=== PATIENT | female | born 1990 | race Caucasian/White ===

== ENCOUNTER 2018-01-26 15:52 | Emergency (ER) | payer SELFPAY ==
--- NOTE | 2018-01-26 16:54 | ER ---
Nurse's Notes [facility] Name: Kia Garibay Age: 28 yrs Sex: Female : 1990 Arrival Date: 01/26/2018 Time: 15:54 Bed 14 Private MD: Allison Gage Diagnosis: Cellulitis of left external ear Presentation: 01/26 16:18 Presenting complaint: Patient states: Worsening left outer ear pain and swelling x 5 hb days. Transition of care: patient was not received from another setting of care. Onset of symptoms is unknown. Initial Sepsis Screen: Does the patient meet any 2 criteria? No. Patient's initial sepsis screen is negative. Does the patient have a suspected source of infection? No. Patient's initial sepsis screen is negative. Care prior to arrival: None. 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 - Social history:: Smoking status: Patient/guardian denies using tobacco. Screenin:29 Abuse screen: Denies threats or abuse. Nutritional screening: No deficits noted. ae1 Tuberculosis screening: No symptoms or risk factors identified. Fall Risk None identified. Assessment: 17:26 General: Appears in no apparent distress. comfortable, Behavior is calm, cooperative. ae1 Pain: Complains of pain in left ear lobe and left mastoid area. Neuro: Level of Consciousness is awake, alert, obeys commands, Oriented to person, place, time, situation. Cardiovascular: Patient's skin is warm and dry. Respiratory: Airway is patent Respiratory effort is even, unlabored, relaxed, Respiratory pattern is regular, symmetrical. GI: No signs and/or symptoms were reported involving the gastrointestinal system. : No signs and/or symptoms were reported regarding the genitourinary system. EENT: Significant swelling and redness to left ear lobe, . Derm: Redness to left ear lobe. Musculoskeletal: Swelling present in left ear. Vital Signs: 16:19 BP 122 / 76; Pulse 75; Resp 16; Temp 98.9; Pulse Ox 100% on R/A; Weight 58.97 kg; hb Height 5 ft. (152.40 cm); Pain 4/10; 16:19 Body Mass Index 25.39 (58.97 kg, 152.40 cm) hb ED Course: 15:54 Patient arrived in ED. mr 15:55 Andrey Gageie is Private Physician. mr 16:07 Wend[facility] Lancaster [facility]C [facility] snw 16:07 Chago Carvalho MD is Attending Physician. snw 16:19 Triage completed. hb 16:20 Arm band placed on left wrist. hb 16:40 Isaiah Patel, JENIFER is Primary Nurse. ae1 16:53 Allison Gage is Referral Physician. snw 17:29 Bed in low position. Call light in reach. Side rails up X 1. Adult w/ patient. Pulse ox ae1 on. NIBP on. 17:29 No provider procedures requiring assistance completed. Patient did not have IV access ae1 during this emergency room visit. Administered Medications: 16:54 CANCELLED (other intervention): Clindamycin 300 mg PO once snw 17:10 Drug: Motrin 600 mg Route: PO; ae1 17:30 Follow up: Response: Medication administered at discharge. ae1 17:10 Drug: Doxycycline 100 mg Route: PO; ae1 17:30 Follow up: Response: Medication administered at discharge. ae1 Outcome: 16:54 Discharge ordered by . snw 17:29 Discharged to home ambulatory, with significant other. ae1 17:29 Condition: stable 17:29 Discharge instructions given to patient, Instructed on discharge instructions, follow up and referral plans. medication usage, Demonstrated understanding of instructions, Prescriptions given X 2. 17:30 Patient left the ED. ae1 Signatures: Wendi Lancaster FNP-C FNP-Shi Marshall CamachoJayna, RN RN hb Isaiah Patel, JENIFER RN ae1 Corrections: (The following items were deleted from the chart) 16:22 16:18 Acuity: OMID 3 hb hb
--- NOTE | 2018-01-26 16:54 | EDPHYS ---
Physician Documentation [facility] Name: Kia Garibay Age: 28 yrs Sex: Female : 1990 Arrival Date: 01/26/2018 Time: 15:54 Bed 14 Private MD: Allison Gage ED Physician Chago Carvalho HPI: 01/26 17:01 This 28 yrs old Female presents to ER via Ambulatory with complaints of Ear snw Pain, Ear swelling. 17:01 The patient presents with swelling, erythema to left earlobe. The complaints affect the snw left ear lobe. Onset: The symptoms/episode began/occurred gradually, 5 day(s) ago, and became persistent. Associated signs and symptoms: The patient has no apparent associated signs or symptoms. Severity of symptoms: At their worst the symptoms were moderate severe. The patient has not experienced similar symptoms in the past. The patient has not recently seen a physician. Hx of acne vulgaris. 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 - Social history:: Smoking status: Patient/guardian denies using tobacco. ROS: 17:00 Constitutional: Negative for fever, chills, and weight loss, Eyes: Negative for injury, snw pain, redness, and discharge, Neck: Negative for injury, pain, and swelling, Cardiovascular: Negative for chest pain, palpitations, and edema, Respiratory: Negative for shortness of breath, cough, wheezing, and pleuritic chest pain, Abdomen/GI: Negative for abdominal pain, nausea, vomiting, diarrhea, and constipation, Back: Negative for injury and pain, : Negative for injury, bleeding, discharge, and swelling, MS/Extremity: Negative for injury and deformity, Skin: Negative for injury, rash, and discoloration, Neuro: Negative for headache, weakness, numbness, tingling, and seizure. 17:00 ENT: Positive for ear pain. Exam: 16:59 Constitutional: This is a well developed, well nourished patient who is awake, alert, snw and in no acute distress. Head/Face: Normocephalic, atraumatic. Eyes: Pupils equal round and reactive to light, extra-ocular motions intact. Lids and lashes normal. Conjunctiva and sclera are non-icteric and not injected. Cornea within normal limits. Periorbital areas with no swelling, redness, or edema. Neck: Trachea midline, no thyromegaly or masses palpated, and no cervical lymphadenopathy. Supple, full range of motion without nuchal rigidity, or vertebral point tenderness. No Meningismus. Chest/axilla: Normal chest wall appearance and motion. Nontender with no deformity. No lesions are appreciated. Cardiovascular: Regular rate and rhythm with a normal S1 and S2. No gallops, murmurs, or rubs. Normal PMI, no JVD. No pulse deficits. Respiratory: Lungs have equal breath sounds bilaterally, clear to auscultation and percussion. No rales, rhonchi or wheezes noted. No increased work of breathing, no retractions or nasal flaring. Abdomen/GI: Soft, non-tender, with normal bowel sounds. No distension or tympany. No guarding or rebound. No evidence of tenderness throughout. Back: No spinal tenderness. No costovertebral tenderness. Full range of motion. Skin: Warm, dry with normal turgor. Normal color with no rashes, no lesions, and no evidence of cellulitis. MS/ Extremity: Pulses equal, no cyanosis. Neurovascular intact. Full, normal range of motion. Neuro: Awake and alert, GCS 15, oriented to person, place, time, and situation. Cranial nerves II-XII grossly intact. Motor strength 5/5 in all extremities. Sensory grossly intact. Cerebellar exam normal. Normal gait. 16:59 ENT: External ear(s): cellulitis, that is moderate, swelling, on the left ear lobe, Ear canal(s): are normal, TM's: are normal, Nose: is normal, Mouth: is normal, Posterior pharynx: is normal, Dental exam: normal. Vital Signs: 16:19 BP 122 / 76; Pulse 75; Resp 16; Temp 98.9; Pulse Ox 100% on R/A; Weight 58.97 kg; hb Height 5 ft. (152.40 cm); Pain 4/10; 16:19 Body Mass Index 25.39 (58.97 kg, 152.40 cm) [facility]: 16:30 Patient medically screened. snw 17:01 Data reviewed: vital signs, nurses notes. Data interpreted: Pulse oximetry: on room air snw is 100 %. Interpretation: normal. Counseling: I had a detailed discussion with the patient and/or guardian regarding: the historical points, exam findings, and any diagnostic results supporting the discharge/admit diagnosis, the need for outpatient follow up, to return to the emergency department if symptoms worsen or persist or if there are any questions or concerns that arise at home. Special discussion: Based on the history and exam findings, there is no indication for further emergent testing or inpatient evaluation. I discussed with the patient/guardian the need to see the primary care provider for further evaluation of the symptoms. Administered Medications: 16:54 CANCELLED (other intervention): Clindamycin 300 mg PO once snw 17:10 Drug: Motrin 600 mg Route: PO; ae1 17:30 Follow up: Response: Medication administered at discharge. ae1 17:10 Drug: Doxycycline 100 mg Route: PO; ae1 17:30 Follow up: Response: Medication administered at discharge. ae1 Disposition: 01/27 12:36 Co-signature as Attending Physician, Chago Carvalho MD. Disposition: 18 16:54 Discharged to Home. Impression: Cellulitis of left external ear. - Condition is Stable. - Discharge Instructions: Cellulitis, Heat Therapy. - Prescriptions for Doxycycline Hyclate 100 mg Oral Tablet - take 1 tablet by ORAL route every 12 hours; 20 tablet. Diclofenac Sodium 75 mg Oral Tablet Sustained Release - take 1 tablet by ORAL route 2 times per day; 30 tablet. - Medication Reconciliation Form, Thank You Letter, Antibiotic Education, Prescription Opioid Use form. - Follow up: Allison Gage; When: 2 - 3 days; Reason: Recheck today's complaints, Continuance of care, Re-evaluation by your physician. Follow up: Emergency Department; When: As needed; Reason: Worsening of condition. Signatures: Wendi Lancaster, SYSTEMS ANALYSIS MANAGER-C SYSTEMS ANALYSIS MANAGER-Csnw Jayna Camacho RN RN Isaiah Patel RN RN ae1 Chago Carvalho MD MD Corrections: (The following items were deleted from the chart) 01/26 16:54 16:53 Clindamycin 300 mg PO once ordered. snw snw
[2018-01-26] MEDS ORDERED: NA CHLORIDE 0.9% 250 ML ONE (17:02)
[2018-01-26] MEDS ORDERED: IBUPROFEN 200 MG TAB PO ONE (17:05)
[2018-01-26] MEDS ORDERED: DOXYCYCLINE 100 MG CAP PO ONE (17:06)
[2018-01-26 17:43] VITALS: BP 122/76; TEMP 98.9; O2SAT 100
== END 2018-01-26 17:30 | disposition home or self-care (01) ==
LOC: ER 15:52
DX: H60.12 Cellulitis of left external ear (principal)
CPT/HCPCS: 99283

== ENCOUNTER 2018-07-19 16:12 | Emergency (ER) | payer SELFPAY ==
--- NOTE | 2018-07-19 17:01 | ER ---
Nurse's Notes [facility] Name: Kia Garibay Age: 28 yrs Sex: Female : 1990 Arrival Date: 07/19/2018 Time: 16:15 Bed 30 Private MD: Diagnosis: Hordeolum (externum) (internum) of eyelid-Right Presentation: 07/19 16:30 Presenting complaint: Patient states: "About a week ago, I got what I believe was a sty aj1 on my bottom eye, and it popped, then 3 days ago the top part started swelling up. When I pull down my inner lid there's a spot that is oozing pus and when I wake up my eyes are stuck shut" Denies fever. Transition of care: patient was not received from another setting of care. Onset of symptoms was June 2018. Risk Assessment: Do you want to hurt yourself or someone else? Patient reports no desire to harm self or others. Initial Sepsis Screen: Does the patient meet any 2 criteria? No. Patient's initial sepsis screen is negative. Does the patient have a suspected source of infection? No. Patient's initial sepsis screen is negative. Care prior to arrival: None. 16:30 Method Of Arrival: Ambulatory aj1 16:30 Acuity: OMID 4 aj1 Triage Assessment: 16:32 General: Appears in no apparent distress. comfortable, Behavior is calm, cooperative, aj1 appropriate for age. Pain: Complains of pain in right eye Pain currently is 7 out of 10 on a pain scale. Neuro: Level of Consciousness is awake, alert, obeys commands. Cardiovascular: Patient's skin is warm and dry. Respiratory: Airway is patent Respiratory effort is even, unlabored, Respiratory pattern is regular, symmetrical. 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 - Social history:: Smoking status: Patient/guardian denies using tobacco. - Ebola Screening: : Patient denies travel to an Ebola-affected area in the 21 days before illness onset. Screenin:43 Abuse screen: Denies threats or abuse. Denies injuries from another. Nutritional rv screening: No deficits noted. Tuberculosis screening: No symptoms or risk factors identified. Fall Risk None identified. Assessment: 16:42 General: Appears in no apparent distress. comfortable, Behavior is calm, cooperative. rv Pain: Complains of pain in right eye. Neuro: Level of Consciousness is awake, alert, obeys commands, Oriented to person, place, time, situation. Cardiovascular: Capillary refill < 3 seconds. Respiratory: Airway is patent. GI: No signs and/or symptoms were reported involving the gastrointestinal system. : No signs and/or symptoms were reported regarding the genitourinary system. EENT: Lid(s) w/ stye noted right eye. Derm: Skin. Vital Signs: 16:32 BP 104 / 76; Pulse 89; Resp 18; Temp 97.2(TE); Pulse Ox 99% on R/A; Weight 58.97 kg aj1 (R); Height 4 ft. 11 in. (149.86 cm) (R); Pain 7/10; 16:32 Body Mass Index 26.26 (58.97 kg, 149.86 cm) aj1 ED Course: 16:15 Patient arrived in ED. tw3 16:32 Triage completed. aj1 16:32 Arm band placed on Patient placed in an exam room. aj1 16:40 Jeremiah Oakley PA is PHCP. cp 16:40 Demetrio Salas MD is Attending Physician. cp 16:44 Patient has correct armband on for positive identification. Bed in low position. Call rv light in reach. Side rails up X 1. Adult w/ patient. Pulse ox on. NIBP on. 16:59 Marimar Aguayo MD is Referral Physician. cp 17:14 No provider procedures requiring assistance completed. Patient did not have IV access rv during this emergency room visit. Administered Medications: No medications were administered Outcome: 17:00 Discharge ordered by . cp 17:14 Discharged to home ambulatory. rv 17:14 Condition: good 17:14 Discharge instructions given to patient, Instructed on discharge instructions, follow up and referral plans. medication usage, Demonstrated understanding of instructions, follow-up care, medications, Prescriptions given X 2. 17:15 Patient left the ED. rv Signatures: Margarita Galloway, RN RN aj1 Jeremiah Oakley PA PA cp Wade, Tia tw3 Sergio Traylor RN RN rv
--- NOTE | 2018-07-19 17:02 | EDPHYS ---
Physician Documentation [facility] Name: Kia Garibay Age: 28 yrs Sex: Female : 1990 Arrival Date: 07/19/2018 Time: 16:15 Bed 30 Private MD: ED Physician Demetrio Salas HPI: 07/19 17:00 This 28 yrs old Female presents to ER via Ambulatory with complaints of Eye cp Swelling. 17:00 The patient is experiencing pain, swelling of lower lid, to the right eye. cp 17:00 Onset: The symptoms/episode began/occurred 1 week(s) ago, and became worse 3 day(s) ago.cp 17:00 Associated signs and symptoms: Pertinent negatives: ear ache, fever, headache, drainage cp from eye, change in vision. 17:00 Patient does not utilize any form of vision correction. 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 - Social history:: Smoking status: Patient/guardian denies using tobacco. - Ebola Screening: : Patient denies travel to an Ebola-affected area in the 21 days before illness onset. ROS: 17:05 Constitutional: Negative for body aches, chills, fever, poor PO intake. cp 17:05 ENT: Negative for injury, pain, and discharge. cp 17:05 Eyes: Positive for swelling, of the right upper eyelid and right lower eyelid, Negative for discharge, redness, visual disturbance. 17:05 Respiratory: Negative for cough, shortness of breath, wheezing. 17:05 Abdomen/GI: Negative for abdominal pain, nausea, vomiting, and diarrhea. 17:05 Skin: Negative for rash. 17:05 Neuro: Negative for altered mental status, headache, weakness. 17:05 All other systems are negative. Exam: 17:08 Constitutional: This is a well developed, well nourished patient who is awake, alert, cp and in no acute distress. Head/Face: Normocephalic, atraumatic. 17:08 Eyes: Pupils: equal, round, and reactive to light and accomodation, Extraocular cp movements: intact throughout, Conjunctiva: normal, no exudate, no injection, Corneas: are normal, Sclera: no appreciated abnormality, Anterior chamber: normal, Lids and lashes: drainage, is not appreciated, erythema, is not appreciated, stye, seen on the right lid. 17:08 ENT: External ear(s): are unremarkable, Ear canal(s): are normal, clear, TM's: dullness, bilaterally, Nose: is normal, Mouth: is normal, Posterior pharynx: is normal, airway is patent, no erythema, no exudate. 17:08 Neck: Lymph nodes: no appreciated lymphadenopathy. 17:08 Chest/axilla: Inspection: normal. 17:08 Cardiovascular: Rate: normal, Rhythm: regular. 17:08 Respiratory: the patient does not display signs of respiratory distress, Respirations: normal. 17:08 Skin: no rash present. Vital Signs: 16:32 BP 104 / 76; Pulse 89; Resp 18; Temp 97.2(TE); Pulse Ox 99% on R/A; Weight 58.97 kg aj1 (R); Height 4 ft. 11 in. (149.86 cm) (R); Pain 7/10; 16:32 Body Mass Index 26.26 (58.97 kg, 149.86 cm) aj1 MDM: 16:40 Patient medically screened. cp 17:00 Differential diagnosis: Foreign body in right eye. Infectious conjunctivitis in right cp eye. 17:00 Data reviewed: vital signs, nurses notes, and as a result, I will discharge patient. cp Counseling: I had a detailed discussion with the patient and/or guardian regarding: the historical points, exam findings, and any diagnostic results supporting the discharge/admit diagnosis, the need for outpatient follow up, an opthalmologist. Administered Medications: No medications were administered Disposition: 07/20 07:15 Co-signature as Attending Physician, Demetrio Salas MD I agree with the assessment and kdr plan of care. Disposition: 07/19/18 17:00 Discharged to Home. Impression: Hordeolum (externum) (internum) of eyelid - Right. - Condition is Stable. - Discharge Instructions: Stye. - Prescriptions for Keflex 500 mg Oral Capsule - take 1 capsule by ORAL route every 8 hours for 10 days; 30 capsule. Bacitracin 500 unit/gram Ophthalmic Ointment - instill 0.5 inch by OPHTHALMIC route every 6 hours; 3.5 tube. - Medication Reconciliation Form, Thank You Letter, Antibiotic Education, Prescription Opioid Use form. - Follow up: Marimar Aguayo MD; When: 1 week; Reason: symptoms continue. - Problem is new. - Symptoms are unchanged. - Notes: apply warm compresses to area throughout day Signatures: Margarita Galloway RN RN aj1 Demetrio Salas MD MD kdr Jeremiah Oakley PA PA cp Sergio Traylor RN RN rv Corrections: (The following items were deleted from the chart) 07/19 17:15 17:00 07/19/2018 17:00 Discharged to Home. Impression: Hordeolum (externum) (internum) rv of eyelid - Right. Condition is Stable. Forms are Medication Reconciliation Form, Thank You Letter, Antibiotic Education, Prescription Opioid Use. Follow up: Marimar Aguayo; When: 1 week; Reason: symptoms continue. Problem is new. Symptoms are unchanged. cp
[2018-07-19 17:32] VITALS: BP 104/76; TEMP 97.2; O2SAT 99
== END 2018-07-19 17:15 | disposition home or self-care (01) ==
LOC: ER 16:12
DX: H00.012 Hordeolum externum right lower eyelid (principal)
CPT/HCPCS: 99283

== ENCOUNTER 2019-06-05 15:48 | Emergency (ER) | payer SELFPAY ==
[2019-06-05 19:41] LABS: Urine Blood TRACE (NEG); Urine Glucose NEGATIVE (NEG); Urine Protein NEGATIVE (NEG); Urine Specific Gravity 1.025 (1.005-1.030)
[2019-06-05] MEDS ORDERED: AZITHROMYCIN 250 MG TAB ONE (20:23)
[2019-06-05] MEDS ORDERED: CEFTRIAXONE 1000 MG/VIAL ONE (20:23)
[2019-06-05] MEDS ORDERED: metroNIDAZOLE 500 MG TABLET ONE (20:23)
[2019-06-05] MEDS ORDERED: WATER FOR INJ,STERILE 10 ML ONE (20:24)
--- NOTE | 2019-06-05 20:52 | EDPHYS ---
Physician Documentation [facility] Name: Kia Garibay Age: 29 yrs Sex: Female : 1990 Arrival Date: 06/05/2019 Time: 15:50 Bed Treatment Private MD: ED Physician Jeremiah Gabriel HPI: 06/05 18:14 This 29 yrs old Female presents to ER via Ambulatory with complaints of jmm Abdominal Pain, Back Pain. 18:14 The patient presents with vaginal discharge, that is green discharge. jmm 18:14 Modifying factors: The symptoms are alleviated by nothing, the symptoms are aggravated jmm by nothing. Associated signs and symptoms: Pertinent positives: Pertinent negatives: fever. This is a 29 year old female with no chronic medical conditions that presents to the ED with complaints of vaginal discharge. Patient states she has concerns she may have contracted an std. Patient has pelvic cramping. Denies fever, denies vomiting. . 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 - Social history:: Smoking status: Patient/guardian denies using tobacco. - Ebola Screening: : Patient denies travel to an Ebola-affected area in the 21 days before illness onset. ROS: 18:14 Constitutional: Negative for fever, chills, and weight loss, Cardiovascular: Negative jmm for chest pain, palpitations, and edema, Respiratory: Negative for shortness of breath, cough, wheezing, and pleuritic chest pain, Abdomen/GI: Negative for abdominal pain, nausea, vomiting, diarrhea, and constipation. 18:14 : Positive for vaginal discharge. 18:14 All other systems are negative. Exam: 18:14 Head/Face: atraumatic. Eyes: EOMI, no conjunctival erythema appreciated ENT: Moist jmm Mucus Membranes Neck: Trachea midline, Supple Chest/axilla: Normal chest wall appearance and motion. Cardiovascular: Regular rate and rhythm. No edema appreciated Respiratory: Normal respirations, no respiratory distress appreciated Abdomen/GI: Non distended, soft 18:14 Skin: General appearance color normal MS/ Extremity: Moves all extremities, no obvious deformities appreciated, no edema noted to the lower extremities Neuro: Awake and alert, normal gait Psych: Behavior is normal, Mood is normal, Patient is cooperative and pleasant 18:14 Constitutional: The patient appears in no acute distress, alert, awake. 18:14 : Pelvic Exam: External exam: is normal, Speculum exam: no bleeding is noted, os that is closed, discharge, green. 18:14 : Pelvic Exam: bimanual exam reveals normal findings. Vital Signs: 16:03 BP 131 / 83; Pulse 64; Resp 16; Temp 98.2; Pulse Ox 99% on R/A; Weight 65.77 kg (R); aj1 Height 4 ft. 11 in. (149.86 cm) (R); Pain 0/10; 20:00 BP 115 / 80; Pulse 84; Resp 18; Pulse Ox 100% on R/A; wh 16:03 Body Mass Index 29.29 (65.77 kg, 149.86 cm) aj1 MDM: 18:14 Patient medically screened. dejah 20:51 Data reviewed: vital signs, nurses notes. Counseling: I had a detailed discussion with [facility] the patient and/or guardian regarding: the historical points, exam findings, and any diagnostic results supporting the discharge/admit diagnosis, lab results, the need for outpatient follow up, to return to the emergency department if symptoms worsen or persist or if there are any questions or concerns that arise at home. 21:24 ED course: No adnexal tenderness. I do not suspect TOA. Patient is alert and non toxic [facility] in appearance in the ED. Patient given results and advised the patient the need for possible further testing. Patient was otherwise given strict return precautions. Patient understood and agrees with the plan of care. . 06/05 18:45 Order name: GC (GONORR/CHLAMYDIA) Probe [facility] 06/05 18:45 Order name: Wet Prep; Complete Time: 20:46 [facility] 06/05 19:14 Order name: Urine Dipstick--Ancillary (enter results); Complete Time: 19:55 [facility] 06/05 19:14 Order name: Urine --Ancillary (enter results); Complete Time: 19:55 [facility] 06/05 16:40 Order name: Urine Test (obtain specimen); Complete Time: 19:13 [facility] 06/05 16:40 Order name: Urine Dipstick-Ancillary (obtain specimen); Complete Time: 19:13 [facility] 06/05 18:45 Order name: Pelvic Exam Setup; Complete Time: 19:43 [facility] Administered Medications: 20:38 Drug: Rocephin (cefTRIAXone) 250 mg Route: IM; Site: right gluteus; 21:11 Follow up: Response: No adverse reaction 20:38 Drug: AZITHromycin 1 grams Route: PO; 21:10 Follow up: Response: No adverse reaction 20:38 Drug: Flagyl 2 grams Route: PO; 21:11 Follow up: Response: No adverse reaction Disposition: 06/05/19 20:52 Discharged to Home. Impression: Trichomoniasis, unspecified. - Condition is Stable. - Discharge Instructions: Sexually Transmitted Disease, Trichomoniasis. - Medication Reconciliation Form, Thank You Letter, Antibiotic Education, Prescription Opioid Use form. - Follow up: Private Physician; When: 2 - 3 days; Reason: Recheck today's complaints, Continuance of care, Re-evaluation by your physician. Addendum: 06/07/2019 08:14 Co-signature as Attending Physician, Jeremiah Gabriel MD I agree with the assessment and c cruz plan of care. Signatures: Dispatcher [employer] Margarita Goode, RN RN aj1 Jeremiah Gabriel MD MD cha Therrien, Shelly, SORTING MACHINE ATTENDANT-C SORTING MACHINE ATTENDANT-Csnw Elvin Herrera PA PA jm Shane Caceres Corrections: (The following items were deleted from the chart) 06/05 21:12 20:52 06/05/2019 20:52 Discharged to Home. Impression: Trichomoniasis, unspecified. Condition is Stable. Forms are Medication Reconciliation Form, Thank You Letter, Antibiotic Education, Prescription Opioid Use. Follow up: Private Physician; When: 2 - 3 days; Reason: Recheck today's complaints, Continuance of care, Re-evaluation by your physician. paulo
--- NOTE | 2019-06-05 20:52 | ER ---
Nurse's Notes [facility] Name: Kia Garibay Age: 29 yrs Sex: Female : 1990 Arrival Date: 06/05/2019 Time: 15:50 Bed Treatment Private MD: Diagnosis: Trichomoniasis, unspecified Presentation: 06/05 16:01 Presenting complaint: Patient states: "I think i have a yeast infection but I also aj1 found out that my has been unfaithful" Reports vaginal itching and greenish white discharge. Denies fever. Transition of care: patient was not received from another setting of care. Onset of symptoms was June 05, 2019. Risk Assessment: Do you want to hurt yourself or someone else? Patient reports no desire to harm self or others. Initial Sepsis Screen: Does the patient meet any 2 criteria? No. Patient's initial sepsis screen is negative. Does the patient have a suspected source of infection? No. Patient's initial sepsis screen is negative. Care prior to arrival: None. 16:01 Method Of Arrival: Ambulatory aj 16:01 Acuity: OMID 4 aj1 Triage Assessment: 16:03 General: Appears in no apparent distress. comfortable, Behavior is calm, cooperative, aj1 appropriate for age. Pain: Denies pain. Neuro: Level of Consciousness is awake, alert, obeys commands. Cardiovascular: Patient's skin is warm and dry. Respiratory: Airway is patent Respiratory effort is even, unlabored, Respiratory pattern is regular, symmetrical. GI: Patient currently denies abdominal pain. : Reports discharge, from vagina that is green, white, vaginal itching. 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 - Social history:: Smoking status: Patient/guardian denies using tobacco. - Ebola Screening: : Patient denies travel to an Ebola-affected area in the 21 days before illness onset. Screenin:00 Abuse screen: Denies threats or abuse. Denies injuries from another. Nutritional wh screening: No deficits noted. Tuberculosis screening: No symptoms or risk factors identified. Fall Risk None identified. Assessment: 19:30 General: Appears in no apparent distress. comfortable, Behavior is calm, cooperative, wh appropriate for age. Pain: Denies pain. Neuro: Level of Consciousness is awake, alert, obeys commands. Cardiovascular: Capillary refill < 3 seconds. Respiratory: Airway is patent Respiratory effort is even, unlabored, Respiratory pattern is regular, symmetrical. GI: Abdomen is flat, non-distended, Bowel sounds present X 4 quads. Abd is soft and non tender X 4 quads. : Reports discharge, from vagina that is. EENT: No signs and/or symptoms were reported regarding the EENT system. Derm: Skin is intact, is healthy with good turgor, Skin is pink, warm \\T\\ dry. normal. Musculoskeletal: Range of motion: intact in all extremities. 20:15 Reassessment: Pelvic Exam done by Elvin LEAL and Yolande OTERO as practical nursing faculty. 21:05 Reassessment: Patient appears in no apparent distress at this time. No changes from previously documented assessment. Patient and/or family updated on plan of care and expected duration. Pain level reassessed. Patient is alert, oriented x 3, equal unlabored respirations, skin warm/dry/pink. Vital Signs: 16:03 BP 131 / 83; Pulse 64; Resp 16; Temp 98.2; Pulse Ox 99% on R/A; Weight 65.77 kg (R); aj1 Height 4 ft. 11 in. (149.86 cm) (R); Pain 0/10; 20:00 BP 115 / 80; Pulse 84; Resp 18; Pulse Ox 100% on R/A; wh 16:03 Body Mass Index 29.29 (65.77 kg, 149.86 cm) aj1 ED Course: 15:50 Patient arrived in ED. as 16:02 Triage completed. aj1 16:03 Arm band placed on Patient placed in waiting room, Patient notified of wait time. [facility] 18:10 Elvin Herrera PA is PHCP. [facility] 18:10 Jeremiah Gabriel MD is Attending Physician. [facility] 18:12 Amita Chong, JENIFER is Primary Nurse. iw 20:00 Patient has correct armband on for positive identification. Placed in gown. Bed in low wh position. Call light in reach. Side rails up X 1. Pulse ox on. NIBP on. 20:15 Assist provider with pelvic exam: Set up pelvic tray. Performed by Elvin LEAL Specimens sent to lab. Patient tolerated well. Yolande EDT as Prekindergarten Teacher. Patient did not have IV access during this emergency room visit. 20:41 Primary Nurse role handed off by Amita Chong RN 20:41 Shane Caceres is Primary Nurse. Administered Medications: 20:38 Drug: Rocephin (cefTRIAXone) 250 mg Route: IM; Site: right gluteus; 21:11 Follow up: Response: No adverse reaction 20:38 Drug: AZITHromycin 1 grams Route: PO; 21:10 Follow up: Response: No adverse reaction 20:38 Drug: Flagyl 2 grams Route: PO; 21:11 Follow up: Response: No adverse reaction Outcome: 20:52 Discharge ordered by MD. bates 21:09 Eloped from patient exam room, Time discovered patient gone: June 05, 2019 at 21:10 21:12 Patient left the ED. Signatures: Margarita Galloway, RN RN aj1 Elvin Herrera PA PA jmm Martinez, Amelia as Amita Chong, JENIFER BURGESS Shane Caceres
[2019-06-05 23:09] VITALS: TEMP 98.2
[2019-06-05 23:13] VITALS: BP 115/80; O2SAT 100
== END 2019-06-05 21:12 | disposition home or self-care (01) ==
LOC: ER 15:48
DX: A59.9 Trichomoniasis, unspecified (principal)
CPT/HCPCS: 81003; 81025; 87210; 87490; 87590; 96372; 99284

== ENCOUNTER 2021-04-14 18:09 | Emergency (ER) | payer SELFPAY ==
[2021-04-14 18:40] LABS: Absolute Lymphocytes (CBC) 3.2 K/uL (0.7-4.9); Basophils % 0.6 % (0-1.3); Hematocrit 37.9 % (36.0-45.0); Lymphocytes % 43.6 % (15.3-44.8); MPV 8.4 fL (7.6-11.3); RBC Red Blood Cell Count 4.27 M/uL (3.86-4.86)
[2021-04-14] MEDS ORDERED: METOCLOPRAMIDE 10 MG/2mL INJ ONE (18:48)
[2021-04-14] MEDS ORDERED: DIPHENHYDRAMINE 50 MG/ML VIAL ONE (18:49)
[2021-04-14] MEDS ORDERED: KETOROLAC 30 MG/ML INJ ONE (18:49)
[2021-04-14] MEDS ORDERED: NA CHLORIDE 0.9% 100 ML ONE (18:50)
[2021-04-14 18:53] LABS: Potassium 3.1 mmol/L (3.5-5.1)
--- NOTE | 2021-04-14 19:09 | RAD REPORT ---
EXAM DESCRIPTION: CT - Head Brain Wo Cont - 04/14/2021 6:54 pm CLINICAL HISTORY: HEADACHE Fall, trauma, head injury COMPARISON: <Comparisons> TECHNIQUE: All CT scans are performed using dose optimization technique as appropriate and may inclu de automated exposure control or mA/KV adjustment according to patient size. FINDINGS: No intracranial hemorrhage, hydrocephalus or extra-axial fluid collection.No areas of brai n edema or evidence of midline shift. The paranasal sinuses and mastoids are clear. The calvarium is intact. IMPRESSION: No acute intracranial abnormality.
[2021-04-14] MEDS ORDERED: NA CHLORIDE 0.9% 1,000 ML ONE (19:18)
--- NOTE | 2021-04-14 19:56 | EDPHYS ---
Physician Documentation [facility] Name: Kia Garibay Age: 31 yrs Sex: Female : 1990 Arrival Date: 04/14/2021 Time: 18:13 Bed 25 Private MD: ED Physician Demetrio Salas HPI: 04/14 18:59 This 31 yrs old Female presents to ER via EMS with complaints of Headache. kb 18:59 The patient complains of pain to the entire head. The patient describes the headache as kb intermittent. Onset: The symptoms/episode began/occurred 2 day(s) ago. Associated signs and symptoms: Pertinent positives: nausea, vomiting, Pertinent negatives: altered mental status, dizziness, fever, malaise, neck stiffness, paresthesias, Photophobia rash, sinus congestion, sinus tenderness, vision changes, vision loss, weakness, vertigo. Severity of symptoms: At its worst the pain was moderate, in the emergency department the pain is unchanged. Headache History: The patient has had previous headaches. The symptoms are alleviated by nothing. the symptoms are aggravated by nothing. The patient has not experienced similar symptoms in the past. The patient has not recently seen a physician. Pt reports intermittent headache for 2 days. States it lasts 1-2 hours each time. Reports pain moves around head depending on her position.. 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 - Social history:: Smoking status: Patient reports the use of cigarette tobacco products, smokes one-half pack cigarettes per day. ROS: 18:52 Constitutional: Negative for fever, chills, and weight loss. kb 18:52 Abdomen/GI: Positive for nausea and vomiting, Negative for abdominal pain. 18:52 Neuro: Positive for headache, Negative for altered mental status, dizziness, gait disturbance, hearing loss, loss of consciousness, numbness, seizure activity, speech changes, syncope, near syncope, tingling, tinnitus, tremor, visual changes, weakness. 18:52 All other systems are negative. Exam: 18:53 Constitutional: This is a well developed, well nourished patient who is awake, alert, kb and in no acute distress. Head/Face: Normocephalic, atraumatic. Eyes: Pupils equal round and reactive to light, extra-ocular motions intact. Lids and lashes normal. Conjunctiva and sclera are non-icteric and not injected. Cornea within normal limits. Periorbital areas with no swelling, redness, or edema. ENT: Moist Mucous membranes Neck: Trachea midline, no thyromegaly or masses palpated, and no cervical lymphadenopathy. Supple, full range of motion without nuchal rigidity, or vertebral point tenderness. No Meningismus. Respiratory: Respirations even and unlabored. No increased work of breathing, no retractions or nasal flaring. Abdomen/GI: Soft, non-tender. No distention Skin: Warm, dry with normal turgor. Normal color. MS/ Extremity: Pulses equal, no cyanosis. Neurovascular intact. Full, normal range of motion. Neuro: Awake and alert, GCS 15, oriented to person, place, time, and situation. Moves all extremities. Normal gait. Psych: Awake, alert, with orientation to person, place and time. Behavior, mood, and affect are within normal limits. Vital Signs: 18:14 BP 151 / 96; Pulse 74; Resp 20; Temp 97.8; Pulse Ox 100% on R/A; dh4 Florence Coma Score: 18:53 Eye Response: spontaneous(4). Verbal Response: oriented(5). Motor Response: obeys kb commands(6). Total: 15. MDM: 18:18 Patient medically screened. kb 18:53 Data reviewed: vital signs, nurses notes. Data interpreted: Pulse oximetry: on room air kb is 100 %. Interpretation: normal. 19:54 Counseling: I had a detailed discussion with the patient and/or guardian regarding: the kb historical points, exam findings, and any diagnostic results supporting the discharge/admit diagnosis, lab results, radiology results, the need for outpatient follow up, a neurologist, to return to the emergency department if symptoms worsen or persist or if there are any questions or concerns that arise at home. Response to treatment: the patient's symptoms have resolved after treatment. ED course: Pt reports each time the headache returned was right before engaging in intercourse. . 04/14 18:18 Order name: CBC with Diff; Complete Time: 18:48 kb 04/14 18:18 Order name: Basic Metabolic Panel; Complete Time: 18:53 kb 04/14 18:18 Order name: CT Head Brain wo Cont; Complete Time: 19:10 kb 04/14 18:18 Order name: IV Start; Complete Time: 18:29 kb Administered Medications: 18:30 Drug: Ketorolac 30 mg Route: IVP; Site: left antecubital; ca1 19:00 Follow up: Response: No adverse reaction jb4 18:32 Drug: Benadryl (diphenhydrAMINE) 12.5 mg Route: IVP; Site: left antecubital; ca1 19:00 Follow up: Response: No adverse reaction jb4 18:34 Drug: Reglan (metoCLOPramide) 10 mg Route: IVP; Site: left antecubital; ca1 20:26 Follow up: Response: No adverse reaction jb4 18:59 Drug: NS 0.9% 1000 ml Route: IV; Rate: 1000 ml; Site: left antecubital; ca1 20:00 Follow up: Response: No adverse reaction; IV Status: Completed infusion; IV Intake: jb4 1000ml 20:03 Drug: Potassium Chloride 40 mEq Route: PO; jb4 20:23 Follow up: Response: Medication administered at discharge. jb4 20:03 Drug: [place] (HYDROcodone-acetaminophen) (7.5 mg-325 mg) 1 tabs Route: PO; jb4 20:20 Follow up: Response: Medication administered at discharge. jb4 Disposition Summary: 04/14/21 19:55 Discharge Ordered Location: Home kb Condition: Stable kb Diagnosis - Headache kb Followup: kb - With: Emergency Department - When: As needed - Reason: Worsening of condition Followup: kb - With: Private Physician - When: 2 - 3 days - Reason: Recheck today's complaints, Continuance of care, Re-evaluation by your physician Discharge Instructions: - Discharge Summary Sheet kb - General Headache Without Cause, [id number] kb Forms: - Medication Reconciliation Form kb - Thank You Letter kb - Antibiotic Education kb - Prescription Opioid Use kb Addendum: 04/16/2021 07:24 Co-signature as Attending Physician, Demetrio Salas MD I agree with the assessment and k dr plan of care. Signatures: Dispatcher [employer] EDMS Maegan Sevilla, SHOP FITTER-C SHOP FITTER-Ckb Rittger, DemetrioMD MD rick Irene, RN RN iw Marvin Carreon, RN RN jb4 Matilde Black, RN RN ca1
--- NOTE | 2021-04-14 19:56 | ER ---
Nurse's Notes [facility] Name: Kia Garibay Age: 31 yrs Sex: Female : 1990 Arrival Date: 04/14/2021 Time: 18:13 Bed 25 Private MD: Diagnosis: Headache Presentation: 04/14 18:15 Chief complaint: EMS states: fell a week ago, has had headache since then, worse now. iw Coronavirus screen: headache. Ebola Screen: Patient negative for fever greater than or equal to 101.5 degrees Fahrenheit, and additional compatible Ebola Virus Disease symptoms Patient denies exposure to infectious person. Patient denies travel to an Ebola-affected area in the 21 days before illness onset. No symptoms or risks identified at this time. Initial Sepsis Screen: Does the patient meet any 2 criteria? No. Patient's initial sepsis screen is negative. Does the patient have a suspected source of infection? No. Patient's initial sepsis screen is negative. Risk Assessment: Do you want to hurt yourself or someone else? Patient reports no desire to harm self or others. Onset of symptoms was April 07, 2021. 18:15 Method Of Arrival: EMS: [facility] iw 18:15 Acuity: OMID 3 iw Triage Assessment: 18:24 Headache History: The patient has had previous headaches and this one is more severe ca1 than previous episodes. General: Appears in no apparent distress. uncomfortable, Behavior is restless. Pain: Also complains of nausea. Pain: Complains of pain in face and scalp Pain currently is 10 out of 10 on a pain scale. Quality of pain is described as throbbing, Pain began 1 day ago. 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 - Social history:: Smoking status: Patient reports the use of cigarette tobacco products, smokes one-half pack cigarettes per day. Screenin:22 Abuse screen: Denies threats or abuse. Denies injuries from another. Nutritional ca1 screening: No deficits noted. Tuberculosis screening: No symptoms or risk factors identified. Fall Risk IV access (20 points). Assessment: 18:22 General: Appears in no apparent distress. uncomfortable, Behavior is restless. Pain: ca1 Complains of pain in head Pain currently is 10 out of 10 on a pain scale. Quality of pain is described as throbbing, Pain began 1 day ago. Neuro: Level of Consciousness is awake, alert, obeys commands, Oriented to person, place, time, situation. Derm: Skin is intact, is healthy with good turgor, Skin is pink, warm \T\ dry. Musculoskeletal: Circulation, motion, and sensation intact. Capillary refill < 3 seconds. 19:00 Reassessment: Patient appears in no apparent distress at this time. Patient and/or jb4 family updated on plan of care and expected duration. Pain level reassessed. Patient is alert, oriented x 3, equal unlabored respirations, skin warm/dry/pink. 20:19 Reassessment: Patient appears in no apparent distress at this time. Patient and/or jb4 family updated on plan of care and expected duration. Pain level reassessed. Patient is alert, oriented x 3, equal unlabored respirations, skin warm/dry/pink. Vital Signs: 18:14 BP 151 / 96; Pulse 74; Resp 20; Temp 97.8; Pulse Ox 100% on R/A; dh4 Rommel Coma Score: 18:53 Eye Response: spontaneous(4). Verbal Response: oriented(5). Motor Response: obeys kb commands(6). Total: 15. ED Course: 18:13 Patient arrived in ED. iw 18:16 Triage completed. iw 18:17 Maegan Sevilla FNP-C is [facility]. kb 18:17 Demetrio Salas MD is Attending Physician. kb 18:22 Matilde Black, JENIFER is Primary Nurse. ca1 18:22 Arm band placed on right wrist. ca1 18:22 Patient has correct armband on for positive identification. Bed in low position. Call ca1 light in reach. Side rails up X2. Pulse ox on. NIBP on. Door closed. Noise minimized. Lights dimmed. 18:28 Inserted saline lock: 20 gauge in left antecubital area, using aseptic technique. Blood dh4 collected. 18:53 CT Head Brain wo Cont In Process Unspecified. EDMS 20:19 No provider procedures requiring assistance completed. IV discontinued, intact, jb4 bleeding controlled, No redness/swelling at site. Administered Medications: 18:30 Drug: Ketorolac 30 mg Route: IVP; Site: left antecubital; ca1 19:00 Follow up: Response: No adverse reaction jb4 18:32 Drug: Benadryl (diphenhydrAMINE) 12.5 mg Route: IVP; Site: left antecubital; ca1 19:00 Follow up: Response: No adverse reaction jb4 18:34 Drug: Reglan (metoCLOPramide) 10 mg Route: IVP; Site: left antecubital; ca1 20:26 Follow up: Response: No adverse reaction jb4 18:59 Drug: NS 0.9% 1000 ml Route: IV; Rate: 1000 ml; Site: left antecubital; ca1 20:00 Follow up: Response: No adverse reaction; IV Status: Completed infusion; IV Intake: jb4 1000ml 20:03 Drug: Potassium Chloride 40 mEq Route: PO; jb4 20:23 Follow up: Response: Medication administered at discharge. jb4 20:03 Drug: [place] (HYDROcodone-acetaminophen) (7.5 mg-325 mg) 1 tabs Route: PO; jb4 20:20 Follow up: Response: Medication administered at discharge. jb4 Intake: 20:00 IV: 1000ml; Total: 1000ml. jb4 Outcome: 19:55 Discharge ordered by . kb 20:19 Discharged to home ambulatory. jb4 20:19 Condition: stable 20:19 Discharge instructions given to patient, Instructed on discharge instructions, follow up and referral plans. Demonstrated understanding of instructions, follow-up care. 20:26 Patient left the ED. jb4 Signatures: Dispatcher [employer] EDMaegan Vitale, MUD JACK OPERATOR-C MUD JACK OPERATOR-CkAmita Levin, Marvin Vanessa RN, RN RN jb4 Matilde Black RN RN ca1 Huhn, Donald [facility]
[2021-04-14] MEDS ORDERED: HYDROCODONE/APAP 7.5/325 MG TAB ONE (20:22)
[2021-04-14] MEDS ORDERED: POTASSIUM CL SA 10 MEQ TAB PO ONE (20:22)
[2021-04-14 20:37] VITALS: BP 151/96; TEMP 97.8; O2SAT 100
== END 2021-04-14 20:26 | disposition home or self-care (01) ==
LOC: ER 18:09
DX: R51.9 Headache, unspecified (principal); F17.210 Nicotine dependence, cigarettes, uncomplicated
CPT/HCPCS: 36415; 70450; 80048; 85025; 96361; 96374; 96375; 99284; J1200; J2765; J7030

== ENCOUNTER 2021-04-18 06:38 | Emergency (ER) | payer SELFPAY ==
[2021-04-18] MEDS ORDERED: ONDANSETRON 4 MG/2 ML VIAL ONE ×2 (07:32→10:27)
[2021-04-18] MEDS ORDERED: MORPHINE 4 MG/ML SYR ONE (07:32)
[2021-04-18] MEDS ORDERED: NA CHLORIDE 0.9% 1,000 ML ONE (07:32)
[2021-04-18] MEDS ORDERED: DIPHENHYDRAMINE 50 MG/ML VIAL ONE (07:35)
[2021-04-18] MEDS ORDERED: METOCLOPRAMIDE 10 MG/2mL INJ ONE (07:35)
[2021-04-18] MEDS ORDERED: KETOROLAC 30 MG/ML INJ ONE (07:35)
[2021-04-18] MEDS ORDERED: dexAMETHasone 10 MG/ML VIAL ONE (08:30)
--- NOTE | 2021-04-18 08:35 | RAD REPORT ---
EXAM DESCRIPTION: CT - Head Brain Wo Cont - 04/18/2021 8:11 am CLINICAL HISTORY: HEADACHE Headache, drowsiness COMPARISON: Head Brain Wo Cont dated 04/14/2021; HEAD BRAIN W O CONTRAST dated 06/24/2014 TECHNIQUE: All CT scans are performed using dose optimization technique as appropriate and may inclu de automated exposure control or mA/KV adjustment according to patient size. FINDINGS: No intracranial hemorrhage, hydrocephalus or extra-axial fluid collection.No areas of brai n edema or evidence of midline shift. The paranasal sinuses and mastoids are clear. The calvarium is intact. IMPRESSION: No acute intracranial abnormality.
[2021-04-18 08:37] LABS: Urine Blood Trace-intact (Negative); Urine Glucose Negative (Negative); Urine Protein Negative (Negative)
[2021-04-18] MEDS ORDERED: ACETAMINOPHEN 500 MG TAB ONE (08:51)
[2021-04-18] MEDS ORDERED: CEFTRIAXONE/SWI 1gm 1 GM/10 ML SYR ONE (09:36)
[2021-04-18 09:55] LABS: Barbiturates NEGATIVE (NEGATIVE); Benzodiazepines NEGATIVE (NEGATIVE); Cocaine NEGATIVE (NEGATIVE); METHAMPHETAM NEGATIVE (NEGATIVE); Methadone NEGATIVE (NEGATIVE); Opiates NEGATIVE (NEGATIVE); Phencyclidine NEGATIVE (NEGATIVE); THC Cannibis POSITIVE (NEGATIVE)
[2021-04-18] MEDS ORDERED: DIAZEPAM 10 MG/2 ML INJ SYRINGE ONE (10:27)
--- NOTE | 2021-04-18 11:46 | EDPHYS ---
Physician Documentation [facility] Name: Kia Garibay Age: 31 yrs Sex: Female : 1990 Arrival Date: 04/18/2021 Time: 06:40 Bed 14 Private MD: ED Physician Jeremiah Gabriel HPI: 04/18 07:10 This 31 yrs old Female presents to ER via Ambulatory with complaints of pm1 Headache. 07:10 The patient complains of pain to the top of head, forehead, left side of the back of pm1 head, left occipital area, right side of the back of head and right occipital area. The patient describes the headache as aching, constant, throbbing. Onset: The symptoms/episode began/occurred 6 day(s) ago. Associated signs and symptoms: Pertinent positives: nausea, Pertinent negatives: fever. 07:10 Associated signs and symptoms: Pertinent negatives: neck stiffness, vision changes, pm1 vertigo vomiting, diarrhea. Severity of symptoms: in the emergency department the pain is unchanged. Headache History: Other longer in duration. The symptoms are alleviated by Darkened room. The patient has been recently seen at the [facility] Emergency Department, this week, for similar complaints labs were performed, CT scan was performed, 4 days ago. 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 - Social history:: Smoking status: Patient reports the use of cigarette tobacco products, smokes one-half pack cigarettes per day. ROS: 07:10 Constitutional: Negative for fever, chills, and weight loss, Eyes: Negative for injury, pm1 pain, redness, and discharge, ENT: Negative for injury, pain, and discharge, Neck: Negative for injury, pain, and swelling, Cardiovascular: Negative for chest pain, palpitations, and edema, Respiratory: Negative for shortness of breath, cough, wheezing, and pleuritic chest pain, Abdomen/GI: Negative for abdominal pain, nausea, vomiting, diarrhea, and constipation. 07:10 MS/Extremity: Negative for injury and deformity, Skin: Negative for injury, rash, and discoloration. 07:10 : Positive for burning with urination, Negative for flank pain. 07:10 Neuro: Positive for headache, of the top of head, forehead, left side of the back of head, left occipital area, right side of the back of head and right occipital area, Negative for numbness, tingling, weakness. Exam: 07:10 Constitutional: This is a well developed, well nourished patient who is awake, alert, pm1 and in no acute distress. 07:10 Neck: Trachea midline, no thyromegaly or masses palpated, and no cervical lymphadenopathy. Supple, full range of motion without nuchal rigidity, or vertebral point tenderness. No Meningismus. 07:10 Back: No spinal tenderness. No costovertebral tenderness. Full range of motion. Skin: Warm, dry with normal turgor. Normal color with no rashes, no lesions, and no evidence of cellulitis. MS/ Extremity: Pulses equal, no cyanosis. Neurovascular intact. Full, normal range of motion. 07:10 Head/face: Noted is no obvious of injury or deformity except tenderness, that is moderate, of the forehead, left occipital area and right occipital area. 07:10 Eyes: Exam is negative for acute changes, Extraocular movements: intact throughout, Conjunctiva: no acute changes, no injection, Sclera: no acute changes, icterus, is not appreciated. 07:10 ENT: External ear(s): are unremarkable, Ear canal(s): are normal, TM's: are normal, Mouth: Lips: normal, Oral mucosa: normal, pink and intact, moist. 07:10 Cardiovascular: Rate: normal, Rhythm: regular, Pulses: no pulse deficits are appreciated. 07:10 Respiratory: Exam negative for acute changes, respiratory distress, shortness of breath. 07:10 Abdomen/GI: Inspection: abdomen appears normal, Bowel sounds: normal, Palpation: abdomen is soft and non-tender, in all quadrants. 07:10 Neuro: Orientation: is normal, Mentation: is normal, Motor: is normal, moves all fours. 07:10 Psych: Behavior/mood is anxious, Affect is animated, Oriented to person, place, time. Vital Signs: 06:57 BP 160 / 90; Pulse 71; Resp 20 S; Temp 97.6(A); Pulse Ox 100% on R/A; Weight 63.5 kg bb (R); Pain 10/10; 11:03 BP 122 / 79; Pulse 71; Resp 18; Pulse Ox 99% on R/A; tw2 12:06 BP 133 / 76; Pulse 77; Resp 17; Pulse Ox 99% on R/A; tw2 MDM: 06:54 Patient medically screened. dejah 10:00 Data reviewed: vital signs. Data interpreted: Pulse oximetry: on room air is 100 %. pm1 Interpretation: normal. 11:44 Counseling: I had a detailed discussion with the patient and/or guardian regarding: the pm1 historical points, exam findings, and any diagnostic results supporting the discharge/admit diagnosis, lab results, radiology results, the need for outpatient follow up, to return to the emergency department if symptoms worsen or persist or if there are any questions or concerns that arise at home. 11:44 ED course: Patient reports decreased pain with palpation of scalp after administration pm1 of Valium. Will discharge home with valium. 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 pm1 04/18 07:10 Order name: UDS pm1 04/18 07:10 Order name: Urine Drug Screen; Complete Time: 09:58 EDMS 04/18 06:58 Order name: CT Head Brain wo Cont; Complete Time: 08:36 pm1 04/18 08:36 Order name: Urine Microscopic Only pm1 04/18 08:37 Order name: Urine Dipstick-Ancillary; Complete Time: 08:40 EDMS 04/18 06:58 Order name: IV Saline Lock; Complete Time: 07:26 pm1 04/18 06:58 Order name: Urine Dipstick-Ancillary (obtain specimen); Complete Time: 08:45 pm1 04/18 06:58 Order name: Urine Test (obtain specimen); Complete Time: 08:45 pm1 Administered Medications: 07:20 Drug: Benadryl (diphenhydrAMINE) 25 mg Route: IVP; Site: left antecubital; tw2 08:17 Follow up: Response: No adverse reaction 2 07:22 Drug: Reglan (metoCLOPramide) 10 mg Route: IVP; Site: left antecubital; tw2 08:15 Follow up: Response: No adverse reaction tw2 08:16 Follow up: Response: No adverse reaction tw2 07:24 Drug: Ketorolac 30 mg Route: IVP; Site: left antecubital; tw2 08:16 Follow up: Response: No adverse reaction tw2 07:26 Drug: NS 0.9% 1000 ml Route: IV; Rate: 1000 ml; Site: left antecubital; tw2 10:12 Follow up: Response: No adverse reaction; IV Status: Completed infusion; IV Intake: tw2 1000ml 08:14 Drug: Decadron - Dexamethasone 10 mg Route: IVP; Site: left antecubital; tw2 10:03 Follow up: Response: No adverse reaction tw2 08:40 Drug: Tylenol 1000 mg Route: PO; tw2 10:03 Follow up: Response: No adverse reaction; Pain is unchanged, physician notified tw2 10:05 Drug: Zofran (Ondansetron) 4 mg Route: IVP; Site: left antecubital; tw2 11:52 Follow up: Response: No adverse reaction tw2 10:11 Drug: Rocephin (cefTRIAXone) 1 grams Route: IV; Rate: calculated rate; Site: left tw2 antecubital; 10:14 Follow up: Response: No adverse reaction; IV Status: Completed infusion; IV Intake: [id number] 10:11 Drug: Valium (diazepam) 5 mg Route: IVP; Site: left antecubital; tw2 11:52 Follow up: Response: No adverse reaction; Pain is decreased tw2 Disposition: 04/19 07:10 Co-signature as Attending Physician, Jeremiah Gabriel MD I agree with the assessment and dejah plan of care. Disposition Summary: 04/18/21 11:45 Discharge Ordered Location: Home pm1 Problem: new pm1 Symptoms: have improved pm1 Condition: Stable pm1 Diagnosis - Headache pm1 - UTI/ Urinary tract infection, site not specified pm1 Followup: pm1 - With: Emergency Department - When: As needed - Reason: Worsening of condition Followup: pm1 - With: Private Physician - When: 2 - 3 days - Reason: Recheck today's complaints, Continuance of care, Re-evaluation by your physician Discharge Instructions: - Discharge Summary Sheet pm1 - General Headache Without Cause pm1 - Urinary Tract Infection, Adult pm1 Forms: - Medication Reconciliation Form pm1 - Thank You Letter pm1 - Antibiotic Education pm1 - Prescription Opioid Use pm1 Prescriptions: - Valium 2 mg Oral Tablet - take 1 tablet by ORAL route every 8 hours As needed; 12 tablet; Refills: 0, pm1 Product Selection Permitted - Zofran 4 mg Oral Tablet - take 1 tablet by ORAL route every 8 hours As needed; 20 tablet; Refills: 0, pm1 Product Selection Permitted - Bactrim DS 800-160 mg Oral Tablet - take 1 tablet by ORAL route every 12 hours for 10 days; 20 tablet; Refills: 0, pm1 Product Selection Permitted Signatures: Dispatcher [employer] Jeremiah Babb MD MD cha Ballard, Brenda, RN RN bb Elfego Yeh, KAT WEBBING INSPECTOR pm1 Frieda Vallejo RN RN tw2
--- NOTE | 2021-04-18 11:46 | ER ---
Nurse's Notes [facility] Name: Kia Garibay Age: 31 yrs Sex: Female : 1990 Arrival Date: 04/18/2021 Time: 06:40 Bed 14 Private MD: Diagnosis: Headache;UTI/ Urinary tract infection, site not specified Presentation: 04/18 06:57 Chief complaint: Patient states: she has been seen here in the last few days for bb similar symptoms of headache, "hands locking up", nausea, falling. Coronavirus screen: At this time, the client does not indicate any symptoms associated with coronavirus-19. Ebola Screen: No symptoms or risks identified at this time. Initial Sepsis Screen: Does the patient meet any 2 criteria? No. Patient's initial sepsis screen is negative. Does the patient have a suspected source of infection? No. Patient's initial sepsis screen is negative. Risk Assessment: Do you want to hurt yourself or someone else? Patient reports no desire to harm self or others. Onset of symptoms was March 2021. 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 - Social history:: Smoking status: Patient reports the use of cigarette tobacco products, smokes one-half pack cigarettes per day. Screenin:28 Abuse screen: Denies threats or abuse. Nutritional screening: No deficits noted. tw2 Tuberculosis screening: No symptoms or risk factors identified. Fall Risk None identified. Assessment: 07:30 General: Appears uncomfortable, unkempt, Behavior is anxious, fussy. Pain: Complains of tw2 pain in face and scalp. Neuro: Level of Consciousness is awake, alert, obeys commands, Oriented to person, place, time, situation, Reports headache. Cardiovascular: Patient's skin is warm and dry. Respiratory: Airway is patent Respiratory effort is even, unlabored, Respiratory pattern is regular, symmetrical. GI: No signs and/or symptoms were reported involving the gastrointestinal system. : No signs and/or symptoms were reported regarding the genitourinary system. EENT: No signs and/or symptoms were reported regarding the EENT system. Derm: No signs and/or symptoms reported regarding the dermatologic system. Musculoskeletal: Range of motion: intact in all extremities. 08:11 Reassessment: pt back from CT at this time. medicated as directed. 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 09:30 Reassessment: No changes from previously documented assessment. Patient and/or family tw2 updated on plan of care and expected duration. Pain level reassessed. Patient is alert, oriented x 3, equal unlabored respirations, skin warm/dry/pink. 10:30 Reassessment: No changes from previously documented assessment. Patient and/or family tw2 updated on plan of care and expected duration. Pain level reassessed. Patient is alert, oriented x 3, equal unlabored respirations, skin warm/dry/pink. 12:06 Reassessment: Patient states feeling better. Patient states symptoms have improved. tw2 Vital Signs: 06:57 BP 160 / 90; Pulse 71; Resp 20 S; Temp 97.6(A); Pulse Ox 100% on R/A; Weight 63.5 kg bb (R); Pain 10/10; 11:03 BP 122 / 79; Pulse 71; Resp 18; Pulse Ox 99% on R/A; tw2 12:06 BP 133 / 76; Pulse 77; Resp 17; Pulse Ox 99% on R/A; tw2 ED Course: 06:40 Patient arrived in ED. es 06:50 Elfego Yeh NP is PHCP. pm1 06:50 Jeremiah Gabriel MD is Attending Physician. pm1 06:59 Triage completed. bb 06:59 Arm band placed on. bb 07:00 Bed in low position. Call light in reach. Pulse ox on. NIBP on. tw2 07:05 Frieda Vallejo, JENIFER is Primary Nurse. tw2 07:20 Inserted saline lock: 20 gauge in left antecubital area, using aseptic technique. tw2 08:11 CT Head Brain wo Cont In Process Unspecified. EDMS 11:55 Awaiting: printing of RX from provider at this time PRIOR to discharge. tw2 12:06 No provider procedures requiring assistance completed. IV discontinued, intact, tw2 bleeding controlled, No redness/swelling at site. Pressure dressing applied. Administered Medications: 07:20 Drug: Benadryl (diphenhydrAMINE) 25 mg Route: IVP; Site: left antecubital; tw2 08:17 Follow up: Response: No adverse reaction tw2 07:22 Drug: Reglan (metoCLOPramide) 10 mg Route: IVP; Site: left antecubital; tw2 08:15 Follow up: Response: No adverse reaction tw2 08:16 Follow up: Response: No adverse reaction tw2 07:24 Drug: Ketorolac 30 mg Route: IVP; Site: left antecubital; tw2 08:16 Follow up: Response: No adverse reaction tw2 07:26 Drug: NS 0.9% 1000 ml Route: IV; Rate: 1000 ml; Site: left antecubital; tw2 10:12 Follow up: Response: No adverse reaction; IV Status: Completed infusion; IV Intake: tw2 1000ml 08:14 Drug: Decadron - Dexamethasone 10 mg Route: IVP; Site: left antecubital; tw2 10:03 Follow up: Response: No adverse reaction tw2 08:40 Drug: Tylenol 1000 mg Route: PO; tw2 10:03 Follow up: Response: No adverse reaction; Pain is unchanged, physician notified tw2 10:05 Drug: Zofran (Ondansetron) 4 mg Route: IVP; Site: left antecubital; tw2 11:52 Follow up: Response: No adverse reaction tw2 10:11 Drug: Rocephin (cefTRIAXone) 1 grams Route: IV; Rate: calculated rate; Site: left tw2 antecubital; 10:14 Follow up: Response: No adverse reaction; IV Status: Completed infusion; IV Intake: [id number] 10:11 Drug: Valium (diazepam) 5 mg Route: IVP; Site: left antecubital; tw2 11:52 Follow up: Response: No adverse reaction; Pain is decreased tw2 Intake: 10:12 IV: 1000ml; Total: 1000ml. tw2 10:14 IV: 10ml; Total: 1010ml. tw2 Outcome: 11:45 Discharge ordered by . pm1 12:06 Discharged to home via wheelchair, with friend. tw2 12:06 Condition: stable 12:06 Discharge instructions given to patient, friend, Instructed on discharge instructions, follow up and referral plans. no drinking with medication, no driving heavy equipment, medication usage, Demonstrated understanding of instructions, follow-up care, medications, Prescriptions given X 3. 12:07 Patient left the ED. tw2 Signatures: Dispatcher [employer] Mary Bhatt Brenda, RN RN bb Marinas, Patrick, NP ENVIRONMENTAL GEOLOGIST pm1 Frieda Vallejo RN RN tw2
[2021-04-18 12:18] VITALS: TEMP 97.6
[2021-04-18 12:20] VITALS: O2SAT 99
[2021-04-18 12:21] VITALS: BP 133/76
== END 2021-04-18 12:07 | disposition home or self-care (01) ==
LOC: ER 06:38
DX: N39.0 Urinary tract infection, site not specified (principal); F17.210 Nicotine dependence, cigarettes, uncomplicated
CPT/HCPCS: 70450; 80307; 81003; 96361; 96374; 96375; 99284; J0696; J1100; J1200; J2405; J2765; J3360; J7030

== ENCOUNTER 2021-10-06 14:03 | Emergency (ER) | payer SELFPAY ==
--- OUTSIDE RECORDS SUMMARY | 2021-10-06 14:06 | XMS REPORT | Continuity of Care Document ---
:1990 Author Organization [facility] t Address [address] [place] [address] Care Team Providers Name Role Phone Pcp, Does Not Have A Primary Care Physician Joe PEDROZA Attending Clinician JOE Attending Clinician Unavailable Jess BOTTOM BUFFER, G Attending Clinician Doctor Unassigned, Name Attending Clinician Unavailable Payers Payer Name Policy Type Policy Number Effective Date Expiration Date S [place] [employer] [place] [id number] 2021 00:00:00 WOMEN Problems Condition Condition Condition Status Onset Resolution Last Treating Co mments Source Name Details Category Date Date Treatment Clinician Date No known No known Disease Unive rs active active ity of problems problems [facility] Allergies, Adverse Reactions, Alerts Allergy Allergy Status Severity Reaction(s) Onset Inactive Treating Comm ents Source Name Type Date Date Clinician NO KNOWN Drug Active Univers ALLERGIE Class ity of S [facility] Social History Social Habit Start Date Stop Date Quantity Comments Source Exposure to Not sure [facility] SARS-CoV-2 (event) Medica l Branch Sex Assigned At [birth year] [facility] 00:00:00 00:00:00 [facility] Smoking Status Start Date Stop Date Source Unknown if ever smoked [facility] Medications Ordered Filled Start Stop Current Ordering Indication Dosage Frequency Signature Comments Components Source Medication Medication Date Date Medication? Clinician (SIG) Name Name cephALEXin 2020- No [id number] 250mg Take 1 Univers 250 mg 9-20 - capsule by ity of capsule 00:00: 04:59 mouth [place] 00 :00 every 8 Medical (eight) Branch hours for 10 days. cephALEXin 2020- No [id number] 250mg Take 1 Univers 250 mg 9-20 10- capsule by ity of capsule 00:00: 04:59 mouth [place] 00 :00 every 8 Medical (eight) Branch hours for 10 days. cephALEXin 2020- No [id number] 250mg Take 1 Univers 250 mg 9-20 10- capsule by ity of capsule 00:00: 04:59 mouth [place] 00 :00 every 8 Medical (eight) Branch hours for 10 days. Vital Signs Vital Name Observation Time Observation Value Comments Source Systolic blood 2021-06-26 16:20:00 131 mm[Hg] [facility]iver [facility] of [facility] Diastolic blood 2021-06-26 16:20:00 88 mm[Hg] Unive [facility] Heart rate 2021-06-26 16:20:00 72 /min [facility] Respiratory rate 2021-06-26 16:20:00 20 /min [facility] Oxygen saturation in 2021-06-26 16:20:00 98 /min [facility] Arterial blood by [facility] Pulse oximetry Branch Body temperature 2021-06-26 13:57:00 37.11 [facility] Body weight 2021-06-26 13:57:00 70.308 kg [facility] BMI 2021-06-26 13:57:00 32.40 kg/m2 [facility] Heart rate 2021-06-20 04:00:00 93 /min [facility] Oxygen saturation in 2021-06-20 03:30:00 99 /min [facility] Arterial blood by [facility] Pulse oximetry Branch Systolic blood 2021-06-20 03:00:00 106 mm[Hg] Univer [facility] of [facility] Diastolic blood 2021-06-20 03:00:00 72 mm[Hg] Unive [facility] Body temperature 2021-06-20 00:58:00 36.78 Sulma [facility] Respiratory rate 2021-06-20 00:58:00 19 /min [facility] Body height 2021-06-20 00:58:00 147.3 cm [facility] Body weight 2021-06-20 00:58:00 70.308 kg [facility] BMI 2021-06-20 00:58:00 32.40 kg/m2 [facility] Procedures Procedure Date / Time Performing Clinician Source Performed US FIRST 2021-06-26 15:07:05 Ciaran Diaz [facility] TRIMESTER LESS THAN 14 [place] WEEKS WITH TRANSVAGINAL COMP. METABOLIC PANEL 2021-06-26 14:23:00 Ciaran Diaz [facility] ([id number]) [facility] TOTAL BETA HCG ASSAY 2021-06-26 14:23:00 Ciaran Diaz [facility] CBC WITH DIFF 2021-06-26 14:23:00 Joe [facility] URINALYSIS 2021-06-26 14:23:00 [place] [facility] NOTICE OF PRIVACY 2021-06-26 13:57:26 Doctor Unassigned, No [facility] PRACTICES Name [facility] CONSENT/REFUSAL FOR 2021-06-26 13:52:59 Doctor Unassigned, No [facility] DIAGNOSIS AND TREATMENT Name [facility] ABORH CONFIRMATION (LAB 2021-06-20 02:23:00 Kenzie Mercado [facility] ONLY) [facility] US FIRST 2021-06-20 02:16:07 Kenzie Mercado [facility] TRIMESTER LESS THAN 14 [place] WEEKS WITH TRANSVAGINAL COMP. METABOLIC PANEL 2021-06-20 01:53:00 Kenzie Mercado [facility] ([id number]) [facility] TOTAL BETA HCG ASSAY 2021-06-20 01:53:00 Kenzie Mercado [facility] CBC WITH DIFF 2021-06-20 01:53:00 Kenzie Mercado [facility] HB ABO GROUPING 2021-06-20 01:52:00 Kenzie Mercado [facility] POCT TEST 2021-06-20 01:40:00 Kenzie Mercado [facility] 2021-06-20 01:37:00 Kenzie Mercado [facility] NOTICE OF PRIVACY 2021-06-20 00:53:27 Doctor Unassigned, No [facility] PRACTICES Name [facility] CONSENT/REFUSAL FOR 2021-06-20 00:53:06 Doctor Unassigned, No [facility] DIAGNOSIS AND TREATMENT Name [facility] Encounters Start End Encounter Admission Attending Care Care Encounter Source Date/Time Date/Time Type Type Clinicians Facility Department ID 2021-06-26 2021-06-26 [id number] Univers 08:59:00 11:26:00 Ciaran Cruz [id number] i ty [facility] [id number] [facility] [id number] [facility] 084 Branch 2021-06-26 2021-06-26 [facility] [id number] Univers 08:52:00 08:52:00 CIARAN ity [facility] 2021-06-19 2021-06-19 [facility] [id number] Univers 20:07:00 23:32:00 Kenzie Cruz [id number] ity [facility] [id number] [facility] [id number] [facility] 084 Branch 2021-06-19 2021-06-19 Emergency X [facility] ERT [id number] Univers 19:53:00 19:53:00 ity of [facility] 2021-06-19 2021-06-19 Orders Doctor ARCINIEGA [id number] Univers 00:00:00 00:00:00 Only UnassignedBRIGIDO 350.1.13.10 ity of [facility] 4.2.7.2.686 [facility] [id number] [facility] 009 Branch Results Test Description Test Time Test Comments Results Result Comments Source TOTAL [facility] (QUANTITATIVE) 2021-06-26 15:30:34 Test Item Value Reference Range Interpretation Comme nts BETA HCG (test code = See_Comment [Auto mated message] The [id number]) system which ge nerated this result transmit sanjiv reference range : Non- fe male and male patients: <5 mIU/mL. The reference r braxton was not used to interpr et this result as isadora l/abnormal. MIHAELA (test code = MIHAELA) Gestational Age ?Range (mIU/mL) 1-10 ?Weeks ?08-92855136-48 Weeks ?62814-04305760-95 Weeks ?3600-30347339-89 Weeks ?8039-900449 Biotin has been reported to cause a negative bias, interpret results relative to patient's use of biotin. [facility]. METABOLIC PANEL ([id number])2021-06-26 14:58:32 Test Item Value Reference Range Interpretation Comments NA (test code = 139 mmol/L 135-145 0541440723) K (test code = 4.0 mmol/L 3.5-5.0 3232303917) CL (test code = 107 mmol/L 98-108 4943450681) CO2 TOTAL (test code = 26 mmol/L 23-31 1889771527) AGAP (test code = 2-16 8757825420) BUN (test code = 4 mg/dL 7-23 L 4840850693) GLUCOSE (test code = 100 mg/dL 70-110 6451435776) CREATININE (test code = 0.53 mg/dL 0.50-1.04 4655578736) TOTAL BILI (test code = 0.3 mg/dL 0.1-1.7 9546768034) CALCIUM (test code = 9.4 mg/dL 8.6-10.6 9077054115) T PROTEIN (test code = 7.9 g/dL 6.3-8.2 1944825988) ALBUMIN (test code = 4.7 g/dL 3.5-5.0 1345392274) ALK PHOS (test code = 71 U/L 34-122 4937648099) ALTv (test code = 19 U/L 5-35 1742-6) AST(SGOT) (test code = 27 U/L 13-40 6604905083) eGFR (test code = mL/min/1.73m2 0593918711) MIHAELA (test code = MIHAELA) Association of Glomerular Filtration Rate (GFR) and Staging of Kidney Disease* + --+ --+ ------+| GFR (mL/min/1.73 m2) ?| With Kidney Damage ?| ?Without Kidney Damage+ --------+ --------+ +| ?>90 ?| ?Stage one ?| ? Normal ?+ ---+ ---+ -------+| ?60-89 ?| ?Stage two ?| ? Decreased GFR ? + --+ --+ ------+| ?30-59 ?| ?Stage three ?| ? Stage three ? + --+ --+ ------+| ?15-29 ?| ?Stage four ? | ? Stage four ?+ ---+ ---+ -------+| ?<15 (or dialysis) ? ?| ?Stage five ? | ? Stage five ?+ ---+ ---+ -------+ *Each stage assumes the associated GFR level has been in effect for at least three months. ?Stages 1 to 5, with or without kidney disease, indicate chronic kidney disease. Notes: Determination of stages one and two (with eGFR >59mL/min/1.73 m2) requires estimation of kidney damage for at least three months as defined by structural or functional abnormalities of the kidney, manifested by either:Pathological abnormalities or Markers of kidney damage (including abnormalities in the composition of the blood or urine or abnormalities in imaging tests). Lab Interpretation Abnormal (test code = 71909-7) [facility] WITH [id number] 14:45:48 Test Item Value Reference Range Interpretation Comments WBC (test code = See_Comment [Automated 7606-2) message] The sy stem which generated this result transmitted reference range : 4.30 - 11.10 10*3/?L. The reference range was not used to interpret this result as normal/abnormal . RBC (test code = See_Comment [Automated 516-9) message] The sy stem which generated this result transmitted reference range : 3.93 - 5.25 10*6/?L. The reference range was not used to interpret this result as normal/abnormal . HGB (test code = 12.6 g/dL 11.6-15.0 718-7) HCT (test code = 37.8 % 35.7-45.2 4544-3) MCV (test code = 90.4 fL 80.6-95.5 787-2) MCH (test code = 30.1 pg 25.9-32.8 785-6) MCHC (test code = 33.3 g/dL 31.6-35.1 786-4) RDW-SD (test code = 39.1 fL 39.0-49.9 31320-2) RDW-CV (test code = 11.8 % 12.0-15.5 L 788-0) PLT (test code = See_Comment [Automated 777-3) message] The sy stem which generated this result transmitted reference range : 166 - 358 10*3/ ?L. The reference r braxton was not used to interpret this result as normal/abnormal . MPV (test code = 10.2 fL 9.5-12.9 85924-4) NRBC/100 WBC (test See_Comment [Automat ed code = 6689053452) message] The system which generated this result transmitted reference range : 0.0 - 10.0 /100 WBCs. The refer ence range was not u sed to interpret th is result as normal/abnormal . NRBC x10^3 (test code <0.01 See_Comment [Auto mated = 0775903128) message] The s ystem which generated this result transmitted reference range : 10*3/?L. The reference range was not used to interpret this result as normal/abnormal . GRAN MAT (NEUT) % 61.6 % (test code = 770-8) IMM GRAN % (test code 0.20 % = 8305879783) LYMPH % (test code = 28.3 % 736-9) MONO % (test code = 7.0 % 5905-5) EOS % (test code = 2.5 % 713-8) BASO % (test code = 0.4 % 706-2) GRAN MAT x10^3(ANC) 3.27 10*3/uL 1.88-7.09 (test code = 6562455238) IMM GRAN x10^3 (test <0.03 0.00-0.06 code = 0694520740) LYMPH x10^3 (test code 1.50 10*3/uL 1.32-3.29 = 731-0) MONO x10^3 (test code 0.37 10*3/uL 0.33-0.92 = 742-7) EOS x10^3 (test code = 0.13 10*3/uL 0.03-0.39 711-2) BASO x10^3 (test code <0.03 0.01-0.07 = 704-7) Lab Interpretation Abnormal (test code = 51341-8) [facility] Confirmation (Lab Only)2021-06-20 02:41:59 Test Item Value Reference Range Interpretation Comments ABO & RH (test code O Positive Performe d at [facility] = 20) Laboratory Serv [facility] [place] [address] Free: [phone] A No. [id number] [facility] Confirmation (Lab Only)2021-06-20 02:41:59 Test Item Value Reference Range Interpretation Comments ABO & RH (test code O Positive Performe d at [facility] = 20) Laboratory [facility] [place], [place] [address]Toll Free: [phone] A No. [id number] [facility] (QUANTITATIVE)2021-06-20 02:40:26 Test Item Value Reference Range Interpretation Comments BETA HCG (test See_Comment [Automated m essage] code = The system [facility] 7541861900) generated this result transmit sanjiv reference range : Non- fe male and male patien ts: <5 mIU/mL. The reference range was not used to interpret this result as normal/abnormal . MIHAELA (test code Gestational Age ? ? = MIHAELA) ?Range (mIU/mL) 1-10 ?Weeks ?37-25557225-55 Weeks ?92645-22964599-12 Weeks ?2923-00047287-12 Weeks ?1741-852356 Biotin has been reported to cause a negative bias, interpret results relative to patient's use of biotin. [facility] (QUANTITATIVE)2021-06-20 02:40:26 Test Item Value Reference Range Interpretation Comments BETA HCG (test See_Comment [Automated m essage] code = The system whic h 1038602006) generated this result transmit sanjiv reference range : Non- fe male and male patien ts: <5 mIU/mL. The reference range was not used to interpret this result as normal/abnormal . MIHAELA (test code Gestational Age ? ? = MIHAELA) ?Range (mIU/mL) 1-10 ?Weeks ?79-66983772-37 Weeks ?84051-88079864-96 Weeks ?3084-53203591-76 Weeks ?1531-731622454 Biotin has been reported to cause a negative bias, interpret results relative to patient's use of biotin. [facility] [id number] 02:33:51 Test Item Value Reference Range Interpretation Comments ABO & RH (test code O Positive Performe d at [facility] = 20) Laboratory [facility] [place] [address] Free: [phone] A No. [id number] IAT (test code = Negative Performed a t [facility] 1185) Laboratory [facility] [place], [place] [address]Toll Free: [phone] A No. [id number] [facility] and Screen - ONCE [id number] 02:33:51 Test Item Value Reference Range Interpretation Comments ABO & RH (test code O Positive Performe d at [facility] = 20) Laboratory [facility] [place], [place] [address]Toll Free: [phone] A No. [id number] IAT (test code = Negative Performed a t [facility] 1185) Laboratory Serv [facility] [place] [address]Bgsc Free: [phone] A No. [id number] [facility]OLIC PAN[facility] ([id number])2021-06-20 02:20:41 Test Item Value Reference Range Interpretation Comments NA (test code = 140 mmol/L 135-145 5515941835) K (test code = 3.4 mmol/L 3.5-5.0 L 9170323796) CL (test code = 106 mmol/L 98-108 1399212014) CO2 TOTAL (test code = 25 mmol/L 23-31 6244010563) AGAP (test code = 2-16 9063384263) BUN (test code = 8 mg/dL 7-23 3222217925) GLUCOSE (test code = 101 mg/dL 70-110 9263173839) CREATININE (test code = 0.59 mg/dL 0.50-1.04 3249026191) TOTAL BILI (test code = 0.5 mg/dL 0.1-1.9 0737501627) CALCIUM (test code = 9.3 mg/dL 8.6-10.6 8643535433) T PROTEIN (test code = 8.1 g/dL 6.3-8.2 2370599424) ALBUMIN (test code = 4.7 g/dL 3.5-5.0 2749986374) ALK PHOS (test code = 85 U/L 34-122 0433494718) ALTv (test code = 27 U/L 5-35 1742-6) AST(SGOT) (test code = 27 U/L 13-40 3066194857) eGFR (test code = mL/min/1.73m2 2872277843) MIHAELA (test code = MIHAELA) Association of Glomerular Filtration Rate (GFR) and Staging of Kidney Disease* + --+ --+ ------+| GFR (mL/min/1.73 m2) ?| With Kidney Damage ?| ?Without Kidney Damage+ --------+ --------+ +| ?>90 ?| ?Stage one ?| ? Normal ?+ ---+ ---+ -------+| ?60-89 ?| ?Stage two ?| ? Decreased GFR ? + --+ --+ ------+| ?30-59 ?| ?Stage three ?| ? Stage three ? + --+ --+ ------+| ?15-29 ?| ?Stage four ? | ? Stage four ?+ ---+ ---+ -------+| ?<15 (or dialysis) ? ?| ?Stage five ? | ? Stage five ?+ ---+ ---+ -------+ *Each stage assumes the associated GFR level has been in effect for at least three months. ?Stages 1 to 5, with or without kidney disease, indicate chronic kidney disease. Notes: Determination of stages one and two (with eGFR >59mL/min/1.73 m2) requires estimation of kidney damage for at least three months as defined by structural or functional abnormalities of the kidney, manifested by either:Pathological abnormalities or Markers of kidney damage (including abnormalities in the composition of the blood or urine or abnormalities in imaging tests). Lab Interpretation Abnormal (test code = 55912-5) [facility]. METABOLIC PANEL ([id number])2021-06-20 02:20:41 Test Item Value Reference Range Interpretation Comments NA (test code = 140 mmol/L 135-145 0676004004) K (test code = 3.4 mmol/L 3.5-5.0 L 6191864626) CL (test code = 106 mmol/L 98-108 5816583011) CO2 TOTAL (test code = 25 mmol/L 23-31 0022573533) AGAP (test code = 2-16 2058153942) BUN (test code = 8 mg/dL 7-23 2823030577) GLUCOSE (test code = 101 mg/dL 70-110 5712989620) CREATININE (test code = 0.59 mg/dL 0.50-1.04 3131632767) TOTAL BILI (test code = 0.5 mg/dL 0.1-1.9 6583082257) CALCIUM (test code = 9.3 mg/dL 8.6-10.6 7717122803) T PROTEIN (test code = 8.1 g/dL 6.3-8.2 9071662146) ALBUMIN (test code = 4.7 g/dL 3.5-5.0 4037777822) ALK PHOS (test code = 85 U/L 34-122 2215541767) ALTv (test code = 27 U/L 5-35 1742-6) AST(SGOT) (test code = 27 U/L 13-40 3376139428) eGFR (test code = mL/min/1.73m2 9164453751) MIHAELA (test code = MIHAELA) Association of Glomerular Filtration Rate (GFR) and Staging of Kidney Disease* + --+ --+ ------+| GFR (mL/min/1.73 m2) ?| With Kidney Damage ?| ?Without Kidney Damage+ --------+ --------+ +| ?>90 ?| ?Stage one ?| ? Normal ?+ ---+ ---+ -------+| ?60-89 ?| ?Stage two ?| ? Decreased GFR ? + --+ --+ ------+| ?30-59 ?| ?Stage three ?| ? Stage three ? + --+ --+ ------+| ?15-29 ?| ?Stage four ? | ? Stage four ?+ ---+ ---+ -------+| ?<15 (or dialysis) ? ?| ?Stage five ? | ? Stage five ?+ ---+ ---+ -------+ *Each stage assumes the associated GFR level has been in effect for at least three months. ?Stages 1 to 5, with or without kidney disease, indicate chronic kidney disease. Notes: Determination of stages one and two (with eGFR >59mL/min/1.73 m2) requires estimation of kidney damage for at least three months as defined by structural or functional abnormalities of the kidney, manifested by either:Pathological abnormalities or Markers of kidney damage (including abnormalities in the composition of the blood or urine or abnormalities in imaging tests). Lab Interpretation Abnormal (test code = 00236-2) [facility] WITH [id number] 02:01:15 Test Item Value Reference Range Interpretation Comments WBC (test code = See_Comment [Automated 7527-2) message] The sy stem which generated this result transmitted reference range : 4.30 - 11.10 10*3/?L. The reference range was not used to interpret this result as normal/abnormal . RBC (test code = See_Comment [Automated 789-8) message] The sy stem which generated this result transmitted reference range : 3.93 - 5.25 10*6/?L. The reference range was not used to interpret this result as normal/abnormal . HGB (test code = 11.9 g/dL 11.6-15.0 718-7) HCT (test code = 35.4 % 35.7-45.2 L 4544-3) MCV (test code = 89.2 fL 80.6-95.5 787-2) MCH (test code = 30.0 pg 25.9-32.8 785-6) MCHC (test code = 33.6 g/dL 31.6-35.1 786-4) RDW-SD (test code = 37.8 fL 39.0-49.9 L 69571-2) RDW-CV (test code = 11.8 % 12.0-15.5 L 788-0) PLT (test code = See_Comment [Automated 777-3) message] The sy stem which generated this result transmitted reference range : 166 - 358 10*3/ ?L. The reference r braxton was not used to interpret this result as normal/abnormal . MPV (test code = 9.9 fL 9.5-12.9 02986-1) NRBC/100 WBC (test See_Comment [Automat ed code = 4350906468) message] The system which generated this result transmitted reference range : 0.0 - 10.0 /100 WBCs. The refer ence range was not u sed to interpret th is result as normal/abnormal . NRBC x10^3 (test code <0.01 See_Comment [Auto mated = 6587572568) message] The s ystem which generated this result transmitted reference range : 10*3/?L. The reference range was not used to interpret this result as normal/abnormal . GRAN MAT (NEUT) % 56.3 % (test code = 770-8) IMM GRAN % (test code 0.30 % = 5289421157) LYMPH % (test code = 32.7 % 736-9) MONO % (test code = 8.3 % 5905-5) EOS % (test code = 1.9 % 713-8) BASO % (test code = 0.5 % 706-2) GRAN MAT x10^3(ANC) 4.15 10*3/uL 1.88-7.09 (test code = 6543317242) IMM GRAN x10^3 (test <0.03 0.00-0.06 code = 3439683392) LYMPH x10^3 (test code 2.41 10*3/uL 1.32-3.29 = 731-0) MONO x10^3 (test code 0.61 10*3/uL 0.33-0.92 = 742-7) EOS x10^3 (test code = 0.14 10*3/uL 0.03-0.39 711-2) BASO x10^3 (test code 0.04 10*3/uL 0.01-0.07 = 704-7) Lab Interpretation Abnormal (test code = 41666-0) [facility] WITH [id number] 02:01:15 Test Item Value Reference Range Interpretation Comments WBC (test code = See_Comment [Automated 4890-2) message] The sy stem which generated this result transmitted reference range : 4.30 - 11.10 10*3/?L. The reference range was not used to interpret this result as normal/abnormal . RBC (test code = See_Comment [Automated 129-8) message] The sy stem which generated this result transmitted reference range : 3.93 - 5.25 10*6/?L. The reference range was not used to interpret this result as normal/abnormal . HGB (test code = 11.9 g/dL 11.6-15.0 718-7) HCT (test code = 35.4 % 35.7-45.2 L 4544-3) MCV (test code = 89.2 fL 80.6-95.5 787-2) MCH (test code = 30.0 pg 25.9-32.8 785-6) MCHC (test code = 33.6 g/dL 31.6-35.1 786-4) RDW-SD (test code = 37.8 fL 39.0-49.9 L 99881-0) RDW-CV (test code = 11.8 % 12.0-15.5 L 788-0) PLT (test code = See_Comment [Automated 777-3) message] The sy stem which generated this result transmitted reference range : 166 - 358 10*3/ ?L. The reference r braxton was not used to interpret this result as normal/abnormal . MPV (test code = 9.9 fL 9.5-12.9 37255-1) NRBC/100 WBC (test See_Comment [Automat ed code = 8925926908) message] The system which generated this result transmitted reference range : 0.0 - 10.0 /100 WBCs. The refer ence range was not u sed to interpret th is result as normal/abnormal . NRBC x10^3 (test code <0.01 See_Comment [Auto mated = 6221261624) message] The s ystem which generated this result transmitted reference range : 10*3/?L. The reference range was not used to interpret this result as normal/abnormal . GRAN MAT (NEUT) % 56.3 % (test code = 770-8) IMM GRAN % (test code 0.30 % = 4624025018) LYMPH % (test code = 32.7 % 736-9) MONO % (test code = 8.3 % 5905-5) EOS % (test code = 1.9 % 713-8) BASO % (test code = 0.5 % 706-2) GRAN MAT x10^3(ANC) 4.15 10*3/uL 1.88-7.09 (test code = 6891417437) IMM GRAN x10^3 (test <0.03 0.00-0.06 code = 7461643054) LYMPH x10^3 (test code 2.41 10*3/uL 1.32-3.29 = 731-0) MONO x10^3 (test code 0.61 10*3/uL 0.33-0.92 = 742-7) EOS x10^3 (test code = 0.14 10*3/uL 0.03-0.39 711-2) BASO x10^3 (test code 0.04 10*3/uL 0.01-0.07 = 704-7) Lab Interpretation Abnormal (test code = 64301-2) [facility] [id number] 01:40:00 Test Item Value Reference Range Interpretation Comments POCT PREG (test code = 1605) positive On board controls acceptable with present C Line (test code = 3574) POCT PREG LOT # (test code = 3575) [id number] POCT PREG TEST DATE (test 09/29/2022 code = 3576) Lab Interpretation (test code = Normal 87114-2) [facility] [id number] 01:40:00 Test Item Value Reference Range Interpretation Comments POCT PREG (test code = 1605) positive On board controls acceptable with present C Line (test code = 3574) POCT PREG LOT # (test code = 3575) [id number] POCT PREG TEST DATE (test 09/29/2022 code = 3576) Lab Interpretation (test code = Normal 57025-7) [facility]"
[2021-10-06 14:39] LABS: Urine Blood 2+ (Negative); Urine Glucose Negative (Negative); Urine Protein 2+ (Negative); Urine Specific Gravity 1.015 (1.005-1.030)
[2021-10-06 14:51] LABS: Urine Bacteria 20-50 /HPF (<20); Urine Trichomonas PRESENT (NONE SEEN)
[2021-10-06 14:55] LABS: Urine Specific Gravity/Preg 1.015 (1.005-1.030)
[2021-10-06 15:36] LABS: Absolute Lymphocytes (CBC) 1.4 K/uL (0.7-4.9); Hematocrit 36.5 % (36.0-45.0); Lymphocytes % 11.1 % (15.3-44.8); MPV 8.7 fL (7.6-11.3); RBC Red Blood Cell Count 4.24 M/uL (3.86-4.86)
[2021-10-06 15:52] LABS: ALT/SGPT 72 U/L (12-78); AST/SGOT 32 U/L (15-37); Albumin 3.5 g/dL (3.4-5.0); Alkaline Phosphatase 129 U/L (45-117); BUN Blood Urea Nitrogen 8 mg/dL (7-18); Bicarbonate 25 mmol/L (21-32); Bilirubin Direct 0.2 mg/dL (0-0.2); Bilirubin Total 0.7 mg/dL (0.2-1.0); Glucose Level 96 mg/dL (74-106); Lipase 43 U/L (73-393); Potassium 3.1 mmol/L (3.5-5.1); Protein, Total 8.8 g/dL (6.4-8.2); Sodium Level 134 mmol/L (136-145)
[2021-10-06] MEDS ORDERED: POTASSIUM CL SA 10 MEQ TAB PO ONE (15:58)
[2021-10-06] MEDS ORDERED: AZITHROMYCIN 250 MG TAB ONE (16:00)
[2021-10-06] MEDS ORDERED: CEFTRIAXONE 1000 MG/VIAL ONE (16:00)
--- NOTE | 2021-10-06 16:19 | RAD REPORT ---
EXAM DESCRIPTION: US - Abdomen Exam Limited - 10/06/2021 4:11 pm CLINICAL HISTORY: R/O GB;Abd pain COMPARISON: Stone Protocol dated 03/28/2016 FINDINGS: The gallbladder demonstrates no gallstones. No pericholecystic fluid or gallbladder wall t hickening. The common bile duct is normal measuring 4 mm. The liver demonstrates no findings of intrahepatic biliary dilatation. IMPRESSION: Unremarkable examination.
--- NOTE | 2021-10-06 16:52 | EDPHYS ---
Physician Documentation [facility] Name: Kia Garibay Age: 31 yrs Sex: Female : 1990 Arrival Date: 10/06/2021 Time: 14:06 Bed 10 Private MD: ED Physician Jonathan Chaparro HPI: 10/06 17:18 This 31 yrs old Female presents to ER via Ambulatory with complaints of Abdominal Pain, jr8 Vomiting, Decreased Appetite. 17:18 Onset: The symptoms/episode began/occurred gradually. The patient has not experienced jr8 similar symptoms in the past. The patient has not recently seen a physician. Patient stated that she has had fever along with flank pain and abdominal pain. 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 Flu vaccine is up to date. - Social history:: Smoking status: Patient denies any tobacco usage or history of. ROS: 17:18 Eyes: Negative for injury, pain, redness, and discharge, ENT: Negative for injury, jr8 pain, and discharge, Neck: Negative for injury, pain, and swelling, Cardiovascular: Negative for chest pain, palpitations, and edema, Respiratory: Negative for shortness of breath, cough, wheezing, and pleuritic chest pain, MS/Extremity: Negative for injury and deformity, Skin: Negative for injury, rash, and discoloration, Neuro: Negative for headache, weakness, numbness, tingling, and seizure. 17:18 Constitutional: Positive for fever. 17:18 Abdomen/GI: Positive for abdominal pain, nausea and vomiting. 17:18 Back: Positive for pain at rest, of the right mid back. Exam: 17:18 Constitutional: This is a well developed, well nourished patient who is awake, alert, jr8 and in no acute distress. Cardiovascular: Regular rate and rhythm with a normal S1 and S2. No gallops, murmurs, or rubs. Normal PMI, no JVD. No pulse deficits. Respiratory: Lungs have equal breath sounds bilaterally, clear to auscultation and percussion. No rales, rhonchi or wheezes noted. No increased work of breathing, no retractions or nasal flaring. Skin: Warm, dry with normal turgor. Normal color with no rashes, no lesions, and no evidence of cellulitis. MS/ Extremity: Pulses equal, no cyanosis. Neurovascular intact. Full, normal range of motion. Neuro: Awake and alert, GCS 15, oriented to person, place, time, and situation. Cranial nerves II-XII grossly intact. Motor strength 5/5 in all extremities. Sensory grossly intact. 17:18 Abdomen/GI: Inspection: abdomen appears normal, Bowel sounds: active, all quadrants, Palpation: soft, in all quadrants, mild abdominal tenderness, in the right upper quadrant, mass, is not appreciated, rebound tenderness, is not appreciated, voluntary guarding, is not appreciated, involuntary guarding, is not appreciated, no appreciated organomegaly, Indicators: McBurney's point is not tender, Quinn's sign is negative, Rovsing's sign is negative, Liver: tenderness, is not appreciated. 17:18 Back: CVA tenderness, that is mild, is noted on the right. Vital Signs: 14:12 BP 118 / 84; Pulse 93; Resp 18; Temp 98.5(TE); Pulse Ox 98% on R/A; Weight 63.5 kg (R); tw2 Height 4 ft. 11 in. (149.86 cm); Pain 5/10; 14:12 Body Mass Index 28.28 (63.50 kg, 149.86 cm) tw2 MDM: 14:45 Patient medically screened. [facility] 16:51 Data reviewed: vital signs, nurses notes, lab test result(s), radiologic studies, jr8 ultrasound. Data interpreted: Pulse oximetry: on room air is 98 %. Interpretation: normal. Counseling: I had a detailed discussion with the patient and/or guardian regarding: the historical points, exam findings, and any diagnostic results supporting the discharge/admit diagnosis, lab results, radiology results, the need for outpatient follow up, a family practitioner, to return to the emergency department if symptoms worsen or persist or if there are any questions or concerns that arise at home. Response to treatment: the patient's symptoms have mildly improved after treatment, Tolerates PO fluids. 10/06 14:38 Order name: Urine Microscopic Only; Complete Time: 14:58 eb 10/06 14:38 Order name: Urine Dipstick-Ancillary; Complete Time: 14:58 EDMS 10/06 14:39 Order name: Urine --Ancillary (enter results); Complete Time: 14:58 eb 10/06 14:52 Order name: Urine Culture EDMS 10/06 15:14 Order name: Basic Metabolic Panel; Complete Time: 15:53 jr8 10/06 15:14 Order name: CBC with Diff; Complete Time: 15:43 jr8 10/06 15:14 Order name: Hepatic Function; Complete Time: 15:53 jr8 10/06 15:14 Order name: Lipase; Complete Time: 15:53 jr8 10/06 15:14 Order name: IV Saline Lock; Complete Time: 15:38 jr8 10/06 15:14 Order name: Labs collected and sent; Complete Time: 15:38 jr8 10/06 15:14 Order name: US Abdomen Limited; Complete Time: 16:30 jr Administered Medications: 16:06 Drug: Rocephin (cefTRIAXone) 1 grams Route: IV; Rate: calculated rate; Site: right [facility] antecubital; 16:06 Drug: Zithromax (azithromycin) 1 grams Route: PO; [facility] 16:06 Drug: Potassium Chloride 40 mEq Route: PO; [facility] Disposition Summary: 10/06/21 16:52 Discharge Ordered Location: Home [facility] Problem: new jr8 Symptoms: have improved jr8 Condition: Stable jr8 Diagnosis - Trichomoniasis, unspecified jr8 - Pyelonephritis acute jr8 Followup: jr8 - With: Private Physician - When: 5 - 6 days - Reason: Recheck today's complaints, Continuance of care, Re-evaluation by your physician Discharge Instructions: - Discharge Summary Sheet jr8 - Pyelonephritis, Adult jr8 - Trichomoniasis jr8 Forms: - Medication Reconciliation Form jr8 - Thank You Letter jr8 - Antibiotic Education jr8 - Prescription Opioid Use jr8 Prescriptions: - Cipro 500 mg Oral Tablet - take 1 tablet by ORAL route every 12 hours for 10 days; 20 tablet; Refills: 0, jr8 Product Selection Permitted - Flagyl 500 mg Oral Tablet - take 1 tablet by ORAL route every 12 hours for 7 days; 14 tablet; Refills: 0, jr8 Product Selection Permitted - Zofran 4 mg Oral Tablet - take 1 tablet by ORAL route every 12 hours As needed; 20 tablet; Refills: 0, jr8 Product Selection Permitted Addendum: 10/08/2021 16:22 Co-signature as Attending Physician, Jonathan Chaparro MD I agree with the assessment and s p3 plan of care. Signatures: Dispatcher [employer] EDIldefonso Brand PA PA jr8 Frieda Vallejo, RN RN tw2 Jonathan Chaparro MD MD sp3 Maryjane Ralph RN RN jh5
--- NOTE | 2021-10-06 16:52 | ER ---
Nurse's Notes [facility] Name: Kia Garibay Age: 31 yrs Sex: Female : 1990 Arrival Date: 10/06/2021 Time: 14:06 Bed 10 Private MD: Diagnosis: Trichomoniasis, unspecified;Pyelonephritis acute Presentation: 10/06 14:12 Chief complaint: Patient states: since this Saturday i have been running fever. i havent tw2 been feeling well. i am not congested. i just cannot keep anything down. nothing not water or anything. i have this RIGHT lower flank pain. now i have a dark colored urine with a smell. Coronavirus screen: fever, vomiting. Client presents with at least one sign or symptom that may indicate coronavirus-19. Standard/surgical mask placed on the client. Provider contacted for isolation considerations. Ebola Screen: Patient denies travel to an Ebola-affected area in the 21 days before illness onset. Initial Sepsis Screen: Does the patient meet any 2 criteria? HR > 90 bpm. No. Patient's initial sepsis screen is negative. Does the patient have a suspected source of infection? No. Patient's initial sepsis screen is negative. Risk Assessment: Do you want to hurt yourself or someone else? Patient reports no desire to harm self or others. Onset of symptoms was October 06, 2021. 14:12 Method Of Arrival: Ambulatory tw2 14:12 Acuity: OMID 3 tw2 Triage Assessment: 14:16 General: Appears in no apparent distress. uncomfortable, Behavior is calm, cooperative, tw2 appropriate for age. Pain: Complains of pain in right mid back and right low back. GI: Reports intolerance of fluids, intolerance of food, nausea. : Reports burning with urination. 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 Flu vaccine is up to date. - Social history:: Smoking status: Patient denies any tobacco usage or history of. Screenin:17 Abuse screen: Denies threats or abuse. Nutritional screening: No deficits noted. tw2 Tuberculosis screening: No symptoms or risk factors identified. Fall Risk None identified. Vital Signs: 14:12 BP 118 / 84; Pulse 93; Resp 18; Temp 98.5(TE); Pulse Ox 98% on R/A; Weight 63.5 kg (R); tw2 Height 4 ft. 11 in. (149.86 cm); Pain 5/10; 14:12 Body Mass Index 28.28 (63.50 kg, 149.86 cm) tw2 ED Course: 14:06 Patient arrived in ED. as 14:16 Triage completed. tw2 14:16 Arm band placed on. tw2 14:38 Maryjane Ralph, JENIFER is Primary Nurse. 5 14:42 Urine Microscopic Only Sent. tw2 14:43 Urine --Ancillary (enter results) Sent. [facility] 14:45 Ildefonso Lord PA is PHCP. [facility] 14:45 Jonathan Chaparro MD is Attending Physician. [facility] 15:27 Initial lab(s) drawn, by ks, sent to lab. Inserted saline lock: 22 gauge in right [facility] antecubital area, using aseptic technique. Blood collected. 16:11 US Abdomen Limited In Process Unspecified. EDMS Administered Medications: 16:06 Drug: Rocephin (cefTRIAXone) 1 grams Route: IV; Rate: calculated rate; Site: right [facility] antecubital; 16:06 Drug: Zithromax (azithromycin) 1 grams Route: PO; [facility] 16:06 Drug: Potassium Chloride 40 mEq Route: PO; [facility] Outcome: 16:52 Discharge ordered by . [facility] 17:34 Patient left the ED. [facility] Signatures: Dispatcher [employer] EDMS Yun Caldwell Josh, PA PA 8 Frieda Vallejo RN RN tw2 Elizabeth Camacho [facility] Maryjane Ralph, JENIFER RN 5
[2021-10-06 17:41] VITALS: BP 118/84; TEMP 98.5; O2SAT 98
== END 2021-10-06 17:34 | disposition home or self-care (01) ==
LOC: ER 14:03
DX: N10 Acute pyelonephritis (principal); A59.9 Trichomoniasis, unspecified
CPT/HCPCS: 36415; 76705; 80048; 80076; 81003; 81015; 81025; 83690; 85025; 87077; 87086; 87088; 87186; 96374; 99284

== ENCOUNTER 2022-06-15 10:59 | Emergency (ER) | payer OTHER, SELFPAY ==
--- OUTSIDE RECORDS SUMMARY | 2022-06-15 11:07 | XMS REPORT | Continuity of Care Document ---
:[address] [facility] t Address [address] [place] [address] Care Team Providers Name Role Phone Pcp, Patient Does Not Have A Primary Care Physician [id number] Ciaran Waller MD Attending Clinician CIARAN WALLER Attending Clinician Unavailable Kenzie Mercado NP Attending Clinician Payers Payer Name Policy Type Policy Number Effective Date Expiration Date S ourestefani [employer] [place] [id number] 2021 00:00:00 WOMEN Problems Condition Condition Condition Status Onset Resolution Last Treating Co mments Source Name Details Category Date Date Treatment Clinician Date No known No known Disease Unive rs active active ity of problems problems [facility] Allergies, Adverse Reactions, Alerts Allergy Allergy Status Severity Reaction(s) Onset Inactive Treating Comm ents Source Name Type Date Date Clinician NO KNOWN Drug Active Univers ALLERGIE Class ity of S [facility] Social History Social Habit Start Date Stop Date Quantity Comments Source Exposure to Not sure [facility] SARS-CoV-2 (event) Medica l Branch Sex Assigned At [birth year] [facility] 00:00:00 00:00:00 Medical May Smoking Status Start Date Stop Date Source Unknown if ever smoked [facility] Medications Ordered Filled Start Stop Current Ordering Indication Dosage Frequency Signature Comments Components Source Medication Medication Date Date Medication? Clinician (SIG) Name Name cephALEXin 2020- No [id number] 250mg Take 1 Univers 250 mg 9-20 - capsule by ity of capsule 00:00: 04:59 mouth [place] 00 :00 every 8 Medical (eight) Branch hours for 10 days. cephALEXin 2020- No [id number] 250mg Take 1 Univers 250 mg 9-20 10- capsule by ity of capsule 00:00: 04:59 mouth [place] 00 :00 every 8 Medical (eight) Branch hours for 10 days. cephALEXin 2020- No [id number] 250mg Take 1 Univers 250 mg 9-20 10- capsule by ity of capsule 00:00: 04:59 mouth [place] 00 :00 every 8 Medical (eight) Branch hours for 10 days. Vital Signs Vital Name Observation Time Observation Value Comments Source Systolic blood 2021-06-26 16:20:00 131 mm[Hg] Univer sity [facility] Diastolic blood 2021-06-26 16:20:00 88 mm[Hg] Unive [facility] Heart rate 2021-06-26 16:20:00 72 /min [facility] Respiratory rate 2021-06-26 16:20:00 20 /min [facility] Oxygen saturation in 2021-06-26 16:20:00 98 /min University of Arterial blood by [facility] Pulse oximetry Branch Body temperature 2021-06-26 13:57:00 37.11 Sulma [facility] Body weight 2021-06-26 13:57:00 70.308 kg [facility] BMI 2021-06-26 13:57:00 32.40 kg/m2 [facility] Heart rate 2021-06-20 04:00:00 93 /min [facility] Oxygen saturation in 2021-06-20 03:30:00 99 /min University Arterial blood by [facility] Pulse oximetry Branch Systolic blood 2021-06-20 03:00:00 106 mm[Hg] Univer sity of [facility] Diastolic blood 2021-06-20 03:00:00 72 mm[Hg] Unive rsity [facility] Body temperature 2021-06-20 00:58:00 36.78 Sulma [facility] Respiratory rate 2021-06-20 00:58:00 19 /min [facility] Body height 2021-06-20 00:58:00 147.3 cm [facility] Body weight 2021-06-20 00:58:00 70.308 kg [facility] BMI 2021-06-20 00:58:00 32.40 kg/m2 [facility] Procedures Procedure Date / Time Performing Clinician Source Performed US FIRST 2021-06-26 15:07:05 Ciaran Waller [facility] TRIMESTER LESS THAN 14 [facility] [place] WEEKS WITH TRANSVAGINAL COMP. METABOLIC PANEL 2021-06-26 14:23:00 Ciaran Waller [facility] ([id number]) [facility] TOTAL BETA HCG ASSAY 2021-06-26 14:23:00 Joe Ciaran [facility] CBC WITH DIFF 2021-06-26 14:23:00 Joe [facility] URINALYSIS 2021-06-26 14:23:00 [facility] NOTICE OF PRIVACY 2021-06-26 13:57:26 Doctor Unassigned, No [facility] PRACTICES Name [facility] CONSENT/REFUSAL FOR 2021-06-26 13:52:59 Doctor Unassigned, No [facility] DIAGNOSIS AND TREATMENT Name [facility] ABORH CONFIRMATION (LAB 2021-06-20 02:23:00 Kenzie Mercado [facility] ONLY) [facility] US FIRST 2021-06-20 02:16:[address] [facility] TRIMESTER LESS THAN 14 Medical [place] WEEKS WITH TRANSVAGINAL COMP. METABOLIC PANEL 2021-06-20 01:53:00 Kenzie Mercado [facility] ([id number]) [facility] TOTAL BETA HCG ASSAY 2021-06-20 01:53:00 Kenzie Mercado [facility] CBC WITH DIFF 2021-06-20 01:53:00 Kenzie Mercado [facility] HB ABO GROUPING 2021-06-20 01:52:00 Kenzie Mercado [facility] POCT TEST 2021-06-20 01:40:00 Kenzie Mercado [facility] URINALYSIS 2021-06-20 01:37:00 Kenzie Mercado [facility] NOTICE OF PRIVACY 2021-06-20 00:53:27 Doctor Unassigned, No Univ [facility] PRACTICES Name Medical Branch Encounters Start End Encounter Admission Attending Care Care Encounter Source Date/Time Date/Time Type Type Clinicians Facility Department ID 2021-06-26 2021-06-26 Emergency [facility] [id number] Univers 08:59:00 11:26:00 Ciaran Cruz [id number] i ty [facility] [id number] [facility] [id number] [address] 2021-06-26 2021-06-26 Emergency X [facility] ERT [id number] Univers 08:52:00 08:52:00 [facility] 2021-06-19 2021-06-[address] [facility] [id number] Univers 20:07:00 23:32:00 [id number] [facility] [id number] [address] 2021-06-19 2021-06-19 Emergency X [facility] [id number] Univers 19:53:00 19:53:00 [facility] Results Test Description Test Time Test Comments Results Result Comments Source CULTURE, URINE 2022-06-02 SPECIMEN NUMBER: :: [id number] CULTURE, URINE SPECIMEN NUMBER: [id number] SOURCE: URINE REPORT STATUS: FINAL FINAL REPORT: 06/02/2022 10-50,000 CFU/ML UROGENITAL GLORIA PRESENT NO COMMON PATHOGENS THC METABOLITE, QUANT, URINE 2022-06-01 16:28:28 Test Item Value Reference Range Interpretation Comme nts CARBOXY-THC INTERP (test Positive A code = 02890) CARBOXY-THC QNT (test code >500 ng/mL <15 H Reference range indicates cutoff for = 94449) positive result determination. Specimen Type: Urine Uri ne drug and metabolite concentrations are dependent on manyfactors, in cluding patient compliance, alicia g dosing, dosing interval,indivi dual variation in drug absorption and metabolism, urineconcentrat ion, and limitations of testing. Assay is intended formedical purposes only, not for forensic use. This test was develo ped and its performance characteristics determined by [employer] ([facility]). It has not beencleared or approved by the U.S. Food and Drug Admini stration (FDA).The FDA has determined that such clearance or approval is not necessary. This test is used for clinic al purposes and should not beregarded as i nvestigational or for research. SRL i s qualified toperform high complexity test ing under the Clinical LaboratoryImpro vement Amendments (CLIA). TESTING PERFORM ED AT [facility] [employer] . [address] [place] [address], [facility], [place] [address] CLIA NO: [id number] UNLESS OTHERWISE INDICATED, ALL TESTING PERFORMED ATCLINICAL PATH [employer]. [address] [place] [address] UPSETTING MACHINE OPERATOR: RUSLAN ESTRADA M.D. CLIA NUMBER [id number] [place]. [id number] VARICELLA ZOSTER [id number] 15:58:45 Test Item Value Reference Range Interpretation Comments VARICELLA ZOSTER IgG 296 INDEX SEE BELOW INTERP RETATION VZV IgG (test code = 01587) NEGATIVE . . . . . . . . . . . . INDEX < 135 EQUIVOCAL. . . . . . . . . . . . INDEX 1 35-164 NOTE: CONSIDER RETESTING IN A CLINICALLY SUITABLE PERIOD OF TIME, NO SOONER THAN 1-2 WEEKS. POSITIVE . . . . . . . . . . . . INDEX > =165 UNLESS OTHERWIS E INDICATED, ALL TESTING PERFORMED ATCLI NICAL PATHOLOGY [employer] [address] [place] [address] 7875 4 LABORATORY DIRE CTOR: RUSLAN GALLOWAY M.D. CLIA NUMBER [id number] [place] [id number] VAGINAL PATHOGENS DNA [id number] 15:42:49 Test Item Value Reference Range Interpretation Comments VIJI SPECIES (test code = 15706) NEGATIVE NEGATIVE G. VAGINALIS (test code = 54882) POSITIVE NEGATIVE A T. VAGINALIS (test code = ) POSITIVE NEGATIVE A OBSTETRIC PANEL + [id number] 03:28:47 Test Item Value Reference Range Interpretation Comments WBC (test code = 8.8 K/UL 3.5-11.0 1001) RBC (test code = 4.01 M/UL 3.80-5.40 1002) HEMOGLOBIN (test 12.1 G/DL 11.5-15.5 code = 1003) HEMATOCRIT (test 36.1 % 34.0-45.0 code = 1004) MCV (test code = 90.0 fL 80.0-99.0 1005) MCH (test code = 30.2 PG 25.0-33.0 1006) MCHC (test code = 33.5 G/DL 31.0-36.0 1007) RDW (test code = 11.7 % 11.5-15.0 1038) NEUTROPHILS (test 62.6 % code = 1008) LYMPHOCYTES (test 28.2 % code = 1010) MONOCYTES (test 7.6 % code = 1011) EOSINOPHILS (test 0.8 % code = 1012) BASOPHILS (test 0.5 % code = 1013) IMMATURE 0.3 % GRANULOCYTES (test code = 1036) NUCLEATED RBCS 0.0 /100 WBC'S See_Comment [Automated message] (test code = 1065) The syste m which generated this result transmit sanjiv reference range : 0.0. The refere nce range was not u sed to interpret th is result as normal/abnormal . PLATELET COUNT 291 K/UL 130-400 (test code = 1015) ABSOLUTE 5.52 K/UL 1.50-7.50 NEUTROPHILS (test code = 1066) ABSOLUTE 2.49 K/UL 1.00-4.00 LYMPHOCYTES (test code = 1067) ABSOLUTE MONOCYTES 0.67 K/UL 0.20-1.00 (test code = 1068) ABSOLUTE 0.07 K/UL 0.00-0.50 EOSINOPHILS (test code = 1040) ABSOLUTE BASOPHILS 0.04 K/UL 0.00-0.20 (test code = 1069) ABS IMMATURE 0.03 K/UL 0.00-0.10 GRANULOCYTES (test code = 1020) ABS NUCLEATED RBCS 0.00 K/UL 0.00-0.11 (test code = 21213) BLOOD TYPE AND RH O POSITIVE A HISTORI ELISSA RECORD (test code = 3901) CHECK FOR PREVIOUS RESULTS IS NOT PERFORMED.THESE RESULTS SHOULD BE CORRELATED WITH RESULTS OF PRIO R BLOODTYPING AND ANTIBODY SCREEN STUDIES. ANTIBODY SCREEN NEGATIVE NEGATIVE A HISTORICA L RECORD (test code = 3902) CHECK FOR PREVIOUS RESULTS IS NOT PERFORMED.THESE RESULTS SHOULD BE CORRELATED WITH RESULTS OF PRIO R BLOODTYPING AND ANTIBODY SCREEN STUDIES. RUBELLA ANTIBODY 52 IU/ML SEE BELOW INTERPRET ATION SCREEN (test code = RUBELLA IgG 4600) NON-REACTIVE/NO N-IMM UNE . . . . . . . IU/ML <10 REACTIVE/IMMUNE . . . . . . . . . . . IU/ML >=10 RUBELLA IgG INTERP REACTIVE REACTIVE (test code = 66174) HEPATITIS B SURF AG NON-REACTIVE NON-REACTIVE (test code = 2739) RPR (test code = NON-REACTIVE NON-REACTIVE 19181) RPR TITER (test NOT INDIC. NOT INDIC. code = 3500) TITER HIV 1/2 4TH GEN, NON-REACTIVE NON-REACTIVE RFLX CONF (test code = 3514) HEPATITIS C REFLEX [id number] 03:28:47 Test Item Value Reference Range Interpretation Comments HEPATITIS C ANTIBODY (test code NON-REACTIVE NON-REACTIVE = 4675) CULTURE, [id number] 08:58:44SPECIMEN NUMBER: [id number] CULTURE, URINE SPECIMEN NUMBER: [id number] SPECIMEN COMMENT: URINE SOURCE:URINE REPORT STATUS: FINAL FINAL REPORT: 05/31/2022 10-50,000 CFU/ML UROGENITAL GLORIA PRESENT NO COMM ON PATHOGENSCT/NG, NAAT, [id number] 07:07:14 Test Item Value Reference Range Interpretation Comments GONORRHEA, NAAT NEGATIVE NEGATIVE IMPORTA NT NOTICE: SEE (test code = [place] [address]) [email or web address] Sum[employer]ing Note: Assay methodology is nucleic acid amplification b y [employer] rep m ediated amplification ( TMA) utilizing the A ptima Combo 2 Assay. CHLAMYDIA, NAAT NEGATIVE NEGATIVE IMPORTA NT NOTICE: SEE (test code = [place] [address]) [email or web address] Note: Assay methodology is nucleic acid amplification b y [employer] m ediated amplification ( TMA) utilizing the A ptima Combo 2 Assay. DRUG ABUSE SCREEN 10 REFLEX [id number] 06:49:04 Test Item Value Reference Interpretation Comments Range AMPHETAMINES (test NEGATIVE NEGATIVE code = 3201) BARBITURATES (test NEGATIVE NEGATIVE code = 3202) BENZODIAZEPINES NEGATIVE NEGATIVE (test code = 3203) CANNABINOIDS (test SEE REFLEX NEGATIVE A code = 3204) TESTING COCAINE METABOLITE NEGATIVE NEGATIVE (test code = 3205) OPIATES (test code = NEGATIVE NEGATIVE 3209) OXYCODONE (test code NEGATIVE NEGATIVE = 65239) PHENCYCLIDINE (test NEGATIVE NEGATIVE code = 3210) METHADONE (test code NEGATIVE NEGATIVE = 3207) BUPRENORPHINE (test NEGATIVE NEGATIVE code = 59000) SOURCE (test code = URINE SEE BELOW FOR 365404) THRESHOLDS AND IMPORTANT METHOD NOTES * ANALYTE SCREENING CUTOF F CONFIRMATORY CUTOFF ___AMPHETAMINES 500 NG/ML 100 NG/MLBARBITURAT ES 200 NG/ML 100 NG/MLBENZODIAZE PINES 200 NG/ML 100 NG/MLCANNABINOI DS (THC) 20 NG/ML 15 NG/ MLCOCAINE METABOLITES 150 NG/ML 100 NG/MLOPIATE METABOLITES 300 NG/ML 100 NG/MLOXYCOD ONE 100 NG/ML 100 NG/MLPHENCYCLID INE (PCP) 25 NG/ML 25 NG/MLMETHADONE 300 NG/ML 100 NG/MLBUPREN ORPHINE 5 NG/ML 5 NG/ML N OTE: Screening metho dology is qualitative Enz yme Immunoassay.The screening metho d may be less sensitive for certain medicationsincl uding clonazepam and lorazepam in the benzodia zepine assay andtramad ol or fentanyl in the opiate assay, amongst others. Patientcomplian ce, hydration statu s, timing and dose of med ications, drugabsorption and specimen qualit y may affect screenin g assay.For clini elissa discrepancies, consider directed testin g for specificcompoun ds or contact the lab oratory within specimen stability [facility] for confirmatory te sting. This test is sp ecified for medicalpurp oses only. It is not valid for forensic us e. TOTAL BHCG (QUANTITATIVE)2021-06-26 15:30:34 Test Item Value Reference Range Interpretation Comments BETA HCG (test See_Comment [Automated m essage] code = The system whic h [id number]) generated this result transmit sanjiv reference range : Non- fe male and male patien ts: <5 mIU/mL. The reference range was not used to interpret this result as normal/abnormal . MIHAELA (test code Gestational Age ? ? = MIHAELA) ?Range (mIU/mL) 1-10 ?Weeks ?42-90854213-12 Weeks ?51780-89205470-59 Weeks ?4557-68781393-39 Weeks ?3959-849665 Biotin has been reported to cause a negative bias, interpret results relative to patient's use of biotin. [facility]. METABOLIC PANEL ([id number])2021-06-26 14:58:32 Test Item Value Reference Range Interpretation Comments NA (test code = 139 mmol/L 135-145 6904472778) K (test code = 4.0 mmol/L 3.5-5.0 0247539951) CL (test code = 107 mmol/L 98-108 9396889681) CO2 TOTAL (test code = 26 mmol/L 23-31 4071197583) AGAP (test code = 2-16 6374649729) BUN (test code = 4 mg/dL 7-23 L 3106944454) GLUCOSE (test code = 100 mg/dL 70-110 0682448976) CREATININE (test code = 0.53 mg/dL 0.50-1.04 5331300428) TOTAL BILI (test code = 0.3 mg/dL 0.1-1.1 0914757258) CALCIUM (test code = 9.4 mg/dL 8.6-10.6 3104256431) T PROTEIN (test code = 7.9 g/dL 6.3-8.2 1201363629) ALBUMIN (test code = 4.7 g/dL 3.5-5.0 8565344934) ALK PHOS (test code = 71 U/L 34-122 4989997173) ALTv (test code = 19 U/L 5-35 2-6) AST(SGOT) (test code = 27 U/L 13-40 1434145207) eGFR (test code = mL/min/1.73m2 5875130114) MIHAELA (test code = MIHAELA) Association of [...] tests). Lab Interpretation Abnormal (test code = 46924-2) [facility] WITH [id number] 14:45:48 Test Item Value Reference Range Interpretation Comments WBC (test code = See_Comment [Automated 6690-2) message] The sy stem which generated this [...] RDW-SD (test code = 39.1 fL 39.0-49.9 17489-0) RDW-CV (test code = 11.8 % 12.0-15.5 L 788-0) PLT (test code = See_Comment [Automated 777-3) message] The sy stem which generated this result transmitted reference range : 166 - 358 10*3/ ?L. The reference r braxton was not used to interpret this result as normal/abnormal . MPV (test code = 10.2 fL 9.5-12.9 36384-2) NRBC/100 WBC (test See_Comment [Automat ed code = 0959163907) message] The system which generated this result transmitted reference range : 0.0 - 10.0 /100 WBCs. The refer ence range was not u sed to interpret th is result as normal/abnormal . NRBC x10^3 (test code <0.01 See_Comment [Auto mated = 3974762454) message] The s ystem which generated this result transmitted reference range : 10*3/?L. The reference range was not used to interpret this result as normal/abnormal . GRAN MAT (NEUT) % 61.6 % (test code = 770-8) IMM GRAN % (test code 0.20 % = 6425472699) LYMPH % (test code = 28.3 % 736-9) MONO % (test code = 7.0 % 5905-5) EOS % (test code = 2.5 % 713-8) BASO % (test code = 0.4 % 706-2) GRAN MAT x10^3(ANC) 3.27 10*3/uL 1.88-7.09 (test code = 6879147114) IMM GRAN x10^3 (test <0.03 0.00-0.06 code = 8874067230) LYMPH x10^3 (test code 1.50 10*3/uL 1.32-3.29 = 731-0) MONO x10^3 (test code 0.37 10*3/uL 0.33-0.92 = 742-7) EOS x10^3 (test code = 0.13 10*3/uL 0.03-0.39 711-2) BASO x10^3 (test code <0.03 0.01-0.07 = 704-7) Lab Interpretation Abnormal (test code = 10665-3) [facility] Confirmation (Lab Only)2021-06-20 02:41:59 Test Item Value Reference Range Interpretation Comments ABO & RH (test code O Positive Performe d at [facility] = 20) Laboratory Serv [facility] [place], [place] [address]Toll Free: [phone] A No. [id number] [facility] Confirmation (Lab Only)2021-06-20 02:41:59 Test Item Value Reference Range Interpretation Comments ABO & RH (test code O Positive Performe d at [facility] = 20) Laboratory Serv [facility] [place], [place] [address]Toll Free: [phone] A No. [id number] [facility] (QUANTITATIVE)2021-06-20 02:40:26 Test Item Value Reference Range Interpretation Comments BETA HCG (test See_Comment [Automated m essage] code = The system [employer] 8712678080) generated this result transmit sanjiv reference range : Non- fe male and male patien ts: <5 mIU/mL. The reference range was not used to interpret this result as normal/abnormal . MIHAELA (test code Gestational Age ? ? = MIHAELA) ?Range (mIU/mL) 1-10 ?Weeks ?48-54367710-76 Weeks ?44193-59078314-45 Weeks ?6579-21413330-17 Weeks ?1531-154193 Biotin has been reported to cause a negative bias, interpret results relative to patient's use of biotin. [facility] (QUANTITATIVE)2021-06-20 02:40:26 Test Item Value Reference Range Interpretation Comments BETA HCG (test See_Comment [Automated m essage] code = The system [employer] h 6737330078) generated this result transmit sanjiv reference range : Non- fe male and male patien ts: <5 mIU/mL. The reference range was not used to interpret this result as normal/abnormal . MIHAELA (test code Gestational Age ? ? = MIHAELA) ?Range (mIU/mL) 1-10 ?Weeks ?15-82805903-81 Weeks ?53388-64117675-82 Weeks ?1058-20507039-10 Weeks ?1531-386309 Biotin has been reported to cause a negative bias, interpret results relative to patient's use of biotin. [facility] [id number] 02:33:51 Test Item Value Reference Range Interpretation Comments ABO & RH (test code O Positive [facility] Laboratory Serv [facility] [place] [address] Free: [phone] A No. [id number] IAT (test code = Negative Performed a t [facility] Laboratory [facility] [place], [place] [address]Toll Free: [phone] A No. [id number] [facility] and Screen - ONCE [id number] 02:33:51 Test Item Value Reference Range Interpretation Comments ABO & RH (test code O Positive Performe [facility] Laboratory Serv [facility] [address] [place] [address]Heqy Free: [phone] A No. [id number] IAT (test code = Negative Performed a t [facility] Laboratory Serv [facility] [place] [address]Okql Free: [phone] A No. [id number] [facility] METABOLIC PANEL ([id number])2021-06-20 02:20:41 Test Item Value Reference Range Interpretation Comments NA (test code = 140 mmol/L 135-145 4192405897) K (test code = 3.4 mmol/L 3.5-5.0 L 5840536656) CL (test code = 106 mmol/L 98-108 2690295860) CO2 TOTAL (test code = 25 mmol/L 23-31 1578154646) AGAP (test code = 2-16 6591457968) BUN (test code = 8 mg/dL 7-23 0894670752) GLUCOSE (test code = 101 mg/dL 70-110 4896598458) CREATININE (test code = 0.59 mg/dL 0.50-1.04 6337887804) TOTAL BILI (test code = 0.5 mg/dL 0.1-1.4 4131812114) CALCIUM (test code = 9.3 mg/dL 8.6-10.6 2861214960) T PROTEIN (test code = 8.1 g/dL 6.3-8.2 5276692355) ALBUMIN (test code = 4.7 g/dL 3.5-5.0 6018401716) ALK PHOS (test code = 85 U/L 34-122 2234728813) ALTv (test code = 27 U/L 5-35 1742-6) AST(SGOT) (test code = 27 U/L 13-40 4477254044) eGFR (test code = mL/min/1.73m2 9141892559) MIHAELA (test code = MIHAELA) Association of [...] tests). Lab Interpretation Abnormal (test code = 44999-5) [facility]. METABOLIC PANEL (39362)2021-06-20 02:20:41 Test Item Value Reference Range Interpretation Comments NA (test code = 140 mmol/L 135-145 7587982673) K (test code = 3.4 mmol/L 3.5-5.0 L 6063702474) CL (test code = 106 mmol/L 98-108 5194657388) CO2 TOTAL (test code = 25 mmol/L 23-31 2052295667) AGAP (test code = 2-16 6047259322) BUN (test code = 8 mg/dL 7-23 9131219358) GLUCOSE (test code = 101 mg/dL 70-110 2330952035) CREATININE (test code = 0.59 mg/dL 0.50-1.04 3733066836) TOTAL BILI (test code = 0.5 mg/dL 0.1-1.0 5480577898) CALCIUM (test code = 9.3 mg/dL 8.6-10.6 9575511494) T PROTEIN (test code = 8.1 g/dL 6.3-8.2 4915699281) ALBUMIN (test code = 4.7 g/dL 3.5-5.0 4661859772) ALK PHOS (test code = 85 U/L 34-122 7083237368) ALTv (test code = 27 U/L 5-35 1742-6) AST(SGOT) (test code = 27 U/L 13-40 4325069115) eGFR (test code = mL/min/1.73m2 5176392687) MIHAELA (test code = MIHAELA) Association of [...] tests). Lab Interpretation Abnormal (test code = 64009-9) [facility] WITH [id number] 02:01:15 Test Item Value Reference Range Interpretation Comments WBC (test code = See_Comment [Automated 6690-2) message] The sy stem which generated this [...] (test code = 37.8 fL 39.0-49.9 L 64026-2) RDW-CV (test code = 11.8 % 12.0-15.5 L 788-0) PLT (test code = See_Comment [Automated 777-3) message] The sy stem which generated this result transmitted reference range : 166 - 358 10*3/ ?L. The reference r braxton was not used to interpret this result as normal/abnormal . MPV (test code = 9.9 fL 9.5-12.9 23614-2) NRBC/100 WBC (test See_Comment [Automat ed code = 7895710774) message] The system which generated this result transmitted reference range : 0.0 - 10.0 /100 WBCs. The refer ence range was not u sed to interpret th is result as normal/abnormal . NRBC x10^3 (test code <0.01 See_Comment [Auto mated = 4058779872) message] The s ystem which generated this result transmitted reference range : 10*3/?L. The reference range was not used to interpret this result as normal/abnormal . GRAN MAT (NEUT) % 56.3 % (test code = 770-8) IMM GRAN % (test code 0.30 % = 8584014310) LYMPH % (test code = 32.7 % 736-9) MONO % (test code = 8.3 % 5905-5) EOS % (test code = 1.9 % 713-8) BASO % (test code = 0.5 % 706-2) GRAN MAT x10^3(ANC) 4.15 10*3/uL 1.88-7.09 (test code = 6459567770) IMM GRAN x10^3 (test <0.03 0.00-0.06 code = [id number]) LYMPH x10^3 (test code 2.41 10*3/uL 1.32-3.29 = 731-0) MONO x10^3 (test code 0.61 10*3/uL 0.33-0.92 = 742-7) EOS x10^3 (test code = 0.14 10*3/uL 0.03-0.39 711-2) BASO x10^3 (test code 0.04 10*3/uL 0.01-0.07 = 704-7) Lab Interpretation Abnormal (test code = 48099-5) [facility] WITH [id number] 02:01:15 Test Item Value Reference Range Interpretation Comments WBC (test code = See_Comment [Automated 6690-2) message] The sy stem which generated this [...] (test code = 37.8 fL 39.0-49.9 L 32341-0) RDW-CV (test code = 11.8 % 12.0-15.5 L 788-0) PLT (test code = See_Comment [Automated 777-3) message] The sy stem which generated this result transmitted reference range : 166 - 358 10*3/ ?L. The reference r braxton was not used to interpret this result as normal/abnormal . MPV (test code = 9.9 fL 9.5-12.9 43425-5) NRBC/100 WBC (test See_Comment [Automat ed code = 3689232945) message] The system which generated this result transmitted reference range : 0.0 - 10.0 /100 WBCs. The refer ence range was not u sed to interpret th is result as normal/abnormal . NRBC x10^3 (test code <0.01 See_Comment [Auto mated = [id number]) message] The s ystem which generated this result transmitted reference range : 10*3/?L. The reference range was not used to interpret this result as normal/abnormal . GRAN MAT (NEUT) % 56.3 % (test code = 770-8) IMM GRAN % (test code 0.30 % = 9132158940) LYMPH % (test code = 32.7 % 736-9) MONO % (test code = 8.3 % 5905-5) EOS % (test code = 1.9 % 713-8) BASO % (test code = 0.5 % 706-2) GRAN MAT x10^3(ANC) 4.15 10*3/uL 1.88-7.09 (test code = 1193147838) IMM GRAN x10^3 (test <0.03 0.00-0.06 code = 5724192661) LYMPH x10^3 (test code 2.41 10*3/uL 1.32-3.29 = 731-0) MONO x10^3 (test code 0.61 10*3/uL 0.33-0.92 = 742-7) EOS x10^3 (test code = 0.14 10*3/uL 0.03-0.39 711-2) BASO x10^3 (test code 0.04 10*3/uL 0.01-0.07 = 704-7) Lab Interpretation Abnormal (test code = 75275-7) [id number] Test Item Value Reference Range Interpretation Comments POCT PREG (test code = 1605) positive On board controls acceptable with present C Line (test code = 3574) POCT PREG LOT # (test code = 3575) [id number] POCT PREG TEST DATE (test 09/29/2022 code = 3576) Lab Interpretation (test code = Normal 14110-1) [id number] 01:40:00 Test Item Value Reference Range Interpretation Comments POCT PREG (test code = 1605) positive On board controls acceptable with present C Line (test code = 3574) POCT PREG LOT # (test code = 3575) [id number] POCT PREG TEST DATE (test 09/29/2022 code = 3576) Lab Interpretation (test code = Normal 92935-9) [facility]"
[2022-06-15 11:49] LABS: Absolute Lymphocytes (CBC) 1.7 K/uL (0.7-4.9); Hematocrit 35.7 % (36.0-45.0); Lymphocytes % 20.3 % (15.3-44.8); MCV 88.7 fL (80-100); MPV 7.9 fL (7.6-11.3); RBC Red Blood Cell Count 4.03 M/uL (3.86-4.86)
[2022-06-15] MEDS ORDERED: ONDANSETRON 4 MG/2 ML VIAL ONE (11:52)
[2022-06-15] MEDS ORDERED: FAMOTIDINE 20 MG/2 ML VIAL IV ONE (11:53)
[2022-06-15] MEDS ORDERED: NA CHLORIDE 0.9% 1,000 ML ONE ×2 (11:53→13:02)
[2022-06-15 12:07] LABS: Potassium 3.4 mmol/L (3.5-5.1)
[2022-06-15 13:09] LABS: Urine Blood Negative (Negative); Urine Glucose Negative (Negative); Urine Protein Trace (Negative); Urine Specific Gravity >=1.030 (1.005-1.030); Urine pH 6.5 (5.0-7.0)
[2022-06-15] MEDS ORDERED: ONDANSETRON 4 MG (ODT) TAB ONE (13:42)
[2022-06-15] MEDS ORDERED: NITROFURAN MACRO 100 MG CAP PO ONE (14:00)
[2022-06-15] MEDS ORDERED: PROMETHAZINE 25 MG TABLET ONE (14:00)
[2022-06-15] MEDS ORDERED: PROMETHAZINE INJ 25 MG/ML AMP ONE (14:35)
[2022-06-15] MEDS ORDERED: MAGNES/ALUMIN/SIMET 30ML UCUP ONE (15:38)
--- NOTE | 2022-06-15 17:03 | EDPHYS ---
Physician Documentation [facility] Name: Kia Garibay Age: 32 yrs Sex: Female : 1990 Arrival Date: 06/15/2022 Time: 11:00 Bed 19 Private MD: ED Physician Demetrio Salas HPI: 06/15 17:53 This 32 yrs old Female presents to ER via Ambulatory with complaints of , kdr Vomiting. 17:53 Patient has been vomiting for the last 2 weeks. She consulted with her [employer] this kdr morning and her OB GEN asked that she come to the ED to check for dehydration and get some fluid. Patient believes herself to be approximately 7 weeks 6 days . She is G3, P5.. Onset: The symptoms/episode began/occurred gradually, 2 week(s) ago. Severity of symptoms: At their worst the symptoms were mild in the emergency department the symptoms are unchanged. The patient has not experienced similar symptoms in the past. The patient has been recently seen by a physician: the patient's primary care provider. Historical: - Allergies: 11:19 No Known Allergies; kr3 - PMHx: 11:19 DENTAL CARIES; Kidney stones; Ovarian cyst; UTI; kr3 - PSHx: 11:19 Tonsillectomy; section; kr3 - Immunization history:: Adult Immunizations up to date. - Social history:: Smoking status: Patient/guardian denies using tobacco, the patient reports quitting approximately 15 years ago. ROS: 17:53 Constitutional: Negative for fever, chills, and weight loss, Eyes: Negative for injury, kdr pain, redness, and discharge, ENT: Negative for injury, pain, and discharge, Neck: Negative for injury, pain, and swelling, Cardiovascular: Negative for chest pain, palpitations, and edema, Respiratory: Negative for shortness of breath, cough, wheezing, and pleuritic chest pain, Back: Negative for injury and pain, : Negative for injury, bleeding, discharge, and swelling, MS/Extremity: Negative for injury and deformity, Skin: Negative for injury, rash, and discoloration, Neuro: Negative for headache, weakness, numbness, tingling, and seizure activity. Psych: Negative for depression, anxiety, suicide ideation, homicidal ideation, and hallucinations, Allergy/Immunology: Negative for hives, rash, and allergies, Endocrine: Negative for neck swelling, polydipsia, polyuria, polyphagia, and marked weight changes, Hematologic/Lymphatic: Negative for swollen nodes, abnormal bleeding, and unusual bruising. 17:53 Abdomen/GI: Positive for abdominal pain, nausea and vomiting, Negative for vomiting, diarrhea, constipation, black/tarry stool, rectal pain, rectal bleeding, bowel incontinence. Exam: 17:53 Constitutional: This is a well developed, well nourished patient who is awake, alert, kdr and in no acute distress. Head/Face: Normocephalic, atraumatic. Eyes: Pupils equal round and reactive to light, extra-ocular motions intact. Lids and lashes normal. Conjunctiva and sclera are non-icteric and not injected. Cornea within normal limits. Periorbital areas with no swelling, redness, or edema. Neck: Trachea midline, no thyromegaly or masses palpated, and no cervical lymphadenopathy. Supple, full range of motion without nuchal rigidity, or vertebral point tenderness. No Meningismus. Chest/axilla: Normal chest wall appearance and motion. Nontender with no deformity. No lesions are appreciated. Cardiovascular: Regular rate and rhythm with a normal S1 and S2. No gallops, murmurs, or rubs. Normal PMI, no JVD. No pulse deficits. Respiratory: Lungs have equal breath sounds bilaterally, clear to auscultation and percussion. No rales, rhonchi or wheezes noted. No increased work of breathing, no retractions or nasal flaring. Abdomen/GI: Soft, non-tender, with normal bowel sounds. No distension or tympany. No guarding or rebound. No evidence of tenderness throughout. Back: No spinal tenderness. No costovertebral tenderness. Full range of motion. Skin: Warm, dry with normal turgor. Normal color with no rashes, no lesions, and no evidence of cellulitis. MS/ Extremity: Pulses equal, no cyanosis. Neurovascular intact. Full, normal range of motion. Neuro: Awake and alert, GCS 15, oriented to person, place, time, and situation. Cranial nerves II-XII grossly intact. Motor strength 5/5 in all extremities. Sensory grossly intact. Cerebellar exam normal. Normal gait. Psych: Awake, alert, with orientation to person, place and time. Behavior, mood, and affect are within normal limits. Vital Signs: 11:14 BP 120 / 77; Pulse 81; Resp 18; Temp 98.4(O); Pulse Ox 97% on R/A; Weight 57.61 kg; kr3 Height 4 ft. 11 in. (149.86 cm); Pain 0/10; 13:20 BP 122 / 74; Pulse 82; Resp 16; Pulse Ox 100% on R/A; bm7 15:33 BP 128 / 70; Pulse 80; Resp 16; Pulse Ox 100% on R/A; bm7 16:16 BP 130 / 68; Pulse 91; Resp 16; Pulse Ox 100% on R/A; bm7 17:16 BP 122 / 78; Pulse 89; Resp 16; Pulse Ox 100% on R/A; bm7 11:14 Body Mass Index 25.65 (57.61 kg, 149.86 cm) kr3 MDM: 17:03 Patient medically screened. kdr 17:53 Data reviewed: vital signs, nurses notes, lab test result(s). Counseling: I had a kdr detailed discussion with the patient and/or guardian regarding: the historical points, exam findings, and any diagnostic results supporting the discharge/admit diagnosis, lab results, the need for outpatient follow up. ED course: Patient improved reasonably well with hydration and antiemetics. She successfully was able to drink fluids and keep it down. She did not feel completely back to baseline but felt well enough to want to try to go home. She was otherwise happy with the interventions provided and the plan for discharge and follow-up. 06/15 11:23 Order name: Basic Metabolic Panel; Complete Time: 13:46 kdr 06/15 11:23 Order name: CBC with Diff; Complete Time: 13:46 kdr 06/15 13:09 Order name: Urine Dipstick-Ancillary; Complete Time: 13:46 EDMS 06/15 11:23 Order name: IV Saline Lock; Complete Time: 11:39 kdr 06/15 11:23 Order name: Labs collected and sent; Complete Time: 11:39 kdr 06/15 11:23 Order name: NPO; Complete Time: 11:39 kdr 06/15 11:23 Order name: Urine Dipstick-Ancillary (obtain specimen); Complete Time: 13:04 kdr Administered Medications: 11:48 Drug: Zofran (Ondansetron) 4 mg Route: IVP; Site: left antecubital; bm7 13:34 Follow up: Response: No adverse reaction bm7 11:48 Drug: NS 0.9% 1000 ml Route: IV; Rate: 1 bolus; Site: left antecubital; bm7 12:53 Follow up: IV Status: Completed infusion; IV Intake: 1000ml bm7 11:48 Drug: Pepcid (famotidine) 20 mg Route: IVP; Site: left antecubital; bm7 13:33 Follow up: Response: No adverse reaction bm7 12:53 Drug: NS 0.9% 1000 ml Route: IV; Rate: 1 bolus; Site: left antecubital; bm7 17:17 Follow up: IV Status: Completed infusion; IV Intake: 1000ml bm7 13:34 Drug: Ondansetron 4 mg Route: PO; bm7 14:27 Follow up: Response: Nausea unchanged bm7 13:52 Drug: Nitrofurantoin 100 mg Route: PO; bm7 14:28 Follow up: Response: No adverse reaction bm7 13:52 Drug: Phenergan (promethazine) 25 mg Route: PO; bm7 15:33 Follow up: Response: Nausea unchanged bm7 13:52 CANCELLED (Duplicate Order): Phenergan (promethazine) 25 mg PO once bm7 14:28 CANCELLED (Duplicate Order): Phenergan (promethazine) 25 mg IVP once bm7 14:29 Drug: Phenergan (promethazine) 12.5 mg Route: IVP; Site: left antecubital; bm7 15:32 Follow up: Response: Nausea is decreased bm7 15:32 Drug: Maalox (aluminum hydroxide, magnesium hydroxide, simethicone) Suspension (200 bm7 mg-200 mg-20 mg/5 mL) 30 ml Route: PO; 15:33 Follow up: Response: No adverse reaction bm7 Disposition Summary: 06/15/22 17:03 Discharge Ordered Location: Home kdr Problem: new kdr Symptoms: have improved kdr Condition: Stable kdr Diagnosis - Vomiting kdr Followup: kdr - With: Private Physician - When: 2 - 3 days - Reason: If symptoms return, Further diagnostic work-up, Recheck today's complaints, Continuance of care, Re-evaluation by your physician Discharge Instructions: - Discharge Summary Sheet kdr - Nausea and Vomiting, Adult, [id number] kdr Forms: - Medication Reconciliation Form kdr - Thank You Letter kdr Prescriptions: - Zofran 4 mg Oral Tablet - take 1 tablet by ORAL route every 4-6 hours As needed; 16 tablet; Refills: 0, kdr Product Selection Permitted Signatures: Dispatcher [employer] EDSC Demetrio Salas MD MD kdr Reny Ramsey RN RN bm7 Nicky Grajeda RN RN kr3 Corrections: (The following items were deleted from the chart) 13:52 13:52 Phenergan (promethazine) 25 mg PO once ordered. bm7 bm7 14:28 14:23 Phenergan (promethazine) 25 mg IVP once ordered. bm7 bm7
--- NOTE | 2022-06-15 17:03 | ER ---
Nurse's Notes [facility] Name: Kia Garibay Age: 32 yrs Sex: Female : 1990 Arrival Date: 06/15/2022 Time: 11:00 Bed 19 Private MD: Diagnosis: Vomiting Presentation: 06/15 11:14 Chief complaint: Patient states: virtual appointment with [employer] this AM, doctor wanted kr3 pt to come in and get checked for dehydration, N/V for about 2 weeks, has not been able to keep water or food down in 1 week. currently 7 weeks 6 days . Coronavirus screen: Vaccine status: Patient reports being unvaccinated. Client denies travel out of the [place] in the last 14 days. Ebola Screen: Patient denies travel to an Ebola-affected area in the 21 days before illness onset. Initial Sepsis Screen: Does the patient meet any 2 criteria? No. Patient's initial sepsis screen is negative. Does the patient have a suspected source of infection? No. Patient's initial sepsis screen is negative. Risk Assessment: Do you want to hurt yourself or someone else? Patient reports no desire to harm self or others. Onset of symptoms was June 01, 2022. 11:14 Method Of Arrival: Ambulatory kr3 11:14 Acuity: OMID 4 kr3 Triage Assessment: 11:20 General: Appears in no apparent distress. comfortable, Behavior is calm, cooperative, kr3 appropriate for age. Pain: Denies pain. GI: Reports nausea. Historical: - Allergies: 11:19 No Known Allergies; kr3 - PMHx: 11:19 DENTAL CARIES; Kidney stones; Ovarian cyst; UTI; kr3 - PSHx: 11:19 Tonsillectomy; section; kr3 - Immunization history:: Adult Immunizations up to date. - Social history:: Smoking status: Patient/guardian denies using tobacco, the patient reports quitting approximately 15 years ago. Screenin:53 Abuse screen: Denies threats or abuse. Nutritional screening: No deficits noted. bm7 Tuberculosis screening: No symptoms or risk factors identified. Fall Risk None identified. Assessment: 11:53 General: Appears in no apparent distress. comfortable, Behavior is calm, cooperative, bm7 appropriate for age. Pain: Denies pain. Neuro: No deficits noted. Cardiovascular: No deficits noted. Respiratory: No deficits noted. GI: Abdomen is round non-distended, Bowel sounds present X 4 quads. Abd is soft and non tender X 4 quads. Reports nausea, vomiting. : No deficits noted. No signs and/or symptoms were reported regarding the genitourinary system. EENT: No deficits noted. No signs and/or symptoms were reported regarding the EENT system. Derm: No deficits noted. No signs and/or symptoms reported regarding the dermatologic system. Musculoskeletal: No deficits noted. No signs and/or symptoms reported regarding the musculoskeletal system. 13:21 Reassessment: Patient and/or family updated on plan of care and expected duration. Pain bm7 level reassessed. Patient is alert, oriented x 3, equal unlabored respirations, skin warm/dry/pink. Patient states feeling better. Patient states symptoms have improved. 16:16 Reassessment: Patient and/or family updated on plan of care and expected duration. Pain bm7 level reassessed. Patient is alert, oriented x 3, equal unlabored respirations, skin warm/dry/pink. Patient states symptoms have not improved. Vital Signs: 11:14 BP 120 / 77; Pulse 81; Resp 18; Temp 98.4(O); Pulse Ox 97% on R/A; Weight 57.61 kg; kr3 Height 4 ft. 11 in. (149.86 cm); Pain 0/10; 13:20 BP 122 / 74; Pulse 82; Resp 16; Pulse Ox 100% on R/A; bm7 15:33 BP 128 / 70; Pulse 80; Resp 16; Pulse Ox 100% on R/A; bm7 16:16 BP 130 / 68; Pulse 91; Resp 16; Pulse Ox 100% on R/A; bm7 17:16 BP 122 / 78; Pulse 89; Resp 16; Pulse Ox 100% on R/A; bm7 11:14 Body Mass Index 25.65 (57.61 kg, 149.86 cm) kr3 ED Course: 11:00 Patient arrived in ED. mr 11:09 Demetrio Salas MD is Attending Physician. kdr 11:19 Triage completed. kr3 11:24 Arm band placed on Patient placed in an exam room, on a stretcher. ll1 11:38 Reny Ramsey, RN is Primary Nurse. bm7 11:45 Inserted saline lock: 22 gauge in left antecubital area, using aseptic technique. Blood jw7 collected. Missed attempt(s): 22 gauge in right forearm. Bleeding controlled, band aid applied, catheter tip intact. 11:45 Initial lab(s) drawn, by me, sent to lab. jw7 11:46 Basic Metabolic Panel Sent. jw7 11:46 CBC with Diff Sent. jw7 11:53 No apparent distress. Resting quietly. Awaiting lab results. bm7 11:53 Patient has correct armband on for positive identification. Fall risk band placed. Bed bm7 in low position. Call light in reach. Side rails up X 1. Adult w/ patient. Client placed on continuous cardiac and pulse oximetry monitoring. NIBP monitoring applied. Warm blanket given. 11:53 No provider procedures requiring assistance completed. Patient maintains SpO2 bm7 saturation greater than 95% on room air. 14:23 Inserted saline lock: 22 gauge in left forearm, using aseptic technique. IV bm7 discontinued, intact, bleeding controlled, No redness/swelling at site. Pressure dressing applied. Administered Medications: 11:48 Drug: Zofran (Ondansetron) 4 mg Route: IVP; Site: left antecubital; bm7 13:34 Follow up: Response: No adverse reaction bm7 11:48 Drug: NS 0.9% 1000 ml Route: IV; Rate: 1 bolus; Site: left antecubital; bm7 12:53 Follow up: IV Status: Completed infusion; IV Intake: 1000ml bm7 11:48 Drug: Pepcid (famotidine) 20 mg Route: IVP; Site: left antecubital; bm7 13:33 Follow up: Response: No adverse reaction bm7 12:53 Drug: NS 0.9% 1000 ml Route: IV; Rate: 1 bolus; Site: left antecubital; bm7 17:17 Follow up: IV Status: Completed infusion; IV Intake: 1000ml bm7 13:34 Drug: Ondansetron 4 mg Route: PO; bm7 14:27 Follow up: Response: Nausea unchanged bm7 13:52 Drug: Nitrofurantoin 100 mg Route: PO; bm7 14:28 Follow up: Response: No adverse reaction bm7 13:52 Drug: Phenergan (promethazine) 25 mg Route: PO; bm7 15:33 Follow up: Response: Nausea unchanged bm7 13:52 CANCELLED (Duplicate Order): Phenergan (promethazine) 25 mg PO once bm7 14:28 CANCELLED (Duplicate Order): Phenergan (promethazine) 25 mg IVP once bm7 14:29 Drug: Phenergan (promethazine) 12.5 mg Route: IVP; Site: left antecubital; bm7 15:32 Follow up: Response: Nausea is decreased bm7 15:32 Drug: Maalox (aluminum hydroxide, magnesium hydroxide, simethicone) Suspension (200 bm7 mg-200 mg-20 mg/5 mL) 30 ml Route: PO; 15:33 Follow up: Response: No adverse reaction bm7 Medication: 11:53 VIS not applicable for this client. bm7 Intake: 12:53 IV: 1000ml; Total: 1000ml. bm7 17:17 IV: 1000ml; Total: 2000ml. bm7 Outcome: 17:03 Discharge ordered by . kdr 17:16 Discharged to home ambulatory, with family. bm7 17:16 Condition: improved 17:16 Discharge instructions given to patient, family, Instructed on discharge instructions, follow up and referral plans. medication usage, Demonstrated understanding of instructions, follow-up care, medications, Prescriptions given X 1. 17:17 Patient left the ED. bm7 Signatures: Demetrio Salas MD MD kdr Rivera, Mary mr Lewis, Lynsay, RN RN ll1 Reny Ramsey RN RN bm7 Leena Gutierrez 7 Nicky Grajeda RN RN kr3
[2022-06-17 00:58] VITALS: TEMP 98.4
[2022-06-17 01:11] VITALS: O2SAT 100
[2022-06-17 01:55] VITALS: BP 122/78
== END 2022-06-15 17:17 | disposition home or self-care (01) ==
LOC: ER 10:59
DX: O21.9 Vomiting of pregnancy, unspecified (principal); Z3A.01 Less than 8 weeks gestation of pregnancy
CPT/HCPCS: 96361; 85025; 80048; 36415; 81003; 96375; 96374; 99284; J2550; Q0169; Q0162; J7030 ×2; J2405

== ENCOUNTER 2023-07-10 03:25 | Emergency (ER) | payer SELFPAY ==
--- OUTSIDE RECORDS SUMMARY | 2023-07-10 03:34 | XMS REPORT | Continuity of Care Document ---
:1990 Author Organization [facility] t Address [address] [facility] [address] [place] [address] Care Team Providers Name Role Phone Lexie Ac Primary Care Physician [phone] DELILAH BOLANOS Attending Clinician Unavailable Delilah Bolanos NP Attending Clinician RENEE SHAHID Attending Clinician Unavailable SWAPNIL NUNES Attending Clinician Unavailable Swapnil Nunes MD Attending Clinician Doctor Unassigned, [place] Attending Clinician Unavailable Renee Shahid PA-C Attending Clinician 1, [facility] Room Attending Clinician Unavailable Maya Santo MD Attending Clinician MAYA SANTO Attending Clinician Unavailable MAYA SANTO Attending Clinician Unavailable 2, [facility] Attending Clinician Unavailable RESHMA DURANT Attending Clinician Unavailable Reshma Durant MD Attending Clinician Tuan Rahamn NP Attending Clinician TUAN RAHMAN Attending Clinician Unavailable Fernanda Fairchild Attending Clinician ELIDA MEJÍA Attending Clinician Unavailable Elida Mejía MD Attending Clinician Ciaran Diaz MD Attending Clinician CIARAN DIAZ Attending Clinician Unavailable SWAPNIL NUNES Admitting Clinician Unavailable Swapnil Nunes MD Admitting Clinician ADRESHMA BOOTH Admitting Clinician Unavailable Reshma Durant MD Admitting Clinician ELIDA MEJÍA Admitting Clinician Unavailable Elida Mejía MD Admitting Clinician Payers Payer Name Policy Type Policy Number Effective Date Expiration Date Dominic CRONIN [employer]AR [id number] 2022 00:00:00 [place] [id number] 2021 WOMEN 00:00:00 Problems Condition Condition Condition Status Onset Resolution Last Treating Co mments Source Name Details Category Date Date Treatment Clinician Date 39 weeks 39 weeks Disease Active Unive rs gestation gestation 4-24 ity of of of 00:00: [place] 00 [facility] Previous Previous Disease Active Unive rs 4-24 ity of section section 00:00: [place] 00 [facility] Anemia Anemia Disease Active Univers affecting affecting 4-24 [place] in third in third 00 Medica l trimester trimester Bran ch Liveborn Liveborn Disease Active Unive rs , of infant, of 4-24 it y of [place] , , 00 Me dical born in born in [facility] by by delivery delivery Trichomona Trichomona Disease Active U nivers s s 4-17 ity of vag[place] vaginitis 00:[place] 00 [facility] 35 weeks 35 weeks Disease Active Overview: Un jessica gestation gestation 11-08 Formattin i ty of of of 00:00: g of this [place] 00 note [facility] might be Branch different from the original. Added automatic ally from request for surgery [id number] 38 weeks 38 weeks Disease Active Overview: Un jessica gestation gestation 11-08 Formattin i ty of of of 00:00: g of this [place] 00 note [facility] might be Branch different from the original. Added automatic ally from request for surgery [id number] High-risk High-risk Disease Active 2021-09 Uni vers 1-21 ity of in third in third 00:00: [place] trimester trimester 00 [facility] Acute Acute Disease Active 2021-09 Univers cystitis cystitis 0-16 ity of with with 00:00: [place] hematuria hematuria 00 [facility] Branch 12 weeks 12 weeks Disease Active 2021-09 Unive rs gestation gestation 0-16 ity of of of 00:00: [place] 00 [facility] Branch Nausea and Nausea and Disease Active 2021-09 U nivers vomiting vomiting 0-16 ity of during during 00:00: [place] 00 [facility] prior to prior to Branch 22 weeks 22 weeks gestation gestation Acute Acute Disease Active 2021-09 Univers pyelonephr pyelonephr 0-01 it y of itis itis 00:00: [address] No known No known Disease Unive rs active active ity of problems problems [facility] Allergies, Adverse Reactions, Alerts Allergy Allergy Status Severity Reaction(s) Onset Inactive Treating Comm ents Source Name Type Date Date Clinician NO KNOWN Drug Active Univers ALLERGIE Class ity of S [facility] Social History Social Habit Start Date Stop Date Quantity Comments Source ASSERTION 2022-05-05 [facility] 00:00:00 [facility] History of tobacco Passive smoker Un iversity of use [facility] Alcohol intake 2023-07-07 2023-07-07 Ex-drinker [facility] 00:00:00 00:00:00 (finding) [facility] Exposure to 2023-01-18 2023-01-28 Not sure [facility] SARS-CoV-2 (event) 00:00:00 13:36:00 [facility] Tobacco use and 2022-08-20 2022-08-20 Smokeless Universit y of exposure 00:00:00 00:00:00 tobacco non-user [facility] History of Social 2022-08-20 2022-08-20 Univers ity of function 00:00:00 00:00:00 [facility] Sex Ass[birth year] Universit y of 00:00:00 00:00:00 [facility] Smoking Status Start Date Stop Date Source Tobacco smoking [facility] Medications Ordered Filled Start Stop Current Ordering Indication Dosage Frequency Signature Comments Components Source Medication Medication Date Date Medication? Clinician (SIG) Name Name dicyclomine 2022-09- Yes 20mg 20 mg, Uni vers (BENTYL) 0-08 10-09 Intramuscu ity of injection 23:45: 11:44 lar, ONCE [place] 20 mg 00 :00 NOW, 1 Medical dose, On Branch Germfask 07/07/23 at 1845, Routine NaCl 0.9% 2022-09- Yes 1000mL at 999 Uni vers (NS) bolus 0-09 mL/hr, ity of infusion 23:45: 11:44 1,000 mL, [place] 1,000 mL 00 :00 IV Medical Infusion, Branch ONCE, 1 dose, On Germfask 07/07/23 at 1845, LINDA ibuprofen Yes 600mg 600 mg, Univ ers (IBU) 4-26 Oral, Q6H ity of tablet 600 05:00: ABX, First [place] mg 00 dose on [facility] 01/23/23 at 0000, Until Discontinu ed, Routine ibuprofen Yes 600mg 600 mg, Univ ers (IBU) 4-26 Oral, Q6H ity of tablet 600 05:00: ABX, First [place] mg 00 dose on [facility] Branch 01/23/23 at 0000, Until Discontinu ed, Routine PNV 2022- No Take by Univers no.95/harrison 01-22 04-25 mouth. ity o f us 07:39: 00:00 [place] fum/folic 52 :00 Medical Branch ( ORAL) PNV 0 2022- No Take by Univers no.95/harrison 01-22 04-25 mouth. ity o f us 07:39: 00:00 [place] fum/folic 52 :00 Medical [facility] ( ORAL) ketorolac 2022- No 30mg 30 mg, Unive rs (TORADOL) 01-22- Slow IV ity of injection 05:00: 04:59 Push, Q6H [place] 30 mg 00 :00 ABX, 4 Medical doses, Branch First dose on Sat01/22/23 at 0000, Last dose on Sat01/22/23 at 1800, Routine ketorolac 2022- No 30mg 30 mg, Unive rs (TORADOL) 01-22 04-25 Slow IV ity of injection 05:00: 23:14 Push, Q6H [place] 30 mg 00 :00 ABX, 4 Medical doses, Branch First dose on Sat01/22/23 at 0000, Last dose on Sat01/22/23 at 1800, Routine acetaminoph Yes 650mg 650 mg, Un jessica en 4-25 Oral, Q6H ity of (TYLENOL) 01:00: ABX, First [place] tablet 650 00 dose on Medica l mg [facility] 01/21/23 at 1999, Until Discontinu ed, Routine acetaminoph 0 Yes 650mg 650 mg, Un jessica en 4-25 Oral, Q6H ity of (TYLENOL) 01:00: ABX, First [place] tablet 650 00 dose on Medica l mg [facility] 01/21/23 at 1999, Until Discontinu ed, Routine acetaminoph 0 Yes [id number] 650mg Take 2 Univers en 325 mg 4-25 tablets by ity of tablet 00:00: mouth 00 every 6 Medical (six) Branch hours as needed for Pain (scale 1-3) or Pain (scale 4-6). 2022-0 Yes [id number] 1{tbl} Take 1 U nivers vitamin 4-25 tablet by ity of w/FA tablet 00:00: mouth in [place] 00 the Medical morning. Branch docusate 0 Yes [id number] 200mg Take 2 Un jessica 100 mg 4-25 capsules ity of capsule 00:00: by mouth 00 once daily Medical as needed Branch for Constipati on. ferrous 2022-0 Yes [id number] 325mg Take 1 Uni vers sulfate 325 4-25 tablet by ity of mg (65 mg 00:00: mouth in [facility] iron) 00 the Medical tablet morning Branch and 1 tablet in the evening. ibuprofen 0 Yes [id number] 600mg Take 1 U nivers 600 mg 4-25 tablet by ity of tablet 00:00: mouth [place] 00 every 6 Medical (six) Branch hours as needed (Pain). Take with food or milk. acetaminoph 2022-0 Yes [id number] 650mg Take 2 Univers en 325 mg 4-25 tablets by ity of tablet 00:00: mouth [place] 00 every 6 Medical (six) Branch hours as needed for Pain (scale 1-3) or Pain (scale 4-6). 2022-0 Yes [id number] 1{tbl} Take 1 U nivers vitamin 4-25 tablet by ity of w/FA tablet 00:00: mouth in [place] 00 the Medical morning. Branch docusate 0 Yes [id number] 200mg Take 2 Un jessica 100 mg 4-25 capsules ity of capsule 00:00: by mouth [place] 00 once daily Medical as needed Branch for Constipati on. ferrous 2022-0 Yes [id number] 325mg Take 1 Uni vers sulfate 325 4-25 tablet by ity of mg (65 mg 00:00: [place] iron[place] 00 the Medical tablet morning Branch and 1 tablet in the evening. ibuprofen 2022-0 Yes [id number] 600mg Take 1 U nivers 600 mg 4-25 tablet by ity of tablet 00:00: mouth [place] 00 every 6 Medical (six) Branch hours as needed (Pain). Take with food or milk. acetaminoph 0 Yes [id number] 650mg Take 2 Univers en 325 mg 4-25 tablets by ity of tablet 00:00: mouth [place] 00 every 6 Medical (six) Branch hours as needed for Pain (scale 1-3) or Pain (scale 4-6). 2022-0 Yes [id number] 1{tbl} Take 1 U nivers vitamin 4-25 tablet by ity of w/FA tablet 00:00: mouth in [place] 00 the Medical morning. Branch docusate 2022-0 Yes [id number] 200mg Take 2 Un jessica 100 mg 4-25 capsules ity of capsule 00:00: by mouth [place] 00 once daily Medical as needed Branch for Constipati on. ferrous 2022-0 Yes [id number] 325mg Take 1 Uni vers sulfate 325 4-25 tablet by ity of mg (65 mg 00:00: mouth [place] iron[place] 00 the Medical tablet morning Branch and 1 tablet in the evening. ibuprofen 2022-0 Yes [id number] 600mg Take 1 U nivers 600 mg 4-25 tablet by ity of tablet 00:00: mouth [place] 00 every 6 Medical (six) Branch hours as needed (Pain). Take with food or milk. acetaminoph 0 Yes [id number] 650mg Take 2 Univers en 325 mg 4-25 tablets by ity of tablet 00:00: mouth [place] 00 every 6 Medical (six) Branch hours as needed for Pain (scale 1-3) or Pain (scale 4-6). 2022-0 Yes [id number] 1{tbl} Take 1 U nivers vitamin 4-25 tablet by ity of w/FA tablet 00:00: mouth in [place] 00 the Medical morning. Branch docusate 0 Yes [id number] 200mg Take 2 Un jessica 100 mg 4-25 capsules ity of capsule 00:00: by mouth [place] 00 once daily Medical as needed Branch for Constipati on. ferrous 2022-0 Yes [id number] 325mg Take 1 Uni vers sulfate 325 4-25 tablet by ity of mg (65 mg 00:00: mouth [place] iron[place] 00 the Medical tablet morning Branch and 1 tablet in the evening. ibuprofen 0 Yes [id number] 600mg Take 1 U nivers 600 mg 4-25 tablet by ity of tablet 00:00: mouth [place] 00 every 6 Medical (six) Branch hours as needed (Pain). Take with food or milk. acetaminoph 0 Yes [id number] 650mg Take 2 Univers en 325 mg 4-25 tablets by ity of tablet 00:00: mouth [place] 00 every 6 Medical (six) Branch hours as needed for Pain (scale 1-3) or Pain (scale 4-6). 2022-0 Yes [id number] 1{tbl} Take 1 U nivers vitamin 4-25 tablet by ity of w/FA tablet 00:00: mouth in [place] 00 the Medical morning. Branch docusate 2022-0 Yes [id number] 200mg Take 2 Un jessica 100 mg 4-25 capsules ity of capsule 00:00: by mouth [place] 00 once daily Medical as needed Branch for Constipati on. ferrous 2022-0 Yes [id number] 325mg Take 1 Uni vers sulfate 325 4-25 tablet by ity of mg (65 mg 00:00: mouth [place] iron) 00 the Medical tablet morning Branch and 1 tablet in the evening. ibuprofen 2022-0 Yes [id number] 600mg Take 1 U nivers 600 mg 4-25 tablet by ity of tablet 00:00: mouth [place] 00 every 6 Medical (six) Branch hours as needed (Pain). Take with food or milk. HYDROcodone 2022-2022- No [id number] 1{tbl} Take 1 U nivers -acetaminop 4-25 05-03 tablet by it y of hen 5-325 00:00: 04:59 mouth [place] mg tablet 00 :00 every 6 Medical (six) Branch hours as needed for Pain (scale 7-10) (Alternate with Ibuprofen) for up to 7 days. Indication s: acute pain HYDROcodone 2022-2022- No [id number] 1{tbl} Take 1 U nivers -acetaminop 4-25 05-03 tablet by it y of hen 5-325 00:00: 04:59 mouth [place] mg tablet 00 :00 every 6 Medical (six) Branch hours as needed for Pain (scale 7-10) (Alternate with Ibuprofen) for up to 7 days. Indication s: acute pain HYDROcodone 2022-0 2022- No [id number] 1{tbl} Take 1 U nivers -acetaminop 4-25 05-03 tablet by it y of hen 5-325 00:00: 04:59 mouth [place] mg tablet 00 :00 every 6 Medical (six) Branch hours as needed for Pain (scale 7-10) (Alternate with Ibuprofen) for up to 7 days. Indication s: acute pain HYDROcodone 2022-0 2022- No [id number] 1{tbl} Take 1 U nivers -acetaminop 4-25 05-03 tablet by it y of hen 5-325 00:00: 04:59 mouth [place] mg tablet 00 :00 every 6 Medical (six) Branch hours as needed for Pain (scale 7-10) (Alternate with Ibuprofen) for up to 7 days. Indication s: acute pain gabapentin 2022-2022- No [id number] 300mg Take 1 Univers 300 mg 4-25 05-01 capsule by ity of capsule 00:00: 04:59 mouth in [place] 00 :00 the Medical morning Branch and 1 capsule at noon and 1 capsule in the evening. Do all this for 5 days. gabapentin 2022- No [id number] 300mg Take 1 Univers 300 mg 01-22 capsule by ity of capsule 00:00: 04:59 mouth in [place] 00 :00 the Medical morning Branch and 1 capsule at noon and 1 capsule in the evening. Do all this for 5 days. acetaminoph No 1000mg 1,000 mg, Univers en ADULT 01-2124 IV ity of (OFIRMEV) 20:00: 19:59 Infusion, [place] injection 00 :00 at 400 Medical 1,000 mg mL/hr Branch Administer over 15 Minutes, ONCE, 1 dose, On Sat01/21/23 at 1500, Routine
Indicatio n: Perioperat jn Patient gabapentin Yes 300mg 300 mg, Uni vers (NEURONTIN) 4-24 Oral, TID, it y of capsule 300 19:00: First dose [place] mg 00 on [facility] 01/21/23 at [place] 1400, Until Discontinu ed, Routine gabapentin Yes 300mg 300 mg, Uni vers (NEURONTIN) -24 Oral, TID, it y of capsule 300 19:00: First dose [place] mg 00 on [facility] 01/21/23 at [place] 1400, Until Discontinu ed, Routine lactated 2022- No 1000mL at 125 Univ ers ringers IV 01-21- mL/hr, ity of infusion 14:45: 19:37 1,000 mL, [place] 1,000 mL 00 :21 IV Medical Infusion, Branch ONCE, 1 dose, On Sat01/21/23 at 0945, Routine rho(D) Yes 300ug 300 mcg, Univer s immune -24 Intramuscu ity of globulin 14:41: lar, ONCE, [place] (RHOGAM) 39 For 1 Medical syringe 300 dose, Branch mcg Conditiona l, Routine rho(D) Yes 300ug 300 mcg, Univer s immune 4-24 Intramuscu ity of globulin 14:41: lar, ONCE, [place] (RHOGAM) 39 For 1 Medical syringe 300 dose, Branch mcg Conditiona l, Routine HYDROcodone Yes 1{tbl} 1 tablet, Univers -acetaminop -24 Oral, ity of hen (NORCO 14:41: Q6HPRN, [place] 5) 5-325 mg 30 Starting Medi elissa tablet 1 on Mon Branch tablet 01/21/23 at 0941, Until Discontinu ed, Routine, Pain (scale 7-10), Alternate with Ibuprofen diphenhydrA 2023-0 Yes 25mg 25 mg, Univ ers MINE 4-24 Slow IV ity of (BENADRYL) 14:41: Push, [place] injection 30 Q6HPRN, Medical 25 mg Starting Branch on Sat01/21/23 at 0941, Until Discontinu ed, Routine, Itching diphenhydrA 2023-0 Yes 25mg 25 mg, Univ ers MINE 4-24 Oral, ity of (BENADRYL) 14:41: Q6HPRN, [place] tablet 25 30 Starting Medica l mg on Sat Branch 01/21/23 at 0941, Until Discontinu ed, Routine, Sleep, Itching ondansetron 2023-0 Yes 4mg 4 mg, Slow Univers (ZOFRAN 4-24 IV Push, ity of (PF)) 14:41: Q8HPRN, [place] injection 4 30 Starting Medi elissa mg on Sat Branch 01/21/23 at 0941, Until Discontinu ed, Routine, Nausea and Vomiting (N/V) HYDROcodone 2023-0 Yes 1{tbl} 1 tablet, Univers -acetaminop 4-24 Oral, ity of hen (NORCO 14:41: Q6HPRN, [place] 5) 5-325 mg 30 Starting Medi elissa tablet 1 on Sat Branch tablet 01/21/23 at 0941, Until Discontinu ed, Routine, Pain (scale 7-10), Alternate with Ibuprofen diphenhydrA 2023-0 Yes 25mg 25 mg, Univ ers MINE 4-24 Slow IV ity of (BENADRYL) 14:41: Push, [place] injection 30 Q6HPRN, Medical 25 mg Starting Branch on Sat01/21/23 at 0941, Until Discontinu ed, Routine, Itching diphenhydrA 2023-0 Yes 25mg 25 mg, Univ ers MINE 4-24 Oral, ity of (BENADRYL) 14:41: Q6HPRN, [place] tablet 25 30 Starting Medica l mg on Sat Branch 01/21/23 at 0941, Until Discontinu ed, Routine, Sleep, Itching ondansetron 3-0 Yes 4mg 4 mg, Slow Univers (ZOFRAN 4-24 IV Push, ity of (PF)) 14:41: Q8HPRN, [place] injection 4 30 Starting Medi elissa mg on Sat01/21/23 at 0941, Until Discontinu ed, Routine, Nausea and Vomiting (N/V) bisacodyL 2023-0 Yes 10mg 10 mg, Univer s (DULCOLAX) 4-24 Rectal, ity of suppository 14:41: QDAILYPRN, [place] 10 mg 29 Starting Medical on Sat Branch 01/21/23 at 0941, Until Discontinu ed, Routine, Constipati on simethicone 3-0 Yes 160mg 160 mg, Un jessica (GAS RELIEF 4-24 Oral, ity of (SIMETHICON 14:41: PC+HSPRN, [place] E)) 29 Starting Medical chewable on Sat tablet 160 01/21/23 at mg 0941, Until Discontinu ed, Routine, Gas docusate 3-0 Yes 200mg 200 mg, Unive rs (COLACE) 4-24 Oral, ity of capsule 200 14:41: QDAILYPRN, [place] mg 29 Starting Medical on Sat01/21/23 at 0941, Until Discontinu ed, Routine, Constipati on magnesium 3-0 Yes 30mL 30 mL, Univer s hydroxide 4-24 Oral, ity of (MILK OF 14:41: QDAILYPRN, [place] MAGNESIA) 29 Starting Medica l 400 mg/5 mL on Sat suspension 01/21/23 at 30 mL 0941, Until Discontinu ed, Routine, Constipati on lactated 3-0 Yes 1000mL at 125 Unive rs ringers IV 4-24 mL/hr, ity of infusion 14:41: 1,000 mL, [place] 1,000 mL 29 IV Medical Infusion, Branch PRN, 1 dose, Starting on Sat01/21/23 at 0941, Until Discontinu ed, Routine bisacodyL 2023-0 Yes 10mg 10 mg, Univer s (DULCOLAX) 4-24 Rectal, ity of suppository 14:41: QDAILYPRN, [place] 10 mg 29 Starting Medical on Sat Branch 01/21/23 at 0941, Until Discontinu ed, Routine, Constipati on simethicone 2022-0 Yes 160mg 160 mg, Un jessica (GAS RELIEF 4-24 Oral, ity of (SIMETHICON 14:41: PC+HSPRN, [place] E)) 29 Starting Medical chewable on Sat [place] tablet 160 01/21/23 at mg 0941, Until Discontinu ed, Routine, Gas docusate 2022-0 Yes 200mg 200 mg, Unive rs (COLACE) 4-24 Oral, ity of capsule 200 14:41: QDAILYPRN, [place] mg 29 Starting Medical on Sat Branch 01/21/23 at 0941, Until Discontinu ed, Routine, Constipati on magnesium 2022-0 Yes 30mL 30 mL, Univer s hydroxide 4-24 Oral, ity of (MILK OF 14:41: QDAILYPRN, [place] MAGNESIA) 29 Starting Medica l 400 mg/5 mL on Sat [place] suspension 01/21/23 at 30 mL 0941, Until Discontinu ed, Routine, Constipati on lactated 2022-0 Yes 1000mL at 125 Unive rs ringers IV 4-24 mL/hr, ity of infusion 14:41: 1,000 mL, [place] 1,000 mL 29 IV Medical Infusion, Branch PRN, 1 dose, Starting on Sat01/21/23 at 0941, Until Discontinu ed, Routine sodium 3-0 Yes PRN, Univers chloride 4-24 Starting ity of 0.9 % 14:03: on Sat [place] irrigation 00 01/21/23 at Med ical solution 0903, [place] Until Discontinu ed, Intra-op sodium 3-0 Yes PRN, Univers chloride 4-24 Starting ity of 0.9 % 14:03: on Sat [place] irrigation 00 01/21/23 at Med ical solution 0903, [place] Until Discontinu ed, Intra-op mupirocin 2022-0 Yes Intra-op Univ ers (BACTROBAN 4-24 ity of OINT) 2 % 13:55: [place] skin 00 Medical ointment Branch mupirocin 2022-0 Yes Intra-op Univ ers (BACTROBAN 4-24 ity of OINT) 2 % 13:55: [place] skin 00 Medical ointment Branch lactated No 1000mL at 125 Univ ers ringers IV 01-21-24 mL/hr, ity of infusion 13:15: 14:41 1,000 mL, [place] 1,000 mL 00 :37 IV Medical Infusion, Branch CONTINUOUS , Starting on Sat01/21/23 at 0815, Until Sat01/21/23 at 0941, LINDA oxytocin 2022- No 300mL/h 300 mL/hr, Univers (PITOCIN) 01-21 IV ity of 30 units in 13:02: 14:41 Infusion, [place] NS 500 mL 17 :37 SEE-INSTRU Medi elissa IV infusion CTIONS, Branc h Starting on Sat01/21/[address] art at 300 mL/hr for 1 hr then 150 mL/hr for 1 hr. For post delivery uterotonic .
sodium 2022- No 30mL 30 mL, Univers citrate-cit 01-21 Oral, ity of dori acid 08:38: 12:32 PRE-PROCED [place] (BICITRA) 50 :00 URE ONCE, Medic al 500-334 1 dose, Branch mg/5 mL Starting solution 30 on Sat mL 01/21/23 at 0338, Until Discontinu ed, Routine, Surgery/Pr ocedure [id number] IV 2022- No 1000mL at 1-125 U nivers infusion 01-21- mL/hr, IV ity o f 1,000 mL 08:38: 14:41 Infusion, [place] 50 :37 TITRATE, Medical Starting Branch on Sat01/21/23 at 0338, Until Sat01/21/23 at 0941, Routine metroNIDAZO 2022- No [id number] 2000mg Take 4 Univers LE (FLAGYL) 3-25 12-29 tablets by i ty of 500 mg 00:00: 04:59 mouth once [place] tablet 00 :00 now for 1 Medical dose. Branch cephALEXin 2022- No [id number] 500mg Take 1 Univers 500 mg 12-24-04 capsule by ity of capsule 00:00: 04:59 mouth 4 [place] 00 :00 (four) Medical times Branch daily for 7 days. cephALEXin 3- No [id number] 500mg Take 1 Univers 500 mg 3-27 -04 capsule by ity of capsule 00:00: 04:59 mouth 4 [place] 00 :00 (four) Medical times Branch daily for 7 days. cephALEXin 2023-0 2023- No [id number] 500mg Take 1 Univers 500 mg 3-27 04-04 capsule by ity of capsule 00:00: 04:59 mouth 4 [place] 00 :00 (four) Medical times Branch daily for 7 days. cephALEXin 2023-0 2023- No [id number] 500mg Take 1 Univers 500 mg 3-27 04-04 capsule by ity of capsule 00:00: 04:59 mouth 4 [place] 00 :00 (four) Medical times Branch daily for 7 days. cephALEXin 2023-0 2023- No [id number] 500mg Take 1 Univers 500 mg 3-27 -04 capsule by ity of capsule 00:00: 04:59 mouth 4 [place] 00 :00 (four) Medical times Branch daily for 7 days. PNV 2022-0 Yes Take by Univers no.95/[place] 2-09 mouth. ity of us 21:33: [place] fum/folic 39 Medical ac Branch ( ORAL) PNV 2022-0 Yes Take by Univers no.95/h[place] 2-09 mouth. ity of us 21:33: [place] fum/folic 39 Medical ac Branch ( ORAL) PNV 2022-0 Yes Take by Univers no.95/h[place] 2-09 mouth. ity of us 21:33: [place] fum/folic 39 Medical ac Branch ( ORAL) PNV 2022-0 Yes Take by Univers no.95/harrison 2-09 mouth. ity of us 21:33: [place] fum/folic 39 Medical ac Branch ( ORAL) PNV 3-0 Yes Take by Univers no.95/h[place] 2-09 mouth. ity of us 21:33: [place] fum/folic 39 Medical ac Branch ( ORAL) PNV 2022-0 Yes Take by Univers no.95/h[place] 2-09 mouth. ity of us 21:33: [place] fum/folic 39 Medical ac Branch ( ORAL) PNV 2022-0 Yes Take by Univers no.95/harrison 2-09 mouth. ity of us 21:33: [place] fum/folic 39 Medical ac Branch ( ORAL) PNV 2023-0 Yes Take by Univers no.95/harrison 2-09 mouth. ity of us 21:33: [place] fum/folic 39 Medical ac Branch ( ORAL) PNV 0 Yes Take by Univers no.95/harrison 2-09 mouth. ity of us 21:33: [place] fum/folic 39 Medical ac Branch ( ORAL) ferrous 2021-09 Yes [id number] 325mg Take 1 Un jessica sulfate 2-13 tablet by ity of (IRON, 00:00: mouth in [place] FERROUS 00 the Medical SULFATE,) morning Branch 325 mg (65 and 1 mg iron) tablet in tablet the evening. ferrous 2021-09 Yes [id number] 325mg Take 1 Un jess[place] sulfate 2-13 tablet by ity of (IRON, 00:00: mouth in [place] FERROUS 00 the Medical SULFATE,) morning Branch 325 mg (65 and 1 mg iron) tablet in tablet the evening. ferrous 2021-09 Yes [id number] 325mg Take 1 Un [place]essica sulfate 2-13 tablet by ity of (IRON, 00:00: mouth in [place] FERROUS 00 the Medical SULFATE,) morning Branch 325 mg (65 and 1 mg iron) tablet in tablet the evening. ferrous 2021-09 Yes [id number] 325mg Take 1 Un jessica sulfate 2-13 tablet by ity of (IRON, 00:00: mouth in [place] FERROUS 00 the Medical SULFATE,) morning Branch 325 mg (65 and 1 mg iron) tablet in tablet the evening. ferrous 2021-09 Yes [id number] 325mg Take 1 Un jessica sulfate 2-13 tablet by ity of (IRON, 00:00: mouth in [place] FERROUS 00 the Medical SULFATE,) morning Branch 325 mg (65 and 1 mg iron) tablet in tablet the evening. ferrous 2021-09 Yes [id number] 325mg Take 1 Un jessica sulfate 2-13 tablet by ity of (IRON, 00:00: mouth in [place] FERROUS 00 the Medical SULFATE,) morning Branch 325 mg (65 and 1 mg iron) tablet in tablet the evening. ferrous 2021-09 Yes [id number] 325mg Take 1 Un jessica sulfate 2-13 tablet by ity of (IRON, 00:00: mouth in [place] FERROUS 00 the Medical SULFATE,) morning Branch 325 mg (65 and 1 mg iron) tablet in tablet the evening. ferrous 2021-09 Yes [id number] 325mg Take 1 Un jessica sulfate 2-13 tablet by ity of (IRON, 00:00: mouth in [place] FERROUS 00 the Medical SULFATE,) morning Branch 325 mg (65 and 1 mg iron) tablet in tablet the evening. ferrous 2021-09 Yes [id number] 325mg Take 1 Un jessica sulfate 2-13 tablet by ity of (IRON, 00:00: mouth in [place] FERROUS 00 the Medical SULFATE,) morning Branch 325 mg (65 and 1 mg iron) tablet in tablet the evening. ferrous 2021-09 Yes [id number] 325mg Take 1 Un [place]ess[place] sulfate 2-13 tablet by ity of (IRON, 00:00: mouth in [place] FERROUS 00 the Medical SULFATE,) morning Branch 325 mg (65 and 1 mg iron) tablet in tablet the evening. ferrous 2021-09 Yes [id number] 325mg Take 1 Un [place]ess[place] sulfate 2-13 tablet by ity of (IRON, 00:00: mouth in [place] FERROUS 00 the Medical SULFATE,) morning Branch 325 mg (65 and 1 mg iron) tablet in tablet the evening. ferrous 2021-09 Yes [id number] 325mg Take 1 Un [place]ess[place] sulfate 2-13 tablet by ity of (IRON, 00:00: mouth in [place] FERROUS 00 the Medical SULFATE,) morning Branch 325 mg (65 and 1 mg iron) tablet in tablet the evening. ferrous 2021-09- No [id number] 325mg Take 1 U nivers sulfate 2-13 04-25 tablet by ity of (IRON, 00:00: 00:00 mouth in [place] FERROUS 00 :00 the Medical SULFATE,) morning Branch 325 mg (65 and 1 mg iron) tablet in tablet the evening. ferrous 2021-09- No [id number] 325mg Take 1 U nivers sulfate 2-13 04-25 tablet by ity of (IRON, 00:00: 00:00 mouth in [place] FERROUS 00 :00 the Medical SULFATE,) morning Branch 325 mg (65 and 1 mg iron) tablet in tablet the evening. metroNIDAZO 2021-09- No [id number] 2000mg Take 4 Univers LE (FLAGYL) 10-21-23 tablets by i ty of 500 mg 00:00: 05:59 mouth [place] tablet 00 :00 now for 1 Medical dose. Branch PNV 2021-09 Yes Take by [facility] no.95/harrison 1-21 mouth. ity of us 10:34: [place] fum/folic 56 Medical ac Branch ( ORAL) PNV 2021-09 Yes Take by Univers no.95/harrison 1-21 mouth. ity of us 10:34: [place] fum/folic 56 Medical ac Branch ( ORAL) PNV 2021-09 Yes Take by Univers no.95/h[place] 1-21 mouth. ity of us 10:34: [place] fum/folic 56 Medical ac Branch ( ORAL) PNV 2021-09 Yes Take by [facility] no.95/h[place] 1-21 mouth. ity of us 10:34: [place] fum/folic 56 Medical ac Branch ( ORAL) PNV 2021-09 Yes Take by [facility] no.95/[place] 1-21 mouth. ity of us 10:34: [place] fum/folic 56 Medical ac Branch ( ORAL) PNV 2021-09 Yes Take by Univers no.95/[place] 1-21 mouth. ity of us 10:34: [place] fum/folic 56 Medical ac Branch ( ORAL) PNV 2021-09 Yes Take by [facility] no.95/[place] 1-21 mouth. ity of us 10:34: [place] fum/folic 56 Medical ac Branch ( ORAL) PNV 2021-09 Yes Take by [facility] no.95/[place] 1-21 mouth. ity of us 10:34: [place] fum/folic 56 Medical ac Branch ( ORAL) PNV 2021-09 Yes Take by [facility] no.95/[place] 1-21 mouth. ity of us 10:34: [place] fum/folic 56 Medical ac Branch ( ORAL) PNV 2021-09 Yes Take by Univers no.95/h[place] 1-21 mouth. ity of us 10:34: [place] fum/folic 56 Medical ac Branch ( ORAL) PNV 2021-09 Yes Take by Univers no.95/[place] 1-21 mouth. ity of us 10:34: [place] fum/folic 56 Medical ac Branch ( ORAL) PNV 2021-09 Yes Take by Univers no.95/[place] 1-21 mouth. ity of us 10:34: [place] fum/folic 56 Medical ac Branch ( ORAL) PNV 2021-09 Yes Take by [facility] no.95/h[place] 1-21 mouth. ity of us 10:34: [place] fum/folic 56 Medical ac Branch ( ORAL) cephALEXin 2021- Yes [id number] 500mg Take 1 [facility] 500 mg 1-21 capsule by ity of capsule 00:00: mouth in [place] the Medical morning. Branch cephALEXin 2021- Yes [id number] 500mg Take 1 [facility] 500 mg 1-21 capsule by ity of capsule 00:00: mouth in [place] the Medical morning. Branch cephALEXin 2021- Yes [id number] 500mg Take 1 [facility] 500 mg 1-21 capsule by ity of capsule 00:00: mouth in [place] the Medical morning. Branch cephALEXin 2021- Yes [id number] 500mg Take 1 [facility] 500 mg 1-21 capsule by ity of capsule 00:00: mouth in [place] the Medical morning. Branch cephALEXin 2021- Yes [id number] 500mg Take 1 [facility] 500 mg 1-21 capsule by ity of capsule 00:00: mouth in [place] the Medical morning. Branch cephALEXin 2021- Yes [id number] 500mg Take 1 [facility] 500 mg 1-21 capsule by ity of capsule 00:00: mouth in [place] the Medical morning. Branch cephALEXin 2021- Yes [id number] 500mg Take 1 [facility] 500 mg 1-21 capsule by ity of capsule 00:00: mouth in [place] the Medical morning. Branch cephALEXin 2021- Yes [id number] 500mg Take 1 [facility] 500 mg 1-21 capsule by ity of capsule 00:00: mouth in [place] the Medical morning. Branch cephALEXin 2- Yes [id number] 500mg Take 1 [facility] 500 mg 1-21 capsule by ity of capsule 00:00: mouth in [place] the Medical morning. Branch cephALEXin 2- Yes [id number] 500mg Take 1 [facility] 500 mg 1-21 capsule by ity of capsule 00:00: mouth in [place] the Medical morning. Branch cephALEXin 2022-1 Yes [id number] 500mg Take 1 [facility] 500 mg 1-21 capsule by ity of capsule 00:00: mouth in [place] the Medical morning. Branch cephALEXin 2022-1 Yes [id number] 500mg Take 1 [facility] 500 mg 1-21 capsule by ity of capsule 00:00: mouth in [place] the Medical morning. Branch cephALEXin 2-1 Yes [id number] 500mg Take 1 [facility] 500 mg 1-21 capsule by ity of capsule 00:00: mouth in [place] the morning. Branch cephALEXin 2021-09 Yes [id number] 500mg Take 1 [facility] 500 mg 1-21 capsule by ity of capsule 00:00: mouth in [place] the morning. Branch cephALEXin 2021-09 Yes [id number] 500mg Take 1 [facility] 500 mg 1-21 capsule by ity of capsule 00:00: mouth in [place] the morning. Branch cephALEXin 2021-09 Yes [id number] 500mg Take 1 [facility] 500 mg 1-21 capsule by ity of capsule 00:00: mouth in [place] the morning. Branch cephALEXin 2021-09 Yes [id number] 500mg Take 1 [facility] 500 mg 1-21 capsule by ity of capsule 00:00: mouth in [place] the morning. Branch cephALEXin 2021-09 Yes [id number] 500mg Take 1 [facility] 500 mg 1-21 capsule by ity of capsule 00:00: mouth in [place] the morning. Branch cephALEXin 2021-09 Yes [id number] 500mg Take 1 [facility] 500 mg 1-21 capsule by ity of capsule 00:00: mouth in [place] the morning. Branch cephALEXin 2021-09 Yes [id number] 500mg Take 1 [facility] 500 mg 1-21 capsule by ity of capsule 00:00: mouth in [place] the morning. Branch cephALEXin 2021-09 Yes [id number] 500mg Take 1 [facility] 500 mg 1-21 capsule by ity of capsule 00:00: mouth in [place] the morning. Branch cephALEXin 2021-09- No [id number] 500mg Take 1 [facility] 500 mg 1-21 04-25 capsule by ity of capsule 00:00: 00:00 mouth in [place] 00 :00 the Medical morning. Branch cephALEXin 2021-09- No [id number] 500mg Take 1 [facility] 500 mg 1-21 04-25 capsule by ity of capsule 00:00: 00:00 mouth in [place] 00 :00 the Medical morning. Branch Nitrofurant 2021-09 No 100mg 100 mg, U nivers oin&Nit. 0-17 10-17 Oral, ity of Macrocryst 18:34: 18:58 ONCE, 1 [place] (MACROBID) 00 :00 dose, On Medic al 100 mg [facility] capsule 100 07/16/22 mg at 1345, Routine
Reason for Anti-Infec tive: Documented Infection< br>Documen sanjiv Infection Site: Urine
D uration of Therapy: Other (see Comments) metoclopram 2021-09 Yes 10mg 10 mg, Univ ers chirag HCl 0-17 Slow IV ity of (REGLAN) 13:05: Push, [place] injection 52 Q6HPRN, Medical 10 mg Starting Branch on Sat07/16/22 at 0805, Until Discontinu ed, Routine, Nausea and Vomiting (N/V), if cannot tolerate PO metoclopram 2021-09 Yes 10mg 10 mg, Univ ers chirag HCl 0-17 Oral, ity of (REGLAN) 13:05: Q6HPRN, [place] tablet 10 33 Starting Medica l mg on Sat Branch 07/16/22 at 0805, Until Discontinu ed, Routine, Nausea and Vomiting (N/V) fluconazole 2021-09 No 200mg 200 mg, U nivers (DIFLUCAN) 0-17 10- Oral, ONCE it y of tablet 200 04:00: 03:14 NOW, 1 [place] mg 00 :00 dose, On [facility] 07/15/22 at 2300, LINDA
Re ason for Anti-Infec tive: Documented Infection< br>Documen sanjiv Infection Site: Pelvic
Duration of Therapy: Other (see Comments) metroNIDAZO 2021-09 No 500mg 500 mg, U nivers LE (FLAGYL) 0-17 07-18 Oral, ity of tablet 500 03:15: 00:59 Q12H, 4 [place] mg 00 :00 doses, Medical First dose Branch on Germfask 07/15/22 at 2215, Last dose on Sat07/17/22 at 0800, Routine
Reason for Anti-Infec tive: Documented Infection< br>Documen sanjiv Infection Site: Pelvic
Duration of Therapy: Other (see Comments) acetaminoph 2021-09 Yes 650mg 650 mg, Un jessica en 0-17 Oral, ity of (TYLENOL) 00:28: Q6HPRN, [place] tablet 650 16 Starting Medic al mg on Sun Branch 07/15/22 at 1928, Until Discontinu ed, Routine, Pain (scale 1-3) metoclopram 2021-09 Yes [id number] 10mg Take 1 Univers chirag HCl 10 0-17 tablet by ity of mg tablet 00:00: mouth [place] 00 every 6 Medical (six) Branch hours as needed for Nausea and Vomiting (N/V). metoclopram 2021-09 Yes [id number] 10mg Take 1 [facility] chirag HCl 10 0-17 tablet by ity of mg tablet 00:00: mouth [place] 00 every 6 Medical (six) Branch hours as needed for Nausea and Vomiting (N/V). metoclopram 2021-09 Yes [id number] 10mg Take 1 [facility] chirag HCl 10 0-17 tablet by ity of mg tablet 00:00: mouth [place] 00 every 6 Medical (six) Branch hours as needed for Nausea and Vomiting (N/V). metoclopram 2021-09 Yes [id number] 10mg Take 1 Univers chirag HCl 10 0-17 tablet by ity of mg tablet 00:00: mouth [place] 00 every 6 Medical (six) Branch hours as needed for Nausea and Vomiting (N/V). metoclopram 2021-09 Yes [id number] 10mg Take 1 [facility] chirag HCl 10 0-17 tablet by ity of mg tablet 00:00: mouth [place] 00 every 6 Medical (six) Branch hours as needed for Nausea and Vomiting (N/V). metoclopram 2021-09 Yes [id number] 10mg Take 1 Univers chirag HCl 10 0-17 tablet by ity of mg tablet 00:00: mouth [place] 00 every 6 Medical (six) Branch hours as needed for Nausea and Vomiting (N/V). metoclopram 2021-09 Yes [id number] 10mg Take 1 [facility] chirag HCl 10 0-17 tablet by ity of mg tablet 00:00: mouth [place] 00 every 6 Medical (six) Branch hours as needed for Nausea and Vomiting (N/V). metoclopram 2021-09 Yes [id number] 10mg Take 1 [facility] chirag HCl 10 0-17 tablet by ity of mg tablet 00:00: mouth [place] 00 every 6 Medical (six) Branch hours as needed for Nausea and Vomiting (N/V). metoclopram 2021-09 Yes [id number] 10mg Take 1 Univers chirag HCl 10 0-17 tablet by ity of mg tablet 00:00: mouth [place] 00 every 6 Medical (six) Branch hours as needed for Nausea and Vomiting (N/V). metoclopram 2021-09 Yes [id number] 10mg Take 1 Univers chirag HCl 10 0-17 tablet by ity of mg tablet 00:00: mouth [place] 00 every 6 Medical (six) Branch hours as needed for Nausea and Vomiting (N/V). metoclopram 2021-09 Yes [id number] 10mg Take 1 Univers chirag HCl 10 0-17 tablet by ity of mg tablet 00:00: mouth [place] 00 every 6 Medical (six) Branch hours as needed for Nausea and Vomiting (N/V). metoclopram 2021-09 Yes [id number] 10mg Take 1 Univers chirag HCl 10 0-17 tablet by ity of mg tablet 00:00: mouth [place] 00 every 6 Medical (six) Branch hours as needed for Nausea and Vomiting (N/V). metoclopram 2021-09 Yes [id number] 10mg Take 1 Univers chirag HCl 10 0-17 tablet by ity of mg tablet 00:00: mouth [place] 00 every 6 Medical (six) Branch hours as needed for Nausea and Vomiting (N/V). metoclopram 2021-09 Yes [id number] 10mg Take 1 Univers chirag HCl 10 0-17 tablet by ity of mg tablet 00:00: mouth [place] 00 every 6 Medical (six) Branch hours as needed for Nausea and Vomiting (N/V). metoclopram 2021-09 Yes [id number] 10mg Take 1 Univers chirag HCl 10 0-17 tablet by ity of mg tablet 00:00: mouth [place] 00 every 6 Medical (six) Branch hours as needed for Nausea and Vomiting (N/V). metoclopram 1 Yes [id number] 10mg Take 1 Univers chirag HCl 10 0-17 tablet by ity of mg tablet 00:00: mouth [place] 00 every 6 Medical (six) Branch hours as needed for Nausea and Vomiting (N/V). metoclopram 2021-1 Yes [id number] 10mg Take 1 Univers chirag HCl 10 0-17 tablet by ity of mg tablet 00:00: mouth [place] 00 every 6 Medical (six) Branch hours as needed for Nausea and Vomiting (N/V). metoclopram 2021-09 Yes [id number] 10mg Take 1 Univers chirag HCl 10 0-17 tablet by ity of mg tablet 00:00: mouth [place] 00 every 6 Medical (six) Branch hours as needed for Nausea and Vomiting (N/V). metoclopram 2021-09 Yes [id number] 10mg Take 1 Univers chirag HCl 10 0-17 tablet by ity of mg tablet 00:00: mouth [place] 00 every 6 Medical (six) Branch hours as needed for Nausea and Vomiting (N/V). metoclopram 2021-09 Yes [id number] 10mg Take 1 Univers chirag HCl 10 0-17 tablet by ity of mg tablet 00:00: mouth [place] 00 every 6 Medical (six) Branch hours as needed for Nausea and Vomiting (N/V). metoclopram 2021-09 Yes [id number] 10mg Take 1 Univers chirag HCl 10 0-17 tablet by ity of mg tablet 00:00: mouth [place] 00 every 6 Medical (six) Branch hours as needed for Nausea and Vomiting (N/V). metoclopram 2021-09 Yes [id number] 10mg Take 1 Univers chirag HCl 10 0-17 tablet by ity of mg tablet 00:00: mouth [place] 00 every 6 Medical (six) Branch hours as needed for Nausea and Vomiting (N/V). metoclopram 2021-09 Yes [id number] 10mg Take 1 Univers chirag HCl 10 0-17 tablet by ity of mg tablet 00:00: mouth [place] 00 every 6 Medical (six) Branch hours as needed for Nausea and Vomiting (N/V). metoclopram 2021-09 Yes [id number] 10mg Take 1 [facility] chirag HCl 10 0-17 tablet by ity of mg tablet 00:00: mouth [place] 00 every 6 Medical (six) Branch hours as needed for Nausea and Vomiting (N/V). metoclopram 2021-09 Yes [id number] 10mg Take 1 Univers chirag HCl 10 0-17 tablet by ity of mg tablet 00:00: mouth [place] 00 every 6 Medical (six) Branch hours as needed for Nausea and Vomiting (N/V). metoclopram 2021-093- No [id number] 10mg Take 1 Univers chirag HCl 10 0-17 04-25 tablet by ity of mg tablet 00:00: 00:00 mouth [place] 00 :00 every 6 Medical (six) Branch hours as needed for Nausea and Vomiting (N/V). metoclopram 2021-09 No [id number] 10mg Take 1 Univers chirag HCl 10 0-17 04-25 tablet by ity of mg tablet 00:00: 00:00 mouth [place] 00 :00 every 6 Medical (six) Branch hours as needed for Nausea and Vomiting (N/V). metroNIDAZO 2021-09 No [id number] 500mg Take 1 Univers LE 500 mg 0-17 10-24 tablet by ity of tablet 00:00: 04:59 mouth [place] 00 :00 every 12 Medical (twelve) Branch hours for 6 days. metroNIDAZO 2021-09 No [id number] 500mg Take 1 Univers LE 500 mg 0-17 10-24 tablet by ity of tablet 00:00: 04:59 mouth [place] 00 :00 every 12 Medical (twelve) Branch hours for 6 days. Nitrofurant 2021-09- No [id number] 100mg Take 1 Univers oin&Nit. 0-17 10-18 capsule by ity of Macrocryst 00:00: 04:59 mouth once [place] 100 mg 00 :00 now for 1 Medical capsule dose. Branch D5W-LR IV 2021-09- No 1000mL at 150 Uni vers infusion 0-16 11-09 mL/hr, IV ity o f 1,000 mL 23:00: 23:59 Infusion, [place] 00 :00 CONTINUOUS Medical , Starting Branch on Sat07/15/22 at 1800, Until Sat08/08/22 at 1759, Routine metoclopram 2021-09 No 10mg 10 mg, Uni vers chirag HCl 0-16 10-17 Slow IV ity of (REGLAN) 22:00: 13:06 Push, [place] injection 34 :11 Q6HPRN, Medical 10 mg Starting Branch on Sat07/15/22 at 1700, Until Sat07/16/22 at 0806, Routine, Nausea and Vomiting (N/V) NaCl 0.9% 2021-09- No 30mL/kg at 999 Un jessica (NS) bolus 0-16 10-16 mL/hr, ity of infusion 20:45: 19:59 1,632 mL [place] 1,632 mL 00 :00 (30 mL/kg Medica l ?54.4 kg), [place] IV Infusion, ONCE, 1 dose, On Germfask 07/15/22 at 1545, LINDA cefTRIAXone 2021-09- No 1000mg 1,000 mg, Univers (ROCEPHIN) 0-16 10-16 IV ity of 1,000 mg in 20:15: 21:06 Piggyback, [place] NaCl 0.9% 00 :00 ONCE, 1 Medical (NS) 50 mL dose, On Branc h MINI-BAG [place] 07/15/22 at 1515, Administer over 30 Minutes, 50 mL
Reas on for Anti-Infec tive: Documented Infection< br>Documen sanjiv Infection Site: Urine<br&g t;Duration of Therapy: 7 days ondansetron 2021-09 No 4mg 4 mg, Slow Univers (ZOFRAN 0-16 10-16 IV Push, ity of (PF)) 20:00: 20:02 ONCE, 1 [place] injection 4 00 :00 dose, On Medi elissa mg [facility] 07/15/22 at 1500, LINDA cephALEXin 2021-09- No [id number] 500mg Take 1 Univers 500 mg 0-15 10-17 capsule by ity of capsule 00:00: 00:00 mouth in [place] 00 :00 the Medical morning. [place] thiamine 2021-09 No IV Univers (VITAMIN 0-03 10-04 Infusion, ity o f B1) 100 mg, 21:00: 13:59 at 125 [place] foLIC acid 00 :00 mL/hr, Medical (FOLATE) 1 DAILY, 1 [facility] mg, dose, multivitami First dose n adult (after (INFUVITE last ADULT) reorder) 3,300 unit- on Mon 150 mcg/10 07/02/22 at mL 10 mL in 1600, D5W 0.45% 1,000 mL NaCl (1/2NS) IV Solution NaCl 0.9% 2021-09 No 1000mL at 75 Univ ers (NS) IV 0-03 10-03 mL/hr, IV ity of infusion 05:00: 20:59 Infusion, [place] 1,000 mL 00 :00 CONTINUOUS Medic al , Starting Branch on Sat07/02/22 at 0000, Until 07/02/22 at 1559, Routine
Please hang after banana bag runs out
doxylamine 2021-09 Yes 25mg 25 mg, Unive rs (SLEEP AID) 0-03 Oral, QHS, it y of tablet 25 02:00: First dose [place] mg 00 on [facility] 07/01/22 at Branch 2100, Until Discontinu ed, Routine cefTRIAXone 2021-09- No 1000mg 1,000 mg, Univers (ROCEPHIN) 0-03 10-03 IV ity of 1,000 mg in 02:00: 02:51 Piggyback, [place] NaCl 0.9% 00 :00 ONCE, 1 Medical (NS) 50 mL dose, On Bran h MINI-BAG [place] 07/01/22 at 2100, Administer over 30 Minutes, 50 mL
Reas on for Anti-Infec tive: Documented Infection< br>Documen sanjiv Infection Site: Urine<br&g t;Duration of Therapy: 7 days famotidine 2021-09 Yes 20mg 20 mg, Unive rs (PEPCID 0-03 Slow IV ity of (PF)) 01:00: Push, BID, [place] injection 00 First dose Medi elissa 20 mg (after Branch last reorder) on Germfask 07/01/22 at 2000, Until Discontinu ed, Routine metoclopram 2021-09 Yes [id number] 10mg Take 1 Univers chirag HCl 0-03 9108 tablet by ity of (REGLAN) 10 00:00: mouth [place] mg tablet 00 every 6 Medical (six) Branch hours as needed for Nausea and Vomiting (N/V) or Gastroesop hageal reflux. metoclopram 2021-09- No [id number] 10mg Take 1 Univers chirag HCl 0-03 10-17 9108 tablet by ity of (REGLAN) 10 00:00: 00:00 mouth [place] mg tablet 00 :00 every 6 Medical (six) Branch hours as needed for Nausea and Vomiting (N/V) or Gastroesop hageal reflux. cephALEXin 2021-09- No [id number] 500mg Take 1 Univers 500 mg 0-03 10-16 capsule by ity of capsule 00:00: 04:59 mouth 4 [place] 00 :00 (four) Medical times Branch daily for 12 days. thiamine 2021-09- No IV Univers (VITAMIN 0-02 10-03 Infusion, ity o f B1) 100 mg, 20:00: 05:33 at 125 [place] foLIC acid 00 :00 mL/hr, Medical (FOLATE) 1 DAILY, 1 Branc h mg, dose, multivitami First dose n adult (after (INFUVITE last ADULT) modificati 3,300 unit- on) on Sun 150 mcg/10 07/01/22 at mL 10 mL in 1500, D5W 0.45% 1,000 mL NaCl (1/2NS) IV Solution famotidine 2021-09 No 20mg 20 mg, Univ ers (PEPCID 0-02 10-02 Slow IV ity of (PF)) 19:45: 21:31 Push, [place] injection 00 :00 ONCE, 1 Medical 20 mg dose, On Branch 07/01/22 at 1445, Routine pyridoxine 2021-09 Yes 25mg 25 mg, Unive rs (vitamin 0-02 Oral, TID, ity o f B6) 19:00: First dose [place] (VITAMIN 00 on Sun Medical B6) tablet 07/01/22 at [facility] mg 1400, Until Discontinu ed, Routine metoclopram 2021-09 Yes 10mg 10 mg, Univ ers chirag HCl 0-02 Slow IV ity of (REGLAN) 18:53: Push, [place] injection 54 Q6HPRN, Medical 10 mg Starting Branch on 07/01/22 at 1353, Until Discontinu ed, Routine, Nausea and Vomiting (N/V) NaCl 0.9% 2021-09- No 1000mL at 75 Univ ers (NS) IV 0-02 10-02 mL/hr, IV ity of infusion 05:30: 18:54 Infusion, [place] 1,000 mL 00 :44 CONTINUOUS Medic al , Starting Branch on 07/01/22 at 0030, Until 07/01/22 at 1354, Routine acetaminoph 2021-09 Yes 650mg 650 mg, Un jessica en 0-02 Oral, ity of (TYLENOL) 04:26: Q6HPRN, [place] tablet 650 22 Starting Medic al mg on Sat Branch 06/30/22 at 2326, Until Discontinu ed, Routine, Pain (scale 1-3), or fever ondansetron 2021-09 Yes 4mg 4 mg, Slow Univers (ZOFRAN 0-02 IV Push, ity of (PF)) 04:25: Q6HPRN, [place] injection 4 39 Nausea and Me dical mg Vomiting Branch (N/V), Starting on 06/30/22 at 2325
Do ses of ondansetro n 16 mg and above need to be administer ed via IV piggyback. For Dose >=24mg ECG monitoring is advisable.
metoclopram 2021-09 No 10mg 10 mg, Uni vers chirag HCl 0-07-01 Slow IV ity of (REGLAN) 03:30: 03:35 Push, [place] injection 00 :00 ONCE, 1 Medical 10 mg dose, On Branch 06/30/22 at 2230, LINDA NaCl 0.9% 2021-09 No 1000mL at 999 Uni vers (NS) bolus 002 mL/hr, ity of infusion 03:00: 02:23 1,000 mL, [place] 1,000 mL 00 :00 IV Medical Infusion, Branch ONCE, 1 dose, On 06/30/22 at 2200, LINDA cefTRIAXone 2021-09 No 1000mg 1,000 mg, Univers (ROCEPHIN) 007-01 IV ity of 1,000 mg in 02:15: 02:50 Piggyback, [place] NaCl 0.9% 00 :00 ONCE, 1 Medical (NS) 50 mL dose, On Branc h MINI-BAG 06/30/22 at 2115, Administer over 30 Minutes, 50 mL
Reas on for Anti-Infec tive: Documented Infection< br>Documen sanjiv Infection Site: Urine<br&g t;Duration of Therapy: 7 days ondansetron 2021-09 No 4mg 4 mg, Slow Univers (ZOFRAN 0-02 07-01 IV Push, ity of (PF)) 00:45: 02:20 ONCE, 1 [place] injection 4 00 :00 dose, On Medi elissa mg Sat Branch 06/30/22 at 1945, LINDA TAKE 1 No TABLET 9-12 EVERY 4 TO 00:00: 6 HOURS 00 NEEDED. TAKE 1 2021-0 No TABLET 9-12 EVERY 4 TO 00:00: 6 HOURS 00 NEEDED. TAKE 1 2021-0 No TABLET 9-12 EVERY 4 TO 00:00: 6 HOURS 00 NEEDED. TAKE 1 2021-0 No TABLET 9-12 EVERY 4 TO 00:00: 6 HOURS 00 NEEDED. Dose 2021-0 No Unknown 06-08 00:00: 00 Dose 2021-0 No Unknown 06-08 00:00: 00 Dose 2021-0 No Unknown 06-08 00:00: 00 Dose 2021-0 No Unknown 06-08 00:00: 00 TAKE 1 2021-0 No 500 TABLET 9-01 TWICE DAILY 00:00: UNTIL 00 FINISHED. INSERT 1 0 No 1 APPLICATORF 9-01 UL 00:00: INTRAVAGINA 00 LLY AT BEDTIME NIGHTLY. TAKE 1 0 No TABLET 9-01 TWICE DAILY 00:00: UNTIL 00 FINISHED. INSERT 1 0 No APPLICATORF 9-01 UL 00:00: INTRAVAGINA 00 LLY AT BEDTIME NIGHTLY. TAKE 1 0 No TABLET 9-01 TWICE DAILY 00:00: UNTIL 00 FINISHED. INSERT 1 0 No APPLICATORF 9-01 UL 00:00: INTRAVAGINA 00 LLY AT BEDTIME NIGHTLY. TAKE 1 0 No TABLET 9-01 TWICE DAILY 00:00: UNTIL 00 FINISHED. INSERT 1 0 No APPLICATORF 9-01 UL 00:00: INTRAVAGINA 00 LLY AT BEDTIME NIGHTLY. TAKE 1 0 No TABLET 9-01 TWICE DAILY 00:00: UNTIL 00 FINISHED. INSERT 1 0 No APPLICATORF 9-01 UL 00:00: INTRAVAGINA 00 LLY AT BEDTIME NIGHTLY. Dose 2021-0 No Unknown 3-05 00:00: 00 Dose 2021-0 No Unknown 3-05 00:00: 00 Dose 2-0 No Unknown 3-05 00:00: 00 Dose 2-0 No Unknown 3-05 00:00: 00 Dose 2-0 No Unknown 3-05 00:00: 00 Dose 2-0 No Unknown 3-05 00:00: 00 Dose 2021-0 No Unknown 3-05 00:00: 00 Dose 2021-0 No Unknown 3-05 00:00: 00 Dose 2022-0 No Unknown 3-05 00:00: 00 Dose 2022-0 No Unknown 3-05 00:00: 00 Dose 2022-0 No Unknown 3-05 00:00: 00 Dose 2022-0 No Unknown 3-05 00:00: 00 Dose 2022-0 No Unknown 3-05 00:00: 00 Dose 2022-0 No Unknown 3-05 00:00: 00 Dose 2022-0 No Unknown 3-05 00:00: 00 Dose 2022-0 No Unknown 3-05 00:00: 00 Dose 2022-0 No Unknown 3-05 00:00: 00 Dose 2022-0 No Unknown 3-05 00:00: 00 Dose 2022-0 No Unknown 3-05 00:00: 00 Dose 2022-0 No Unknown 3-05 00:00: 00 Dose 2022-0 No Unknown 3-05 00:00: 00 Dose 2022-0 No Unknown 3-05 00:00: 00 Dose 2022-0 No Unknown 3-05 00:00: 00 Dose 2022-0 No Unknown 3-05 00:00: 00 Dose 2022-0 No Unknown 3-05 00:00: 00 Dose 2022-0 No Unknown 3-05 00:00: 00 Dose 2022-0 No Unknown 3-05 00:00: 00 Dose 2022-0 No Unknown 3-05 00:00: 00 Dose 2022-0 No Unknown 3-05 00:00: 00 Dose 2022-0 No Unknown 3-05 00:00: 00 Dose 2022-0 No Unknown 3-05 00:00: 00 Dose 2022-0 No Unknown 3-05 00:00: 00 Dose 2022-0 No Unknown 3-05 00:00: 00 Dose 2022-0 No Unknown 3-05 00:00: 00 Dose 2022-0 No Unknown 3-05 00:00: 00 Dose 2022-0 No Unknown 3-05 00:00: 00 Dose 2022-0 No Unknown 3-05 00:00: 00 Dose 2022-0 No Unknown 3-05 00:00: 00 Dose 2022-0 No Unknown 3-05 00:00: 00 Dose 2022-0 No Unknown 3-05 00:00: 00 Dose 2022-0 No Unknown 3-05 00:00: 00 Dose 2022-0 No Unknown 3-05 00:00: 00 Dose 2022-0 No Unknown 3-05 00:00: 00 Dose 2022-0 No Unknown 3-05 00:00: 00 Dose 2022-0 No Unknown 3-05 00:00: 00 Dose 2022-0 No Unknown 3-05 00:00: 00 Dose 2022-0 No Unknown 3-05 00:00: 00 Dose 2022-0 No Unknown 3-05 00:00: 00 Dose 2022-0 No Unknown 3-05 00:00: 00 Dose 2022-0 No Unknown 3-05 00:00: 00 Dose 2022-0 No Unknown 3-05 00:00: 00 Dose 2022-0 No Unknown 3-05 00:00: 00 Dose 2022-0 No Unknown 3-05 00:00: 00 Dose 2022-0 No Unknown 3-05 00:00: 00 Dose 2022-0 No Unknown 3-05 00:00: 00 Dose 2022-0 No Unknown 3-05 00:00: 00 Dose 2022-0 No Unknown 3-05 00:00: 00 Dose 2022-0 No Unknown 3-05 00:00: 00 Dose 2022-0 No Unknown 3-05 00:00: 00 Dose 2022-0 No Unknown 3-05 00:00: 00 Dose 2022-0 No Unknown 3-05 00:00: 00 Dose 2022-0 No Unknown 3-05 00:00: 00 Dose 2022-0 No Unknown 3-05 00:00: 00 Dose 2022-0 No Unknown 3-05 00:00: 00 Dose 2022-0 No Unknown 3-05 00:00: 00 Dose 2022-0 No Unknown 3-05 00:00: 00 Dose 2022-0 No Unknown 3-05 00:00: 00 Dose 2022-0 No Unknown 3-05 00:00: 00 Dose 2022-0 No Unknown 3-05 00:00: 00 Dose 2022-0 No Unknown 3-05 00:00: 00 Dose 2022-0 No Unknown 3-05 00:00: 00 Dose 2022-0 No Unknown 3-05 00:00: 00 Dose 2022-0 No Unknown 3-05 00:00: 00 Dose 2022-0 No Unknown 3-05 00:00: 00 Dose 2022-0 No Unknown 3-05 00:00: 00 Dose 2022-0 No Unknown 3-05 00:00: 00 Dose 2022-0 No Unknown 3-05 00:00: 00 Dose 2022-0 No Unknown 3-05 00:00: 00 Dose 2022-0 No Unknown 3-05 00:00: 00 Dose 2022-0 No Unknown 3-05 00:00: 00 Dose 2022-0 No Unknown 3-05 00:00: 00 Dose 2022-0 No Unknown 3-05 00:00: 00 Dose 2022-0 No Unknown 3-05 00:00: 00 Dose 2022-0 No Unknown 3-05 00:00: 00 Dose 2022-0 No Unknown 3-05 00:00: 00 Dose 2022-0 No Unknown 3-05 00:00: 00 Dose 2022-0 No Unknown 3-05 00:00: 00 Dose 2022-0 No Unknown 3-05 00:00: 00 Dose 2022-0 No Unknown 3-05 00:00: 00 Dose 2022-0 No Unknown 3-05 00:00: 00 Dose 2022-0 No Unknown 3-05 00:00: 00 Dose 2022-0 No Unknown 3-05 00:00: 00 Dose 2022-0 No Unknown 3-05 00:00: 00 Dose 2022-0 No Unknown 3-05 00:00: 00 Dose 2022-0 No Unknown 3-05 00:00: 00 Dose 2022-0 No Unknown 3-05 00:00: 00 Dose 2022-0 No Unknown 3-05 00:00: 00 Dose 2022-0 No Unknown 3-05 00:00: 00 Dose 2022-0 No Unknown 3-05 00:00: 00 Dose 2022-0 No Unknown 3-05 00:00: 00 Dose 2022-0 No Unknown 3-05 00:00: 00 Dose 2022-0 No Unknown 3-05 00:00: 00 Dose 2022-0 No Unknown 3-05 00:00: 00 Dose 2022-0 No Unknown 3-05 00:00: 00 Dose 2022-0 No Unknown 3-05 00:00: 00 Dose 2022-0 No Unknown 3-05 00:00: 00 Dose 2022-0 No Unknown 3-05 00:00: 00 Dose 2022-0 No Unknown 3-05 00:00: 00 Dose 2022-0 No Unknown 3-05 00:00: 00 Dose 2022-0 No Unknown 3-05 00:00: 00 Dose 2022-0 No Unknown 3-05 00:00: 00 Dose 2022-0 No Unknown 3-05 00:00: 00 Dose 2022-0 No Unknown 3-05 00:00: 00 Dose 2022-0 No Unknown 3-05 00:00: 00 Dose 2022-0 No Unknown 3-05 00:00: 00 Dose 2022-0 No Unknown 3-05 00:00: 00 Dose 2022-0 No Unknown 3-05 00:00: 00 Dose 2022-0 No Unknown 3-05 00:00: 00 Dose 2022-0 No Unknown 3-05 00:00: 00 Dose 2022-0 No Unknown 3-05 00:00: 00 Dose 2022-0 No Unknown 3-05 00:00: 00 Dose 2022-0 No Unknown 3-05 00:00: 00 Dose 2022-0 No Unknown 3-05 00:00: 00 Dose 2022-0 No Unknown 3-05 00:00: 00 Dose 2022-0 No Unknown 3-05 00:00: 00 Dose 2022-0 No Unknown 3-05 00:00: 00 Dose 2022-0 No Unknown 3-05 00:00: 00 Dose 2022-0 No Unknown 3-05 00:00: 00 Dose 2022-0 No Unknown 3-05 00:00: 00 Dose 2022-0 No Unknown 3-05 00:00: 00 Dose 2022-0 No Unknown 3-05 00:00: 00 Dose 2022-0 No Unknown 3-05 00:00: 00 cephALEXin 2020-0 2020- No [id number] 250mg Take 1 Univers 250 mg 9-20 10- capsule by ity of capsule 00:00: 04:59 mouth [place] 00 :00 every 8 Medical (eight) Branch hours for 10 days. cephALEXin 2020-0 2020- No [id number] 250mg Take 1 Univers 250 mg 9-20 10- capsule by ity of capsule 00:00: 04:59 mouth [place] 00 :00 every 8 Medical (eight) Branch hours for 10 days. cephALEXin 2020-0 2020- No [id number] 250mg Take 1 Univers 250 mg 9-20 10- capsule by ity of capsule 00:00: 04:59 mouth [place] 00 :00 every 8 Medical (eight) Branch hours for 10 days. Dose 2020-0 No Unknown 8- 00:00: 00 Dose 2020-0 No Unknown 8 00:00: 00 Dose 2020-0 No Unknown 8 00:00: 00 Dose 2020-0 No Unknown 8- 00:00: 00 Dose 2020-0 No Unknown 8- 00:00: 00 Dose 2020-0 No Unknown 8- 00:00: 00 TAKE 1 2020-0 No TABLET 8-01 TWICE DAILY 00:00: UNTIL 00 FINISHED. TAKE 1 2020-0 No TABLET 8-01 TWICE DAILY 00:00: UNTIL 00 FINISHED. Dose 2020-0 No Unknown 8- 00:00: 00 TAKE 1 2020-0 No TABLET 8-01 TWICE DAILY 00:00: UNTIL 00 FINISHED. TAKE 1 2020-0 No TABLET 8-01 TWICE DAILY 00:00: UNTIL 00 FINISHED. Dose 2020-0 No Unknown 8- 00:00: 00 Vital Signs Vital Name Observation Time Observation Value Comments Source Systolic blood 2023-07-07 22:51:16 95 mm[Hg[facility]23-07-07 22:51:16 63 mm[facility]Hg[facility] 2023-07-07 22:49:00 20 /min [facility] Body height 2023-07-07 22:49:00 149.9 cm [facility] Body weight 2023-07-07 22:49:00 61.236 kg [facility] BMI 2023-07-07 22:49:00 27.27 kg/m2 [facility] Oxygen saturation in 2023-07-07 22:49:00 100 /min [facility] Arterial blood by [facility] Pulse oximetry Branch Heart rate 2023-07-07 22:49:00 101 /min [facility] Body temperature 2023-07-07 22:49:00 37.28 Sul[facility] Systolic blood 2023-01-28 19:23:00 120 mm[Hg] [facility] 2023-01-28 19:23:00 80 mm[Hg] Unive rsity of [facility] [place] [facility] Heart rate 2023-01-28 19:23:00 88 /min [facility] [place] [facility] Body temperature 2023-01-28 19:23:00 36.61 Sulma [facility] [place] [facility] Respiratory rate 2023-01-28 19:23:00 20 /min [facility] [place] [facility] Body height 2023-01-28 19:23:00 149.9 cm [facility] [place] [facility] Body weight 2023-01-28 19:23:00 70.761 kg [facility] [place] [facility] BMI 2023-01-28 19:23:00 31.51 kg/m2 [facility] [place] [facility] Oxygen saturation in 2023-01-28 19:23:00 98 /min University of Arterial blood by [facility] Pulse oximetry Branch Systolic blood 2023-01-23 12:00:00 129 mm[Hg] Univer sity of pressure [place] [facility] Diastolic blood 2023-01-23 12:00:00 88 mm[Hg] Unive rsity of [facility] [place] [facility] Heart rate 2023-01-23 12:00:00 86 /min [facility] [place] [facility] Body temperature 2023-01-23 12:00:00 36.61 Sul[place] [facility] [place] [facility] Respiratory rate 2023-01-23 12:00:00 20 /min Univ ers[facility] [place] [facility] Oxygen saturation in 2023-01-23 12:00:00 98 /min University of Arterial blood by [facility] Pulse oximetry Branch Body height 2023-01-21 08:55:00 149.9 cm [facility] [place] [facility] Body weight 2023-01-21 08:55:00 78.472 kg [facility] [place] [facility] BMI 2023-01-21 08:55:00 34.94 kg/m2 [facility] [place] [facility] Systolic blood 2023-01-21 14:30:00 109 mm[Hg] Univer sity of pressure [place] [facility] Diastolic blood 2023-01-21 14:30:00 69 mm[Hg] Unive rsity of [facility] [place] [facility] Heart rate 2023-01-21 14:30:00 76 /min [facility] [place] [facility] Body temperature 2023-01-21 14:30:00 36.11 Sul[place] [facility] Respiratory rate 2023-01-21 14:30:00 18 /min Univ ersity of [facility] Oxygen saturation in 2023-01-21 14:30:00 98 /min University of Arterial blood by [facility] Pulse oximetry Branch Body height 2023-01-21 08:55:00 149.9 cm [facility] [place] [facility] Body weight 2023-01-21 08:55:00 78.472 kg [facility] [place] [facility] BMI 2023-01-21 08:55:00 34.94 kg/m2 [facility]i ty of [facility] Systolic blood 2023-01-14 15:41:00 116 mm[Hg] Univer sity of pressure [place] [facility] Diastolic blood 2023-01-14 15:41:00 77 mm[Hg] Unive rsity of [facility] [place] [facility] [place] Heart rate 2023-01-14 15:41:00 84 /min [facility] [place] [facility] Body temperature 2023-01-14 15:41:00 36.61 [place] [facility] [place] [facility] [place] Body height 2023-01-14 15:41:00 149.9 cm [facility] [place] [facility] Body weight 2023-01-14 15:41:00 75.66 kg [facility] [place] [facility] BMI 2023-01-14 15:41:00 33.69 kg/m2 [facility] [place] [facility] Systolic blood 2022-12-24 21:21:00 125 mm[Hg] Univer sity of [facility] [place] [facility] Diastolic blood 2022-12-24 21:21:00 84 mm[Hg] Unive rsity of [facility] [place] [facility] Heart rate 2022-12-24 21:21:00 95 /min [facility] [place] [facility] Body temperature 2022-12-24 21:21:00 36.5 [place] [facility] Respiratory rate 2022-12-24 21:21:00 18 /min Univ ersity [facility] [place] [facility] Body height 2022-12-24 21:21:00 149.9 cm [facility] [place] [facility] Body weight 2022-12-24 21:21:00 73.211 kg [facility] [place] [facility] BMI 2022-12-24 21:21:00 32.60 kg/m2 Universi ty of [facility] Body temperature 2022-11-09 02:18:00 36.56 [place] Univ ersity of [facility] Body height 2022-11-09 02:18:00 149.9 cm Universi ty of [facility] Body weight 2022-11-09 02:18:00 70.308 kg Universi ty of [facility] BMI 2022-11-09 02:18:00 31.31 kg/m2 Universi ty of [facility] Systolic blood 2022-11-09 02:04:00 113 mm[Hg] Univer sity of pressure [facility] Diastolic blood 2022-11-09 02:04:00 66 mm[Hg] Unive rsity of [facility] Heart rate 2022-11-09 02:04:00 91 /min Universi ty of [facility] Respiratory rate 2022-11-09 02:04:00 18 /min Univ ersity of [facility] Oxygen saturation in 2022-11-09 02:04:00 100 /min University of Arterial blood by [facility] Pulse oximetry Branch Systolic blood 2022-08-20 16:33:00 105 mm[Hg] Univer sity of pressure [facility] Diastolic blood 2022-08-20 16:33:00 70 mm[Hg] Unive rsity of pressure [facility] Heart rate 2022-08-20 16:33:00 76 /min Universi ty of [facility] Body temperature 2022-08-20 16:33:00 36.78 [place] Univ ersity of [facility] Body height 2022-08-20 16:33:00 149.9 cm [facility] [place] [facility] Body weight 2022-08-20 16:33:00 62.324 kg [facility] [place] [facility] BMI 2022-08-20 16:33:00 27.75 kg/m2 Universi ty of [facility] Systolic blood 2022-07-16 18:05:00 109 mm[Hg] Univer sity of pressure [facility] Diastolic blood 2022-07-16 18:05:00 62 mm[Hg] Unive rsity of pressure [facility] Heart rate 2022-07-16 18:05:00 82 /min [facility] [place] [facility] Body temperature 2022-07-16 18:05:00 36.56 [place] [facility] [place] [facility] Respiratory rate 2022-07-16 18:05:00 18 /min Univ ersity [facility] [place] [facility] Oxygen saturation in 2022-07-16 12:09:00 100 /min University of Arterial blood by [place] [facility] Pulse oximetry Branch Body weight 2022-07-15 19:10:00 54.432 kg [facility] [place] [facility] BMI 2022-07-15 19:10:00 25.08 kg/m2 [facility] [place] [facility] Systolic blood 2022-07-02 12:20:00 105 mm[Hg] Univer sity of pressure [place] [facility] Diastolic blood 2022-07-02 12:20:00 62 mm[Hg] Unive rsity of pressure [place] [facility] Heart rate 2022-07-02 12:20:00 76 /min [facility] [place] [facility] Body temperature 2022-07-02 12:20:00 36.89 [place] [facility] [place] [facility] Respiratory rate 2022-07-02 12:20:00 18 /min Univ ers[facility] [place] [facility] Oxygen saturation in 2022-07-02 12:20:00 100 /min University of Arterial blood by [facility] elissa Pulse oximetry Branch Body height 2022-07-01 00:10:00 147.3 cm [facility] [place] [facility] Body weight 2022-07-01 00:10:00 54.432 kg [facility] [place] [facility] BMI 2022-07-01 00:10:00 25.08 kg/m2 [facility] [place] [facility] Systolic blood 2021-06-26 16:20:00 131 mm[Hg] Univer sity of [facility] [place] [facility] Diastolic blood 2021-06-26 16:20:00 88 mm[Hg] Unive rsity of pressure [place] [facility] Heart rate 2021-06-26 16:20:00 72 /min [facility] [place] [facility] Respiratory rate 2021-06-26 16:20:00 20 /min [facility] [place] [facility] Oxygen saturation in 2021-06-26 16:20:00 98 /min [facility] of Arterial blood by [place] [facility] Pulse oximetry Branch Body temperature 2021-06-26 13:57:00 37.11 [place] [facility] Body weight 2021-06-26 13:57:00 70.308 kg [facility] BMI 2021-06-26 13:57:00 32.40 kg/m2 [facility] Heart rate 2021-06-20 04:00:00 93 /min [facility] Oxygen saturation in 2021-06-20 03:30:00 99 /min [facility] Arterial blood by [facility] Pulse oximetry Branch Systolic blood 2021-06-20 03:00:00 106 mm[Hg] Univer sity of pressure [facility] Diastolic blood 2021-06-20 03:00:00 72 mm[Hg] Unive rsity of [facility] Body temperature 2021-06-20 00:58:00 36.78 Sul[place] [facility] Respiratory rate 2021-06-20 00:58:00 19 /min [facility] Body height 2021-06-20 00:58:00 147.3 cm [facility] Body weight 2021-06-20 00:58:00 70.308 kg [facility] BMI 2021-06-20 00:58:00 32.40 kg/m2 [facility] BP Systolic 2022-06-13 09:21:00 122 mm[Hg] BP Diastolic 2022-06-13 09:21:00 79 mm[Hg] Weight Measured 2022-06-13 09:21:00 128.00 pounds Height Measured 2022-06-13 09:21:00 59.50 inches Body Temperature 2022-06-13 09:21:00 98.00 degrees Heart Rate 2022-06-13 09:21:00 78.00 /min Respiratory Rate 2022-06-13 09:21:00 BP Systolic 2022-06-08 10:04:00 BP Diastolic 2022-06-08 10:04:00 Weight Measured 2022-06-08 10:04:00 135.00 pounds Height Measured 2022-06-08 10:04:00 59.50 inches Body Temperature 2022-06-08 10:04:00 Heart Rate 2022-06-08 10:04:00 Respiratory Rate 2022-06-08 10:04:00 BP Systolic 2022-05-31 14:10:00 116 mm[Hg] BP Diastolic 2022-05-31 14:10:00 72 mm[Hg] Weight Measured 2022-05-31 14:10:00 131.40 pounds Height Measured 2022-05-31 14:10:00 59.50 inches Body Temperature 2022-05-31 14:10:00 97.90 degrees Heart Rate 2022-05-31 14:10:00 77.00 /min Respiratory Rate 2022-05-31 14:10:00 BP Systolic 2022-05-29 11:04:00 113 mm[Hg] BP Diastolic 2022-05-29 11:04:00 72 mm[Hg] Weight Measured 2022-05-29 11:04:00 131.40 pounds Height Measured 2022-05-29 11:04:00 59.50 inches Body Temperature 2022-05-29 11:04:00 98.00 degrees Heart Rate 2022-05-29 11:04:00 84.00 /min Respiratory Rate 2022-05-29 11:04:00 BP Systolic 2022-05-23 14:06:00 101 mm[Hg] BP Diastolic 2022-05-23 14:06:00 66 mm[Hg] Weight Measured 2022-05-23 14:06:00 129.40 pounds Height Measured 2022-05-23 14:06:00 59.50 inches Body Temperature 2022-05-23 14:06:00 98.30 degrees Heart Rate 2022-05-23 14:06:00 77.00 /min Respiratory Rate 2022-05-23 14:06:00 18.00 /min BP Systolic 2021-12-02 15:04:00 120 mm[Hg] BP Diastolic 2021-12-02 15:04:00 76 mm[Hg] Weight Measured 2021-12-02 15:04:00 149.60 pounds Height Measured 2021-12-02 15:04:00 59.50 inches Body Temperature 2021-12-02 15:04:00 98.40 degrees Heart Rate 2021-12-02 15:04:00 69.00 /min Respiratory Rate 2021-12-02 15:04:00 BP Systolic 2021-06-17 11:40:00 128 mm[Hg] BP Diastolic 2021-06-17 11:40:00 85 mm[Hg] Weight Measured 2021-06-17 11:40:00 155.00 pounds Height Measured 2021-06-17 11:40:00 59.50 inches Body Temperature 2021-06-17 11:40:00 98.10 degrees Heart Rate 2021-06-17 11:40:00 100.00 /min Respiratory Rate 2021-06-17 11:40:00 BP Systolic 2021-04-27 15:49:00 119 mm[Hg] BP Diastolic 2021-04-27 15:49:00 73 mm[Hg] Weight Measured 2021-04-27 15:49:00 146.40 pounds Height Measured 2021-04-27 15:49:00 59.50 inches Body Temperature 2021-04-27 15:49:00 98.40 degrees Heart Rate 2021-04-27 15:49:00 80.00 /min Respiratory Rate 2021-04-27 15:49:00 22.00 /min Procedures Procedure Date / Time Performing Clinician Source Performed CONSENT/REFUSAL FOR 2023-07-07 22:44:15 Doctor Unassigned, No Un [facility] DIAGNOSIS AND TREATMENT Name Medical Branch CBC WITH DIFF 2023-01-22 09:42:00 Nunes [facility] CBC WITH DIFF 2023-01-22 09:42:00 [facility] SECTION 2023-01-21 12:31:00 Manju [facility] SECTION 2023-01-21 12:31:00 [facility] CBC WITH DIFF 2023-01-21 09:13:00 [facility] HEPATITIS B SURFACE 2023-01-21 09:13:00 Swapnil Nunes [facility] ANTIGEN [facility] HB ABO GROUPING 2023-01-21 09:13:00 [facility] RHO (D) IMMUNE GLOBULIN 2023-01-21 09:13:00 Swapnil Nunes [facility] ADC OR ADAN ONLY - 2023-01-21 09:13:00 [facility]/2 [facility]-AB WITH 2023-01-21 09:13:00 Swapnil Nunes [facility] REFLEX Medical Branch CBC WITH DIFF 2023-01-21 09:13:00 Manju [facility] o [facility] HEPATITIS B SURFACE 2023-01-21 09:13:00 Swapnil Nunes [facility] ANTIGEN Medical Branch HB ABO GROUPING 2023-01-21 09:13[facility] RHO (D) IMMUNE GLOBULIN 2023-01-21 09:13:00 Swapnil Nunes [facility] ADC OR ADAN ONLY - 2023-01-21 09:13:00 [facility] 1/2 AG-AB WITH 2023-01-21 09:13:00 Swapnil Nunes [facility] REFLEX Medical Branch CONSENT/REFUSAL FOR 2023-01-18 18:51:32 [facility]igned, No [facility] Name Medical Branch POCT URINALYSIS W/O 2023-01-14 15:47:00 Swapnil Nunes [facility] [place] SPECIFIC GRAVITY [facility] [place] >14 WEEKS US 2022-12-24 22:01:24 Swapnil Nunes [facility] LIMITED [facility] [place] DSU PRE-OP 2022-12-24 05:01:00 Doctor Unassigned, No [facility] [place] [facility] [place] POCT URINALYSIS W/O 2022-12-24 00:00:00 Swapnil Nunes [facility] SPECIFIC GRAVITY Medical Branch NOTICE OF PRIVACY 2022-11-09 01:54:56 Doctor Unassigned, No [facility] PRACTICES [facility] Medical Branch CONSENT/REFUSAL FOR 2022-11-09 01:54:27 [facility] Name Medical Branch ASSIGNMENT OF BENEFITS 2022-11-09 01:54:10 Doctor Unassigned, No [facility] Medical Branch AUTHORIZATION FOR 2022-11-08 06:01:00 Doctor Unassigned, No [facility] RELEASE OF PHI Name Medical Branch L&D VISIT 2022-11-08 06:01:00 Doctor Unassigned, No [facility] (NON-DELIVERED) [facility] Medical Branch AUTHORIZATION FOR 2022-11-08 06:01:00 Doctor Unassigned, No [facility] RELEASE OF [facility] Medical Branch L&D VISIT 2022-11-08 06:01:00 Doctor Unassigned, No [facility] (NON-DELIVERED) Name Medical Branch EXTERNAL PROVIDER 2022-10-02 06:01:00 Doctor Unassigned, No [facility] RECORDS Name Medical Branch ASSIGNMENT OF BENEFITS 2022-08-20 16:12:46 Doctor Unassigned, No [facility] Name [facility] POCT URINALYSIS W/O 2022-08-20 00:00:00 Swapnil Nunes [facility] SPECIFIC GRAVITY [facility] ADC CLC OR LCC ONLY - 2022-07-16 01:17:00 Swapnil Nunes [facility] WET PREP [facility] GC & CHLAMYDIA AMPLIFIED 2022-07-16 01:17:00 Swapnil Nunes [facility] ASSAY [facility] URINE CULTURE 2022-07-15 20:42:00 Fernanda Guerin [facility] LIPASE 2022-07-15 19:19:00 Fernanda Guerin [facility] COMP. METABOLIC PANEL 2022-07-15 19:19:00 Fernanda Guerin [facility] ([id number]) [facility] CBC WITH DIFF 2022-07-15 19:19:00 Fernanda Guerin [facility] URINALYSIS 2022-07-15 19:19:00 Fernanda Guerin [facility] CONSENT/REFUSAL FOR 2022-07-15 18:57:36 [facility]igned, [facility] Name [facility] [place] US FIRST 2022-07-01 16:50:00 Fish[facility]ida [facility] TRIMESTER LESS THAN 14 [facility] [place] WEEKS URINE CULTURE 2022-07-01 02:05:00 Delilah Bolanos [facility] US GALL BLADDER 2022-07-01 01:37:25 Delilah Bolanos [facility] POCT TEST 2022-07-01 01:10:00 Delilah Bolanos [facility] CBC WITH DIFF 2022-07-01 01:07:00 Delilah Bolanos [facility] LIPASE 2022-07-01 00:58:00 Delilah Bolanos [facility] COMP. METABOLIC PANEL 2022-07-01 00:58:00 Delilah Bolanos [facility] ([id number]) [facility] [place] TOTAL BETA HCG ASSAY 2022-07-01 00:58:00 Delilah Bolanos [facility] URINALYSIS 2022-07-01 00:58:00 Delilah Bolanos [facility] NOTICE OF PRIVACY 2022-07-01 00:08:40 Doctor Unassigned, No [facility] CONSENT/REFUSAL FOR 2022-07-01 00:05:52 Doctor Unassigned, No [facility] [place] DIAGNOSIS AND TREATMENT Name [facility] [place] US FIRST 2021-06-26 15:07:05 Ciaran Diaz [facility] TRIMESTER LESS THAN 14 [place] WEEKS WITH TRANSVAGINAL COMP. METABOLIC PANEL 2021-06-26 14:23:00 Ciaran Diaz [facility] ([id number]) [facility] TOTAL BETA HCG ASSAY 2021-06-26 14:23:00 Ciaran Diaz [facility] CBC WITH DIFF 2021-06-26 14:23:00 Joe [facility] URINALYSIS 2021-06-26 14:23:00 Joe [facility] NOTICE OF PRIVACY 2021-06-26 13:57:26 Doctor Unassigned, No [facility] Name [facility] CONSENT/REFUSAL FOR 2021-06-26 13:52:59 Doctor Unassigned, No [facility]REAT[facility] Name [facility] ABORH CONFIRMATION (LAB 2021-06-20 02:23:00 Delilah Bolanos [facility] ONLY) [facility] [place] US FIRST 2021-06-20 02:16:07 Delilah Bolanos [facility] TRIMESTER LESS THAN 14 [facility] [place] WEEKS WITH TRANSVAGINAL COMP. METABOLIC PANEL 2021-06-20 01:53:00 Delilah Bolanos [facility] ([id number]) [facility] TOTAL BETA HCG ASSAY 2021-06-20 01:53:00 Delilah Bolanos [facility] CBC WITH DIFF 2021-06-20 01:53:00 Delilah Bolanos [facility] HB ABO GROUPING 2021-06-20 01:52:00 Delilah Bolanos [facility] POCT TEST 2021-06-20 01:40:00 Delilah Bolanos [facility] URINALYSIS 2021-06-20 01:37:00 Delilah Bolanos [facility] NOTICE OF PRIVACY 2021-06-20 00:53:27 Doctor Unassigned, No [facility] PRACTICES Name [facility] Plan of Care Planned Activity Planned Date Details Comments Source Goal Plan of Care Note [code = 32915-9] Goal Plan of Care Note [code = 98669-7] Goal Plan of Care Note [code = 56345-1] Goal Plan of Care Note [code = 53343-2] Goal Plan of Care Note [code = 17909-3] Goal Plan of Care Note [code = 37924-1] Goal Plan of Care Note [code = 91125-4] Goal Plan of Care Note [code = 97661-2] Goal Plan of Care Note [code = 55824-6] Goal Plan of Care Note [code = 07884-0] Goal Plan of Care Note [code = 19353-7] Goal Plan of Care Note [code = 30868-4] Goal Plan of Care Note [code = 78050-9] Goal Plan of Care Note [code = 99814-3] Goal Plan of Care Note [code = 71093-9] Goal Plan of Care Note [code = 90825-6] Goal Plan of Care Note [code = 04680-4] Goal Plan of Care Note [code = 51950-1] Goal Plan of Care Note [code = 43661-9] Goal Plan of Care Note [code = 73814-5] Goal Plan of Care Note [code = 22803-2] Goal Plan of Care Note [code = 32542-3] Goal Plan of Care Note [code = 18116-9] Goal Plan of Care Note [code = 84522-7] Goal Plan of Care Note [code = 14663-8] Goal Plan of Care Note [code = 07379-1] Goal Plan of Care Note [code = 22808-9] Goal Plan of Care Note [code = 92501-1] Goal Plan of Care Note [code = 22847-5] Goal Plan of Care Note [code = 45925-3] Goal Plan of Care Note [code = 86197-7] Goal Plan of Care Note [code = 07066-1] Goal Plan of Care Note [code = 14933-7] Goal Plan of Care Note [code = 65973-6] Goal Plan of Care Note [code = 27893-1] Goal Plan of Care Note [code = 56450-0] Goal Plan of Care Note [code = 19356-0] Goal Plan of Care Note [code = 58324-6] Goal Plan of Care Note [code = 06100-8] Goal Plan of Care Note [code = 49886-6] Goal Plan of Care Note [code = 14333-4] Goal Plan of Care Note [code = 58788-4] Goal Plan of Care Note [code = 85200-5] Goal Plan of Care Note [code = 34209-2] Goal Plan of Care Note [code = 89420-8] Goal Plan of Care Note [code = 36741-0] Goal Plan of Care Note [code = 79257-3] Goal Plan of Care Note [code = 87240-5] Goal Plan of Care Note [code = 58555-2] Goal Plan of Care Note [code = 98485-8] Goal Plan of Care Note [code = 05875-0] Goal Plan of Care Note [code = 60720-0] Goal Plan of Care Note [code = 90666-8] Goal Plan of Care Note [code = 62329-7] Goal Plan of Care Note [code = 22340-1] Goal Plan of Care Note [code = 66216-0] Goal Plan of Care Note [code = 48561-6] Goal Plan of Care Note [code = 71623-0] Goal Plan of Care Note [code = 72717-2] Goal Plan of Care Note [code = 48270-2] Goal Plan of Care Note [code = 72576-4] Goal Plan of Care Note [code = 12742-9] Goal Plan of Care Note [code = 61087-1] Goal Plan of Care Note [code = 32177-4] Goal Plan of Care Note [code = 82251-4] Goal Plan of Care Note [code = 94126-2] Goal Plan of Care Note [code = 65319-1] Goal Plan of Care Note [code = 32853-3] Goal Plan of Care Note [code = 89753-8] Goal Plan of Care Note [code = 18231-1] Goal Plan of Care Note [code = 69084-3] Goal Plan of Care Note [code = 05339-5] Goal Plan of Care Note [code = 95583-2] Goal Plan of Care Note [code = 65211-1] Goal Plan of Care Note [code = 04621-4] Goal Plan of Care Note [code = 99339-2] Goal Plan of Care Note [code = 03751-8] Goal Plan of Care Note [code = 72438-1] Goal Plan of Care Note [code = 13578-9] Goal Plan of Care Note [code = 46419-9] Goal Plan of Care Note [code = 00376-9] Goal Plan of Care Note [code = 32486-6] Goal Plan of Care Note [code = 40843-5] Goal Plan of Care Note [code = 41783-2] Goal Plan of Care Note [code = 44050-0] Goal Plan of Care Note [code = 01911-3] Goal Plan of Care Note [code = 73660-8] Goal Plan of Care Note [code = 03514-7] Goal Plan of Care Note [code = 28635-6] Goal Plan of Care Note [code = 76615-2] Goal Plan of Care Note [code = 71541-7] Goal Plan of Care Note [code = 39421-0] Goal Plan of Care Note [code = 24394-1] Goal Plan of Care Note [code = 26220-9] Goal Plan of Care Note [code = 44766-0] Goal Plan of Care Note [code = 07026-4] Goal Plan of Care Note [code = 12854-5] Goal Plan of Care Note [code = 62334-5] Goal Plan of Care Note [code = 70627-6] Goal Plan of Care Note [code = 55830-8] Goal Plan of Care Note [code = 67965-6] Goal Plan of Care Note [code = 47813-0] Goal Plan of Care Note [code = 42638-5] Encounters Start End Encounter Admission Attending Care Care Encounter Source Date/Time Date/Time Type Type Clinicians Facility Department ID 2023-07-07 2023-07-07 Emergency X [facility] ERT [id number] Univers 17:51:00 18:41:00 DELILAH ity [facility] 2023-07-07 2023-07-07 Emergency [facility] 1.2.974.790 [id number] Univers 17:51:00 18:41:00 Delilah G [place] 350.1.13.10 [facility] 4.2.7.2.686 [facility] [id number] [address] 2023-02-27 2023-02-27 Outpatient R KLEBER [facility] [id number] Univers 13:00:00 13:00:[facility] 2023-01-28 Outpatient R SWAPNIL NUNES [facility] [id number] Univers 13:45:00 14:31:45 ity [facility] 2023-01-28 2023-01-28 Routine Manju [facility] 1.2.043.075 [id number] Univers 13:45:00 14:31:45 Cam [place] 350.1.13.10 ity of Visit [place] 4.2.7.2.686 [facility] PROFESSIO [id number] Vt dical [facility], [facility] [address] [facility] 2023-01-21 2023-01-23 Inpatient X SWAPNIL NUNES [facility] ITZEL [id number] Univers 03:24:00 12:00:00 ity of [facility] 2023-01-21 2023-01-23 Hospital Swapnil Nunes [facility] 1.2.840.114 [id number] Univers 03:24:00 12:00:00 Encounter Cam [place] 350.1.13.10 ity [facility] 4.2.7.2.686 [facility] [id number] [address] 2023-01-21 2023-01-21 Surgery Swapnil uNnes [facility] 1.2.588.203 [id number] Univers 07:50:00 09:41:00 Cam [place] 350.1.13.10 i ty of [place] [id number] [facility] [address] 2023-01-18 2023-01-18 Orders Doctor DEMIAN 1.2.840.114 [id number] Univers 00:00:00 00:00:00 Only Unassigned, BRIGIDO 350.1.13.10 ity of [place] [facility] 4.2.7.2.686 Josse as [id number] [facility] [address] 2023-01-14 2023-01-14 Outpatient R SWAPNIL NUNES [facility] [id number] Univers 09:45:00 11:07:31 ity of [facility] 2023-01-14 2023-01-14 Routine Renee Shahid [facility] 1.2.840.11 [id number] Univers 09:45:00 11:07:31 Swapnil Nunes 350.1.13.10 ity of [place] [id number] Vt dical NAL [address] [place] [address] 2023-01-14 2023-01-14 Telephone Swapnil Nunes [facility] 1.2.840.114 [id number] Univers 00:00:00 00:00:00 Terell BE 350.1.13.10 i ty of [place] [id number] Vt dical NAL 134 [facility] 2022-12-31 2022-12-31 Steel Sash Erector 1, [facility] Us Room UNIVERSIT 1 .2.840.114 [id number] Univers 13:45:00 15:22:25 Visit Maya Santo 350.1.13.10 it[place] [id number] [facility] [address] 2022-12-31 2022-12-31 Outpatient P MAYA SANTO [facility] [id number] Univers 13:45:00 13:45:00 MAYA SANTO ity of [facility] 2022-12-28 2022-12-28 Steel Sash Erector 2, Adc Lab [facility] 1.2.840.114 [id number] Univers 13:00:00 13:15:00 Visit Swapnil Nunes [place] 350.1.13.10 ity of [place] [id number] Vt dical [facility] [address] [facility] 2022-12-28 2022-12-28 Outpatient R MANJU SWAPNIL [facility] [id number] Univers 13:00:00 13:00:00 ity of [facility] 2022-12-25 2022-12-25 Case Manju [facility] 1.2.361.393 [id number] Univers 00:00:00 00:00:00 Management Terell BE 350.1.13.10 ity of [place] [id number] [facility] 134 [facility] 2022-12-24 2022-12-24 Outpatient R SWAPNIL NUNES [facility] [id number] Univers 16:15:00 16:55:13 ity of [facility] 2022-12-24 2022-12-24 Routine Swapnil Nunes [facility] 1.2.197.785 [id number] Univers 16:15:00 16:55:13 Terell BE 350.1.13.10 ity of [place] [id number] [facility] 134 [facility] 2022-12-24 2022-12-24 Orders Doctor DEMIAN 1.2.840.114 [id number] Univers 00:00:00 00:00:00 Only Unassigned, BRIGIDO 350.1.13.10 ity of [place] [facility] 4.2.7.2.686 Josse as [id number] [address] 2022-12-06 2022-12-06 Outpatient R SWAPNIL NUNES [facility] [id number] Univers 11:00:00 11:00:00 ity of [facility] 2022-11-08 2022-11-08 Outpatient X JAYCEE [facility] ITZEL [id number] Univers 20:05:00 21:14:00 RESHMA ity of [facility] 2022-11-08 2022-11-08 Emergency Adum, [facility] 1.2.811.451 [id number] Univers 20:05:00 21:14:00 Reshma TRENTJACKIE 350.1.13.10 ity of [place] [id number] [facility] [address] 2022-10-02 2022-10-02 Orders Doctor DEMIAN 1.2.840.114 [id number] Univers 00:00:00 00:00:00 Only Unassigned, BRIGIDO 350.1.13.10 ity of [facility] 4.2.7.2.686 [place]se [place] [id number] [facility] [address] 2022-09-17 2022-09-17 Outpatient R KLEBER, [facility] [id number] Univers 11:00:00 11:00:00 RENEE ity [facility] 2022-09-11 2022-09-11 Steel Sash Erector 2, Adc Lab [facility] 1.2.840.114 [id number] Univers 14:15:00 14:30:00 Visit Tuan Rahman 350.1.13.1 0 ity of [place] [id number] Vt dical NAL 353 [facility] 2022-09-11 2022-09-11 Outpatient R TUAN RAHMAN [facility] [id number] Univers 14:15:00 14:15:00 TUAN RAHMAN ity [facility] 2022-09-11 2022-09-11 Case Swapnil Nunes [facility] 1.2.840.114 [id number] Univers 00:00:00 00:00:00 Management Terell BE 350.1.13.10 ity [facility] [place] [id number] Me dical NAL 134 [facility] 2022-09-11 2022-09-11 Case Swapnil Nunes [facility] 1.2.272.443 [id number] Univers 00:00:00 00:00:00 Management Cam [place] 350.1.13.10 ity of [place] [id number] Vt dical NAL 134 [facility] 2022-09-10 2022-09-10 Telephone Annabelle Nunesen [facility] 1.2.840.114 [id number] Univers 00:00:00 00:00:00 Cam [place] 350.1.13.10 i ty of [place] [id number] Vt dical NAL 134 [facility] 2022-09-04 2022-09-04 Telephone Manju Swapnil [facility] 1.2.840.114 [id number] Univers 00:00:00 00:00:00 Cam [place] 350.1.13.10 i ty of [place] [phone] Vt dical NAL [address] [place] [address] 2022-08-29 2022-08-29 Telephone Manju Swapnil [facility] 1.2.840.114 [id number] Univers 00:00:00 00:00:00 Cam [place] 350.1.13.10 i ty of [place] [id number] Vt dical NAL [address] [place] [address] 2022-08-21 2022-08-21 Case Swapnil Nunes [facility] 1.2.537.118 [id number] Univers 00:00:00 00:00:00 Management Cam [place] 350.1.13.10 ity of [place] [id number] Vt dical NAL [address] [place] [address] 2022-08-20 2022-08-20 Outpatient R SWAPNIL NUNES [facility] [id number] Univers 11:45:00 13:28:31 ity of [facility] 2022-08-20 2022-08-20 Steel Sash Erector 2, Adc Lab [facility] 1.2.840.114 [id number] Univers 11:45:00 12:00:00 Visit Swapnil NunesTON 350.1.13.10 ity of [place] [id number] Vt dical NAL 353 [facility] 2022-08-20 2022-08-20 Initial Swapnil Nunes [facility] 1.2.215.390 [id number] Univers 10:30:00 11:31:08 Terell BE 350.1.13.10 ity of Visit [place]2.[place] [id number] Vt dical NAL 134 [facility] 2022-08-20 2022-08-20 Orders Doctor DEMIAN 1.2.840.114 [id number] Univers 00:00:00 00:00:00 Only Unassigned, BRIGIDO 350.1.13.10 ity of [place] [facility] 4.2.7.2.686 Josse as [id number] [facility] [address] 2022-07-31 2022-07-31 Outpatient SFA [facility] [id number] 202 Bab[place] 09:05:28 09:05:28 [address] [place] 2022-07-15 2022-07-16 Outpatient X SWAPNIL NUNES [facility] ITZEL [id number] Univers 14:21:00 14:05:00 ity of [facility] 2022-07-15 2022-07-16 Emergency Guerin, Fernanda [facility] 1.2.840 .114 [id number] Univers 14:21:00 14:05:00 Swapnil Nunes Terell [place] 350.1.13.10 ity of [place] [id number] [facility] [address] 2022-07-16 2022-07-16 Telephone Swapnil Nnues [facility] 1.2.840.114 [id number] Univers 00:00:00 00:00:00 Terell BE 350.1.13.10 i ty of [facility] [place] [id number] Vt dical NAL 134 [facility] 2022-06-30 2022-07-02 Outpatient X BERNABE MEJÍAN [facility] ITZEL [id number] Univers 19:25:00 11:00:00 ity of [facility] 2022-06-30 2022-07-02 Emergency Delilah Bolanos [facility] 1.2.840 .114 [id number] Univers 19:25:00 11:00:00 Elida Mejía 350.1.13.10 [facility] 4.2.7.2.686 [facility] [id number] [facility] [address] 2022-06-15 2022-06-15 Outpatient nl95880g- [id number] ee 16932y-8 00:00:00 00:00:00 Visit 8p54-91e2 g49-33b8-f -q03d-460 65a-376d59 n99c09c0l d85d8e 2022-06-13 2022-06-13 Outpatient 39sg856r- [id number] av383z-6 00:00:00 00:00:00 Visit 1266-9081 715-4321-9 -9976-49c 976-49cd34 m42307c0x 659f2a 2022-06-11 2022-06-11 Outpatient k4imhr40- [id number] d5 hbny59-j 00:00:00 00:00:00 Visit ff77-1y2k x08-9d5o-5 -63z2-m60 0j9-d28z04 i46dp4862 mt3209 2022-06-08 2022-06-08 Outpatient 4mi4h349- [id number] 2d r0w369-5 00:00:00 00:00:00 Visit 22g3-7272 2w6-5212-5 -926b-312 26b-608262 1744322z0 0629d3 2022-05-31 2022-05-31 Outpatient u4068rp6- [id number] a3 774fk1-r 00:00:00 00:00:00 Visit t93e-5479 18c-4913-a -u9pf-838 6ec-525932 39861x866 31v776 2022-05-29 2022-05-29 Outpatient 03gio0ov- [id number] 06 hjb1ug-f 00:00:00 00:00:00 Visit k3t4-682x 0x7-271k-1 -8568-19e 568-88p401 91815k7y3 99d8d7 2021-06-26 2021-06-26 Emergency [facility] 1.2.968.829 [id number] Univers 08:59:00 11:26:00 Ciaran Be 350.1.13.10 i ty of [place] 4.2.7.2.686 [facility] [id number] [address] 2021-06-26 2021-06-26 Emergency X [facility] ERT [id number] Univers 08:52:00 08:52:00 [facility] 2021-06-19 2021-06-19 Emergency [facility] 1.2.078.099 [id number] Univers 20:07:00 23:32:00 Delilah Be 350.1.13.10 ity [facility] 4.2.7.2.686 [facility] [id number] [address] 2021-06-19 2021-06-19 Emergency X [facility] ERT [id number] Univers 19:53:00 19:53:00 [facility] Results Test Description Test Time Test Comments Results Result Comments Source ADC OR ADAN ONLY - RPR 2023-01-22 05:54:32 Test Item Value Reference Range Interpretation Comme nts RPR (Qualitative) (test code = 87026-6) Nonreactive Nonreactive Lab Interpretation (test code = 44980-4) Normal [facility] OR [facility] ONLY - [id number] 05:54:32 Test Item Value Reference Range Interpretation Comments RPR (Qualitative) (test code = Nonreactive Nonreactive 86782-6) Lab Interpretation (test code = Normal 18274-7) [facility] [id number] 22:32:21 Test Item Value Reference Range Interpretation Comments RHIG CANDIDATE? No- see comment Patient i s not a (test code = candidate for R hIg- 5188) Patient is Rh Positive.Perfor med at [facility] Laboratory Services - [facility] Blood [address] [place] [phone] Free: [phone] A No. [id number] [facility] IMMUNE [id number] 22:32:21 Test Item Value Reference Range Interpretation Comments RHIG CANDIDATE? No- see comment Patient i s not a (test code = candidate for R hIg- 5188) Patient is Rh Positive.Perfor med at [facility] Laboratory Services - [facility] Blood [address] [place] [address]Larr Free: [phone] A No. [id number] [facility] B Surface [id number] 15:35:44 Test Item Value Reference Range Interpretation Comments HBsAg Semi-Quantitative (test code = 0.04 Negative 5195-3) [facility] B Surface [id number] 15:35:44 Test Item Value Reference Range Interpretation Comments HBsAg Semi-Quantitative (test code = 0.04 Negative 5195-3) [facility] AG-AB WITH [id number] 12:16:52 Test Item Value Reference Range Interpretation Comments HIV 0.11 Negative Semi-quantitative (test code = 74371-0) MIHAELA (test code = Non-reactive for HIV-1 MIHAELA) antigen and HIV-1/HIV-2 antibodies. ?No laboratory evidence of HIV infection. ?Repeat in 2-4 weeks if acute HIV infection is suspected. [facility] AG-AB WITH [id number] 12:16:52 Test Item Value Reference Range Interpretation Comments HIV 0.11 Negative Semi-quantitative (test code = 13063-5) MIHAELA (test code = Non-reactive for HIV-1 MIHAELA) antigen and HIV-1/HIV-2 antibodies. ?No laboratory evidence of HIV infection. ?Repeat in 2-4 weeks if acute HIV infection is suspected. [facility] with [id number] 09:55:42 Test Item Value Reference Range Interpretation Comments WBC (test code = 7.86 See_Comment [Automated 2490-2) message] The sy stem which generated this result transmitted reference range : 4.30 - 11.10 10*3/?L. The reference range was not used to interpret this result as normal/abnormal . RBC (test code = 3.19 See_Comment L [Automated 789-8) message] The sy stem which generated this result transmitted reference range : 3.93 - 5.25 10*6/?L. The reference range was not used to interpret this result as normal/abnormal . HGB (test code = 9.2 g/dL 11.6-15.0 L 718-7) HCT (test code = 27.5 % 35.7-45.2 L 4544-3) MCV (test code = 86.2 fL 80.6-95.5 787-2) MCH (test code = 28.8 pg 25.9-32.8 785-6) MCHC (test code = 33.5 g/dL 31.6-35.1 786-4) RDW-SD (test code = 40.3 fL 39.0-49.9 12911-5) RDW-CV (test code = 13.1 % 12.0-15.5 788-0) PLT (test code = 292 See_Comment [Automated 777-3) message] The sy stem which generated this result transmitted reference range : 166 - 358 10*3/ ?L. The reference r braxton was not used to interpret this result as normal/abnormal . MPV (test code = 11.2 fL 9.5-12.9 28619-8) NRBC/100 WBC (test 0.3 See_Comment [Automat ed code = 1879676829) message] The system which generated this result transmitted reference range : 0.0 - 10.0 /100 WBCs. The refer ence range was not u sed to interpret th is result as normal/abnormal . NRBC x10^3 (test code 0.02 See_Comment [Auto mated = 4294655526) message] The s ystem which generated this result transmitted reference range : 10*3/?L. The reference range was not used to interpret this result as normal/abnormal . GRAN MAT (NEUT) % 68.8 % (test code = 770-8) IMM GRAN % (test code 1.30 % = 0891590834) LYMPH % (test code = 19.5 % 736-9) MONO % (test code = 9.2 % 5905-5) EOS % (test code = 0.9 % 713-8) BASO % (test code = 0.3 % 706-2) GRAN MAT x10^3(ANC) 5.42 10*3/uL 1.88-7.09 (test code = 8860009654) IMM GRAN x10^3 (test 0.10 10*3/uL 0.00-0.06 H code = 9628039241) LYMPH x10^3 (test code 1.53 10*3/uL 1.32-3.29 = 731-0) MONO x10^3 (test code 0.72 10*3/uL 0.33-0.92 = 742-7) EOS x10^3 (test code = 0.07 10*3/uL 0.03-0.39 711-2) BASO x10^3 (test code 0.01-0.07 = 704-7) Lab Interpretation Abnormal (test code = 79433-9) [facility] with [id number] 09:55:42 Test Item Value Reference Range Interpretation Comments WBC (test code = 7.86 See_Comment [Automated 6590-2) message] The sy stem which generated this result transmitted reference range : 4.30 - 11.10 10*3/?L. The reference range was not used to interpret this result as normal/abnormal . RBC (test code = 3.19 See_Comment L [Automated 649-8) message] The sy stem which generated this result transmitted reference range : 3.93 - 5.25 10*6/?L. The reference range was not used to interpret this result as normal/abnormal . HGB (test code = 9.2 g/dL 11.6-15.0 L 718-7) HCT (test code = 27.5 % 35.7-45.2 L 4544-3) MCV (test code = 86.2 fL 80.6-95.5 787-2) MCH (test code = 28.8 pg 25.9-32.8 785-6) MCHC (test code = 33.5 g/dL 31.6-35.1 786-4) RDW-SD (test code = 40.3 fL 39.0-49.9 46847-8) RDW-CV (test code = 13.1 % 12.0-15.5 788-0) PLT (test code = 292 See_Comment [Automated 777-3) message] The sy stem which generated this result transmitted reference range : 166 - 358 10*3/ ?L. The reference r braxton was not used to interpret this result as normal/abnormal . MPV (test code = 11.2 fL 9.5-12.9 96205-8) NRBC/100 WBC (test 0.3 See_Comment [Automat ed code = 7668916393) message] The system which generated this result transmitted reference range : 0.0 - 10.0 /100 WBCs. The refer ence range was not u sed to interpret th is result as normal/abnormal . NRBC x10^3 (test code 0.02 See_Comment [Auto mated = 0566207673) message] The s ystem which generated this result transmitted reference range : 10*3/?L. The reference range was not used to interpret this result as normal/abnormal . GRAN MAT (NEUT) % 68.8 % (test code = 770-8) IMM GRAN % (test code 1.30 % = 6410908436) LYMPH % (test code = 19.5 % 736-9) MONO % (test code = 9.2 % 5905-5) EOS % (test code = 0.9 % 713-8) BASO % (test code = 0.3 % 706-2) GRAN MAT x10^3(ANC) 5.42 10*3/uL 1.88-7.09 (test code = 2768857158) IMM GRAN x10^3 (test 0.10 10*3/uL 0.00-0.06 H code = 6019257621) LYMPH x10^3 (test code 1.53 10*3/uL 1.32-3.29 = 731-0) MONO x10^3 (test code 0.72 10*3/uL 0.33-0.92 = 742-7) EOS x10^3 (test code = 0.07 10*3/uL 0.03-0.39 711-2) BASO x10^3 (test code 0.01-0.07 = 704-7) Lab Interpretation Abnormal (test code = 50343-4) [facility] [id number] 09:46:00 Test Item Value Reference Range Interpretation Comments ABO & RH (test code = 20) O Positive IAT (test code = 1185) Negative [facility] - [facility]CE [id number] 09:46:00 Test Item Value Reference Range Interpretation Comments ABO & RH (test code = 20) O Positive IAT (test code = 1185) Negative [facility] W/O SPECIFIC [id number] 15:47:00 Test Item Value Reference Range Interpretation Comments POCT PH U (test code = 3254) n/a 5-8 POCT U LEUK EST (test code = n/a Negative - Negative 3) POCT U NIT (test code = 3262) n/a Negative - Negative POCT U PROT (test code = 3259) normal Negative - Negative POCT U GLU (test code = 3256) negative Negative - Negative POCT U KETONE (test code = 3258) n/a Negative - Negative POCT U BLD (test code = 3257) n/a Negative - Negative [facility]/O SPECIFIC [id number] 21:24:00 Test Item Value Reference Range Interpretation Comments POCT PH U (test code = 3254) 7 mg/dl 5-8 POCT U LEUK EST (test code = 1+ Negative - Negative 3263) POCT U NIT (test code = 3262) positive Negative - Negative POCT U PROT (test code = 3259) negaitve Negative - Negative POCT U GLU (test code = 3256) 250 POCT U KETONE (test code = 3258) 2+ Negative - Negative POCT U BLD (test code = 3257) Trace Negative - Negative [facility]/O SPECIFIC [id number] 16:44:00 Test Item Value Reference Range Interpretation Comments POCT PH U (test code = 3254) 6 mg/dl 5-8 POCT U LEUK EST (test code = Negative Negative - Negative 3263) POCT U NIT (test code = 3262) Negative Negative - Negative POCT U PROT (test code = 3259) Negative Negative - Negative POCT U GLU (test code = 3256) Normal Negative - Negative POCT U KETONE (test code = 3258) Negative Negative - Negative POCT U BLD (test code = 3257) Negative Negative - Negative [facility] SPECIFIC [id number] 16:44:00 Test Item Value Reference Range Interpretation Comments POCT PH U (test code = 3254) 6 mg/dl 5-8 POCT U LEUK EST (test code = Negative Negative - Negative 3263) POCT U NIT (test code = 3262) Negative Negative - Negative POCT U PROT (test code = 3259) Negative Negative - Negative POCT U GLU (test code = 3256) Normal Negative - Negative POCT U KETONE (test code = 3258) Negative Negative - Negative POCT U BLD (test code = 3257) Negative Negative - Negative [facility] SPECIFIC [id number] 16:44:00 Test Item Value Reference Range Interpretation Comments POCT PH U (test code = 3254) 6 mg/dl 5-8 POCT U LEUK EST (test code = Negative Negative - Negative 3263) POCT U NIT (test code = 3262) Negative Negative - Negative POCT U PROT (test code = 3259) Negative Negative - Negative POCT U GLU (test code = 3256) Normal Negative - Negative POCT U KETONE (test code = 3258) Negative Negative - Negative POCT U BLD (test code = 3257) Negative Negative - Negative [facility]OLIC PAN[facility] (63463)2022-07-15 19:45:04 Test Item Value Reference Range Interpretation Comments NA (test code = 136 mmol/L 135-145 8755100239) K (test code = 4.3 mmol/L 3.5-5 1229156589) CL (test code = 99 mmol/L 98-108 7333361805) CO2 TOTAL (test code = 23 mmol/L 23-31 5671645810) AGAP (test code = 2-16 5047968617) BUN (test code = 8 mg/dL 7-23 0891095360) GLUCOSE (test code = 87 mg/dL 70-110 1230386595) CREATININE (test code = 0.46 mg/dL 0.5-1.04 L 5424335582) TOTAL BILI (test code = 0.7 mg/dL 0.1-1.9 2565678204) CALCIUM (test code = 9.9 mg/dL 8.6-10.6 1233661240) T PROTEIN (test code = 8.3 g/dL 6.3-8.2 H 5376673141) ALBUMIN (test code = 4.8 g/dL 3.5-5 5123342298) ALK PHOS (test code = 48 U/L 34-122 4777368344) ALTv (test code = 20 U/L 5-35 1742-6) AST(SGOT) (test code = 29 U/L 13-40 1854427687) eGFR (test code = mL/min/1.73m2 4112793590) MIHAELA (test code = MIHAELA) Association of [...] tests). Lab Interpretation Abnormal (test code = 52087-2) [facility] 19:44[facility]44 Test Item Value Reference Range Interpretation Comments LIPASE (test code = 3654369077) 77 U/L 0-220 Lab Interpretation (test code = Normal 09985-9) [facility] WITH [id number] 19:34:45 Test Item Value Reference Range Interpretation Comments [...] as normal/abnormal . HGB (test code = 12.9 g/dL 11.6-15 718-7) HCT (test code = 36.3 % 35.7-45.2 4544-3) MCV (test code = 88.5 fL 80.6-95.5 787-2) MCH (test code = 31.5 pg 25.9-32.8 785-6) MCHC (test code = 35.5 g/dL 31.6-35.1 H 786-4) RDW-SD (test code = 38.1 fL 39-49.9 L 43618-3) RDW-CV (test code = 11.9 % 12-15.5 L 788-0) PLT (test code = See_Comment [Automated 777-3) message] The sy stem which generated this result transmitted reference range : 166 - 358 10*3/ ?L. The reference r braxton was not used to interpret this result as normal/abnormal . MPV (test code = 9.8 fL 9.5-12.9 96432-7) NRBC/100 WBC (test See_Comment [Automat ed code = 5297655200) message] The system which generated this result transmitted reference range : 0.0 - 10.0 /100 WBCs. The refer ence range was not u sed to interpret th is result as normal/abnormal . NRBC x10^3 (test code See_Comment [Auto mated = 2388670310) message] The s ystem which generated this result transmitted reference range : 10*3/?L. The reference range was not used to interpret this result as normal/abnormal . GRAN MAT (NEUT) % 71.8 % (test code = 770-8) IMM GRAN % (test code 0.30 % = 6115592054) LYMPH % (test code = 21.4 % 736-9) MONO % (test code = 5.5 % 5905-5) EOS % (test code = 0.6 % 713-8) BASO % (test code = 0.4 % 706-2) GRAN MAT x10^3(ANC) 7.64 10*3/uL 1.88-7.09 H (test code = 7107801083) IMM GRAN x10^3 (test 0.03 10*3/uL 0-0.06 code = 6413071246) LYMPH x10^3 (test code 2.27 10*3/uL 1.32-3.29 = 731-0) MONO x10^3 (test code 0.58 10*3/uL 0.33-0.92 = 742-7) EOS x10^3 (test code = 0.06 10*3/uL 0.03-0.39 711-2) BASO x10^3 (test code 0.04 10*3/uL 0.01-0.07 = 704-7) Lab Interpretation Abnormal (test code = 06325-6) [facility] (QUANTITATIVE)2022-07-01 03:12:13 Test Item Value Reference Range Interpretation Comments BETA HCG (test See_Comment [Automated m essage] code = The system [facility] [id number]) generated this result transmit sanjiv reference range : Non- fe male and male patien ts: <5 mIU/mL. The reference range was not used to interpret this result as normal/abnormal . MIHAELA (test code Gestational Age ? ? = MIHAELA) ?Range (mIU/mL) 1-10 ?Weeks ?[id number] Weeks ?25547-88383692-84 Weeks ?9147-02386531-53 Weeks ?6699-427916 Biotin has been reported to cause a negative bias, interpret results relative to patient's use of biotin. [facility]. METABOLIC PANEL (65300)2022-07-01 02:20:51 Test Item Value Reference Range Interpretation Comments NA (test code = 135 mmol/L 135-145 9867856605) K (test code = 3.7 mmol/L 3.5-5 6249680261) CL (test code = 98 mmol/L 98-108 0986737405) CO2 TOTAL (test code = 24 mmol/L 23-31 0998334439) AGAP (test code = 2-16 4309930840) BUN (test code = 8 mg/dL 7-23 5363429632) GLUCOSE (test code = 91 mg/dL 70-110 1780909964) CREATININE (test code = 0.48 mg/dL 0.5-1.04 L 2179518959) TOTAL BILI (test code = 0.8 mg/dL 0.1-1.7 5342041692) CALCIUM (test code = 10.1 mg/dL 8.6-10.6 9787309958) T PROTEIN (test code = 7.9 g/dL 6.3-8.2 3035084252) ALBUMIN (test code = 4.8 g/dL 3.5-5 2514645576) ALK PHOS (test code = 61 U/L 34-122 1876690886) ALTv (test code = 20 U/L 5-35 1742-6) AST(SGOT) (test code = 27 U/L 13-40 0850282779) eGFR (test code = mL/min/1.73m2 2153246405) MIHAELA (test code = MIHAELA) Association of [...] tests). Lab Interpretation Abnormal (test code = 57643-6) [facility] 02:20:16 Test Item Value Reference Range Interpretation Comments LIPASE (test code = 7705000838) 75 U/L 0-220 Lab Interpretation (test code = Normal 84021-0) [facility] WITH [id number] 01:45:31 Test Item Value Reference Range Interpretation Comments WBC (test code = See_Comment [Automated 6690-2) message] The sy stem which generated this result transmitted reference range : 4.30 - 11.10 10*3/?L. The reference range was not used to interpret this result as normal/abnormal . RBC (test code = See_Comment L [Automated 649-8) message] The sy stem which generated this result transmitted reference range : 3.93 - 5.25 10*6/?L. The reference range was not used to interpret this result as normal/abnormal . HGB (test code = 11.9 g/dL 11.6-15 718-7) HCT (test code = 32.6 % 35.7-45.2 L 4544-3) MCV (test code = 86.7 fL 80.6-95.5 787-2) MCH (test code = 31.6 pg 25.9-32.8 785-6) MCHC (test code = 36.5 g/dL 31.6-35.1 H 786-4) RDW-SD (test code = 35.8 fL 39-49.9 L 29866-6) RDW-CV (test code = 11.4 % 12-15.5 L 788-0) PLT (test code = See_Comment [Automated 777-3) message] The sy stem which generated this result transmitted reference range : 166 - 358 10*3/ ?L. The reference r braxton was not used to interpret this result as normal/abnormal . MPV (test code = 11.1 fL 9.5-12.9 78844-5) NRBC/100 WBC (test See_Comment [Automat ed code = 4681231550) message] The system which generated this result transmitted reference range : 0.0 - 10.0 /100 WBCs. The refer ence range was not u sed to interpret th is result as normal/abnormal . NRBC x10^3 (test code See_Comment [Auto mated = 7835219018) message] The s ystem which generated this result transmitted reference range : 10*3/?L. The reference range was not used to interpret this result as normal/abnormal . GRAN MAT (NEUT) % 63.7 % (test code = 770-8) IMM GRAN % (test code 0.40 % = 7694464478) LYMPH % (test code = 27.3 % 736-9) MONO % (test code = 7.8 % 5905-5) EOS % (test code = 0.3 % 713-8) BASO % (test code = 0.5 % 706-2) GRAN MAT x10^3(ANC) 6.83 10*3/uL 1.88-7.09 (test code = 3017029537) IMM GRAN x10^3 (test 0.04 10*3/uL 0-0.06 code = 2544347620) LYMPH x10^3 (test code 2.92 10*3/uL 1.32-3.29 = 731-0) MONO x10^3 (test code 0.83 10*3/uL 0.33-0.92 = 742-7) EOS x10^3 (test code = 0.03 10*3/uL 0.03-0.39 711-2) BASO x10^3 (test code 0.05 10*3/uL 0.01-0.07 = 704-7) Lab Interpretation Abnormal (test code = 25692-1) [facility] [id number] 01:10:00 Test Item Value Reference Range Interpretation Comments POCT PREG (test code = 1605) positive On board controls acceptable with present C Line (test code = 3574) POCT PREG LOT # (test code = 3575) [id number] POCT PREG TEST DATE (test 2023-09-29 code = 3576) Lab Interpretation (test code = Normal 99711-6) [facility], [id number] 09:09:13SPECIMEN NUMBER: [id number] CULTURE, URINE SPECIMEN NUMBER: [id number] SOURCE: URINE REPORT STATUS: FINAL FINAL REPORT: 06/02/2022 10-50,000 CFU/ML UROGENITAL GLORIA PRESENT NO COMMON PATHOGENSCULTURE, [id number] 00:00:00 Test Item Value Reference Range Interpretation Comments CULTURE, URINE (test SPECIMEN NUMBER: code = 26626) [id number] CULTURE, [id number] 00:00:00 Test Item Value Reference Range Interpretation Comments CULTURE, URINE (test SPECIMEN NUMBER: code = 44685) [id number] CULTURE, [id number] 00:00:00 Test Item Value Reference Range Interpretation Comments CULTURE, URINE (test SPECIMEN NUMBER: code = 44370) [id number] CULTURE, [id number] 00:00:00 Test Item Value Reference Range Interpretation Comments CULTURE, URINE (test SPECIMEN NUMBER: code = 53476) [id number] CULTURE, [id number] 00:00:00 Test Item Value Reference Range Interpretation Comments CULTURE, URINE (test SPECIMEN NUMBER: code = 42736) [id number] CULTURE, [id number] 00:00:00 Test Item Value Reference Range Interpretation Comments CULTURE, URINE (test SPECIMEN NUMBER: code = 84476) [id number] CULTURE, [id number] 00:00:00 Test Item Value Reference Range Interpretation Comments CULTURE, URINE (test SPECIMEN NUMBER: code = 09429) [id number] CULTURE, [id number] 00:00:00 Test Item Value Reference Range Interpretation Comments CULTURE, URINE (test SPECIMEN NUMBER: code = 48250) [id number] THC METABOLITE, QUANT, [id number] 16:28:28 Test Item Value Reference Range Interpretation Comments CARBOXY-THC Positive A INTERP (test code = 37680) CARBOXY-THC >500 ng/mL <15 H Reference rang e indicates QNT (test cutoff for posi tive result code = 75078) determination. Specimen Type: Urine Urine alicia g and metabolite concentrations are dependent on manyfactors, in cluding patient compliance, alicia g dosing, dosing interval,indivi dual variation in drug absorpt ion and metabolism, uri neconcentration, and limitations of testing. Assay is intend ed formedical purposes only, not for forensic use. This test was developed and its perform ance characteristics determined by [facility] ([facility]). It has n ot beencleared or approved by the U.S. Food and Drug Admini stration (FDA).The FDA h as determined that such clear ance or approval is notnecessary . This test is used for clinic al purposes and should not riaz garded as investigational or for research. [facility] i s qualified toperform high complexity testing under t he Clinical LaboratoryImpro vement Amendments (CLI A). TESTING PERFORMED AT [facility] . [address], [facility] [address], [place] [address] 8 CLIA NO: [id number] UNLE SS OTHERWISE INDICATED, ALL TESTING PERFORMED [facility] PATHOLOGY [facility], [facility]. [address] [place] [address] 4 CARDIOPULMONARY SPECIALIST: RUSLAN ESTRADA M.D. [facility] TOMMY Bautista [id number] CAP ACCREDITATION N O. [id number] VARICELLA ZOSTER [id number] 15:58:45 Test Item Value Reference Range Interpretation Comments VARICELLA ZOSTER IgG 296 INDEX SEE BELOW INTERP RETATION VZV IgG (test code = 99575) NEGATIVE . . . . . . [...] UNLESS OTHERWIS E INDICATED, ALL TESTING PERFORMED [facility] NICAL PATHOLOGY LABOR [employer]. [address] [place] [address] 4 LABORATORY DIRE CTOR: RUSLAN GALLOWAY M.D. CLIA NUMBER [id number] [place] [id number] VAGINAL PATHOGENS DNA [id number] 15:42:49 Test Item Value Reference Range Interpretation Comments VIJI SPECIES (test code = ) NEGATIVE NEGATIVE G. VAGINALIS (test code = ) POSITIVE NEGATIVE A T. VAGINALIS (test code = ) POSITIVE NEGATIVE A HEPATITIS C REFLEX [id number] 03:28:47 Test Item Value Reference Range Interpretation Comments HEPATITIS C ANTIBODY (test code NON-REACTIVE NON-REACTIVE = 4675) OBSTETRIC PANEL + [id number] 03:28:47 Test Item Value Reference Range Interpretation [...] RBCS 0.00 K/UL 0.00-0.11 (test code = 45812) BLOOD TYPE AND RH O POSITIVE A [...] STUDIES. RUBELLA ANTIBODY 52 IU/ML SEE BELOW INTERPRETA TION SCREEN (test code = RUBELLA IgG 4600) NON-REACTIVE/NO N-IMM UNE . . . . . . . IU/ML <10 REACTIVE/IMMUNE . . . . . . . . . . . IU/ML >=10 RUBELLA IgG INTERP REACTIVE REACTIVE (test code = 60074) HEPATITIS B SURF AG NON-REACTIVE NON-REACTIVE (test code = 2739) RPR (test code = NON-REACTIVE NON-REACTIVE 04730) RPR TITER (test NOT INDIC. NOT INDIC. code = 3500) TITER HIV 1/2 4TH GEN, NON-REACTIVE NON-REACTIVE RFLX CONF (test code = 3514) VAGINAL PATHOGENS DNA [id number] 00:00:00 Test Item Value Reference Range Interpretation Comments VIJI SPECIES (test code = ) NEGATIVE G. VAGINALIS (test code = ) POSITIVE T. VAGINALIS (test code = ) POSITIVE VAGINAL PATHOGENS DNA [id number] 00:00:00 Test Item Value Reference Range Interpretation Comments VIJI SPECIES (test code = ) NEGATIVE G. VAGINALIS (test code = ) POSITIVE T. VAGINALIS (test code = ) POSITIVE OBSTETRIC PANEL + [id number] 00:00:00 Test Item Value Reference Range Interpretation Comments WBC (test code = 1001) 8.8 K/UL RBC (test code = 1002) 4.01 M/UL HEMOGLOBIN (test code = 12.1 G/DL 1003) HEMATOCRIT (test code = 36.1 % 1004) MCV (test code = 1005) 90.0 fL MCH (test code = 1006) 30.2 PG MCHC (test code = 1007) 33.5 G/DL RDW (test code = 1038) 11.7 % NEUTROPHILS (test code = 62.6 % 1008) LYMPHOCYTES (test code = 28.2 % 1010) MONOCYTES (test code = 1011) 7.6 % EOSINOPHILS (test code = 0.8 % 1012) BASOPHILS (test code = 1013) 0.5 % IMMATURE GRANULOCYTES (test 0.3 % code = 1036) NUCLEATED RBCS (test code = 0.0 /100WBC'S 1065) PLATELET COUNT (test code = 291 K/UL 1015) ABSOLUTE NEUTROPHILS (test 5.52 K/UL code = 1066) ABSOLUTE LYMPHOCYTES (test 2.49 K/UL code = 1067) ABSOLUTE MONOCYTES (test 0.67 K/UL code = 1068) ABSOLUTE EOSINOPHILS (test 0.07 K/UL code = 1040) ABSOLUTE BASOPHILS (test 0.04 K/UL code = 1069) ABS IMMATURE GRANULOCYTES 0.03 K/UL (test code = 1020) ABS NUCLEATED RBCS (test 0.00 K/UL code = 05303) BLOOD TYPE AND RH (test code O POSITIVE = 3901) ANTIBODY SCREEN (test code = NEGATIVE 3902) RUBELLA ANTIBODY SCREEN 52 IU/ML (test code = 4600) RUBELLA IgG INTERP (test REACTIVE code = 43803) HEPATITIS B SURF AG (test NON-REACTIVE code = 2739) RPR (test code = 18048) NON-REACTIVE RPR TITER (test code = 3500) NOT INDIC. TITER HIV 1/2 4TH GEN, RFLX CONF NON-REACTIVE (test code = 3514) OBSTETRIC PANEL + [id number] 00:00:00 Test Item Value Reference Range Interpretation Comments WBC (test code = 1001) 8.8 K/UL RBC (test code = 1002) 4.01 M/UL HEMOGLOBIN (test code = 12.1 G/DL 1003) HEMATOCRIT (test code = 36.1 % 1004) MCV (test code = 1005) 90.0 fL MCH (test code = 1006) 30.2 PG MCHC (test code = 1007) 33.5 G/DL RDW (test code = 1038) 11.7 % NEUTROPHILS (test code = 62.6 % 1008) LYMPHOCYTES (test code = 28.2 % 1010) MONOCYTES (test code = 1011) 7.6 % EOSINOPHILS (test code = 0.8 % 1012) BASOPHILS (test code = 1013) 0.5 % IMMATURE GRANULOCYTES (test 0.3 % code = 1036) NUCLEATED RBCS (test code = 0.0 /100WBC'S 1065) PLATELET COUNT (test code = 291 K/UL 1015) ABSOLUTE NEUTROPHILS (test 5.52 K/UL code = 1066) ABSOLUTE LYMPHOCYTES (test 2.49 K/UL code = 1067) ABSOLUTE MONOCYTES (test 0.67 K/UL code = 1068) ABSOLUTE EOSINOPHILS (test 0.07 K/UL code = 1040) ABSOLUTE BASOPHILS (test 0.04 K/UL code = 1069) ABS IMMATURE GRANULOCYTES 0.03 K/UL (test code = 1020) ABS NUCLEATED RBCS (test 0.00 K/UL code = 20206) BLOOD TYPE AND RH (test code O POSITIVE = 3901) ANTIBODY SCREEN (test code = NEGATIVE 3902) RUBELLA ANTIBODY SCREEN 52 IU/ML (test code = 4600) RUBELLA IgG INTERP (test REACTIVE code = 89839) HEPATITIS B SURF AG (test NON-REACTIVE code = 2739) RPR (test code = 43003) NON-REACTIVE RPR TITER (test code = 3500) NOT INDIC. TITER HIV 1/2 4TH GEN, RFLX CONF NON-REACTIVE (test code = 3514) OBSTETRIC PANEL + [id number] 00:00:00 Test Item Value Reference Range Interpretation Comments WBC (test code = 1001) 8.8 K/UL RBC (test code = 1002) 4.01 M/UL HEMOGLOBIN (test code = 12.1 G/DL 1003) HEMATOCRIT (test code = 36.1 % 1004) MCV (test code = 1005) 90.0 fL MCH (test code = 1006) 30.2 PG MCHC (test code = 1007) 33.5 G/DL RDW (test code = 1038) 11.7 % NEUTROPHILS (test code = 62.6 % 1008) LYMPHOCYTES (test code = 28.2 % 1010) MONOCYTES (test code = 1011) 7.6 % EOSINOPHILS (test code = 0.8 % 1012) BASOPHILS (test code = 1013) 0.5 % IMMATURE GRANULOCYTES (test 0.3 % code = 1036) NUCLEATED RBCS (test code = 0.0 /100WBC'S 1065) PLATELET COUNT (test code = 291 K/UL 1015) ABSOLUTE NEUTROPHILS (test 5.52 K/UL code = 1066) ABSOLUTE LYMPHOCYTES (test 2.49 K/UL code = 1067) ABSOLUTE MONOCYTES (test 0.67 K/UL code = 1068) ABSOLUTE EOSINOPHILS (test 0.07 K/UL code = 1040) ABSOLUTE BASOPHILS (test 0.04 K/UL code = 1069) ABS IMMATURE GRANULOCYTES 0.03 K/UL (test code = 1020) ABS NUCLEATED RBCS (test 0.00 K/UL code = 57268) BLOOD TYPE AND RH (test code O POSITIVE = 3901) ANTIBODY SCREEN (test code = NEGATIVE 3902) RUBELLA ANTIBODY SCREEN 52 IU/ML (test code = 4600) RUBELLA IgG INTERP (test REACTIVE code = 66486) HEPATITIS B SURF AG (test NON-REACTIVE code = 2739) RPR (test code = 49768) NON-REACTIVE RPR TITER (test code = 3500) NOT INDIC. TITER HIV 1/2 4TH GEN, RFLX CONF NON-REACTIVE (test code = 3514) HEPATITIS C REFLEX [id number] 00:00:00 Test Item Value Reference Range Interpretation Comments HEPATITIS C ANTIBODY (test code NON-REACTIVE = 4675) HEPATITIS C REFLEX [id number] 00:00:00 Test Item Value Reference Range Interpretation Comments HEPATITIS C ANTIBODY (test code NON-REACTIVE = 4675) THC METABOLITE, QUANT, URINE [REFLEX]2022-06-01 00:00:00 Test Item Value Reference Range Interpretation Comments CARBOXY-THC INTERP (test code = Positive 38003) CARBOXY-THC QNT (test code = >500 ng/mL 55487) THC METABOLITE, QUANT, URINE [REFLEX]2022-06-01 00:00:00 Test Item Value Reference Range Interpretation Comments CARBOXY-THC INTERP (test code = Positive 68508) CARBOXY-THC QNT (test code = >500 ng/mL 04001) VARICELLA ZOSTER [id number] 00:00:00 Test Item Value Reference Range Interpretation Comments VARICELLA ZOSTER IgG (test code = 296 INDEX 85433) VARICELLA ZOSTER [id number] 00:00:00 Test Item Value Reference Range Interpretation Comments VARICELLA ZOSTER IgG (test code = 296 INDEX 95558) VAGINAL PATHOGENS DNA [id number] 00:00:00 Test Item Value Reference Range Interpretation Comments VIJI SPECIES (test code = ) NEGATIVE G. VAGINALIS (test code = 94073) POSITIVE T. VAGINALIS (test code = 67108) POSITIVE VAGINAL PATHOGENS DNA [id number] 00:00:00 Test Item Value Reference Range Interpretation Comments VIJI SPECIES (test code = ) NEGATIVE G. VAGINALIS (test code = ) POSITIVE T. VAGINALIS (test code = ) POSITIVE OBSTETRIC PANEL + [id number] 00:00:00 Test Item Value Reference Range Interpretation Comments WBC (test code = 1001) 8.8 K/UL RBC (test code = 1002) 4.01 M/UL HEMOGLOBIN (test code = 12.1 G/DL 1003) HEMATOCRIT (test code = 36.1 % 1004) MCV (test code = 1005) 90.0 fL MCH (test code = 1006) 30.2 PG MCHC (test code = 1007) 33.5 G/DL RDW (test code = 1038) 11.7 % NEUTROPHILS (test code = 62.6 % 1008) LYMPHOCYTES (test code = 28.2 % 1010) MONOCYTES (test code = 1011) 7.6 % EOSINOPHILS (test code = 0.8 % 1012) BASOPHILS (test code = 1013) 0.5 % IMMATURE GRANULOCYTES (test 0.3 % code = 1036) NUCLEATED RBCS (test code = 0.0 /100WBC'S 1065) PLATELET COUNT (test code = 291 K/UL 1015) ABSOLUTE NEUTROPHILS (test 5.52 K/UL code = 1066) ABSOLUTE LYMPHOCYTES (test 2.49 K/UL code = 1067) ABSOLUTE MONOCYTES (test 0.67 K/UL code = 1068) ABSOLUTE EOSINOPHILS (test 0.07 K/UL code = 1040) ABSOLUTE BASOPHILS (test 0.04 K/UL code = 1069) ABS IMMATURE GRANULOCYTES 0.03 K/UL (test code = 1020) ABS NUCLEATED RBCS (test 0.00 K/UL code = 54157) BLOOD TYPE AND RH (test code O POSITIVE = 3901) ANTIBODY SCREEN (test code = NEGATIVE 390) RUBELLA ANTIBODY SCREEN 52 IU/ML (test code = 4600) RUBELLA IgG INTERP (test REACTIVE code = 27415) HEPATITIS B SURF AG (test NON-REACTIVE code = 2739) RPR (test code = 78097) NON-REACTIVE RPR TITER (test code = 3500) NOT INDIC. TITER HIV 1/2 4TH GEN, RFLX CONF NON-REACTIVE (test code = 3514) OBSTETRIC PANEL + [id number] 00:00:00 Test Item Value Reference Range Interpretation Comments WBC (test code = 1001) 8.8 K/UL RBC (test code = 1002) 4.01 M/UL HEMOGLOBIN (test code = 12.1 G/DL 1003) HEMATOCRIT (test code = 36.1 % 1004) MCV (test code = 1005) 90.0 fL MCH (test code = 1006) 30.2 PG MCHC (test code = 1007) 33.5 G/DL RDW (test code = 1038) 11.7 % NEUTROPHILS (test code = 62.6 % 1008) LYMPHOCYTES (test code = 28.2 % 1010) MONOCYTES (test code = 1011) 7.6 % EOSINOPHILS (test code = 0.8 % 1012) BASOPHILS (test code = 1013) 0.5 % IMMATURE GRANULOCYTES (test 0.3 % code = 1036) NUCLEATED RBCS (test code = 0.0 /100WBC'S 1065) PLATELET COUNT (test code = 291 K/UL 1015) ABSOLUTE NEUTROPHILS (test 5.52 K/UL code = 1066) ABSOLUTE LYMPHOCYTES (test 2.49 K/UL code = 1067) ABSOLUTE MONOCYTES (test 0.67 K/UL code = 1068) ABSOLUTE EOSINOPHILS (test 0.07 K/UL code = 1040) ABSOLUTE BASOPHILS (test 0.04 K/UL code = 1069) ABS IMMATURE GRANULOCYTES 0.03 K/UL (test code = 1020) ABS NUCLEATED RBCS (test 0.00 K/UL code = 34029) BLOOD TYPE AND RH (test code O POSITIVE = 3901) ANTIBODY SCREEN (test code = NEGATIVE 390) RUBELLA ANTIBODY SCREEN 52 IU/ML (test code = 4600) RUBELLA IgG INTERP (test REACTIVE code = 24114) HEPATITIS B SURF AG (test NON-REACTIVE code = 2739) RPR (test code = 75714) NON-REACTIVE RPR TITER (test code = 3500) NOT INDIC. TITER HIV 1/2 4TH GEN, RFLX CONF NON-REACTIVE (test code = 3514) OBSTETRIC PANEL + [id number] 00:00:00 Test Item Value Reference Range Interpretation Comments WBC (test code = 1001) 8.8 K/UL RBC (test code = 1002) 4.01 M/UL HEMOGLOBIN (test code = 12.1 G/DL 1003) HEMATOCRIT (test code = 36.1 % 1004) MCV (test code = 1005) 90.0 fL MCH (test code = 1006) 30.2 PG MCHC (test code = 1007) 33.5 G/DL RDW (test code = 1038) 11.7 % NEUTROPHILS (test code = 62.6 % 1008) LYMPHOCYTES (test code = 28.2 % 1010) MONOCYTES (test code = 1011) 7.6 % EOSINOPHILS (test code = 0.8 % 1012) BASOPHILS (test code = 1013) 0.5 % IMMATURE GRANULOCYTES (test 0.3 % code = 1036) NUCLEATED RBCS (test code = 0.0 /100WBC'S 1065) PLATELET COUNT (test code = 291 K/UL 1015) ABSOLUTE NEUTROPHILS (test 5.52 K/UL code = 1066) ABSOLUTE LYMPHOCYTES (test 2.49 K/UL code = 1067) ABSOLUTE MONOCYTES (test 0.67 K/UL code = 1068) ABSOLUTE EOSINOPHILS (test 0.07 K/UL code = 1040) ABSOLUTE BASOPHILS (test 0.04 K/UL code = 1069) ABS IMMATURE GRANULOCYTES 0.03 K/UL (test code = 1020) ABS NUCLEATED RBCS (test 0.00 K/UL code = 26287) BLOOD TYPE AND RH (test code O POSITIVE = 3901) ANTIBODY SCREEN (test code = NEGATIVE 3902) RUBELLA ANTIBODY SCREEN 52 IU/ML (test code = 4600) RUBELLA IgG INTERP (test REACTIVE code = 40293) HEPATITIS B SURF AG (test NON-REACTIVE code = 2739) RPR (test code = 93658) NON-REACTIVE RPR TITER (test code = 3500) NOT INDIC. TITER HIV 1/2 4TH GEN, RFLX CONF NON-REACTIVE (test code = 3514) THC METABOLITE, QUANT, URINE [REFLEX]2022-06-01 00:00:00 Test Item Value Reference Range Interpretation Comments CARBOXY-THC INTERP (test code = Positive 69314) CARBOXY-THC QNT (test code = >500 ng/mL 54611) THC METABOLITE, QUANT, URINE [REFLEX]2022-06-01 00:00:00 Test Item Value Reference Range Interpretation Comments CARBOXY-THC INTERP (test code = Positive 57741) CARBOXY-THC QNT (test code = >500 ng/mL 35239) HEPATITIS C REFLEX [id number] 00:00:00 Test Item Value Reference Range Interpretation Comments HEPATITIS C ANTIBODY (test code NON-REACTIVE = 4675) HEPATITIS C REFLEX [id number] 00:00:00 Test Item Value Reference Range Interpretation Comments HEPATITIS C ANTIBODY (test code NON-REACTIVE = 4675) VARICELLA ZOSTER [id number] 00:00:00 Test Item Value Reference Range Interpretation Comments VARICELLA ZOSTER IgG (test code = 296 INDEX 71163) VARICELLA ZOSTER [id number] 00:00:00 Test Item Value Reference Range Interpretation Comments VARICELLA ZOSTER IgG (test code = 296 INDEX 68928) VAGINAL PATHOGENS DNA [id number] 00:00:00 Test Item Value Reference Range Interpretation Comments VIJI SPECIES (test code = ) NEGATIVE G. VAGINALIS (test code = 41262) POSITIVE T. VAGINALIS (test code = 99327) POSITIVE VAGINAL PATHOGENS DNA [id number] 00:00:00 Test Item Value Reference Range Interpretation Comments VIJI SPECIES (test code = ) NEGATIVE G. VAGINALIS (test code = 06598) POSITIVE T. VAGINALIS (test code = 09471) POSITIVE OBSTETRIC PANEL + [id number] 00:00:00 Test Item Value Reference Range Interpretation Comments WBC (test code = 1001) 8.8 K/UL RBC (test code = 1002) 4.01 M/UL HEMOGLOBIN (test code = 12.1 G/DL 1003) HEMATOCRIT (test code = 36.1 % 1004) MCV (test code = 1005) 90.0 fL MCH (test code = 1006) 30.2 PG MCHC (test code = 1007) 33.5 G/DL RDW (test code = 1038) 11.7 % NEUTROPHILS (test code = 62.6 % 1008) LYMPHOCYTES (test code = 28.2 % 1010) MONOCYTES (test code = 1011) 7.6 % EOSINOPHILS (test code = 0.8 % 1012) BASOPHILS (test code = 1013) 0.5 % IMMATURE GRANULOCYTES (test 0.3 % code = 1036) NUCLEATED RBCS (test code = 0.0 /100WBC'S 1065) PLATELET COUNT (test code = 291 K/UL 1015) ABSOLUTE NEUTROPHILS (test 5.52 K/UL code = 1066) ABSOLUTE LYMPHOCYTES (test 2.49 K/UL code = 1067) ABSOLUTE MONOCYTES (test 0.67 K/UL code = 1068) ABSOLUTE EOSINOPHILS (test 0.07 K/UL code = 1040) ABSOLUTE BASOPHILS (test 0.04 K/UL code = 1069) ABS IMMATURE GRANULOCYTES 0.03 K/UL (test code = 1020) ABS NUCLEATED RBCS (test 0.00 K/UL code = 51386) BLOOD TYPE AND RH (test code O POSITIVE = 3901) ANTIBODY SCREEN (test code = NEGATIVE 3902) RUBELLA ANTIBODY SCREEN 52 IU/ML (test code = 4600) RUBELLA IgG INTERP (test REACTIVE code = 03049) HEPATITIS B SURF AG (test NON-REACTIVE code = 2739) RPR (test code = 18845) NON-REACTIVE RPR TITER (test code = 3500) NOT INDIC. TITER HIV 1/2 4TH GEN, RFLX CONF NON-REACTIVE (test code = 3514) OBSTETRIC PANEL + [id number] 00:00:00 Test Item Value Reference Range Interpretation Comments WBC (test code = 1001) 8.8 K/UL RBC (test code = 1002) 4.01 M/UL HEMOGLOBIN (test code = 12.1 G/DL 1003) HEMATOCRIT (test code = 36.1 % 1004) MCV (test code = 1005) 90.0 fL MCH (test code = 1006) 30.2 PG MCHC (test code = 1007) 33.5 G/DL RDW (test code = 1038) 11.7 % NEUTROPHILS (test code = 62.6 % 1008) LYMPHOCYTES (test code = 28.2 % 1010) MONOCYTES (test code = 1011) 7.6 % EOSINOPHILS (test code = 0.8 % 1012) BASOPHILS (test code = 1013) 0.5 % IMMATURE GRANULOCYTES (test 0.3 % code = 1036) NUCLEATED RBCS (test code = 0.0 /100WBC'S 1065) PLATELET COUNT (test code = 291 K/UL 1015) ABSOLUTE NEUTROPHILS (test 5.52 K/UL code = 1066) ABSOLUTE LYMPHOCYTES (test 2.49 K/UL code = 1067) ABSOLUTE MONOCYTES (test 0.67 K/UL code = 1068) ABSOLUTE EOSINOPHILS (test 0.07 K/UL code = 1040) ABSOLUTE BASOPHILS (test 0.04 K/UL code = 1069) ABS IMMATURE GRANULOCYTES 0.03 K/UL (test code = 1020) ABS NUCLEATED RBCS (test 0.00 K/UL code = 39725) BLOOD TYPE AND RH (test code O POSITIVE = 3901) ANTIBODY SCREEN (test code = NEGATIVE 3902) RUBELLA ANTIBODY SCREEN 52 IU/ML (test code = 4600) RUBELLA IgG INTERP (test REACTIVE code = 39935) HEPATITIS B SURF AG (test NON-REACTIVE code = 2739) RPR (test code = 51157) NON-REACTIVE RPR TITER (test code = 3500) NOT INDIC. TITER HIV 1/2 4TH GEN, RFLX CONF NON-REACTIVE (test code = 3514) OBSTETRIC PANEL + [id number] 00:00:00 Test Item Value Reference Range Interpretation Comments WBC (test code = 1001) 8.8 K/UL RBC (test code = 1002) 4.01 M/UL HEMOGLOBIN (test code = 12.1 G/DL 1003) HEMATOCRIT (test code = 36.1 % 1004) MCV (test code = 1005) 90.0 fL MCH (test code = 1006) 30.2 PG MCHC (test code = 1007) 33.5 G/DL RDW (test code = 1038) 11.7 % NEUTROPHILS (test code = 62.6 % 1008) LYMPHOCYTES (test code = 28.2 % 1010) MONOCYTES (test code = 1011) 7.6 % EOSINOPHILS (test code = 0.8 % 1012) BASOPHILS (test code = 1013) 0.5 % IMMATURE GRANULOCYTES (test 0.3 % code = 1036) NUCLEATED RBCS (test code = 0.0 /100WBC'S 1065) PLATELET COUNT (test code = 291 K/UL 1015) ABSOLUTE NEUTROPHILS (test 5.52 K/UL code = 1066) ABSOLUTE LYMPHOCYTES (test 2.49 K/UL code = 1067) ABSOLUTE MONOCYTES (test 0.67 K/UL code = 1068) ABSOLUTE EOSINOPHILS (test 0.07 K/UL code = 1040) ABSOLUTE BASOPHILS (test 0.04 K/UL code = 1069) ABS IMMATURE GRANULOCYTES 0.03 K/UL (test code = 1020) ABS NUCLEATED RBCS (test 0.00 K/UL code = 87881) BLOOD TYPE AND RH (test code O POSITIVE = 3901) ANTIBODY SCREEN (test code = NEGATIVE 3902) RUBELLA ANTIBODY SCREEN 52 IU/ML (test code = 4600) RUBELLA IgG INTERP (test REACTIVE code = 55959) HEPATITIS B SURF AG (test NON-REACTIVE code = 2739) RPR (test code = 21079) NON-REACTIVE RPR TITER (test code = 3500) NOT INDIC. TITER HIV 1/2 4TH GEN, RFLX CONF NON-REACTIVE (test code = 3514) HEPATITIS C REFLEX [id number] 00:00:00 Test Item Value Reference Range Interpretation Comments HEPATITIS C ANTIBODY (test code NON-REACTIVE = 4675) THC METABOLITE, QUANT, URINE [REFLEX]2022-06-01 00:00:00 Test Item Value Reference Range Interpretation Comments CARBOXY-THC INTERP (test code = Positive 94372) CARBOXY-THC QNT (test code = >500 ng/mL 03489) THC METABOLITE, QUANT, URINE [REFLEX]2022-06-01 00:00:00 Test Item Value Reference Range Interpretation Comments CARBOXY-THC INTERP (test code = Positive 58232) CARBOXY-THC QNT (test code = >500 ng/mL 20075) HEPATITIS C REFLEX [id number] 00:00:00 Test Item Value Reference Range Interpretation Comments HEPATITIS C ANTIBODY (test code NON-REACTIVE = 4675) VARICELLA ZOSTER [id number] 00:00:00 Test Item Value Reference Range Interpretation Comments VARICELLA ZOSTER IgG (test code = 296 INDEX 92823) VARICELLA ZOSTER [id number] 00:00:00 Test Item Value Reference Range Interpretation Comments VARICELLA ZOSTER IgG (test code = 296 INDEX 28952) VAGINAL PATHOGENS DNA [id number] 00:00:00 Test Item Value Reference Range Interpretation Comments VIJI SPECIES (test code = ) NEGATIVE G. VAGINALIS (test code = 82344) POSITIVE T. VAGINALIS (test code = ) POSITIVE VAGINAL PATHOGENS DNA [id number] 00:00:00 Test Item Value Reference Range Interpretation Comments VIJI SPECIES (test code = ) NEGATIVE G. VAGINALIS (test code = ) POSITIVE T. VAGINALIS (test code = ) POSITIVE OBSTETRIC PANEL + [id number] 00:00:00 Test Item Value Reference Range Interpretation Comments WBC (test code = 1001) 8.8 K/UL RBC (test code = 1002) 4.01 M/UL HEMOGLOBIN (test code = 12.1 G/DL 1003) HEMATOCRIT (test code = 36.1 % 1004) MCV (test code = 1005) 90.0 fL MCH (test code = 1006) 30.2 PG MCHC (test code = 1007) 33.5 G/DL RDW (test code = 1038) 11.7 % NEUTROPHILS (test code = 62.6 % 1008) LYMPHOCYTES (test code = 28.2 % 1010) MONOCYTES (test code = 1011) 7.6 % EOSINOPHILS (test code = 0.8 % 1012) BASOPHILS (test code = 1013) 0.5 % IMMATURE GRANULOCYTES (test 0.3 % code = 1036) NUCLEATED RBCS (test code = 0.0 /100WBC'S 1065) PLATELET COUNT (test code = 291 K/UL 1015) ABSOLUTE NEUTROPHILS (test 5.52 K/UL code = 1066) ABSOLUTE LYMPHOCYTES (test 2.49 K/UL code = 1067) ABSOLUTE MONOCYTES (test 0.67 K/UL code = 1068) ABSOLUTE EOSINOPHILS (test 0.07 K/UL code = 1040) ABSOLUTE BASOPHILS (test 0.04 K/UL code = 1069) ABS IMMATURE GRANULOCYTES 0.03 K/UL (test code = 1020) ABS NUCLEATED RBCS (test 0.00 K/UL code = 89242) BLOOD TYPE AND RH (test code O POSITIVE = 3901) ANTIBODY SCREEN (test code = NEGATIVE 3902) RUBELLA ANTIBODY SCREEN 52 IU/ML (test code = 4600) RUBELLA IgG INTERP (test REACTIVE code = 03184) HEPATITIS B SURF AG (test NON-REACTIVE code = 3802) RPR (test code = 58021) NON-REACTIVE RPR TITER (test code = 3500) NOT INDIC. TITER HIV 1/2 4TH GEN, RFLX CONF NON-REACTIVE (test code = 3514) OBSTETRIC PANEL + [id number] 00:00:00 Test Item Value Reference Range Interpretation Comments WBC (test code = 1001) 8.8 K/UL RBC (test code = 1002) 4.01 M/UL HEMOGLOBIN (test code = 12.1 G/DL 1003) HEMATOCRIT (test code = 36.1 % 1004) MCV (test code = 1005) 90.0 fL MCH (test code = 1006) 30.2 PG MCHC (test code = 1007) 33.5 G/DL RDW (test code = 1038) 11.7 % NEUTROPHILS (test code = 62.6 % 1008) LYMPHOCYTES (test code = 28.2 % 1010) MONOCYTES (test code = 1011) 7.6 % EOSINOPHILS (test code = 0.8 % 1012) BASOPHILS (test code = 1013) 0.5 % IMMATURE GRANULOCYTES (test 0.3 % code = 1036) NUCLEATED RBCS (test code = 0.0 /100WBC'S 1065) PLATELET COUNT (test code = 291 K/UL 1015) ABSOLUTE NEUTROPHILS (test 5.52 K/UL code = 1066) ABSOLUTE LYMPHOCYTES (test 2.49 K/UL code = 1067) ABSOLUTE MONOCYTES (test 0.67 K/UL code = 1068) ABSOLUTE EOSINOPHILS (test 0.07 K/UL code = 1040) ABSOLUTE BASOPHILS (test 0.04 K/UL code = 1069) ABS IMMATURE GRANULOCYTES 0.03 K/UL (test code = 1020) ABS NUCLEATED RBCS (test 0.00 K/UL code = 48590) BLOOD TYPE AND RH (test code O POSITIVE = 3901) ANTIBODY SCREEN (test code = NEGATIVE 3902) RUBELLA ANTIBODY SCREEN 52 IU/ML (test code = 4600) RUBELLA IgG INTERP (test REACTIVE code = 59380) HEPATITIS B SURF AG (test NON-REACTIVE code = 2739) RPR (test code = 42617) NON-REACTIVE RPR TITER (test code = 3500) NOT INDIC. TITER HIV 1/2 4TH GEN, RFLX CONF NON-REACTIVE (test code = 3514) OBSTETRIC PANEL + [id number] 00:00:00 Test Item Value Reference Range Interpretation Comments WBC (test code = 1001) 8.8 K/UL RBC (test code = 1002) 4.01 M/UL HEMOGLOBIN (test code = 12.1 G/DL 1003) HEMATOCRIT (test code = 36.1 % 1004) MCV (test code = 1005) 90.0 fL MCH (test code = 1006) 30.2 PG MCHC (test code = 1007) 33.5 G/DL RDW (test code = 1038) 11.7 % NEUTROPHILS (test code = 62.6 % 1008) LYMPHOCYTES (test code = 28.2 % 1010) MONOCYTES (test code = 1011) 7.6 % EOSINOPHILS (test code = 0.8 % 1012) BASOPHILS (test code = 1013) 0.5 % IMMATURE GRANULOCYTES (test 0.3 % code = 1036) NUCLEATED RBCS (test code = 0.0 /100WBC'S 1065) PLATELET COUNT (test code = 291 K/UL 1015) ABSOLUTE NEUTROPHILS (test 5.52 K/UL code = 1066) ABSOLUTE LYMPHOCYTES (test 2.49 K/UL code = 1067) ABSOLUTE MONOCYTES (test 0.67 K/UL code = 1068) ABSOLUTE EOSINOPHILS (test 0.07 K/UL code = 1040) ABSOLUTE BASOPHILS (test 0.04 K/UL code = 1069) ABS IMMATURE GRANULOCYTES 0.03 K/UL (test code = 1020) ABS NUCLEATED RBCS (test 0.00 K/UL code = 56442) BLOOD TYPE AND RH (test code O POSITIVE = 3901) ANTIBODY SCREEN (test code = NEGATIVE 3902) RUBELLA ANTIBODY SCREEN 52 IU/ML (test code = 4600) RUBELLA IgG INTERP (test REACTIVE code = 28856) HEPATITIS B SURF AG (test NON-REACTIVE code = 2759) RPR (test code = 98283) NON-REACTIVE RPR TITER (test code = 3500) NOT INDIC. TITER HIV 1/2 4TH GEN, RFLX CONF NON-REACTIVE (test code = 3514) THC METABOLITE, QUANT, URINE [REFLEX]2022-06-01 00:00:00 Test Item Value Reference Range Interpretation Comments CARBOXY-THC INTERP (test code = Positive 97708) CARBOXY-THC QNT (test code = >500 ng/mL 13652) THC METABOLITE, QUANT, URINE [REFLEX]2022-06-01 00:00:00 Test Item Value Reference Range Interpretation Comments CARBOXY-THC INTERP (test code = Positive 91932) CARBOXY-THC QNT (test code = >500 ng/mL 40892) HEPATITIS C REFLEX [id number] 00:00:00 Test Item Value Reference Range Interpretation Comments HEPATITIS C ANTIBODY (test code NON-REACTIVE = 4675) HEPATITIS C REFLEX [id number] 00:00:00 Test Item Value Reference Range Interpretation Comments HEPATITIS C ANTIBODY (test code NON-REACTIVE = 4675) VARICELLA ZOSTER [id number] 00:00:00 Test Item Value Reference Range Interpretation Comments VARICELLA ZOSTER IgG (test code = 296 INDEX 09733) VARICELLA ZOSTER [id number] 00:00:00 Test Item Value Reference Range Interpretation Comments VARICELLA ZOSTER IgG (test code = 296 INDEX 22904) CULTURE, [id number] 08:58:44SPECIMEN NUMBER: [id number] CULTURE, URINE SPECIMEN NUMBER: [id number] SPECIMEN COMMENT: URINE SOURCE:URINE REPORT STATUS: FINAL FINAL REPORT: 05/31/2022 10-50,000 CFU/ML UROGENITAL GLORIA PRESENT NO COMM ON PATHOGENSCT/NG, NAAT, [id number] 07:07:14 Test Item Value Reference Range Interpretation Comments GONORRHEA, NAAT NEGATIVE NEGATIVE IMPORTA NT NOTICE: SEE (test code = [place] [address]) [email or web address] Note: Assay methodology is nucleic acid amplification b y philosophy faculty m ediated amplification ( TMA) utilizing the A ptima Combo 2 Assay. CHLAMYDIA, NAAT NEGATIVE NEGATIVE IMPORTA NT NOTICE: SEE (test code = [place] [address]) [email or web address] [email or web address] Note: Assay methodology is nucleic acid amplification b y philosophy faculty m ediated amplification ( TMA) utilizing the A ptima Combo 2 Assay. CULTURE, [id number] 00:00:00 Test Item Value Reference Range Interpretation Comments CULTURE, URINE (test SPECIMEN NUMBER: code = 82277) [id number] CULTURE, [id number] 00:00:00 Test Item Value Reference Range Interpretation Comments CULTURE, URINE (test SPECIMEN NUMBER: code = 73670) [id number] CT/NG, TMA, [id number] 00:00:00 Test Item Value Reference Range Interpretation Comments GONORRHEA, NAAT (test code = 81099) NEGATIVE CHLAMYDIA, NAAT (test code = 61451) NEGATIVE CT/NG, TMA, [id number] 00:00:00 Test Item Value Reference Range Interpretation Comments GONORRHEA, NAAT (test code = 36761) NEGATIVE CHLAMYDIA, NAAT (test code = 23036) NEGATIVE CULTURE, [id number] 00:00:00 Test Item Value Reference Range Interpretation Comments CULTURE, URINE (test SPECIMEN NUMBER: code = 66818) [id number] CULTURE, [id number] 00:00:00 Test Item Value Reference Range Interpretation Comments CULTURE, URINE (test SPECIMEN NUMBER: code = 45496) [id number] CT/NG, TMA, [id number] 00:00:00 Test Item Value Reference Range Interpretation Comments GONORRHEA, NAAT (test code = 89249) NEGATIVE CHLAMYDIA, NAAT (test code = 41223) NEGATIVE CT/NG, TMA, [id number] 00:00:00 Test Item Value Reference Range Interpretation Comments GONORRHEA, NAAT (test code = 34729) NEGATIVE CHLAMYDIA, NAAT (test code = 65575) NEGATIVE CULTURE, [id number] 00:00:00 Test Item Value Reference Range Interpretation Comments CULTURE, URINE (test SPECIMEN NUMBER: code = 36113) [id number] CULTURE, [id number] 00:00:00 Test Item Value Reference Range Interpretation Comments CULTURE, URINE (test SPECIMEN NUMBER: code = 97904) [id number] CT/NG, TMA, [id number] 00:00:00 Test Item Value Reference Range Interpretation Comments GONORRHEA, NAAT (test code = 02072) NEGATIVE CHLAMYDIA, NAAT (test code = 96721) NEGATIVE CT/NG, TMA, [id number] 00:00:00 Test Item Value Reference Range Interpretation Comments GONORRHEA, NAAT (test code = 42172) NEGATIVE CHLAMYDIA, NAAT (test code = 77821) NEGATIVE CULTURE, [id number] 00:00:00 Test Item Value Reference Range Interpretation Comments CULTURE, URINE (test SPECIMEN NUMBER: code = 61752) [id number] CULTURE, [id number] 00:00:00 Test Item Value Reference Range Interpretation Comments CULTURE, URINE (test SPECIMEN NUMBER: code = 61475) [id number] CT/NG, TMA, [id number] 00:00:00 Test Item Value Reference Range Interpretation Comments GONORRHEA, NAAT (test code = 11568) NEGATIVE CHLAMYDIA, NAAT (test code = 60411) NEGATIVE CT/NG, TMA, [id number] 00:00:00 Test Item Value Reference Range Interpretation Comments GONORRHEA, NAAT (test code = 52334) NEGATIVE CHLAMYDIA, NAAT (test code = 39790) NEGATIVE DRUG ABUSE SCREEN 10 REFLEX [id number] 06:49:04 Test Item Value Reference Interpretation Comments Range AMPHETAMINES (test NEGATIVE NEGATIVE code = 3201) BARBITURATES (test NEGATIVE NEGATIVE code = 3202) BENZODIAZEPINES NEGATIVE NEGATIVE (test code = 3203) CANNABINOIDS (test SEE REFLEX NEGATIVE A code = 3204) TESTING COCAINE METABOLITE NEGATIVE NEGATIVE (test code = 3205) OPIATES (test code = NEGATIVE NEGATIVE 3209) OXYCODONE (test code NEGATIVE NEGATIVE = 38576) PHENCYCLIDINE (test NEGATIVE NEGATIVE code = 3210) METHADONE (test code NEGATIVE NEGATIVE = 3207) BUPRENORPHINE (test NEGATIVE NEGATIVE code = 97457) SOURCE (test code = URINE SEE BELOW FOR 412559) THRESHOLDS AND IMPORTANT METHOD NOTES * ANALYTE SCREENING CUTOF F CONFIRMATORY CUTOFF ___AMPHETAMINES 500 NG/ML 100 NG/MLBARBITURAT ES 200 NG/ML 100 NG/MLBENZODIAZE PINES 200 NG/ML 100 NG/MLCANNABINOI DS (THC) 20 NG/ML 15 NG/MLCOCAINE ME TABOLITES 150 NG/ML 100 NG/MLOPIATE MET ABOLITES 300 NG/ML 100 NG/MLOXYCODONE 100 NG/ML 100 NG/MLPHENC YCLIDINE (PCP) 25 NG/ML 25 NG/MLMETHADONE 300 NG/ML [...] contact the lab oratory within specimen stability tofor voss for confirmatory te sting. This test is sp ecified for medicalpurp oses only. It is not valid for forensic us e. DRUG ABUSE SCREEN REFLEX [id number] 00:00:00 Test Item Value Reference Range Interpretation Comments AMPHETAMINES (test code = NEGATIVE 3201) BARBITURATES (test code = NEGATIVE 3202) BENZODIAZEPINES (test code NEGATIVE = 3203) CANNABINOIDS (test code = SEE REFLEX TESTING 3204) COCAINE METABOLITE (test NEGATIVE code = 3205) OPIATES (test code = 3209) NEGATIVE OXYCODONE (test code = NEGATIVE 66364) PHENCYCLIDINE (test code = NEGATIVE 3210) METHADONE (test code = NEGATIVE 3207) BUPRENORPHINE (test code = NEGATIVE 40969) SOURCE (test code = URINE 038028) DRUG ABUSE SCREEN REFLEX [id number] 00:00:00 Test Item Value Reference Range Interpretation Comments AMPHETAMINES (test code = NEGATIVE 3201) BARBITURATES (test code = NEGATIVE 3202) BENZODIAZEPINES (test code NEGATIVE = 3203) CANNABINOIDS (test code = SEE REFLEX TESTING 3204) COCAINE METABOLITE (test NEGATIVE code = 3205) OPIATES (test code = 3209) NEGATIVE OXYCODONE (test code = NEGATIVE 15089) PHENCYCLIDINE (test code = NEGATIVE 3210) METHADONE (test code = NEGATIVE 3207) BUPRENORPHINE (test code = NEGATIVE 58826) SOURCE (test code = URINE 714416) DRUG ABUSE SCREEN REFLEX [id number] 00:00:00 Test Item Value Reference Range Interpretation Comments AMPHETAMINES (test code = NEGATIVE 3201) BARBITURATES (test code = NEGATIVE 3202) BENZODIAZEPINES (test code NEGATIVE = 3203) CANNABINOIDS (test code = SEE REFLEX TESTING 3204) COCAINE METABOLITE (test NEGATIVE code = 3205) OPIATES (test code = 3209) NEGATIVE OXYCODONE (test code = NEGATIVE 01705) PHENCYCLIDINE (test code = NEGATIVE 3210) METHADONE (test code = NEGATIVE 3207) BUPRENORPHINE (test code = NEGATIVE 38586) SOURCE (test code = URINE 294300) DRUG ABUSE SCREEN 10 REFLEX [id number] 00:00:00 Test Item Value Reference Range Interpretation Comments AMPHETAMINES (test code = NEGATIVE 3201) BARBITURATES (test code = NEGATIVE 3202) BENZODIAZEPINES (test code NEGATIVE = 3203) CANNABINOIDS (test code = SEE REFLEX TESTING 3204) COCAINE METABOLITE (test NEGATIVE code = 3205) OPIATES (test code = 3209) NEGATIVE OXYCODONE (test code = NEGATIVE 36682) PHENCYCLIDINE (test code = NEGATIVE 3210) METHADONE (test code = NEGATIVE 3207) BUPRENORPHINE (test code = NEGATIVE 52256) SOURCE (test code = URINE 032694) DRUG ABUSE SCREEN 10 REFLEX [id number] 00:00:00 Test Item Value Reference Range Interpretation Comments AMPHETAMINES (test code = NEGATIVE 3201) BARBITURATES (test code = NEGATIVE 3202) BENZODIAZEPINES (test code NEGATIVE = 3203) CANNABINOIDS (test code = SEE REFLEX TESTING 3204) COCAINE METABOLITE (test NEGATIVE code = 3205) OPIATES (test code = 3209) NEGATIVE OXYCODONE (test code = NEGATIVE 45140) PHENCYCLIDINE (test code = NEGATIVE 3210) METHADONE (test code = NEGATIVE 3207) BUPRENORPHINE (test code = NEGATIVE 01686) SOURCE (test code = URINE 941717) DRUG ABUSE SCREEN 10 REFLEX [id number] 00:00:00 Test Item Value Reference Range Interpretation Comments AMPHETAMINES (test code = NEGATIVE 3201) BARBITURATES (test code = NEGATIVE 3202) BENZODIAZEPINES (test code NEGATIVE = 3203) CANNABINOIDS (test code = SEE REFLEX TESTING 3204) COCAINE METABOLITE (test NEGATIVE code = 3205) OPIATES (test code = 3209) NEGATIVE OXYCODONE (test code = NEGATIVE 37187) PHENCYCLIDINE (test code = NEGATIVE 3210) METHADONE (test code = NEGATIVE 3207) BUPRENORPHINE (test code = NEGATIVE 34494) SOURCE (test code = URINE 724531) DRUG ABUSE SCREEN 10 REFLEX [id number] 00:00:00 Test Item Value Reference Range Interpretation Comments AMPHETAMINES (test code = NEGATIVE 3201) BARBITURATES (test code = NEGATIVE 3202) BENZODIAZEPINES (test code NEGATIVE = 3203) CANNABINOIDS (test code = SEE REFLEX TESTING 3204) COCAINE METABOLITE (test NEGATIVE code = 3205) OPIATES (test code = 3209) NEGATIVE OXYCODONE (test code = NEGATIVE 13045) PHENCYCLIDINE (test code = NEGATIVE 3210) METHADONE (test code = NEGATIVE 3207) BUPRENORPHINE (test code = NEGATIVE 26796) SOURCE (test code = URINE 432186) DRUG ABUSE SCREEN REFLEX [id number] 00:00:00 Test Item Value Reference Range Interpretation Comments AMPHETAMINES (test code = NEGATIVE 3201) BARBITURATES (test code = NEGATIVE 3202) BENZODIAZEPINES (test code NEGATIVE = 3203) CANNABINOIDS (test code = SEE REFLEX TESTING 3204) COCAINE METABOLITE (test NEGATIVE code = 3205) OPIATES (test code = 3209) NEGATIVE OXYCODONE (test code = NEGATIVE 79417) PHENCYCLIDINE (test code = NEGATIVE 3210) METHADONE (test code = NEGATIVE 3207) BUPRENORPHINE (test code = NEGATIVE 85159) SOURCE (test code = URINE 622516) TOTAL BHCG (QUANTITATIVE)2021-06-26 15:30:34 Test Item Value Reference Range Interpretation Comments BETA HCG (test See_Comment [Automated m essage] code = The system [facility] h [id number]) generated this result transmit sanjiv reference range : Non- fe male and male patien ts: <5 mIU/mL. The reference range was not used to interpret this result as normal/abnormal . MIHAELA (test code Gestational Age ? ? = MIHAELA) ?Range (mIU/mL) 1-10 ?Weeks ?[id number] Weeks ?99385-80301515-17 Weeks ?9941-47899558-44 Weeks ?[id number] Biotin has been reported to cause a negative bias, interpret results relative to patient's use of biotin. [facility]26 14:58:32 Test Item Value Reference Range Interpretation Comments NA (test code = 139 mmol/L 135-145 4173183102) K (test code = 4.0 mmol/L 3.5-5.0 0621906900) CL (test code = 107 mmol/L 98-108 7339849686) CO2 TOTAL (test code = 26 mmol/L 23-31 7174357073) AGAP (test code = 2-16 5719711348) BUN (test code = 4 mg/dL 7-23 L 8900585722) GLUCOSE (test code = 100 mg/dL 70-110 9862775524) CREATININE (test code = 0.53 mg/dL 0.50-1.04 9875431716) TOTAL BILI (test code = 0.3 mg/dL 0.1-1.2 3069659771) CALCIUM (test code = 9.4 mg/dL 8.6-10.6 6549727249) T PROTEIN (test code = 7.9 g/dL 6.3-8.2 7003723508) ALBUMIN (test code = 4.7 g/dL 3.5-5.0 8477594738) ALK PHOS (test code = 71 U/L 34-122 4505287840) ALTv (test code = 19 U/L 5-35 1742-6) AST(SGOT) (test code = 27 U/L 13-40 4723476903) eGFR (test code = mL/min/1.73m2 9061163893) MIHAELA (test code = MIHAELA) Association of [...] tests). Lab Interpretation Abnormal (test code = 93005-5) [facility] WITH [id number] 14:45:48 Test Item Value Reference Range Interpretation Comments WBC (test code = See_Comment [Automated 3920-2) message] The sy stem which generated this result transmitted reference range : 4.30 - 11.10 10*3/?L. The reference range was not used to interpret this result as normal/abnormal . RBC (test code = See_Comment [Automated 332-8) message] The sy stem which generated this [...] RDW-SD (test code = 39.1 fL 39.0-49.9 66579-3) RDW-CV (test code = 11.8 % 12.0-15.5 L 788-0) PLT (test code = See_Comment [Automated 861-3) message] The sy stem which generated this result transmitted reference range : 166 - 358 10*3/ ?L. The reference r braxton was not used to interpret this result as normal/abnormal . MPV (test code = 10.2 fL 9.5-12.9 02604-4) NRBC/100 WBC (test See_Comment [Automat ed code = [id number]) message] The system which generated this result transmitted reference range : 0.0 - 10.0 /100 WBCs. The refer ence range was not u sed to interpret th is result as normal/abnormal . NRBC x10^3 (test code <0.01 See_Comment [Auto mated = [id number]) message] The s ystem which generated this result transmitted reference range : 10*3/?L. The reference range was not used to interpret this result as normal/abnormal . GRAN MAT (NEUT) % 61.6 % (test code = 770-8) IMM GRAN % (test code 0.20 % = [id number]) LYMPH % (test code = 28.3 % 736-9) MONO % (test code = 7.0 % 5905-5) EOS % (test code = 2.5 % 713-8) BASO % (test code = 0.4 % 706-2) GRAN MAT x10^3(ANC) 3.27 10*3/uL 1.88-7.09 (test code = 3442035097) IMM GRAN x10^3 (test <0.03 0.00-0.06 code = 3962118691) LYMPH x10^3 (test code 1.50 10*3/uL 1.32-3.29 = 731-0) MONO x10^3 (test code 0.37 10*3/uL 0.33-0.92 = 742-7) EOS x10^3 (test code = 0.13 10*3/uL 0.03-0.39 711-2) BASO x10^3 (test code <0.03 0.01-0.07 = 704-7) Lab Interpretation Abnormal (test code = 53850-7) [facility]21-06-20 02:41:59 Test Item Value Reference Range Interpretation Comments ABO & RH (test code O Positive Performe d at [facility] = 20) Laboratory Serv [facility] [place], [place] [id number] Free: [phone] A No. [id number] [facility] Only)2021-06-20 02:41:59 Test Item Value Reference Range Interpretation Comments ABO & RH (test code O Positive Performe d at [facility] = 20) Laboratory Serv [facility] [address] [place], [place] [id number] Free: [phone] A No. [id number] [facility] (QUANTITATIVE)2021-06-20 02:40:26 Test Item Value Reference Range Interpretation Comments BETA HCG (test See_Comment [Automated m essage] code = The system [employer] [id number]) generated this result transmit sanjiv reference range : Non- fe male and male patien ts: <5 mIU/mL. The reference range was not used to interpret this result as normal/abnormal . MIHAELA (test code Gestational Age ? ? = MIHAELA) ?Range (mIU/mL) 1-10 ?Weeks ?[phone] Weeks ?[phone] Weeks ?3885-02657528-46 Weeks ?[phone] Biotin has been reported to cause a negative bias, interpret results relative to patient's use of biotin. [facility] (QUANTITATIVE)2021-06-20 02:40:26 Test Item Value Reference Range Interpretation Comments BETA HCG (test See_Comment [Automated m essage] code = The system [employer] [id number]) generated this result transmit sanjiv reference range : Non- fe male and male patien ts: <5 mIU/mL. The reference range was not used to interpret this result as normal/abnormal . MIHAELA (test code Gestational Age ? ? = MIHAELA) ?Range (mIU/mL) 1-10 ?Weeks ?42-92466136-82 Weeks ?06735-31560155-43 Weeks ?7859-89077647-65 Weeks ?[phone] Biotin has been reported to cause a negative bias, interpret results relative to patient's use of biotin. [facility] [id number] 02:33:51 Test Item Value Reference Range Interpretation Comments ABO & RH (test code O Positive Performe d at [facility] = 20) Laboratory [facility] [place], [place] [address]Toll Free: [phone] A No. [id number] IAT (test code = Negative Performed a t [facility] 1185) Laboratory [facility] [place], [place] [address]Toll Free: [phone] A No. [id number] [facility] [id number] 02:33:51 Test Item Value Reference Range Interpretation Comments ABO & RH (test code O Positive Performe d at [facility] = 20) Laboratory [facility] [place], [place] [address]Toll Free: [phone] A No. [id number] IAT (test code = Negative Performed a t [facility] 1185) Laboratory [facility] [address] [place], [place] [address]Toll Free: [phone] A No. [id number] [facility]OLIC PANEL ([id number])2021-06-20 02:20:41 Test Item Value Reference Range Interpretation Comments NA (test code = 140 mmol/L 135-145 2460571407) K (test code = 3.4 mmol/L 3.5-5.0 L 6088693081) CL (test code = 106 mmol/L 98-108 0844687017) CO2 TOTAL (test code = 25 mmol/L 23-31 4894480258) AGAP (test code = 2-16 1874755693) BUN (test code = 8 mg/dL 7-23 6666947351) GLUCOSE (test code = 101 mg/dL 70-110 1328286947) CREATININE (test code = 0.59 mg/dL 0.50-1.04 4409502961) TOTAL BILI (test code = 0.5 mg/dL 0.1-1.2 1559278367) CALCIUM (test code = 9.3 mg/dL 8.6-10.6 3428585872) T PROTEIN (test code = 8.1 g/dL 6.3-8.2 2150400033) ALBUMIN (test code = 4.7 g/dL 3.5-5.0 7719557780) ALK PHOS (test code = 85 U/L 34-122 0548256569) ALTv (test code = 27 U/L 5-35 2-6) AST(SGOT) (test code = 27 U/L 13-40 4003551773) eGFR (test code = mL/min/1.73m2 0442199202) MIHAELA (test code = MIHAELA) Association of [...] tests). Lab Interpretation Abnormal (test code = 21499-8) [facility]. METABOLIC PANEL (13420)2021-06-20 02:20:41 Test Item Value Reference Range Interpretation Comments NA (test code = 140 mmol/L 135-145 0209360055) K (test code = 3.4 mmol/L 3.5-5.0 L 2553919074) CL (test code = 106 mmol/L 98-108 9670161593) CO2 TOTAL (test code = 25 mmol/L 23-31 1716445433) AGAP (test code = 2-16 5223758356) BUN (test code = 8 mg/dL 7-23 1784132374) GLUCOSE (test code = 101 mg/dL 70-110 6956799265) CREATININE (test code = 0.59 mg/dL 0.50-1.04 0207950757) TOTAL BILI (test code = 0.5 mg/dL 0.1-1.1 5124959323) CALCIUM (test code = 9.3 mg/dL 8.6-10.6 0859393909) T PROTEIN (test code = 8.1 g/dL 6.3-8.2 5803289779) ALBUMIN (test code = 4.7 g/dL 3.5-5.0 1788125520) ALK PHOS (test code = 85 U/L 34-122 2850215018) ALTv (test code = 27 U/L 5-35 2-6) AST(SGOT) (test code = 27 U/L 13-40 6852006234) eGFR (test code = mL/min/1.73m2 6221967021) MIHAELA (test code = MIHAELA) Association of [...] tests). Lab Interpretation Abnormal (test code = 01409-2) [facility] WITH [id number] 02:01:15 Test Item Value Reference Range Interpretation Comments WBC (test code = See_Comment [Automated 1290-2) message] The sy stem which generated this result transmitted reference range : 4.30 - 11.10 10*3/?L. The reference range was not used to interpret this result as normal/abnormal . RBC (test code = See_Comment [Automated 491-8) message] The sy stem which generated this [...] (test code = 37.8 fL 39.0-49.9 L 22700-8) RDW-CV (test code = 11.8 % 12.0-15.5 L 788-0) PLT (test code = See_Comment [Automated 777-3) message] The sy stem which generated this result transmitted reference range : 166 - 358 10*3/ ?L. The reference r braxton was not used to interpret this result as normal/abnormal . MPV (test code = 9.9 fL 9.5-12.9 20483-0) NRBC/100 WBC (test See_Comment [Automat ed code = 8361695811) message] The system which generated this result transmitted reference range : 0.0 - 10.0 /100 WBCs. The refer ence range was not u sed to interpret th is result as normal/abnormal . NRBC x10^3 (test code <0.01 See_Comment [Auto mated = 4369507065) message] The s ystem which generated this result transmitted reference range : 10*3/?L. The reference range was not used to interpret this result as normal/abnormal . GRAN MAT (NEUT) % 56.3 % (test code = 770-8) IMM GRAN % (test code 0.30 % = 0183436498) LYMPH % (test code = 32.7 % 736-9) MONO % (test code = 8.3 % 5905-5) EOS % (test code = 1.9 % 713-8) BASO % (test code = 0.5 % 706-2) GRAN MAT x10^3(ANC) 4.15 10*3/uL 1.88-7.09 (test code = 6260382907) IMM GRAN x10^3 (test <0.03 0.00-0.06 code = 2395700616) LYMPH x10^3 (test code 2.41 10*3/uL 1.32-3.29 = 731-0) MONO x10^3 (test code 0.61 10*3/uL 0.33-0.92 = 742-7) EOS x10^3 (test code = 0.14 10*3/uL 0.03-0.39 711-2) BASO x10^3 (test code 0.04 10*3/uL 0.01-0.07 = 704-7) Lab Interpretation Abnormal (test code = 02210-3) [facility] WITH [id number] 02:01:15 Test Item Value Reference Range Interpretation [...] (test code = 37.8 fL 39.0-49.9 L 85614-7) RDW-CV (test code = 11.8 % 12.0-15.5 L 788-0) PLT (test code = See_Comment [Automated 777-3) message] The sy stem which generated this result transmitted reference range : 166 - 358 10*3/ ?L. The reference r braxton was not used to interpret this result as normal/abnormal . MPV (test code = 9.9 fL 9.5-12.9 06326-9) NRBC/100 WBC (test See_Comment [Automat ed code = 2822065269) message] The system which generated this result transmitted reference range : 0.0 - 10.0 /100 WBCs. The refer ence range was not u sed to interpret th is result as normal/abnormal . NRBC x10^3 (test code <0.01 See_Comment [Auto mated = 2487857976) message] The s ystem which generated this result transmitted reference range : 10*3/?L. The reference range was not used to interpret this result as normal/abnormal . GRAN MAT (NEUT) % 56.3 % (test code = 770-8) IMM GRAN % (test code 0.30 % = 8677552826) LYMPH % (test code = 32.7 % 736-9) MONO % (test code = 8.3 % 5905-5) EOS % (test code = 1.9 % 713-8) BASO % (test code = 0.5 % 706-2) GRAN MAT x10^3(ANC) 4.15 10*3/uL 1.88-7.09 (test code = 1374973183) IMM GRAN x10^3 (test <0.03 0.00-0.06 code = 1852558058) LYMPH x10^3 (test code 2.41 10*3/uL 1.32-3.29 = 731-0) MONO x10^3 (test code 0.61 10*3/uL 0.33-0.92 = 742-7) EOS x10^3 (test code = 0.14 10*3/uL 0.03-0.39 711-2) BASO x10^3 (test code 0.04 10*3/uL 0.01-0.07 = 704-7) Lab Interpretation Abnormal (test code = 63411-7) [facility] [id number] 01:40:00 Test Item Value Reference Range Interpretation Comments POCT PREG (test code = 1605) positive On board controls acceptable with present C Line (test code = 3574) POCT PREG LOT # (test code = 3575) [id number] POCT PREG TEST DATE (test 09/29/2022 code = 3576) Lab Interpretation (test code = Normal 53613-9) [facility] [id number] 01:40:00 Test Item Value Reference Range Interpretation Comments POCT PREG (test code = 1605) positive On board controls acceptable with present C Line (test code = 3574) POCT PREG LOT # (test code = 3575) [id number] POCT PREG TEST DATE (test 09/29/2022 code = 3576) Lab Interpretation (test code = Normal 74163-8) [facility] AND CHLAMYDIA AMPLIFIED, [id number] 00:00:00 Test Item Value Reference Range Interpretation Comments GONORRHEA, TMA (test code = 15539) NEGATIVE CHLAMYDIA, TMA (test code = 39869) NEGATIVE GC AND CHLAMYDIA AMPLIFIED, [id number] 00:00:00 Test Item Value Reference Range Interpretation Comments GONORRHEA, TMA (test code = 86629) NEGATIVE CHLAMYDIA, TMA (test code = 56463) NEGATIVE PAP TEST, THINPREP, [id number] 00:00:00 Test Item Value Reference Range Interpretation Comments SOURCE: (test code = Cervical/Endocervical 8001) SLIDES: (test code = 1 8011) LMP: (test code = 8021) 04/07/2021 SPECIMEN ADEQUACY: (test (NOTE) code = 27139) INTERPRETATION: (test NILM/NO EPITH. code = 85582) ABNORMALITY;SEE BELOW TAIL BOARD MAN: (test Shannon code = 8101) [place](ASCP)IAC LOCATION: (test code = (NOTE) 72938) CPT: (test code = 8140) (NOTE) PAP TEST, THINPREP, [id number] 00:00:00 Test Item Value Reference Range Interpretation Comments SOURCE: (test code = Cervical/Endocervical 8001) SLIDES: (test code = 1 8011) LMP: (test code = 8021) 04/07/2021 SPECIMEN ADEQUACY: (test (NOTE) code = 49958) INTERPRETATION: (test NILM/NO EPITH. code = 29999) ABNORMALITY;SEE BELOW TAIL BOARD MAN: (test Shannon code = 8101) [place](ASCP)IAC LOCATION: (test code = (NOTE) 72338) CPT: (test code = 8140) (NOTE) HPV HIGH RISK WITH GENOTYPE, [id number] 00:00:00 Test Item Value Reference Range Interpretation Comments HPV HIGH RISK INTERP (test code = NEGATIVE 26574) HPV 16 (test code = 05666) NEGATIVE HPV 18 (test code = 14319) NEGATIVE HPV, HR, OTHER GENOTYPES (test code NEGATIVE = 68812) HPV HIGH RISK WITH GENOTYPE, [id number] 00:00:00 Test Item Value Reference Range Interpretation Comments HPV HIGH RISK INTERP (test code = NEGATIVE 75652) HPV 16 (test code = 99980) NEGATIVE HPV 18 (test code = 27519) NEGATIVE HPV, HR, OTHER GENOTYPES (test code NEGATIVE = 50157) GC AND CHLAMYDIA AMPLIFIED, [id number] 00:00:00 Test Item Value Reference Range Interpretation Comments GONORRHEA, TMA (test code = 31937) NEGATIVE CHLAMYDIA, TMA (test code = 85843) NEGATIVE GC AND CHLAMYDIA AMPLIFIED, [id number] 00:00:00 Test Item Value Reference Range Interpretation Comments GONORRHEA, TMA (test code = 89999) NEGATIVE CHLAMYDIA, TMA (test code = 00157) NEGATIVE PAP TEST, THINPREP, [id number] 00:00:00 Test Item Value Reference Range Interpretation Comments SOURCE: (test code = Cervical/Endocervical 8001) SLIDES: (test code = 1 8011) LMP: (test code = 8021) 04/07/2021 SPECIMEN ADEQUACY: (test (NOTE) code = 12406) INTERPRETATION: (test NILM/NO EPITH. code = 15266) ABNORMALITY;SEE BELOW TAIL BOARD MAN: (test Shannon code = 8101) [place](ASCP)IAC LOCATION: (test code = (NOTE) 43253) CPT: (test code = 8140) (NOTE) PAP TEST, THINPREP, [id number] 00:00:00 Test Item Value Reference Range Interpretation Comments SOURCE: (test code = Cervical/Endocervical 8001) SLIDES: (test code = 1 8011) LMP: (test code = 8021) 04/07/2021 SPECIMEN ADEQUACY: (test (NOTE) code = 36106) INTERPRETATION: (test NILM/NO EPITH. code = 95349) ABNORMALITY;SEE BELOW TAIL BOARD MAN: (test Shannon code = 8101) [place](ASCP)IAC LOCATION: (test code = (NOTE) 75149) CPT: (test code = 8140) (NOTE) HPV HIGH RISK WITH GENOTYPE, [id number] 00:00:00 Test Item Value Reference Range Interpretation Comments HPV HIGH RISK INTERP (test code = NEGATIVE 42712) HPV 16 (test code = 05357) NEGATIVE HPV 18 (test code = 58345) NEGATIVE HPV, HR, OTHER GENOTYPES (test code NEGATIVE = 00859) HPV HIGH RISK WITH GENOTYPE, [id number] 00:00:00 Test Item Value Reference Range Interpretation Comments HPV HIGH RISK INTERP (test code = NEGATIVE 94404) HPV 16 (test code = 90758) NEGATIVE HPV 18 (test code = 79500) NEGATIVE HPV, HR, OTHER GENOTYPES (test code NEGATIVE = 61768) GC AND CHLAMYDIA AMPLIFIED, [id number] 00:00:00 Test Item Value Reference Range Interpretation Comments GONORRHEA, TMA (test code = 99993) NEGATIVE CHLAMYDIA, TMA (test code = 67668) NEGATIVE GC AND CHLAMYDIA AMPLIFIED, [id number] 00:00:00 Test Item Value Reference Range Interpretation Comments GONORRHEA, TMA (test code = 94762) NEGATIVE CHLAMYDIA, TMA (test code = 55157) NEGATIVE GC AND CHLAMYDIA AMPLIFIED, [id number] 00:00:00 Test Item Value Reference Range Interpretation Comments GONORRHEA, TMA (test code = 98013) NEGATIVE CHLAMYDIA, TMA (test code = 51408) NEGATIVE PAP TEST, THINPREP, [id number] 00:00:00 Test Item Value Reference Range Interpretation Comments SOURCE: (test code = Cervical/Endocervical 8001) SLIDES: (test code = 1 8011) LMP: (test code = 8021) 04/07/2021 SPECIMEN ADEQUACY: (test (NOTE) code = 15057) INTERPRETATION: (test NILM/NO EPITH. code = 95679) ABNORMALITY;SEE BELOW TAIL BOARD MAN: (test Shannon code = 8101) [place](ASCP)IAC LOCATION: (test code = (NOTE) 34538) CPT: (test code = 8140) (NOTE) PAP TEST, THINPREP, [id number] 00:00:00 Test Item Value Reference Range Interpretation Comments SOURCE: (test code = Cervical/Endocervical 8001) SLIDES: (test code = 1 8011) LMP: (test code = 8021) 04/07/2021 SPECIMEN ADEQUACY: (test (NOTE) code = 82952) INTERPRETATION: (test NILM/NO EPITH. code = 16214) ABNORMALITY;SEE BELOW TAIL BOARD MAN: (test Shannon code = 8101) [place](ASCP)IAC LOCATION: (test code = (NOTE) 40878) CPT: (test code = 8140) (NOTE) GC AND CHLAMYDIA AMPLIFIED, [id number] 00:00:00 Test Item Value Reference Range Interpretation Comments GONORRHEA, TMA (test code = 39067) NEGATIVE CHLAMYDIA, TMA (test code = 87695) NEGATIVE HPV HIGH RISK WITH GENOTYPE, [id number] 00:00:00 Test Item Value Reference Range Interpretation Comments HPV HIGH RISK INTERP (test code = NEGATIVE 22606) HPV 16 (test code = 17272) NEGATIVE HPV 18 (test code = 31531) NEGATIVE HPV, HR, OTHER GENOTYPES (test code NEGATIVE = 06869) HPV HIGH RISK WITH GENOTYPE, [id number] 00:00:00 Test Item Value Reference Range Interpretation Comments HPV HIGH RISK INTERP (test code = NEGATIVE 92362) HPV 16 (test code = 59880) NEGATIVE HPV 18 (test code = 44653) NEGATIVE HPV, HR, OTHER GENOTYPES (test code NEGATIVE = 84906) PAP TEST, THINPREP, [id number] 00:00:00 Test Item Value Reference Range Interpretation Comments SOURCE: (test code = Cervical/Endocervical 8001) SLIDES: (test code = 1 8011) LMP: (test code = 8021) 04/07/2021 SPECIMEN ADEQUACY: (test (NOTE) code = 92772) INTERPRETATION: (test NILM/NO EPITH. code = 54058) ABNORMALITY;SEE BELOW TAIL BOARD MAN: (test Shannon code = 8101) [place](ASCP)IAC LOCATION: (test code = (NOTE) 60383) CPT: (test code = 8140) (NOTE) PAP TEST, THINPREP, [id number] 00:00:00 Test Item Value Reference Range Interpretation Comments SOURCE: (test code = Cervical/Endocervical 8001) SLIDES: (test code = 1 8011) LMP: (test code = 8021) 04/07/2021 SPECIMEN ADEQUACY: (test (NOTE) code = 29269) INTERPRETATION: (test NILM/NO EPITH. code = 97138) ABNORMALITY;SEE BELOW TAIL BOARD MAN: (test Shannon code = 8101) [place](ASCP)IAC LOCATION: (test code = (NOTE) 52419) CPT: (test code = 8140) (NOTE) HPV HIGH RISK WITH GENOTYPE, [id number] 00:00:00 Test Item Value Reference Range Interpretation Comments HPV HIGH RISK INTERP (test code = NEGATIVE 39683) HPV 16 (test code = 40758) NEGATIVE HPV 18 (test code = 04300) NEGATIVE HPV, HR, OTHER GENOTYPES (test code NEGATIVE = 34839) GC AND CHLAMYDIA AMPLIFIED, [id number] 00:00:00 Test Item Value Reference Range Interpretation Comments GONORRHEA, TMA (test code = 91559) NEGATIVE CHLAMYDIA, TMA (test code = 88549) NEGATIVE GC AND CHLAMYDIA AMPLIFIED, [id number] 00:00:00 Test Item Value Reference Range Interpretation Comments GONORRHEA, TMA (test code = 54756) NEGATIVE CHLAMYDIA, TMA (test code = 78748) NEGATIVE PAP TEST, THINPREP, [id number] 00:00:00 Test Item Value Reference Range Interpretation Comments SOURCE: (test code = Cervical/Endocervical 8001) SLIDES: (test code = 1 8011) LMP: (test code = 8021) 04/07/2021 SPECIMEN ADEQUACY: (test (NOTE) code = 90547) INTERPRETATION: (test NILM/NO EPITH. code = 03650) ABNORMALITY;SEE BELOW TAIL BOARD MAN: (test Shannon code = 8101) [place]: (test code = (NOTE) 32454) CPT: (test code = 8140) (NOTE) PAP TEST, THINPREP, [id number] 00:00:00 Test Item Value Reference Range Interpretation Comments SOURCE: (test code = Cervical/Endocervical 8001) SLIDES: (test code = 1 8011) LMP: (test code = 8021) 04/07/2021 SPECIMEN ADEQUACY: (test (NOTE) code = 40822) INTERPRETATION: (test NILM/NO EPITH. code = 10371) ABNORMALITY;SEE BELOW TAIL BOARD MAN: (test Shannon code = 8101) [place](ASCP)IAC LOCATION: (test code = (NOTE) 89631) CPT: (test code = 8140) (NOTE) HPV HIGH RISK WITH GENOTYPE, [id number] 00:00:00 Test Item Value Reference Range Interpretation Comments HPV HIGH RISK INTERP (test code = NEGATIVE 71395) HPV 16 (test code = 72416) NEGATIVE HPV 18 (test code = 36609) NEGATIVE HPV, HR, OTHER GENOTYPES (test code NEGATIVE = 16027) HPV HIGH RISK WITH GENOTYPE, [id number] 00:00:00 Test Item Value Reference Range Interpretation Comments HPV HIGH RISK INTERP (test code = NEGATIVE 43432) HPV 16 (test code = 28088) NEGATIVE HPV 18 (test code = 40267) NEGATIVE HPV, HR, OTHER GENOTYPES (test code NEGATIVE = 12217) HPV HIGH RISK WITH GENOTYPE, [id number] 00:00:00 Test Item Value Reference Range Interpretation Comments HPV HIGH RISK INTERP (test code = NEGATIVE 25548) HPV 16 (test code = 74579) NEGATIVE HPV 18 (test code = 09709) NEGATIVE HPV, HR, OTHER GENOTYPES (test code NEGATIVE = 43546) GC AND CHLAMYDIA AMPLIFIED, [id number] 00:00:00 Test Item Value Reference Range Interpretation Comments GONORRHEA, TMA (test code = 17099) NEGATIVE CHLAMYDIA, TMA (test code = 19200) NEGATIVE GC AND CHLAMYDIA AMPLIFIED, [id number] 00:00:00 Test Item Value Reference Range Interpretation Comments GONORRHEA, TMA (test code = 19359) NEGATIVE CHLAMYDIA, TMA (test code = 84110) NEGATIVE PAP TEST, THINPREP, [id number] 00:00:00 Test Item Value Reference Range Interpretation Comments SOURCE: (test code = Cervical/Endocervical 8001) SLIDES: (test code = 1 8011) LMP: (test code = 8021) 04/07/2021 SPECIMEN ADEQUACY: (test (NOTE) code = 28393) INTERPRETATION: (test NILM/NO EPITH. code = 10467) ABNORMALITY;SEE BELOW TAIL BOARD MAN: (test Shannon code = 8101) TERESA Ytaes(ASCP)IAC LOCATION: (test code = (NOTE) 39247) CPT: (test code = 8140) (NOTE) PAP TEST, THINPREP, [id number] 00:00:00 Test Item Value Reference Range Interpretation Comments SOURCE: (test code = Cervical/Endocervical 8001) SLIDES: (test code = 1 8011) LMP: (test code = 8021) 04/07/2021 SPECIMEN ADEQUACY: (test (NOTE) code = 15488) INTERPRETATION: (test NILM/NO EPITH. code = 37671) ABNORMALITY;SEE BELOW TAIL BOARD MAN: (test Shannon code = 8101) TERESA Yates(ASCP)IAC LOCATION: (test code = (NOTE) 84632) CPT: (test code = 8140) (NOTE) HPV HIGH RISK WITH GENOTYPE, [id number] 00:00:00 Test Item Value Reference Range Interpretation Comments HPV HIGH RISK INTERP (test code = NEGATIVE 63712) HPV 16 (test code = 92369) NEGATIVE HPV 18 (test code = 91975) NEGATIVE HPV, HR, OTHER GENOTYPES (test code NEGATIVE = 05177) HPV HIGH RISK WITH GENOTYPE, [id number] 00:00:00 Test Item Value Reference Range Interpretation Comments HPV HIGH RISK INTERP (test code = NEGATIVE 66537) HPV 16 (test code = 84439) NEGATIVE HPV 18 (test code = 36787) NEGATIVE HPV, HR, OTHER GENOTYPES (test code NEGATIVE = 26778) HIV AB/AG COMBO RFLX [id number] 00:00:00 Test Item Value Reference Range Interpretation Comments HIV 1/2 4TH GEN, RFLX CONF (test NON-REACTIVE code = 3514) HIV AB/AG COMBO RFLX [id number] 00:00:00 Test Item Value Reference Range Interpretation Comments HIV 1/2 4TH GEN, RFLX CONF (test NON-REACTIVE code = 3514) ACUTE HEPATITIS [id number] 00:00:00 Test Item Value Reference Range Interpretation Comments HEPATITIS A IgM (test code = NON-REACTIVE 94090) HEPATITIS B CORE IgM (test code NON-REACTIVE = 4644) HEPATITIS B SURF AG (test code = NON-REACTIVE 2739) HEPATITIS C ANTIBODY (test code NON-REACTIVE = 4675) INTERPRETATION HEPATITIS A: (NOTE) (test code = 2552) INTERPRETATION HEPATITIS B: (NOTE) (test code = 45697) INTERPRETATION HEPATITIS C: (NOTE) (test code = 87112) ACUTE HEPATITIS [id number] 00:00:00 Test Item Value Reference Range Interpretation Comments HEPATITIS A IgM (test code = NON-REACTIVE 64909) HEPATITIS B CORE IgM (test code NON-REACTIVE = 4644) HEPATITIS B SURF AG (test code = NON-REACTIVE 2739) HEPATITIS C ANTIBODY (test code NON-REACTIVE = 4675) INTERPRETATION HEPATITIS A: (NOTE) (test code = 2552) INTERPRETATION HEPATITIS B: (NOTE) (test code = 23253) INTERPRETATION HEPATITIS C: (NOTE) (test code = 21657) [id number] 00:00:00 Test Item Value Reference Range Interpretation Comments RPR RESULT (test code = NON-REACTIVE 3501) RPR TITER (test code = 3500) NOT INDIC. TITER [id number] 00:00:00 Test Item Value Reference Range Interpretation Comments RPR RESULT (test code = NON-REACTIVE 3501) RPR TITER (test code = 3500) NOT INDIC. TITER [id number] 00:00:00 Test Item Value Reference Range Interpretation Comments RPR RESULT (test code = NON-REACTIVE 3501) RPR TITER (test code = 3500) NOT INDIC. TITER VAGINAL PATHOGENS DNA [id number] 00:00:00 Test Item Value Reference Range Interpretation Comments VIJI SPECIES (test code = ) NEGATIVE G. VAGINALIS (test code = 98166) POSITIVE T. VAGINALIS (test code = 01563) NEGATIVE VAGINAL PATHOGENS DNA [id number] 00:00:00 Test Item Value Reference Range Interpretation Comments VIJI SPECIES (test code = 55944) NEGATIVE G. VAGINALIS (test code = 31431) POSITIVE T. VAGINALIS (test code = 71742) NEGATIVE HIV AB/AG COMBO RFLX [id number] 00:00:00 Test Item Value Reference Range Interpretation Comments HIV 1/2 4TH GEN, RFLX CONF (test NON-REACTIVE code = 3514) HIV AB/AG COMBO RFLX [id number] 00:00:00 Test Item Value Reference Range Interpretation Comments HIV 1/2 4TH GEN, RFLX CONF (test NON-REACTIVE code = 3514) ACUTE HEPATITIS [id number] 00:00:00 Test Item Value Reference Range Interpretation Comments HEPATITIS A IgM (test code = NON-REACTIVE 93646) HEPATITIS B CORE IgM (test code NON-REACTIVE = 4644) HEPATITIS B SURF AG (test code = NON-REACTIVE 2739) HEPATITIS C ANTIBODY (test code NON-REACTIVE = 4675) INTERPRETATION HEPATITIS A: (NOTE) (test code = 2552) INTERPRETATION HEPATITIS B: (NOTE) (test code = 54579) INTERPRETATION HEPATITIS C: (NOTE) (test code = 50649) ACUTE HEPATITIS [id number] 00:00:00 Test Item Value Reference Range Interpretation Comments HEPATITIS A IgM (test code = NON-REACTIVE 61378) HEPATITIS B CORE IgM (test code NON-REACTIVE = 4644) HEPATITIS B SURF AG (test code = NON-REACTIVE 2739) HEPATITIS C ANTIBODY (test code NON-REACTIVE = 4675) INTERPRETATION HEPATITIS A: (NOTE) (test code = 2552) INTERPRETATION HEPATITIS B: (NOTE) (test code = 64238) INTERPRETATION HEPATITIS C: (NOTE) (test code = 68714) [id number] 00:00:00 Test Item Value Reference Range Interpretation Comments RPR RESULT (test code = NON-REACTIVE 3501) RPR TITER (test code = 3500) NOT INDIC. TITER [id number] 00:00:00 Test Item Value Reference Range Interpretation Comments RPR RESULT (test code = NON-REACTIVE 3501) RPR TITER (test code = 3500) NOT INDIC. TITER [id number] 00:00:00 Test Item Value Reference Range Interpretation Comments RPR RESULT (test code = NON-REACTIVE 3501) RPR TITER (test code = 3500) NOT INDIC. TITER VAGINAL PATHOGENS DNA [id number] 00:00:00 Test Item Value Reference Range Interpretation Comments VIJI SPECIES (test code = ) NEGATIVE G. VAGINALIS (test code = 40260) POSITIVE T. VAGINALIS (test code = 24054) NEGATIVE VAGINAL PATHOGENS DNA [id number] 00:00:00 Test Item Value Reference Range Interpretation Comments VIJI SPECIES (test code = ) NEGATIVE G. VAGINALIS (test code = 06036) POSITIVE T. VAGINALIS (test code = 47480) NEGATIVE HIV AB/AG COMBO RFLX [id number] 00:00:00 Test Item Value Reference Range Interpretation Comments HIV 1/2 4TH GEN, RFLX CONF (test NON-REACTIVE code = 3514) HIV AB/AG COMBO RFLX [id number] 00:00:00 Test Item Value Reference Range Interpretation Comments HIV 1/2 4TH GEN, RFLX CONF (test NON-REACTIVE code = 3514) HIV AB/AG COMBO RFLX [id number] 00:00:00 Test Item Value Reference Range Interpretation Comments HIV 1/2 4TH GEN, RFLX CONF (test NON-REACTIVE code = 3514) HIV AB/AG COMBO RFLX [id number] 00:00:00 Test Item Value Reference Range Interpretation Comments HIV 1/2 4TH GEN, RFLX CONF (test NON-REACTIVE code = 3514) ACUTE HEPATITIS [id number] 00:00:00 Test Item Value Reference Range Interpretation Comments HEPATITIS A IgM (test code = NON-REACTIVE 48838) HEPATITIS B CORE IgM (test code NON-REACTIVE = 4644) HEPATITIS B SURF AG (test code = NON-REACTIVE 2739) HEPATITIS C ANTIBODY (test code NON-REACTIVE = 4675) INTERPRETATION HEPATITIS A: (NOTE) (test code = 2552) INTERPRETATION HEPATITIS B: (NOTE) (test code = 80536) INTERPRETATION HEPATITIS C: (NOTE) (test code = 53202) ACUTE HEPATITIS [id number] 00:00:00 Test Item Value Reference Range Interpretation Comments HEPATITIS A IgM (test code = NON-REACTIVE 41677) HEPATITIS B CORE IgM (test code NON-REACTIVE = 4644) HEPATITIS B SURF AG (test code = NON-REACTIVE 2739) HEPATITIS C ANTIBODY (test code NON-REACTIVE = 4675) INTERPRETATION HEPATITIS A: (NOTE) (test code = 2552) INTERPRETATION HEPATITIS B: (NOTE) (test code = 79643) INTERPRETATION HEPATITIS C: (NOTE) (test code = 74213) [id number] 00:00:00 Test Item Value Reference Range Interpretation Comments RPR RESULT (test code = NON-REACTIVE 3501) RPR TITER (test code = 3500) NOT INDIC. TITER [id number] 00:00:00 Test Item Value Reference Range Interpretation Comments RPR RESULT (test code = NON-REACTIVE 3501) RPR TITER (test code = 3500) NOT INDIC. TITER [id number] 00:00:00 Test Item Value Reference Range Interpretation Comments RPR RESULT (test code = NON-REACTIVE 3501) RPR TITER (test code = 3500) NOT INDIC. TITER VAGINAL PATHOGENS DNA [id number] 00:00:00 Test Item Value Reference Range Interpretation Comments VIJI SPECIES (test code = 15790) NEGATIVE G. VAGINALIS (test code = ) POSITIVE T. VAGINALIS (test code = ) NEGATIVE VAGINAL PATHOGENS DNA [id number] 00:00:00 Test Item Value Reference Range Interpretation Comments VIJI SPECIES (test code = 52720) NEGATIVE G. VAGINALIS (test code = 85797) POSITIVE T. VAGINALIS (test code = 98990) NEGATIVE ACUTE HEPATITIS [id number] 00:00:00 Test Item Value Reference Range Interpretation Comments HEPATITIS A IgM (test code = NON-REACTIVE 88999) HEPATITIS B CORE IgM (test code NON-REACTIVE = 4644) HEPATITIS B SURF AG (test code = NON-REACTIVE 2739) HEPATITIS C ANTIBODY (test code NON-REACTIVE = 4675) INTERPRETATION HEPATITIS A: (NOTE) (test code = 2552) INTERPRETATION HEPATITIS B: (NOTE) (test code = 19678) INTERPRETATION HEPATITIS C: (NOTE) (test code = 59055) ACUTE HEPATITIS [id number] 00:00:00 Test Item Value Reference Range Interpretation Comments HEPATITIS A IgM (test code = NON-REACTIVE 64906) HEPATITIS B CORE IgM (test code NON-REACTIVE = 4644) HEPATITIS B SURF AG (test code = NON-REACTIVE 2739) HEPATITIS C ANTIBODY (test code NON-REACTIVE = 4675) INTERPRETATION HEPATITIS A: (NOTE) (test code = 2552) INTERPRETATION HEPATITIS B: (NOTE) (test code = 01220) INTERPRETATION HEPATITIS C: (NOTE) (test code = 42907) [id number] 00:00:00 Test Item Value Reference Range Interpretation Comments RPR RESULT (test code = NON-REACTIVE 3501) RPR TITER (test code = 3500) NOT INDIC. TITER [id number] 00:00:00 Test Item Value Reference Range Interpretation Comments RPR RESULT (test code = NON-REACTIVE 3501) RPR TITER (test code = 3500) NOT INDIC. TITER HIV AB/AG COMBO RFLX [id number] 00:00:00 Test Item Value Reference Range Interpretation Comments HIV 1/2 4TH GEN, RFLX CONF (test NON-REACTIVE code = 3514) HIV AB/AG COMBO RFLX [id number] 00:00:00 Test Item Value Reference Range Interpretation Comments HIV 1/2 4TH GEN, RFLX CONF (test NON-REACTIVE code = 3514) ACUTE HEPATITIS [id number] 00:00:00 Test Item Value Reference Range Interpretation Comments HEPATITIS A IgM (test code = NON-REACTIVE 19469) HEPATITIS B CORE IgM (test code NON-REACTIVE = 4644) HEPATITIS B SURF AG (test code = NON-REACTIVE 2739) HEPATITIS C ANTIBODY (test code NON-REACTIVE = 4675) INTERPRETATION HEPATITIS A: (NOTE) (test code = 2552) INTERPRETATION HEPATITIS B: (NOTE) (test code = 85317) INTERPRETATION HEPATITIS C: (NOTE) (test code = 26586) ACUTE HEPATITIS [id number] 00:00:00 Test Item Value Reference Range Interpretation Comments HEPATITIS A IgM (test code = NON-REACTIVE 11975) HEPATITIS B CORE IgM (test code NON-REACTIVE = 4644) HEPATITIS B SURF AG (test code = NON-REACTIVE 2739) HEPATITIS C ANTIBODY (test code NON-REACTIVE = 4675) INTERPRETATION HEPATITIS A: (NOTE) (test code = 2552) INTERPRETATION HEPATITIS B: (NOTE) (test code = 78459) INTERPRETATION HEPATITIS C: (NOTE) (test code = 95380) [id number] 00:00:00 Test Item Value Reference Range Interpretation Comments RPR RESULT (test code = NON-REACTIVE 3501) RPR TITER (test code = 3500) NOT INDIC. TITER [id number] 00:00:00 Test Item Value Reference Range Interpretation Comments RPR RESULT (test code = NON-REACTIVE 3501) RPR TITER (test code = 3500) NOT INDIC. TITER [id number] 00:00:00 Test Item Value Reference Range Interpretation Comments RPR RESULT (test code = NON-REACTIVE 3501) RPR TITER (test code = 3500) NOT INDIC. TITER [id number] 00:00:00 Test Item Value Reference Range Interpretation Comments RPR RESULT (test code = NON-REACTIVE 3501) RPR TITER (test code = 3500) NOT INDIC. TITER VAGINAL PATHOGENS DNA [id number] 00:00:00 Test Item Value Reference Range Interpretation Comments VIJI SPECIES (test code = ) NEGATIVE G. VAGINALIS (test code = 58530) POSITIVE T. VAGINALIS (test code = ) NEGATIVE VAGINAL PATHOGENS DNA [id number] 00:00:00 Test Item Value Reference Range Interpretation Comments VIJI SPECIES (test code = ) NEGATIVE G. VAGINALIS (test code = 99761) POSITIVE T. VAGINALIS (test code = 61283) NEGATIVE VAGINAL PATHOGENS DNA [id number] 00:00:00 Test Item Value Reference Range Interpretation Comments VIJI SPECIES (test code = ) NEGATIVE G. VAGINALIS (test code = ) POSITIVE T. VAGINALIS (test code = ) NEGATIVE VAGINAL PATHOGENS DNA [id number] 00:00:00 Test Item Value Reference Range Interpretation Comments VIJI SPECIES (test code = ) NEGATIVE G. VAGINALIS (test code = 33441) POSITIVE T. VAGINALIS (test code = 68253) NEGATIVE HIV AB/AG COMBO RFLX [id number] 00:00:00 Test Item Value Reference Range Interpretation Comments HIV 1/2 4TH GEN, RFLX CONF (test NON-REACTIVE code = 3514) HIV AB/AG COMBO RFLX [id number] 00:00:00 Test Item Value Reference Range Interpretation Comments HIV 1/2 4TH GEN, RFLX CONF (test NON-REACTIVE code = 3514) ACUTE HEPATITIS [id number] 00:00:00 Test Item Value Reference Range Interpretation Comments HEPATITIS A IgM (test code = NON-REACTIVE 43474) HEPATITIS B CORE IgM (test code NON-REACTIVE = 4644) HEPATITIS B SURF AG (test code = NON-REACTIVE 2739) HEPATITIS C ANTIBODY (test code NON-REACTIVE = 4675) INTERPRETATION HEPATITIS A: (NOTE) (test code = 2552) INTERPRETATION HEPATITIS B: (NOTE) (test code = 96360) INTERPRETATION HEPATITIS C: (NOTE) (test code = 90829) ACUTE HEPATITIS [id number] 00:00:00 Test Item Value Reference Range Interpretation Comments HEPATITIS A IgM (test code = NON-REACTIVE 04368) HEPATITIS B CORE IgM (test code NON-REACTIVE = 4644) HEPATITIS B SURF AG (test code = NON-REACTIVE 2739) HEPATITIS C ANTIBODY (test code NON-REACTIVE = 4675) INTERPRETATION HEPATITIS A: (NOTE) (test code = 2552) INTERPRETATION HEPATITIS B: (NOTE) (test code = 62289) INTERPRETATION HEPATITIS C: (NOTE) (test code = 78764) [id number] 00:00:00 Test Item Value Reference Range Interpretation Comments RPR RESULT (test code = NON-REACTIVE 3501) RPR TITER (test code = 3500) NOT INDIC. TITER [id number] 00:00:00 Test Item Value Reference Range Interpretation Comments RPR RESULT (test code = NON-REACTIVE 3501) RPR TITER (test code = 3500) NOT INDIC. TITER [id number] 00:00:00 Test Item Value Reference Range Interpretation Comments RPR RESULT (test code = NON-REACTIVE 3501) RPR TITER (test code = 3500) NOT INDIC. TITER VAGINAL PATHOGENS DNA [id number] 00:00:00 Test Item Value Reference Range Interpretation Comments VIJI SPECIES (test code = ) NEGATIVE G. VAGINALIS (test code = 82642) POSITIVE T. VAGINALIS (test code = 82079) NEGATIVE VAGINAL PATHOGENS DNA [id number] 00:00:00 Test Item Value Reference Range Interpretation Comments VIJI SPECIES (test code = 22332) NEGATIVE G. VAGINALIS (test code = 17215) POSITIVE T. VAGINALIS (test code = 96995) NEGATIVE"
[2023-07-10] MEDS ORDERED: ONDANSETRON 4 MG/2 ML VIAL ONE (04:09)
[2023-07-10] MEDS ORDERED: FAMOTIDINE 20 MG/2 ML VIAL IV ONE (04:09)
[2023-07-10] MEDS ORDERED: NA CHLORIDE 0.9% 1,000 ML ONE (04:09)
[2023-07-10 05:09] LABS: Absolute Lymphocytes (CBC) 0.3 K/uL (0.7-4.9); Hematocrit 33.3 % (36.0-45.0); Lymphocytes % 5.7 % (15.3-44.8); MCV 83.9 fL (80-100); Platelets 252 thou/uL (152-406); RBC Red Blood Cell Count 3.97 M/uL (3.86-4.86)
[2023-07-10 05:24] LABS: Albumin 3.4 g/dL (3.4-5.0); Bilirubin Total 0.5 mg/dL (0.2-1.0); Potassium 2.9 mEq/L (3.5-5.1); Protein, Total 7.6 g/dL (6.4-8.2)
[2023-07-10 05:38] LABS: Specific Gravity 1.012 (1.005-1.030)
[2023-07-10 05:39] LABS: Benzodiazepines NEGATIVE (NEGATIVE); Cocaine NEGATIVE (NEGATIVE); Phencyclidine NEGATIVE (NEGATIVE)
[2023-07-10 05:40] LABS: Barbiturates NEGATIVE (NEGATIVE); METHAMPHETAM NEGATIVE (NEGATIVE); Methadone ND (NEGATIVE); Opiates NEGATIVE (NEGATIVE); THC Cannibis POSITIVE (NEGATIVE)
[2023-07-10 05:41] LABS: Specific Gravity 1.012 (1.005-1.030); Urine Bacteria <20 /HPF (<20); Urine Bilirubin NEGATIVE (Negative); Urine Blood Negative (Negative); Urine Clarity Turbid (Clear); Urine Color Light-Yellow (Yellow); Urine Glucose NEGATIVE (Negative); Urine Protein NEGATIVE (Negative); Urine RBC None Seen /HPF (None Seen); Urine Urobilinogen Normal (Normal); Urine pH 6.5 (5.0-7.0)
[2023-07-10] MEDS ORDERED: NS KCL 20MEQ 1,000 ML IV ONE (05:46)
[2023-07-10] MEDS ORDERED: POTASSIUM 25 MEQ EFFERV TAB ONE (05:46)
[2023-07-10] MEDS ORDERED: KCL 20 MEQ/100 mL IVPB 100 ML IV ONE (05:46)
--- NOTE | 2023-07-10 05:57 | ER ---
Nurse's Notes [facility] Name: Kia Garibay Age: 33 yrs Sex: Female : 1990 Arrival Date: 07/10/2023 Time: 03:25 Bed 15 Private MD: Diagnosis: SARS-associated coronavirus as the cause of diseases classified elsewhere;Weakness;UTI/ Urinary tract infection, site not specified;Nausea with vomiting, unspecified;Hypokalemia Presentation: 07/10 03:38 Chief complaint: Patient states: COVID + WITH N/V SINCE THIS PM. Coronavirus screen: bp nausea, vomiting. Client presents with at least one sign or symptom that may indicate coronavirus-19. Standard/surgical mask placed on the client. Ebola Screen: No symptoms or risks identified at this time. Initial Sepsis Screen: Does the patient meet any 2 criteria? HR > 90 bpm. No. Patient's initial sepsis screen is negative. Does the patient have a suspected source of infection? No. Patient's initial sepsis screen is negative. Risk Assessment: Do you want to hurt yourself or someone else? Patient reports no desire to harm self or others. Onset of symptoms was July 10, 2023. 03:38 Method Of Arrival: Ambulatory bp 03:38 Acuity: OMID 3 bp Triage Assessment: 03:51 General: Appears in no apparent distress. uncomfortable, ill, Behavior is calm, jw7 cooperative, restless. Pain: Complains of pain in abdomen Pain does not radiate. Pain currently is 7 out of 10 on a pain scale. Quality of pain is described as aching, crampy, Pain began 2 weeks ago. EENT: No deficits noted. No signs and/or symptoms were reported regarding the EENT system. Neuro: [place] Agitation-Sedation Scale (RASS): 0 - Alert and Calm. Cardiovascular: No deficits noted. Capillary refill < 3 seconds Clubbing of nail beds is absent JVD is absent Patient's skin is warm and dry. Respiratory: No deficits noted. Airway is patent Trachea midline Respiratory effort is even, unlabored, Respiratory pattern is regular, symmetrical. GI: Abdomen is flat, non-distended, Pt is actively vomiting blue liquid Reports lower abdominal pain, upper abdominal pain, intolerance of fluids, intolerance of food, nausea, vomiting. : No deficits noted. No signs and/or symptoms were reported regarding the genitourinary system. Derm: No signs and/or symptoms reported regarding the dermatologic system. Skin is intact, is healthy with good turgor, Skin is dry, Skin is normal, Skin temperature is warm. Musculoskeletal: No signs and/or symptoms reported regarding the musculoskeletal system. Circulation, motion, and sensation intact. Range of motion: intact in all extremities. Historical: - Allergies: 03:40 No Known Drug Allergies; bp - PMHx: 03:40 DENTAL CARIES; Kidney stones; Ovarian cyst; UTI; bp - PSHx: 03:40 section; Tonsillectomy; bp - Immunization history:: Adult Immunizations up to date. - Social history:: Smoking status: Patient denies any tobacco usage or history of. - Family history:: not pertinent. Screenin:41 [facility] ED Fall Risk Assessment (Adult) History of falling in the last 3 months, jw7 including since admission No falls in past 3 months (0 pts) Score/Fall Risk Level 0 - 2 = Low Risk Oriented to surroundings, Maintained a safe environment. Abuse screen: Denies threats or abuse. Denies injuries from another. Nutritional screening: No deficits noted. Tuberculosis screening: No symptoms or risk factors identified. Assessment: 04:00 General: see triage assessment. jw7 05:00 Reassessment: Patient appears in no apparent distress at this time. No changes from jw7 previously documented assessment. Patient and/or family updated on plan of care and expected duration. Pain level reassessed. Patient is alert, oriented x 3, equal unlabored respirations, skin warm/dry/pink. 06:02 General: Discharge pending completion of fluids. jw7 06:20 Reassessment: Patient appears in no apparent distress at this time. No changes from jw7 previously documented assessment. Patient and/or family updated on plan of care and expected duration. Pain level reassessed. Patient is alert, oriented x 3, equal unlabored respirations, skin warm/dry/pink. 07:15 Reassessment: Patient appears in no apparent distress at this time. Patient and/or db family updated on plan of care and expected duration. Pain level reassessed. Patient is alert, oriented x 3, equal unlabored respirations, skin warm/dry/pink. PT DC PENDING POTASSIUM FINISH. 07:55 Reassessment: Patient appears in no apparent distress at this time. Patient and/or db family updated on plan of care and expected duration. Pain level reassessed. Patient is alert, oriented x 3, equal unlabored respirations, skin warm/dry/pink. Patient states feeling better. Patient states symptoms have improved. GI: No signs and/or symptoms were reported involving the gastrointestinal system. Vital Signs: 03:38 BP 112 / 78; Pulse 105; Resp 24; Temp 98.2; Pulse Ox 100% ; Weight 56.7 kg; Height 4 bp ft. 11 in. ; 03:45 BP 131 / 73; Pulse 107; Resp 20; Temp 98.3; Pulse Ox 100% ; Pain 7/10; jw7 05:00 BP 109 / 62; Pulse 97; Resp 19 S; Pulse Ox 100% on R/A; jw7 06:03 BP 116 / 70; Pulse 97; Resp 18 S; Pulse Ox 98% on R/A; jw7 06:48 BP 93 / 63; Pulse 92; Resp 18 S; Pulse Ox 98% on R/A; jw7 07:00 BP 97 / 58; Pulse 87; Resp 16; Pulse Ox 98% on R/A; db 07:55 BP 110 / 71; Pulse 90; Resp 16; Pulse Ox 100% on R/A; db 03:38 Body Mass Index 25.25 (56.70 kg, 149.86 cm) bp 03:45 Pain Scale: Adult jw7 ED Course: 03:28 Patient arrived in ED. jj6 03:40 Leena Gutierrez RN is Primary Nurse. jw7 03:40 Jeremiah Gabriel MD is Attending Physician. dejah 03:40 Triage completed. bp 03:40 Arm band placed on. bp 03:42 Patient has correct armband on for positive identification. Bed in low position. Call jw7 light in reach. Side rails up X 1. 04:11 Chest Pa And Lat (2 Views) XRAY In Process Unspecified. EDMS 04:30 Initial lab(s) drawn, by ED staff, sent to lab. COVID swab sent to lab. Flu and/or RSV jw7 swab sent to lab. Inserted saline lock: 22 gauge in right antecubital area, using aseptic technique. Blood collected. 05:00 No provider procedures requiring assistance completed. jw7 05:57 US Abdomen Limited In Process Unspecified. EDMS 08:03 Provided Education on: DISCHARGE. Pulse ox on. NIBP on. Warm blanket given. db 08:03 IV discontinued, intact, bleeding controlled, No redness/swelling at site. db Administered Medications: 04:58 Drug: NS 0.9% IV 1000 ml IV at 1 bolus Per protocol; 1000 mL bolus Route: IV; Rate: 1 jw7 bolus; Site: right antecubital; 05:48 Follow up: Response: No adverse reaction; IV Status: Completed infusion; IV Intake: jw7 1000ml 04:59 Drug: Famotidine IVP 20 mg IVP once; dilute with 10 mL 0.9% NaCl; give over 2 minutes jw7 Route: IVP; Site: right antecubital; 05:48 Follow up: Response: No adverse reaction jw7 04:59 Drug: Ondansetron IVP 4 mg IVP once; over 2 minutes Route: IVP; Site: right antecubital;jw7 05:48 Follow up: Response: No adverse reaction jw7 05:28 CANCELLED (Duplicate Order): potassiumeffervescent tablet 25 meq PO once; dissolve in 4 dejah ounces of water or juice 05:45 Drug: Potassium PO Effervescent Tablet 25 mEq PO once; dissolve in 4 ounces of water or jw7 juice Route: PO; 06:47 Follow up: Response: No adverse reaction jw7 05:45 Drug: NS 0.9% with KCl IV 20 mEq/L 1000 ml IV at 500 ml/hr continuous Route: IV; Rate: jw7 500 ml/hr; Site: right antecubital; 08:02 Follow up: Response: No adverse reaction; IV Status: Completed infusion db 05:46 Drug: Potassium Chloride IV 20 mEq IV at per protocol once; administer over 1 hours jw7 Route: IV; Rate: per protocol; Site: right antecubital; 08:01 Follow up: Response: No adverse reaction; IV Status: Completed infusion; IV Intake: db 100ml 06:47 Drug: MethylPrednisoLONE IVP 125 mg IVP once Route: IVP; Site: right antecubital; jw7 08:02 Follow up: Response: No adverse reaction db 06:47 Drug: predniSONE PO 40 mg PO once Route: PO; jw7 08:02 Follow up: Response: No adverse reaction db 06:47 Drug: Rocephin IV 1 grams IV at per protocol once; Given slow IV push per pharmacy jw7 instructions Route: IV; Rate: per protocol; Site: right antecubital; 08:02 Follow up: IV Status: Completed infusion db 07:15 Drug: AZITHromycin PO 500 mg PO once Route: PO; db 08:02 Follow up: Response: No adverse reaction db Medication: 05:00 VIS not applicable for this client. jw7 Intake: 05:48 IV: 1000ml; Total: 1000ml. jw7 08:01 IV: 100ml; Total: 1100ml. db Outcome: 05:57 Discharge ordered by . dejah 08:02 Discharged to home ambulatory, db 08:02 Condition: stable 08:02 Discharge instructions given to patient, Instructed on discharge instructions, follow up and referral plans. Prescriptions given X X 7 08:04 Patient left the ED. db Signatures: Dispatcher [employer] Jeremiah Babb MD MD cha Peltier, Brian, RN RN Chiqui Barillas jj6 Leena Gutierrez RN RN jw7 Carolin Toney RN RN db
--- NOTE | 2023-07-10 05:57 | EDPHYS ---
Physician Documentation [facility] Name: Kia Garibay Age: 33 yrs Sex: Female : 1990 Arrival Date: 07/10/2023 Time: 03:25 Bed 15 Private MD: ED Physician Jeremiah Gabriel HPI: 07/10 05:47 This 33 yrs old Female presents to ER via Ambulatory with complaints of dejah COVID+, General Weakness, Nausea/Vomiting. 05:47 The patient presents to the emergency department with nausea, vomiting, that is dejah intermittent. Onset: The symptoms/episode began/occurred 3 day(s) ago. Possible causes: unknown. The symptoms are aggravated by nothing. The symptoms are alleviated by nothing. Associated signs and symptoms: Pertinent positives: nausea, vomiting. 05:48 The patient or guardian reports airway noise. Modifying factors: The symptoms are dejah alleviated by nothing. the symptoms are aggravated by nothing. The patient or guardian reports cough, described as mild, flu symptoms, arthralgias, low-grade fever, myalgias. Historical: - Allergies: 03:40 No Known Drug Allergies; bp - PMHx: 03:40 DENTAL CARIES; Kidney stones; Ovarian cyst; UTI; bp - PSHx: 03:40 section; Tonsillectomy; bp - Immunization history:: Adult Immunizations up to date. - Social history:: Smoking status: Patient denies any tobacco usage or history of. - Family history:: not pertinent. ROS: 05:48 Constitutional: Negative for fever, chills, and weight loss, Eyes: Negative for injury, dejah pain, redness, and discharge, ENT: Negative for injury, pain, and discharge, Neck: Negative for injury, pain, and swelling, Cardiovascular: Negative for chest pain, palpitations, and edema, Abdomen/GI: Negative for abdominal pain, nausea, vomiting, diarrhea, and constipation, Back: Negative for injury and pain, : Negative for injury, bleeding, discharge, and swelling, MS/Extremity: Negative for injury and deformity, Skin: Negative for injury, rash, and discoloration, Neuro: Negative for headache, weakness, numbness, tingling, and seizure, Psych: Negative for depression, anxiety, suicide ideation, homicidal ideation, and hallucinations, Allergy/Immunology: Negative for hives, rash, and allergies, Endocrine: Negative for neck swelling, polydipsia, polyuria, polyphagia, and marked weight changes, Hematologic/Lymphatic: Negative for swollen nodes, abnormal bleeding, and unusual bruising, 05:48 Respiratory: Positive for cough, "sounds productive", wheezing, expiratory, of the left posterior upper lobe and right posterior upper lobe, 05:48 MS/extremity: Negative for acute changes, swelling, tenderness, Exam: 05:48 Constitutional: This is a well developed, well nourished patient who is awake, alert, dejah and in no acute distress. Head/Face: Normocephalic, atraumatic. Eyes: Pupils equal round and reactive to light, extra-ocular motions intact. Lids and lashes normal. Conjunctiva and sclera are non-icteric and not injected. Cornea within normal limits. Periorbital areas with no swelling, redness, or edema. ENT: Nares patent. No nasal discharge, no septal abnormalities noted. Tympanic membranes are normal and external auditory canals are clear. Oropharynx with no redness, swelling, or masses, exudates, or evidence of obstruction, uvula midline. Mucous membranes moist. Neck: Trachea midline, no thyromegaly or masses palpated, and no cervical lymphadenopathy. Supple, full range of motion without nuchal rigidity, or vertebral point tenderness. No Meningismus. Chest/axilla: Normal chest wall appearance and motion. Nontender with no deformity. No lesions are appreciated. Cardiovascular: Regular rate and rhythm with a normal S1 and S2. No gallops, murmurs, or rubs. Normal PMI, no JVD. No pulse deficits. Abdomen/GI: Soft, non-tender, with normal bowel sounds. No distension or tympany. No guarding or rebound. No evidence of tenderness throughout. Back: No spinal tenderness. No costovertebral tenderness. Full range of motion. Pelvic Exam: Normal external genitalia. Speculum exam with closed cervical os, no discharge or bleeding noted. Bimanual exam with normal adnexa, no adnexal or cervical motion tenderness. Normal uterus. Female : Normal external genitalia. Skin: Warm, dry with normal turgor. Normal color with no rashes, no lesions, and no evidence of cellulitis. MS/ Extremity: Pulses equal, no cyanosis. Neurovascular intact. Full, normal range of motion. Neuro: Awake and alert, GCS 15, oriented to person, place, time, and situation. Cranial nerves II-XII grossly intact. Motor strength 5/5 in all extremities. Sensory grossly intact. Cerebellar exam normal. Normal gait. 05:48 Respiratory: the patient does not display signs of respiratory distress, Respirations: no acute changes, Breath sounds: rhonchi, are not appreciated, stridor, is not appreciated, + upper airway congestion. wheezing: expiratory Respiratory rate: 18 05:48 Musculoskeletal/extremity: ROM: no acute changes, Circulation is intact in all extremities. Sensation intact. Compartment Syndrome exam of affected extremity: is normal. Weight bearing: able to fully bear weight, DVT Exam: No signs of deep vein thrombosis. no pain, no swelling, no tenderness, negative Homans' sign noted on exam, no appreciated bluish discoloration, no erythema, no increased warmth, Vital Signs: 03:38 BP 112 / 78; Pulse 105; Resp 24; Temp 98.2; Pulse Ox 100% ; Weight 56.7 kg; Height 4 bp ft. 11 in. ; 03:45 BP 131 / 73; Pulse 107; Resp 20; Temp 98.3; Pulse Ox 100% ; Pain 7/10; jw7 05:00 BP 109 / 62; Pulse 97; Resp 19 S; Pulse Ox 100% on R/A; jw7 06:03 BP 116 / 70; Pulse 97; Resp 18 S; Pulse Ox 98% on R/A; jw7 06:48 BP 93 / 63; Pulse 92; Resp 18 S; Pulse Ox 98% on R/A; jw7 07:00 BP 97 / 58; Pulse 87; Resp 16; Pulse Ox 98% on R/A; db 07:55 BP 110 / 71; Pulse 90; Resp 16; Pulse Ox 100% on R/A; db 03:38 Body Mass Index 25.25 (56.70 kg, 149.86 cm) bp 03:45 Pain Scale: Adult jw7 MDM: 03:40 Patient medically screened. [facility] 05:52 Antibiotic administration: The patient is discharged and will get outpatient [facility] antibiotics, Zithromax. Differential diagnosis: obstructed airway, bronchitis, flu, URI, Nonspecific abd pain, gastritis, viral gastroenteritis, gastroenteritis. Differential Diagnosis altered mental status, sepsis, flu, Obstructed Airway Bronchitis Influenza Upper Respiratory Infection Sinusitis Pharyngitis. Data reviewed: vital signs, nurses notes, lab test result(s), radiologic studies, plain films. Consideration of Admission/Observation Escalation of care including admission/observation considered. I considered the following discharge prescriptions or medication management in the emergency department Medications were administered in the Emergency Department. See MAR. Test considered but Not performed: Ultrasound NO PE STUDY, NO VENOUS DOPPLER. Care significantly affected by the following chronic conditions: KIDNEY STONES, O CYST, UTI. 07/10 03:43 Order name: CBC with Diff [facility] 07/10 03:43 Order name: Comprehensive Metabolic Panel [facility] 07/10 03:43 Order name: Urinalysis w/ reflexes; Complete Time: 05:46 [facility] 07/10 03:43 Order name: PREGU; Complete Time: 05:46 [facility] 07/10 03:43 Order name: UDS; Complete Time: 05:46 [facility] 07/10 03:43 Order name: COVID-19 SARS RT PCR; Complete Time: 05:46 [facility] 07/10 03:43 Order name: Flu; Complete Time: 05:46 [facility] 07/10 05:14 Order name: Manual Differential [facility] 07/10 05:47 Order name: Urine Culture [facility] 07/10 05:48 Order name: Lipase [facility] 07/10 03:43 Order name: Chest Pa And Lat (2 Views) XRAY [facility] 07/10 05:28 Order name: US Abdomen Limited [facility] Administered Medications: 04:58 Drug: NS 0.9% IV 1000 ml IV at 1 bolus Per protocol; 1000 mL bolus Route: IV; Rate: 1 jw7 bolus; Site: right antecubital; 05:48 Follow up: Response: No adverse reaction; IV Status: Completed infusion; IV Intake: jw7 1000ml 04:59 Drug: Famotidine IVP 20 mg IVP once; dilute with 10 mL 0.9% NaCl; give over 2 minutes jw7 Route: IVP; Site: right antecubital; 05:48 Follow up: Response: No adverse reaction jw7 04:59 Drug: Ondansetron IVP 4 mg IVP once; over 2 minutes Route: IVP; Site: right antecubital;jw7 05:48 Follow up: Response: No adverse reaction jw7 05:28 CANCELLED (Duplicate Order): potassiumeffervescent tablet 25 meq PO once; dissolve in 4 dejah ounces of water or juice 05:45 Drug: Potassium PO Effervescent Tablet 25 mEq PO once; dissolve in 4 ounces of water or jw7 juice Route: PO; 06:47 Follow up: Response: No adverse reaction jw7 05:45 Drug: NS 0.9% with KCl IV 20 mEq/L 1000 ml IV at 500 ml/hr continuous Route: IV; Rate: jw7 500 ml/hr; Site: right antecubital; 08:02 Follow up: Response: No adverse reaction; IV Status: Completed infusion db 05:46 Drug: Potassium Chloride IV 20 mEq IV at per protocol once; administer over 1 hours jw7 Route: IV; Rate: per protocol; Site: right antecubital; 08:01 Follow up: Response: No adverse reaction; IV Status: Completed infusion; IV Intake: db 100ml 06:47 Drug: MethylPrednisoLONE IVP 125 mg IVP once Route: IVP; Site: right antecubital; jw7 08:02 Follow up: Response: No adverse reaction db 06:47 Drug: predniSONE PO 40 mg PO once Route: PO; jw7 08:02 Follow up: Response: No adverse reaction db 06:47 Drug: Rocephin IV 1 grams IV at per protocol once; Given slow IV push per pharmacy jw7 instructions Route: IV; Rate: per protocol; Site: right antecubital; 08:02 Follow up: IV Status: Completed infusion db 07:15 Drug: AZITHromycin PO 500 mg PO once Route: PO; db 08:02 Follow up: Response: No adverse reaction db Disposition Summary: 07/10/23 05:57 Discharge Ordered Notes: Location: Home dejah Problem: an acute exacerbation dejah Symptoms: have improved dejah Condition: Stable dejah Diagnosis - SARS-associated coronavirus as the cause of diseases classified elsewhere dejah - Weakness dejah - UTI/ Urinary tract infection, site not specified dejah - Nausea with vomiting, unspecified dejah - Hypokalemia dejah Followup: dejah - With: Private Physician - When: - Reason: Recheck today's complaints, Continuance of care, Re-evaluation by your physician Discharge Instructions: - Discharge Summary Sheet dejah - Potassium Content of Foods dejah - Dysuria dejah - Nausea and Vomiting, Adult dejah - Urinary Tract Infection, Adult dejah - Weakness dejah - Urinary Tract Infection, Adult, [id number] dejah - Weakness, [id number] dejah - Hypokalemia dejah - COVID-19 dejah - Viral Illness, Adult dejah Forms: - Medication Reconciliation Form [facility] - Thank You Letter [facility] - Antibiotic Education dejah - Prescription Opioid Use [facility] - Patient Portal Instructions [facility] - Leadership Thank You Letter [facility] Prescriptions: - ondansetron 4 mg Oral Tablet,disintegrating - take 1 tablet ORAL route every 6-8 hours; 20 tablet; Refills: 0, Product dejah Selection Permitted - Singulair 10 mg Oral tablet - take 1 tablet ORAL route every evening; 30 tablet; Refills: 0, Product [facility] Selection Permitted - Cipro 250 mg Oral tablet - take 1 tablet ORAL route every 12 hours; 10 tablet; Refills: 0, Product [facility] Selection Permitted - Pepcid 20 mg Oral tablet - take 1 tablet ORAL route every 12 hours for 21 days; 42 tablet; Refills: 0, [facility] Product Selection Permitted - Potassium Chloride 20 meq Oral Packet - take 1 packet ORAL route every 12 hours 1 packet in 6 (six) ounces of water or dejah juice; Take after meal; 20 packet; Refills: 0, Product Selection Permitted - Prednisone 20 mg Oral Tablet - take 2 tablets ORAL route once daily for 5 days; 10 tablet; Refills: 0, Product [facility] Selection Permitted - Zithromax 500 mg Oral Tablet - take 1 tablet ORAL route once daily for 5 days; 5 tablet; Refills: 0, Product dejah Selection Permitted Signatures: Dispatcher [employer] EDMS Jeremiah Gabriel MD MD cha Attema, Lee, PIPE FITTER HELPER-C PIPE FITTER HELPER-Cla1 Bhanu Johnson, RN RN bp Leena Gutierrez, RN RN jw7 Carolin Toney RN RN db Corrections: (The following items were deleted from the chart) 05:28 05:28 Potassium PO Effervescent Tablet 25 mEq PO once; dissolve in 4 ounces of water or dejah juice ordered. [facility] 05:48 05:28 LIPASE+C.LAB.BRZ ordered. [facility] EDMS
[2023-07-10] MEDS ORDERED: predniSONE 20 MG TAB ONE (06:10)
[2023-07-10] MEDS ORDERED: METHYLPREDNISOLONE 125 MG INJ ONE (06:10)
[2023-07-10] MEDS ORDERED: AZITHROMYCIN 250 MG TAB ONE (06:11)
[2023-07-10] MEDS ORDERED: CEFTRIAXONE 1000 MG/VIAL ONE (06:11)
[2023-07-10 07:49] LABS: Platelet Estimate ADEQ
[2023-07-10 07:53] LABS: Blood Morphology Comment NOT SEEN (NOT SEEN)
[2023-07-10 08:31] VITALS: TEMP 98.3
[2023-07-10 08:37] VITALS: BP 110/71; O2SAT 100
--- NOTE | 2023-07-10 10:20 | RAD REPORT ---
EXAM DESCRIPTION: US - Abdomen Exam Limited - 07/10/2023 5:55 am CLINICAL HISTORY: 33 years Female ABD PAIN COMPARISON: None TECHNIQUE: Limited gallbladder ultrasound was performed. FINDINGS: No gallstones. Negative sonographic Quinn sign. Gallbladder wall measures 2 mm. No pericholecystic fluid. Common bile duct measures 3 mm, within normal limits. IMPRESSION: No sonographic evidence of cholelithiasis or acute cholecystitis. Electronically signed by: Malika Kou MD 07/10/2023 6:12 AM CDT Due to temporary technical issues with the PACS/Fluency reporting system, reports are being signed by the in house radiologist without review as a courtesy to ensure prompt reporting. The interpreting r adiologist is fully responsible for the content of the report.
--- NOTE | 2023-07-10 10:28 | RAD REPORT ---
EXAM DESCRIPTION: RAD - Chest Pa And Lat (2 Views) - 07/10/2023 4:09 am CLINICAL HISTORY: 33 years Female COUGH COMPARISON: None FINDINGS: Lung volumes adequate. Cardiac silhouette is normal in size. No pneumothorax. No large pleural effusion. No focal consolidation. No acute bony finding. IMPRESSION: No acute cardiopulmonary findings. Electronically signed by: Malika Kuo MD 07/10/2023 4:34 AM CDT Due to temporary technical issues with the PACS/Fluency reporting system, reports are being signed by the in house radiologist without review as a courtesy to ensure prompt reporting. The interpreting r adiologist is fully responsible for the content of the report.
== END 2023-07-10 08:04 | disposition home or self-care (01) ==
LOC: ER 03:25
DX: U07.1 COVID-19 (principal); N39.0 Urinary tract infection, site not specified; E87.6 Hypokalemia; R53.1 Weakness
CPT/HCPCS: 36415; 71046; 76705; 80053; 80307; 81001; 81025; 83690; 85025; 87086; 87088; 87635; 87804; J0696; J2405; J2930; J3480; J7030; J7512

== ENCOUNTER → 2023-09-23 | Emergency (ER) | payer SELFPAY ==
[~2023-09-23] MED LIST: AMOX/K CLAV 875 MG TAB ONE; ASPIRIN 81 MG CHEWABLE TABLET ONE; HYDROCODONE/APAP 7.5/325 MG TAB ONE
--- OUTSIDE RECORDS SUMMARY | 2023-09-23 18:24 | XMS REPORT | Continuity of Care Document ---
Author Name Unknown Address [address] [facility]. [address] [place] [address] [facility] thconnect Address [address] [facility] [address] [place] [address] Care Team Providers Care Simulation Technician Name Role Phone Lexie Ac Primary Care Physician DELILAH BOLANOS Attending Clinician Unavailable Delilah Bolanos NP Attending Clinician [phone] RENEE SHAHID Attending Clinician Unavailable SWAPNIL NUNES Attending Clinician Unavailable Swapnil Nunes MD Attending Clinician [phone] Doctor Unassigned, [place] Attending Clinician Renee Matute PA-C Attending Clinician [phone], [facility] Room Attending Clinician Unavaila Maya Clay MD Attending Clinician [phone] MAYA SANTO Attending Clinician Unavailable MAYA SANTO Attending Clinician Unavailable 2, [facility] Attending Clinician Unavailable RESHMA DURANT Attending Clinician Unavailable Reshma Durant MD Attending Clinician [phone] Tuan Rahman NP Attending Clinician [phone] TUAN RAHMAN Attending Clinician Unavailab SmithFernanda Attending Clinician [phone] ELIDA MEJÍA Attending Clinician Unavailable Elida Mejía MD Attending Clinician [phone] Ciaran Diaz MD Attending Clinician [phone] CIARAN DIAZ Attending Clinician Unavailable SWAPNIL NUNES Admitting Clinician Unavailable Swapnil Nunes MD Admitting Clinician [phone] RESHMA DURANT Admitting Clinician Unavailable Reshma Durant MD Admitting Clinician [phone] ELIDA MEJÍA Admitting Clinician Unavailable Elida Mejía MD Admitting Clinician [phone] Payers Payer Name Policy Type Policy Number Effective Date Expirati on Date Source [place] [employer] [id number] 2022 00:00:00 [facility] [place] [facility] [id number] 2021 00:00:00 Problems Condition Name Condition Details Condition Category Status Onset Date Resolution Date Last Treatment Date Treating Clinician Comments Source 39 weeks gestation of 39 weeks gestation of Disease Active 4-24 00:00: 00 [facility] Previous section Previous section Disease Active 0 4-24 00:00: 00 [facility] Anemia affecting in third trimester Anemia affecting in third trimester Disease Active 4-24 00:00: 00 [facility] Liveborn , of [place]arr , born in hospital by delivery Liveborn infant, of [place]arr , born in hospital by delivery Disease Active 4-24 00:00: 00 [facility] Trichomona s vaginitis Trichomona s vaginitis Disease Active 4-17 00:00: 00 [facility] 35 weeks gestation of 35 weeks gestation of Disease Active - 00:00: 00 Overview: Formattin g of this note might be different from the original. Added automatic ally from request for surgery [id number] [facility] 38 weeks gestation of 38 weeks gestation of Disease Active 2- 00:00: 00 Overview: Formattin g of this note might be different from the original. Added automatic ally from request for surgery [id number] [facility] High-risk in third trimester High-risk in third trimester Disease Active 2021-09 00:00: 00 [facility] Acute cystitis with hematuria Acute cystitis with hematuria Disease Active 2021-09 016 00:00: 00 [facility] 12 weeks gestation of 12 weeks gestation of Disease Active 2021-0916 00:00: 00 [facility] Nausea and vomiting during prior to 22 weeks gestation Nausea and vomiting during prior to 22 weeks gestation Disease Active 2021-09 016 00:00: 00 [facility] Acute pyelonephr itis Acute pyelonephr itis Disease Active 2021-09 0 00:00: 00 [facility] No known active problems No known active problems Disease [facility] Allergies, Adverse Reactions, Alerts Allergy Name Allergy Type Status Severity Reaction(s) Onset Date Inactive Date Treating Clinician Comments Source NO KNOWN ALLERGIE S Drug Class Active [facility] Social History Social Habit Start Date Stop Date Quantity Comments Source ASSERTION 2022-05-05 00:00:00 [facility] History of tobacco use Passive smoker [facility] 2023-07-07 00:00:00 2023-07-07 00:00:00 Ex-drinker (finding) [facility] Exposure to SARS-CoV-2 (event) 2023-01-18 00:00:00 2023-01-28 13:36:00 Not sure [facility] Tobacco use and exposure 2022-08-20 00:00:00 2022-08-20 00:00:00 Smokeless tobacco non-user [facility] History of Social function 2022-08-20 00:00:00 2022-08-20 00:00:00 [facility] Sex Assigned At 1990 00:00:00 1990 00:00:00 [facility] Smoking Status Start Date Stop Date Source Tobacco smoking consumption unknown [facility] Never smoked tobacco [facility] Medications Ordered Medication Name Filled Medication Name Start Date Stop Date Current Medication? Ordering Clinician Indication Dosage Frequency Signature (SIG) Comments Components Source dicyclomine (BENTYL) injection 20 mg 2022-09 23:45: 00 07-08 11:44 :00 Yes 20mg 20 mg, Intramuscu lar, ONCE NOW, 1 dose, On Sat07/07/23 at 1845, Routine [facility] NaCl 0.9% (NS) bolus infusion 1,000 mL 2022-09 23:45: 00 07-08 11:44 :00 Yes 1000mL at 999 mL/hr, 1,000 mL, IV Infusion, ONCE, 1 dose, On Sat07/07/23 at 1845, LINDA [facility] ibuprofen (IBU) tablet 600 mg 01-23 05:00: 00 Yes 600mg 600 mg, Oral, Q6H ABX, First dose on Sat01/23/23 at 0000, Until Discontinu ed, Routine [facility] ibuprofen (IBU) tablet 600 mg 01-23 05:00: 00 Yes 600mg 600 mg, Oral, Q6H ABX, First dose on Sat01/23/23 at 0000, Until Discontinu ed, Routine [facility] PNV no.95/[place] fum/folic ac ( ORAL) 01-22 07:39: 52 01-22 00:00 :00 No Take by mouth. [facility] PNV no.95/[place] fum/folic ac ( ORAL) 01-22 07:39: 52 01-22 00:00 :00 No Take by mouth. [facility] ketorolac (TORADOL) injection 30 mg 01-22 05:00: 00 01-23 04:59 :00 No 30mg 30 mg, Slow IV Push, Q6H ABX, 4 doses, First dose on Sat01/22/23 at 0000, Last dose on Sat01/22/23 at 1800, Routine [facility] ketorolac (TORADOL) injection 30 mg 01-22 05:00: 00 01-22 23:14 :00 No 30mg 30 mg, Slow IV Push, Q6H ABX, 4 doses, First dose on Sat01/22/23 at 0000, Last dose on Sat01/22/23 at 1800, Routine [facility] acetaminoph en (TYLENOL) tablet 650 mg 01-22 01:00: 00 Yes 650mg 650 mg, Oral, Q6H ABX, First dose on Sat01/21/23 at 1999, Until Discontinu ed, Routine [facility] acetaminoph en (TYLENOL) tablet 650 mg 01-22 01:00: 00 Yes 650mg 650 mg, Oral, Q6H ABX, First dose on Sat01/21/23 at 1999, Until Discontinu ed, Routine [facility] acetaminoph en 325 mg tablet 01-22 00:00: 00 Yes [id number] 650mg Take 2 tablets by mouth every 6 (six) hours as needed for Pain (scale 1-3) or Pain (scale 4-6). [facility] vitamin w/FA tablet 01-22 00:00: 00 Yes [id number] 1{tbl} Take 1 tablet by mouth in the morning. [facility] docusate 100 mg capsule 01-22 00:00: 00 Yes [id number] 200mg Take 2 capsules by mouth once daily as needed for Constipati on. [facility] ferrous sulfate 325 mg (65 mg iron) tablet 01-22 00:00: 00 Yes [id number] 325mg Take 1 tablet by mouth in the morning and 1 tablet in the evening. [facility] ibuprofen 600 mg tablet 01-22 00:00: 00 Yes [id number] 600mg Take 1 tablet by mouth every 6 (six) hours as needed (Pain). Take with food or milk. [facility] acetaminoph en 325 mg tablet 01-22 00:00: 00 Yes [id number] 650mg Take 2 tablets by mouth every 6 (six) hours as needed for Pain (scale 1-3) or Pain (scale 4-6). [facility] vitamin w/FA tablet 2022-0 01-22 00:00: 00 Yes [id number] 1{tbl} Take 1 tablet by mouth in the morning. [facility] docusate 100 mg capsule 0 01-22 00:00: 00 Yes [id number] 200mg Take 2 capsules by mouth once daily as needed for Constipati on. [facility] ferrous sulfate 325 mg (65 mg iron) tablet 01-22 00:00: 00 Yes [id number] 325mg Take 1 tablet by mouth in the morning and 1 tablet in the evening. [facility] ibuprofen 600 mg tablet 2022-0 01-22 00:00: 00 Yes [id number] 600mg Take 1 tablet by mouth every 6 (six) hours as needed (Pain). Take with food or milk. [facility] acetaminoph en 325 mg tablet 01-22 00:00: 00 Yes [id number] 650mg Take 2 tablets by mouth every 6 (six) hours as needed for Pain (scale 1-3) or Pain (scale 4-6). [facility] vitamin w/FA tablet 01-22 00:00: 00 Yes [id number] 1{tbl} Take 1 tablet by mouth in the morning. [facility] docusate 100 mg capsule 01-22 00:00: 00 Yes [id number] 200mg Take 2 capsules by mouth once daily as needed for Constipati on. [facility] ferrous sulfate 325 mg (65 mg iron) tablet 01-22 00:00: 00 Yes [id number] 325mg Take 1 tablet by mouth in the morning and 1 tablet in the evening. [facility] ibuprofen 600 mg tablet 2022-0 01-22 00:00: 00 Yes [id number] 600mg Take 1 tablet by mouth every 6 (six) hours as needed (Pain). Take with food or milk. [facility] acetaminoph en 325 mg tablet 2022-0 01-22 00:00: 00 Yes [id number] 650mg Take 2 tablets by mouth every 6 (six) hours as needed for Pain (scale 1-3) or Pain (scale 4-6). [facility] vitamin w/FA tablet 2022-0 01-22 00:00: 00 Yes [id number] 1{tbl} Take 1 tablet by mouth in the morning. [facility] docusate 100 mg capsule 01-22 00:00: 00 Yes [id number] 200mg Take 2 capsules by mouth once daily as needed for Constipati on. [facility] ferrous sulfate 325 mg (65 mg iron) tablet 01-22 00:00: 00 Yes [id number] 325mg Take 1 tablet by mouth in the morning and 1 tablet in the evening. [facility] ibuprofen 600 mg tablet 01-22 00:00: 00 Yes [id number] 600mg Take 1 tablet by mouth every 6 (six) hours as needed (Pain). Take with food or milk. [facility] acetaminoph en 325 mg tablet 01-22 00:00: 00 Yes [id number] 650mg Take 2 tablets by mouth every 6 (six) hours as needed for Pain (scale 1-3) or Pain (scale 4-6). [facility] vitamin w/FA tablet 01-22 00:00: 00 Yes [id number] 1{tbl} Take 1 tablet by mouth in the morning. [facility] docusate 100 mg capsule 01-22 00:00: 00 Yes [id number] 200mg Take 2 capsules by mouth once daily as needed for Constipati on. [facility] ferrous sulfate 325 mg (65 mg iron) tablet 01-22 00:00: 00 Yes [id number] 325mg Take 1 tablet by mouth in the morning and 1 tablet in the evening. [facility] ibuprofen 600 mg tablet 0 01-22 00:00: 00 Yes [id number] 600mg Take 1 tablet by mouth every 6 (six) hours as needed (Pain). Take with food or milk. [facility] HYDROcodone -acetaminop hen 5-325 mg tablet 01-22 00:00: 00 01-30 04:59 :00 No [id number] 1{tbl} Take 1 tablet by mouth every 6 (six) hours as needed for Pain (scale 7-10) (Alternate with Ibuprofen) for up to 7 days. Indication s: acute pain [facility] HYDROcodone -acetaminop hen 5-325 mg tablet 25 00:00: 00 01-30 04:59 :00 No [id number] 1{tbl} Take 1 tablet by mouth every 6 (six) hours as needed for Pain (scale 7-10) (Alternate with Ibuprofen) for up to 7 days. Indication s: acute pain [facility] HYDROcodone -acetaminop hen 5-325 mg tablet 25 00:00: 00 01-30 04:59 :00 No [id number] 1{tbl} Take 1 tablet by mouth every 6 (six) hours as needed for Pain (scale 7-10) (Alternate with Ibuprofen) for up to 7 days. Indication s: acute pain [facility] HYDROcodone -acetaminop hen 5-325 mg tablet 2022-01-22 00:00: 00 01-30 04:59 :00 No [id number] 1{tbl} Take 1 tablet by mouth every 6 (six) hours as needed for Pain (scale 7-10) (Alternate with Ibuprofen) for up to 7 days. Indication s: acute pain [facility] gabapentin 300 mg capsule 01-22 00:00: 00 01-28 04:59 :00 No [id number] 300mg Take 1 capsule by mouth in the morning and 1 capsule at noon and 1 capsule in the evening. Do all this for 5 days. [facility] gabapentin 300 mg capsule 01-22 00:00: 00 01-28 04:59 :00 No [id number] 300mg Take 1 capsule by mouth in the morning and 1 capsule at noon and 1 capsule in the evening. Do all this for 5 days. [facility] acetaminoph en ADULT (OFIRMEV) injection 1,000 mg 01-21 20:00: 00 01-21 19:59 :00 No 1000mg 1,000 mg, IV Infusion, at 400 mL/hr Administer over 15 Minutes, ONCE, 1 dose, On Sat01/21/23 at 1500, Routine
Indicatio n: Perioperat jn Patient [facility] gabapentin (NEURONTIN) capsule 300 mg 01-21 19:00: 00 Yes 300mg 300 mg, Oral, TID, First dose on Sat01/21/23 at 1400, Until Discontinu ed, Routine [facility] gabapentin (NEURONTIN) capsule 300 mg 01-21 19:00: 00 Yes 300mg 300 mg, Oral, TID, First dose on Sat01/21/23 at 1400, Until Discontinu ed, Routine [facility] lactated ringers IV infusion 1,000 mL 01-21 14:45: 00 01-21 19:37 :21 No 1000mL at 125 mL/hr, 1,000 mL, IV Infusion, ONCE, 1 dose, On Sat01/21/23 at 0945, Routine [facility] rho(D) immune globulin (RHOGAM) syringe 300 mcg 01-21 14:41: 39 Yes 300ug 300 mcg, Intramuscu lar, ONCE, For 1 dose, Conditiona l, Routine [facility] rho(D) immune globulin (RHOGAM) syringe 300 mcg 01-21 14:41: 39 Yes 300ug 300 mcg, Intramuscu lar, ONCE, For 1 dose, Conditiona l, Routine [facility] HYDROcodone -acetaminop hen (NORCO 5) 5-325 mg tablet 1 tablet 01-21 14:41: 30 Yes 1{tbl} 1 tablet, Oral, Q6HPRN, Starting on Sat01/21/23 at 0941, Until Discontinu ed, Routine, Pain (scale 7-10), Alternate with Ibuprofen [facility] diphenhydrA MINE (BENADRYL) injection 25 mg 01-21 14:41: 30 Yes 25mg 25 mg, Slow IV Push, Q6HPRN, Starting on Sat01/21/23 at 0941, Until Discontinu ed, Routine, Itching [facility] diphenhydrA MINE (BENADRYL) tablet 25 mg 01-21 14:41: 30 Yes 25mg 25 mg, Oral, Q6HPRN, Starting on Sat01/21/23 at 0941, Until Discontinu ed, Routine, Sleep, Itching [facility] ondansetron (ZOFRAN (PF)) injection 4 mg 01-21 14:41: 30 Yes 4mg 4 mg, Slow IV Push, Q8HPRN, Starting on Sat01/21/23 at 0941, Until Discontinu ed, Routine, Nausea and Vomiting (N/V) [facility] HYDROcodone -acetaminop hen (NORCO 5) 5-325 mg tablet 1 tablet 01-21 14:41: 30 Yes 1{tbl} 1 tablet, Oral, Q6HPRN, Starting on Sat01/21/23 at 0941, Until Discontinu ed, Routine, Pain (scale 7-10), Alternate with Ibuprofen [facility] diphenhydrA MINE (BENADRYL) injection 25 mg 01-21 14:41: 30 Yes 25mg 25 mg, Slow IV Push, Q6HPRN, Starting on Sat01/21/23 at 0941, Until Discontinu ed, Routine, Itching [facility] diphenhydrA MINE (BENADRYL) tablet 25 mg 01-21 14:41: 30 Yes 25mg 25 mg, Oral, Q6HPRN, Starting on Sat01/21/23 at 0941, Until Discontinu ed, Routine, Sleep, Itching [facility] ondansetron (ZOFRAN (PF)) injection 4 mg 01-21 14:41: 30 Yes 4mg 4 mg, Slow IV Push, Q8HPRN, Starting on Sat01/21/23 at 0941, Until Discontinu ed, Routine, Nausea and Vomiting (N/V) [facility] bisacodyL (DULCOLAX) suppository 10 mg 01-21 14:41: 29 Yes 10mg 10 mg, Rectal, QDAILYPRN, Starting on Sat01/21/23 at 0941, Until Discontinu ed, Routine, Constipati on [facility] simethicone (GAS RELIEF (SIMETHICON E)) chewable tablet 160 mg 01-21 14:41: 29 Yes 160mg 160 mg, Oral, PC+HSPRN, Starting on Sat01/21/23 at 0941, Until Discontinu ed, Routine, Gas [facility] docusate (COLACE) capsule 200 mg 01-21 14:41: 29 Yes 200mg 200 mg, Oral, QDAILYPRN, Starting on Sat01/21/23 at 0941, Until Discontinu ed, Routine, Constipati on [facility] magnesium hydroxide (MILK OF MAGNESIA) 400 mg/5 mL suspension 30 mL 01-21 14:41: 29 Yes 30mL 30 mL, Oral, QDAILYPRN, Starting on Sat01/21/23 at 0941, Until Discontinu ed, Routine, Constipati on [facility] lactated ringers IV infusion 1,000 mL 01-21 14:41: 29 Yes 1000mL at 125 mL/hr, 1,000 mL, IV Infusion, PRN, 1 dose, Starting on Sat01/21/23 at 0941, Until Discontinu ed, Routine [facility] bisacodyL (DULCOLAX) suppository 10 mg 01-21 14:41: 29 Yes 10mg 10 mg, Rectal, QDAILYPRN, Starting on Sat01/21/23 at 0941, Until Discontinu ed, Routine, Constipati on [facility] simethicone (GAS RELIEF (SIMETHICON E)) chewable tablet 160 mg 01-21 14:41: 29 Yes 160mg 160 mg, Oral, PC+HSPRN, Starting on Sat01/21/23 at 0941, Until Discontinu ed, Routine, Gas [facility] docusate (COLACE) capsule 200 mg 01-21 14:41: 29 Yes 200mg 200 mg, Oral, QDAILYPRN, Starting on Sat01/21/23 at 0941, Until Discontinu ed, Routine, Constipati on [facility] magnesium hydroxide (MILK OF MAGNESIA) 400 mg/5 mL suspension 30 mL 01-21 14:41: 29 Yes 30mL 30 mL, Oral, QDAILYPRN, Starting on Sat01/21/23 at 0941, Until Discontinu ed, Routine, Constipati on [facility] lactated ringers IV infusion 1,000 mL 01-21 14:41: 29 Yes 1000mL at 125 mL/hr, 1,000 mL, IV Infusion, PRN, 1 dose, Starting on Sat01/21/23 at 0941, Until Discontinu ed, Routine [facility] sodium chloride 0.9 % irrigation solution 01-21 14:03: 00 Yes PRN, Starting on Sat01/21/23 at 0903, Until Discontinu ed, Intra-op [facility] sodium chloride 0.9 % irrigation solution 01-21 14:03: 00 Yes PRN, Starting on Sat01/21/23 at 0903, Until Discontinu ed, Intra-op [facility] mupirocin (BACTROBAN OINT) 2 % skin ointment 01-21 13:55: 00 Yes Intra-op [facility] mupirocin (BACTROBAN OINT) 2 % skin ointment 01-21 13:55: 00 Yes Intra-op [facility] lactated ringers IV infusion 1,000 mL 01-21 13:15: 00 01-21 14:41 :37 No 1000mL at 125 mL/hr, 1,000 mL, IV Infusion, CONTINUOUS , Starting on Sat01/21/23 at 0815, Until Sat01/21/23 at 0941, LINDA [facility] oxytocin (PITOCIN) 30 units in NS 500 mL IV infusion 01-21 13:02: 17 01-21 14:41 :37 No 300mL/h 300 mL/hr, IV Infusion, SEE-INSTRU CTIONS, Starting on Sat01/21/[address] art at 300 mL/hr for 1 hr then 150 mL/hr for 1 hr. For post delivery uterotonic .
[facility] sodium citrate-cit dori acid (BICITRA) 500-334 mg/5 mL solution 30 mL 01-21 08:38: 50 01-21 12:32 :00 No 30mL 30 mL, Oral, PRE-PROCED URE ONCE, 1 dose, Starting on Sat01/21/23 at 0338, Until Discontinu ed, Routine, Surgery/Pr ocedure [facility] D5W-LR IV infusion 1,000 mL 01-21 08:38: 50 01-21 14:41 :37 No 1000mL at 1-125 mL/hr, IV Infusion, TITRATE, Starting on Sat01/21/23 at 0338, Until Sat01/21/23 at 0941, Routine [facility] metroNIDAZO LE (FLAGYL) 500 mg tablet 12-25 00:00: 00 12-26 04:59 :00 No [id number] 2000mg Take 4 tablets by mouth once now for 1 dose. [facility] cephALEXin 500 mg capsule 12-24 00:00: 00 01-01 04:59 :00 No [id number] 500mg Take 1 capsule by mouth 4 (four) times daily for 7 days. [facility] cephALEXin 500 mg capsule 12-24 00:00: 00 01-01 04:59 :00 No [id number] 500mg Take 1 capsule by mouth 4 (four) times daily for 7 days. [facility] cephALEXin 500 mg capsule 12-24 00:00: 00 01-01 04:59 :00 No [id number] 500mg Take 1 capsule by mouth 4 (four) times daily for 7 days. [facility] cephALEXin 500 mg capsule 12-24 00:00: 00 01-01 04:59 :00 No [id number] 500mg Take 1 capsule by mouth 4 (four) times daily for 7 days. [facility] cephALEXin 500 mg capsule 12-24 00:00: 00 01-01 04:59 :00 No [id number] 500mg Take 1 capsule by mouth 4 (four) times daily for 7 days. [facility] PNV no.95/[place] [facility] fum/folic ac ( ORAL) 11-08 21:33: 39 Yes Take by mouth. [facility] PNV no.95/[place] [facility] fum/folic ac ( ORAL) 2 21:33: 39 Yes Take by mouth. [facility] PNV no.95/[place] [facility] fum/folic ac ( ORAL) 2 21:33: 39 Yes Take by mouth. [facility] PNV no.95[facility] [facility] fum/folic ac ( ORAL) 2 21:33: 39 Yes Take by mouth. [facility] PNV no.95[facility] [facility] fum/folic ac ( ORAL) 2 21:33: 39 Yes Take by mouth. [facility] PNV no.95[facility] [facility] fum/folic ac ( ORAL) 11-08 21:33: 39 Yes Take by mouth. [facility] PNV no.95[facility] fum/folic ac ( ORAL) 11-08 21:33: 39 Yes Take by mouth. [facility] PNV no.95/[place] [facility] fum/folic ac ( ORAL) 2 21:33: 39 Yes Take by mouth. [facility] PNV no.95[facility] [facility] fum/folic ac ( ORAL) 11-08 21:33: 39 Yes Take by mouth. [facility] ferrous sulfate (IRON, FERROUS SULFATE,) 325 mg (65 mg iron) tablet 2021-09 00:00: 00 Yes [id number] 325mg Take 1 tablet by mouth in the morning and 1 tablet in the evening. [facility] ferrous sulfate (IRON, FERROUS SULFATE,) 325 mg (65 mg iron) tablet 2021-09 00:00: 00 Yes [id number] 325mg Take 1 tablet by mouth in the morning and 1 tablet in the evening. [facility] ferrous sulfate (IRON, FERROUS SULFATE,) 325 mg (65 mg iron) tablet 2021-09 00:00: 00 Yes [id number] 325mg Take 1 tablet by mouth in the morning and 1 tablet in the evening. [facility] ferrous sulfate (IRON, FERROUS SULFATE,) 325 mg (65 mg iron) tablet 2021-09 00:00: 00 Yes [id number] 325mg Take 1 tablet by mouth in the morning and 1 tablet in the evening. [facility] ferrous sulfate (IRON, FERROUS SULFATE,) 325 mg (65 mg iron) tablet 2021-09 00:00: 00 Yes [id number] 325mg Take 1 tablet by mouth in the morning and 1 tablet in the evening. [facility] ferrous sulfate (IRON, FERROUS SULFATE,) 325 mg (65 mg iron) tablet 2021-09 00:00: 00 Yes [id number] 325mg Take 1 tablet by mouth in the morning and 1 tablet in the evening. [facility] ferrous sulfate (IRON, FERROUS SULFATE,) 325 mg (65 mg iron) tablet 2021-09 00:00: 00 Yes [id number] 325mg Take 1 tablet by mouth in the morning and 1 tablet in the evening. [facility] ferrous sulfate (IRON, FERROUS SULFATE,) 325 mg (65 mg iron) tablet 2021-09 00:00: 00 Yes [id number] 325mg Take 1 tablet by mouth in the morning and 1 tablet in the evening. [facility] ferrous sulfate (IRON, FERROUS SULFATE,) 325 mg (65 mg iron) tablet 2021-09 00:00: 00 Yes [id number] 325mg Take 1 tablet by mouth in the morning and 1 tablet in the evening. [facility] ferrous sulfate (IRON, FERROUS SULFATE,) 325 mg (65 mg iron) tablet 2021-09 00:00: 00 Yes [id number] 325mg Take 1 tablet by mouth in the morning and 1 tablet in the evening. [facility] ferrous sulfate (IRON, FERROUS SULFATE,) 325 mg (65 mg iron) tablet 2021-09 00:00: 00 Yes [id number] 325mg Take 1 tablet by mouth in the morning and 1 tablet in the evening. [facility] ferrous sulfate (IRON, FERROUS SULFATE,) 325 mg (65 mg iron) tablet 2021-09 00:00: 00 Yes [id number] 325mg Take 1 tablet by mouth in the morning and 1 tablet in the evening. [facility] ferrous sulfate (IRON, FERROUS SULFATE,) 325 mg (65 mg iron) tablet 2021-09 00:00: 00 01-22 00:00 :00 No [id number] 325mg Take 1 tablet by mouth in the morning and 1 tablet in the evening. [facility] ferrous sulfate (IRON, FERROUS SULFATE,) 325 mg (65 mg iron) tablet 2021-09 00:00: 00 01-22 00:00 :00 No [id number] 325mg Take 1 tablet by mouth in the morning and 1 tablet in the evening. [facility] metroNIDAZO LE (FLAGYL) 500 mg tablet 2021-09 00:00: 00 08-22 05:59 :00 No [id number] 2000mg Take 4 tablets by mouth once now for 1 dose. [facility] PNV no.95/[place] [facility] fum/folic ac ( ORAL) 2021-09 10:34: 56 Yes Take by mouth. [facility] PNV no.95/[place] [facility] fum/folic ac ( ORAL) 2021-09 10:34: 56 Yes Take by mouth. [facility] PNV no.95/[place] fum/folic ac ( ORAL) 2021-09 10:34: 56 Yes Take by mouth. [facility] PNV no.[facility]/[place] [facility] fum/folic ac ( ORAL) 2021-09 10:34: 56 Yes Take by mouth. [facility] no.[facility] [facility] fum/folic ac ( ORAL) 2021-09 10:34: 56 Yes Take by mouth. [facility] no.[facility] [facility] fum/folic ac ( ORAL) 2021-09 10:34: 56 Yes Take by mouth. [facility] no.[facility] [facility] fum/folic ac ( ORAL) 2021-09 10:34: 56 Yes Take by mouth. [facility] no.[facility] [facility] fum/folic ac ( ORAL) 2021-09 10:34: 56 Yes Take by mouth. [facility] no.[facility] [facility] fum/folic ac ( ORAL) 2021-09 10:34: 56 Yes Take by mouth. [facility] no.[facility] [facility] fum/folic ac ( ORAL) 2021-09 10:34: 56 Yes Take by mouth. [facility] no.[facility] [facility] fum/folic ac ( ORAL) 2021-09 10:34: 56 Yes Take by mouth. [facility] no.[facility] [facility] fum/folic ac ( ORAL) 2021-09 10:34: 56 Yes Take by mouth. [facility] no.[facility] [facility] fum/folic ac ( ORAL) 2021-09 10:34: 56 Yes Take by mouth. [facility] cephALEXin 500 mg capsule 2021-09 00:00: 00 Yes [id number] 500mg Take 1 capsule by mouth in the morning. [facility] cephALEXin 500 mg capsule 2021-09 00:00: 00 Yes [id number] 500mg Take 1 capsule by mouth in the morning. [facility] cephALEXin 500 mg capsule 2021-09 00:00: 00 Yes [id number] 500mg Take 1 capsule by mouth in the morning. [facility] cephALEXin 500 mg capsule 2021-09 00:00: 00 Yes [id number] 500mg Take 1 capsule by mouth in the morning. [facility] cephALEXin 500 mg capsule 2021-09 00:00: 00 Yes [id number] 500mg Take 1 capsule by mouth in the morning. [facility] cephALEXin 500 mg capsule 2021-09 00:00: 00 Yes [id number] 500mg Take 1 capsule by mouth in the morning. [facility] cephALEXin 500 mg capsule 2021-09 00:00: 00 Yes [id number] 500mg Take 1 capsule by mouth in the morning. [facility] cephALEXin 500 mg capsule 2021-09 00:00: 00 Yes [id number] 500mg Take 1 capsule by mouth in the morning. [facility] cephALEXin 500 mg capsule 2021-09 00:00: 00 Yes [id number] 500mg Take 1 capsule by mouth in the morning. [facility] cephALEXin 500 mg capsule 2021-09 00:00: 00 Yes [id number] 500mg Take 1 capsule by mouth in the morning. [facility] cephALEXin 500 mg capsule 2021-09 00:00: 00 Yes [id number] 500mg Take 1 capsule by mouth in the morning. [facility] cephALEXin 500 mg capsule 2021-09 00:00: 00 Yes [id number] 500mg Take 1 capsule by mouth in the morning. [facility] cephALEXin 500 mg capsule 2021-09 00:00: 00 Yes [id number] 500mg Take 1 capsule by mouth in the morning. [facility] cephALEXin 500 mg capsule 2021-09 00:00: 00 Yes [id number] 500mg Take 1 capsule by mouth in the morning. [facility] cephALEXin 500 mg capsule 2021-09 00:00: 00 Yes [id number] 500mg Take 1 capsule by mouth in the morning. [facility] cephALEXin 500 mg capsule 2021-09 00:00: 00 Yes [id number] 500mg Take 1 capsule by mouth in the morning. [facility] cephALEXin 500 mg capsule 2021-09 00:00: 00 Yes [id number] 500mg Take 1 capsule by mouth in the morning. [facility] cephALEXin 500 mg capsule 2021-09 00:00: 00 Yes [id number] 500mg Take 1 capsule by mouth in the morning. [facility] cephALEXin 500 mg capsule 2021-09 00:00: 00 Yes [id number] 500mg Take 1 capsule by mouth in the morning. [facility] cephALEXin 500 mg capsule 2021-09 00:00: 00 Yes [id number] 500mg Take 1 capsule by mouth in the morning. [facility] cephALEXin 500 mg capsule 2021-09 00:00: 00 Yes [id number] 500mg Take 1 capsule by mouth in the morning. [facility] cephALEXin 500 mg capsule 2021-09 00:00: 00 01-22 00:00 :00 No [id number] 500mg Take 1 capsule by mouth in the morning. [facility] cephALEXin 500 mg capsule 2021-09 00:00: 00 01-22 00:00 :00 No [id number] 500mg Take 1 capsule by mouth in the morning. [facility] Nitrofurant oin&Nit. Macrocryst (MACROBID) 100 mg capsule 100 mg 2021-09 18:34: 00 07-16 18:58 :00 No 100mg 100 mg, Oral, ONCE, 1 dose, On Sat07/16/22 at 1345, Routine
Reason for Anti-Infec tive: Documented Infection< br>Documen sanjiv Infection Site: Urine
D uration of Therapy: Other (see Comments) [facility] metoclopram chirag HCl (REGLAN) injection 10 mg 2021-09 13:05: 52 Yes 10mg 10 mg, Slow IV Push, Q6HPRN, Starting on Sat07/16/22 at 0805, Until Discontinu ed, Routine, Nausea and Vomiting (N/V), if cannot tolerate PO [facility] metoclopram chirag HCl (REGLAN) tablet 10 mg 2021-09 13:05: 33 Yes 10mg 10 mg, Oral, Q6HPRN, Starting on Sat07/16/22 at 0805, Until Discontinu ed, Routine, Nausea and Vomiting (N/V) [facility] fluconazole (DIFLUCAN) tablet 200 mg 2021-09 04:00: 00 07-16 03:14 :00 No 200mg 200 mg, Oral, ONCE NOW, 1 dose, On Sat07/15/22 at 2300, LINDA
Re ason for Anti-Infec tive: Documented Infection< br>Documen sanjiv Infection Site: Pelvic
Duration of Therapy: Other (see Comments) [facility] metroNIDAZO LE (FLAGYL) tablet 500 mg 2021-09 03:15: 00 07-18 00:59 :00 No 500mg 500 mg, Oral, Q12H, 4 doses, First dose on Sat07/15/22 at 2215, Last dose on Sat07/17/22 at 0800, Routine
Reason for Anti-Infec tive: Documented Infection< br>Documen sanjiv Infection Site: Pelvic
Duration of Therapy: Other (see Comments) [facility] acetaminoph en (TYLENOL) tablet 650 mg 2021-09 00:28: 16 Yes 650mg 650 mg, Oral, Q6HPRN, Starting on Sat07/15/22 at 1928, Until Discontinu ed, Routine, Pain (scale 1-3) [facility] metoclopram chirag HCl 10 mg tablet 2021-09 00:00: 00 Yes [id number] 10mg Take 1 tablet by mouth every 6 (six) hours as needed for Nausea and Vomiting (N/V). [facility] metoclopram chirag HCl 10 mg tablet 2021-09 00:00: 00 Yes [id number] 10mg Take 1 tablet by mouth every 6 (six) hours as needed for Nausea and Vomiting (N/V). [facility] metoclopram chirag HCl 10 mg tablet 2021-09 00:00: 00 Yes [id number] 10mg Take 1 tablet by mouth every 6 (six) hours as needed for Nausea and Vomiting (N/V). [facility] metoclopram chirag HCl 10 mg tablet 2021-09 00:00: 00 Yes [id number] 10mg Take 1 tablet by mouth every 6 (six) hours as needed for Nausea and Vomiting (N/V). [facility] metoclopram chirag HCl 10 mg tablet 2021-09 0-17 00:00: 00 Yes [id number] 10mg Take 1 tablet by mouth every 6 (six) hours as needed for Nausea and Vomiting (N/V). [facility] metoclopram chirag HCl 10 mg tablet 2021- 0-17 00:00: 00 Yes [id number] 10mg Take 1 tablet by mouth every 6 (six) hours as needed for Nausea and Vomiting (N/V). [facility] metoclopram chirag HCl 10 mg tablet 2021- 0-17 00:00: 00 Yes [id number] 10mg Take 1 tablet by mouth every 6 (six) hours as needed for Nausea and Vomiting (N/V). [facility] metoclopram chirag HCl 10 mg tablet 2021-09 0-17 00:00: 00 Yes [id number] 10mg Take 1 tablet by mouth every 6 (six) hours as needed for Nausea and Vomiting (N/V). [facility] metoclopram chirag HCl 10 mg tablet 2021-09 0-17 00:00: 00 Yes [id number] 10mg Take 1 tablet by mouth every 6 (six) hours as needed for Nausea and Vomiting (N/V). [facility] metoclopram chirag HCl 10 mg tablet 2021-09 0-17 00:00: 00 Yes [id number] 10mg Take 1 tablet by mouth every 6 (six) hours as needed for Nausea and Vomiting (N/V). [facility] metoclopram chirag HCl 10 mg tablet 2021- 0-17 00:00: 00 Yes [id number] 10mg Take 1 tablet by mouth every 6 (six) hours as needed for Nausea and Vomiting (N/V). [facility] metoclopram chirag HCl 10 mg tablet 2021-1 0-17 00:00: 00 Yes [id number] 10mg Take 1 tablet by mouth every 6 (six) hours as needed for Nausea and Vomiting (N/V). [facility] metoclopram chirag HCl 10 mg tablet 2021-1 0-17 00:00: 00 Yes [id number] 10mg Take 1 tablet by mouth every 6 (six) hours as needed for Nausea and Vomiting (N/V). [facility] metoclopram chirag HCl 10 mg tablet 2021-09 0-17 00:00: 00 Yes [id number] 10mg Take 1 tablet by mouth every 6 (six) hours as needed for Nausea and Vomiting (N/V). [facility] metoclopram chirag HCl 10 mg tablet 2021-09 0-17 00:00: 00 Yes [id number] 10mg Take 1 tablet by mouth every 6 (six) hours as needed for Nausea and Vomiting (N/V). [facility] metoclopram chirag HCl 10 mg tablet 2021-09 0-17 00:00: 00 Yes [id number] 10mg Take 1 tablet by mouth every 6 (six) hours as needed for Nausea and Vomiting (N/V). [facility] metoclopram chirag HCl 10 mg tablet 2021-09 0-17 00:00: 00 Yes [id number] 10mg Take 1 tablet by mouth every 6 (six) hours as needed for Nausea and Vomiting (N/V). [facility] metoclopram chirag HCl 10 mg tablet 2021-09 0-17 00:00: 00 Yes [id number] 10mg Take 1 tablet by mouth every 6 (six) hours as needed for Nausea and Vomiting (N/V). [facility] metoclopram chirag HCl 10 mg tablet 2021-09 0-17 00:00: 00 Yes [id number] 10mg Take 1 tablet by mouth every 6 (six) hours as needed for Nausea and Vomiting (N/V). [facility] metoclopram chirag HCl 10 mg tablet 2021-09 0-17 00:00: 00 Yes [id number] 10mg Take 1 tablet by mouth every 6 (six) hours as needed for Nausea and Vomiting (N/V). [facility] metoclopram chirag HCl 10 mg tablet 2021- 0-17 00:00: 00 Yes [id number] 10mg Take 1 tablet by mouth every 6 (six) hours as needed for Nausea and Vomiting (N/V). [facility] metoclopram chirag HCl 10 mg tablet 2021- 0-17 00:00: 00 Yes [id number] 10mg Take 1 tablet by mouth every 6 (six) hours as needed for Nausea and Vomiting (N/V). [facility] metoclopram chirag HCl 10 mg tablet 2021-09 0 00:00: 00 Yes [id number] 10mg Take 1 tablet by mouth every 6 (six) hours as needed for Nausea and Vomiting (N/V). [facility] metoclopram chirag HCl 10 mg tablet 2021-09 0 00:00: 00 Yes [id number] 10mg Take 1 tablet by mouth every 6 (six) hours as needed for Nausea and Vomiting (N/V). [facility] metoclopram chirag HCl 10 mg tablet 2021-09 0 00:00: 00 Yes [id number] 10mg Take 1 tablet by mouth every 6 (six) hours as needed for Nausea and Vomiting (N/V). [facility] metoclopram chirag HCl 10 mg tablet 2021-09 0 00:00: 00 01-22 00:00 :00 No [id number] 10mg Take 1 tablet by mouth every 6 (six) hours as needed for Nausea and Vomiting (N/V). [facility] metoclopram chirag HCl 10 mg tablet 2021-09 0 00:00: 00 01-22 00:00 :00 No [id number] 10mg Take 1 tablet by mouth every 6 (six) hours as needed for Nausea and Vomiting (N/V). [facility] metroNIDAZO LE 500 mg tablet 2021-09 0 00:00: 00 07-23 04:59 :00 No [id number] 500mg Take 1 tablet by mouth every 12 (twelve) hours for 6 days. [facility] metroNIDAZO LE 500 mg tablet 2021-09 0 00:00: 00 07-23 04:59 :00 No [id number] 500mg Take 1 tablet by mouth every 12 (twelve) hours for 6 days. [facility] Nitrofurant oin&Nit. Macrocryst 100 mg capsule 2021-09 0 00:00: 00 07-17 04:59 :00 No [id number] 100mg Take 1 capsule by mouth once now for 1 dose. [facility] D5W-LR IV infusion 1,000 mL 2021-09 23:00: 00 08-08 23:59 :00 No 1000mL at 150 mL/hr, IV Infusion, CONTINUOUS , Starting on Sat07/15/22 at 1800, Until Sat08/08/22 at 1759, Routine [facility] metoclopram chirag HCl (REGLAN) injection 10 mg 2021-09 22:00: 34 07-16 13:06 :11 No 10mg 10 mg, Slow IV Push, Q6HPRN, Starting on Sat07/15/22 at 1700, Until Sat07/16/22 at 0806, Routine, Nausea and Vomiting (N/V) [facility] NaCl 0.9% (NS) bolus infusion 1,632 mL 2021-09 20:45: 00 07-15 19:59 :00 No 30mL/kg at 999 mL/hr, 1,632 mL (30 mL/kg ?54.4 kg), IV Infusion, ONCE, 1 dose, On Sat07/15/22 at 1545, LINDA [facility] cefTRIAXone (ROCEPHIN) 1,000 mg in NaCl 0.9% (NS) 50 mL MINI-BAG 2021-09 20:15: 00 07-15 21:06 :00 No 1000mg 1,000 mg, IV Piggyback, ONCE, 1 dose, On Sat07/15/22 at 1515, Administer over 30 Minutes, 50 mL
Reas on for Anti-Infec tive: Documented Infection< br>Documen sanjiv Infection Site: Urine
D uration of Therapy: 7 days [facility] ondansetron (ZOFRAN (PF)) injection 4 mg 2021-09 20:00: 00 07-15 20:02 :00 No 4mg 4 mg, Slow IV Push, ONCE, 1 dose, On Sat07/15/22 at 1500, LINDA [facility] cephALEXin 500 mg capsule 2021-09 00:00: 00 07-16 00:00 :00 No [id number] 500mg Take 1 capsule by mouth in the morning. [facility] thiamine (VITAMIN B1) 100 mg, foLIC acid (FOLATE) 1 mg, multivitami n adult (INFUVITE ADULT) 3,300 unit- 150 mcg/10 mL 10 mL in D5W 0.45% NaCl (1/2NS) IV Solution 2021-09 21:00: 00 07-03 13:59 :00 No IV Infusion, at 125 mL/hr, DAILY, 1 dose, First dose (after last reorder) on Sat07/02/22 at 1600, 1,000 mL [facility] NaCl 0.9% (NS) IV infusion 1,000 mL 2021-09 05:00: 00 07-02 20:59 :00 No 1000mL at 75 mL/hr, IV Infusion, CONTINUOUS , Starting on Sat07/02/22 at 0000, Until Sat07/02/22 at 1559, Routine
Please hang after banana bag runs out
[facility] doxylamine (SLEEP AID) tablet 25 mg 2021-09 02:00: 00 Yes 25mg 25 mg, Oral, QHS, First dose on [place] 07/01/22 at 2100, Until Discontinu ed, Routine [facility] cefTRIAXone (ROCEPHIN) 1,000 mg in NaCl 0.9% (NS) 50 mL MINI-BAG 2021-09 02:00: 00 07-02 02:51 :00 No 1000mg 1,000 mg, IV Piggyback, ONCE, 1 dose, On [place] 07/01/22 at 2100, Administer over 30 Minutes, 50 mL
Reas on for Anti-Infec tive: Documented Infection< br>Documen sanjiv Infection Site: Urine
D uration of Therapy: 7 days [facility] famotidine (PEPCID (PF)) injection 20 mg 2021-09 003 01:00: 00 Yes 20mg 20 mg, Slow IV Push, BID, First dose (after last reorder) on [place] 07/01/22 at 2000, Until Discontinu ed, Routine [facility] metoclopram chirag HCl (REGLAN) 10 mg tablet 2021-09 0 00:00: 00 Yes [id number] 10mg Take 1 tablet by mouth every 6 (six) hours as needed for Nausea and Vomiting (N/V) or Gastroesop hageal reflux. [facility] metoclopram chirag HCl (REGLAN) 10 mg tablet 2021-09 0 00:00: 00 07-16 00:00 :00 No [id number] 9108 10mg Take 1 tablet by mouth every 6 (six) hours as needed for Nausea and Vomiting (N/V) or Gastroesop hageal reflux. [facility] cephALEXin 500 mg capsule 2021-09 00:00: 00 07-15 04:59 :00 No [id number] 500mg Take 1 capsule by mouth 4 (four) times daily for 12 days. [facility] thiamine (VITAMIN B1) 100 mg, foLIC acid (FOLATE) 1 mg, multivitami n adult (INFUVITE ADULT) 3,300 unit- 150 mcg/10 mL 10 mL in D5W 0.45% NaCl (1/2NS) IV Solution 2021-09 20:00: 00 07-02 05:33 :00 No IV Infusion, at 125 mL/hr, DAILY, 1 dose, First dose (after last modificati on) on 07/01/22 at 1500, 1,000 mL [facility] famotidine (PEPCID (PF)) injection 20 mg 2021-09 19:45: 00 07-01 21:31 :00 No 20mg 20 mg, Slow IV Push, ONCE, 1 dose, On 07/01/22 at 1445, Routine [facility] pyridoxine (vitamin B6) (VITAMIN B6) tablet 25 mg 2021-09 19:00: 00 Yes 25mg 25 mg, Oral, TID, First dose on 07/01/22 at 1400, Until Discontinu ed, Routine [facility] metoclopram chirag HCl (REGLAN) injection 10 mg 2021-09 18:53: 54 Yes 10mg 10 mg, Slow IV Push, Q6HPRN, Starting on 07/01/22 at 1353, Until Discontinu ed, Routine, Nausea and Vomiting (N/V) [facility] NaCl 0.9% (NS) IV infusion 1,000 mL 2021-09 05:30: 00 07-01 18:54 :44 No 1000mL at 75 mL/hr, IV Infusion, CONTINUOUS , Starting on [place] 07/01/22 at 0030, Until [place] 07/01/22 at 1354, Routine [facility] acetaminoph en (TYLENOL) tablet 650 mg 2021-09 04:26: 22 Yes 650mg 650 mg, Oral, Q6HPRN, Starting on 06/30/22 at 2326, Until Discontinu ed, Routine, Pain (scale 1-3), or fever [facility] ondansetron (ZOFRAN (PF)) injection 4 mg 2021-09 04:25: 39 Yes 4mg 4 mg, Slow IV Push, Q6HPRN, Nausea and Vomiting (N/V), Starting on 06/30/22 at 2325
Do ses of ondansetro n 16 mg and above need to be administer ed via IV piggyback. For Dose >=24mg ECG monitoring is advisable.
[facility] metoclopram chirag HCl (REGLAN) injection 10 mg 2021-09 03:30: 00 07-01 03:35 :00 No 10mg 10 mg, Slow IV Push, ONCE, 1 dose, On [facility] 06/30/22 at 2230, LINDA [facility] NaCl 0.9% (NS) bolus infusion 1,000 mL 2021-09 03:00: 00 07-01 02:23 :00 No 1000mL at 999 mL/hr, 1,000 mL, IV Infusion, ONCE, 1 dose, On 06/30/22 at 2200, LINDA [facility] cefTRIAXone (ROCEPHIN) 1,000 mg in NaCl 0.9% (NS) 50 mL MINI-BAG 2021-09 02:15: 00 07-01 02:50 :00 No 1000mg 1,000 mg, IV Piggyback, ONCE, 1 dose, On 06/30/22 at 2115, Administer over 30 Minutes, 50 mL
Reas on for Anti-Infec tive: Documented Infection< br>Documen sanjiv Infection Site: Urine
D uration of Therapy: 7 days [facility] ondansetron (ZOFRAN (PF)) injection 4 mg 2021-09 00:45: 00 07-01 02:20 :00 No 4mg 4 mg, Slow IV Push, ONCE, 1 dose, On 06/30/22 at 1945, LINDA [facility] TAKE 1 TABLET EVERY 4 TO 6 [...] 06-19 00:00: 00 06-30 04:59 :00 No [id number] 250mg Take 1 capsule by mouth every 8 (eight) hours for 10 days. [facility] cephALEXin 250 mg capsule 0 06-19 00:00: 00 06-30 04:59 :00 No [id number] 250mg Take 1 capsule by mouth every 8 (eight) hours for 10 days. [facility] cephALEXin 250 mg capsule 0 06-19 00:00: 00 06-30 04:59 :00 No [id number] 250mg Take 1 capsule by mouth every 8 (eight) hours for 10 days. [facility] Dose Unknown 0 8-04 00:00: 00 [...] Systolic blood pressure 2023-07-07 22:51:16 95 mm[Hg] [facility] Diastolic blood pressure 2023-07-07 22:51:16 63 mm[Hg] [facility] Respiratory rate 2023-07-07 22:49:00 20 /min [facility] Body height 2023-07-07 22:49:00 149.9 cm [facility] Body weight 2023-07-07 22:49:00 61.236 kg [facility] BMI 2023-07-07 22:49:00 27.27 kg/m2 [facility] Oxygen saturation in Arterial blood by Pulse oximetry 2023-07-07 22:49:00 100 /min [facility] Heart rate 2023-07-07 22:49:00 101 /min [facility] Body temperature 2023-07-07 22:49:00 37.28 [place] [facility] Systolic blood pressure 2023-01-28 19:23:00 120 mm[Hg] [facility] Diastolic blood pressure 2023-01-28 19:23:00 80 mm[Hg] [facility] Heart rate 2023-01-28 19:23:00 88 /min [facility] Body temperature 2023-01-28 19:23:00 36.61 [place] [facility] Respiratory rate 2023-01-28 19:23:00 20 /min [facility] Body height 2023-01-28 19:23:00 149.9 cm [facility] Body weight 2023-01-28 19:23:00 70.761 kg [facility] BMI 2023-01-28 19:23:00 31.51 kg/m2 [facility] Oxygen saturation in Arterial blood by Pulse oximetry 2023-01-28 19:23:00 98 /min [facility] Systolic blood pressure 2023-01-23 12:00:00 129 mm[Hg] [facility] Diastolic blood pressure 2023-01-23 12:00:00 88 mm[Hg] [facility] Heart rate 2023-01-23 12:00:00 86 /min [facility] Body temperature 2023-01-23 12:00:00 36.61 [place] [facility] Respiratory rate 2023-01-23 12:00:00 20 /min [facility] Oxygen saturation in Arterial blood by Pulse oximetry 2023-01-23 12:00:00 98 /min [facility] Body height 2023-01-21 08:55:00 149.9 cm [facility] Body weight 2023-01-21 08:55:00 78.472 kg [facility] BMI 2023-01-21 08:55:00 34.94 kg/m2 [facility] Systolic blood pressure 2023-01-21 14:30:00 109 mm[Hg] [facility] Diastolic blood pressure 2023-01-21 14:30:00 69 mm[Hg] [facility] Heart rate 2023-01-21 14:30:00 76 /min [facility] Body temperature 2023-01-21 14:30:00 36.11 [place] [facility] Respiratory rate 2023-01-21 14:30:00 18 /min [facility] Oxygen saturation in Arterial blood by Pulse oximetry 2023-01-21 14:30:00 98 /min [facility] Body height 2023-01-21 08:55:00 149.9 cm [facility] Body weight 2023-01-21 08:55:00 78.472 kg [facility] BMI 2023-01-21 08:55:00 34.94 kg/m2 [facility] Systolic blood pressure 2023-01-14 15:41:00 116 mm[Hg] [facility] Diastolic blood pressure 2023-01-14 15:41:00 77 mm[Hg] [facility] Heart rate 2023-01-14 15:41:00 84 /min [facility] Body temperature 2023-01-14 15:41:00 36.61 [place] [facility] Body height 2023-01-14 15:41:00 [facility]9 [facility] 2023-01-14 15:41:00 75.66 kg [facility] BMI 2023-01-14 15:41:00 33.69 kg/m2 [facility] Systolic blood pressure 2022-12-24 21:21:00 125 mm[Hg] [facility] Diastolic blood pressure 2022-12-24 21:21:00 84 mm[Hg] [facility] Heart rate 2022-12-24 21:21:00 95 /min [facility] Body temperature 2022-12-24 21:21:00 36.5 [place] [facility] Respiratory rate 2022-12-24 21:21:00 18 /min [facility] Body height 2022-12-24 21:21:00 149.9 cm [facility] Body weight 2022-12-24 21:21:00 73.211 kg [facility] BMI 2022-12-24 21:21:00 32.60 kg/m2 [facility] Body temperature 2022-11-09 02:18:00 36.56 [place] [facility] Body height 2022-11-09 02:18:00 149.9 cm [facility] Body weight 2022-11-09 02:18:00 70.308 kg [facility] BMI 2022-11-09 02:18:00 31.31 kg/m2 [facility] Systolic blood pressure 2022-11-09 02:04:00 113 mm[Hg] [facility] Diastolic blood pressure 2022-11-09 02:04:00 66 mm[Hg] [facility] Heart rate 2022-11-09 02:04:00 91 /min [facility] Respiratory rate 2022-11-09 02:04:00 18 /min [facility] Oxygen saturation in Arterial blood by Pulse oximetry 2022-11-09 02:04:00 100 /min [facility] Systolic blood pressure 2022-08-20 16:33:00 105 mm[Hg] [facility] Diastolic blood pressure 2022-08-20 16:33:00 70 mm[Hg] [facility] Heart rate 2022-08-20 16:33:00 76 /min [facility] Body temperature 2022-08-20 16:33:00 36.78 [place] [facility] Body height 2022-08-20 16:33:00 149.9 cm [facility] Body weight 2022-08-20 16:33:00 62.324 kg [facility] BMI 2022-08-20 16:33:00 27.75 kg/m2 [facility] Systolic blood pressure 2022-07-16 18:05:00 109 mm[Hg] [facility] Diastolic blood pressure 2022-07-16 18:05:00 62 mm[Hg] [facility] Heart rate 2022-07-16 18:05:00 82 /min [facility] Body temperature 2022-07-16 18:05:00 36.56 [place] [facility] Respiratory rate 2022-07-16 18:05:00 18 /min [facility] Oxygen saturation in Arterial blood by Pulse oximetry 2022-07-16 12:09:00 100 /min [facility] Body weight 2022-07-15 19:10:00 54.432 kg [facility] BMI 2022-07-15 19:10:00 25.08 kg/m2 [facility] Systolic blood pressure 2022-07-02 12:20:00 105 mm[Hg] [facility] Diastolic blood pressure 2022-07-02 12:20:00 62 mm[Hg] [facility] Heart rate 2022-07-02 12:20:00 76 /min [facility] Body temperature 2022-07-02 12:20:00 36.89 Sulma [facility] Respiratory rate 2022-07-02 12:20:00 18 /min [facility] Oxygen saturation in Arterial blood by Pulse oximetry 2022-07-02 12:20:00 100 /min [facility] Body height 2022-07-01 00:10:00 147.3 cm [facility] Body weight 2022-07-01 00:10:00 54.432 kg [facility] BMI 2022-07-01 00:10:00 25.08 kg/m2 [facility] Systolic blood pressure 2021-06-26 16:20:00 131 mm[Hg] [facility] Diastolic blood pressure 2021-06-26 16:20:00 88 mm[Hg] [facility] Heart rate 2021-06-26 16:20:00 72 /min [facility] Respiratory rate 2021-06-26 16:20:00 20 /min [facility] Oxygen saturation in Arterial blood by Pulse oximetry 2021-06-26 16:20:00 98 /min [facility] Body temperature 2021-06-26 13:57:00 37.11 Sulma [facility] Body weight 2021-06-26 13:57:00 70.308 kg [facility] BMI 2021-06-26 13:57:00 32.40 kg/m2 [facility] Heart rate 2021-06-20 04:00:00 93 /min [facility] Oxygen saturation in Arterial blood by Pulse oximetry 2021-06-20 03:30:00 99 /min [facility] Systolic blood pressure 2021-06-20 03:00:00 106 mm[Hg] [facility] Diastolic blood pressure 2021-06-20 03:00:00 72 mm[Hg] [facility] Body temperature 2021-06-20 00:58:00 36.78 Sulma [facility] Respiratory rate 2021-06-20 00:58:00 19 /min [facility] Body height 2021-06-20 00:58:00 147.3 cm [facility] Body weight 2021-06-20 00:58:00 70.308 kg [facility] BMI 2021-06-20 00:58:00 32.40 kg/m2 [facility] BP Systolic 2022-06-13 09:21:00 122 [...] DIAGNOSIS AND TREATMENT 2023-07-07 22:44:15 Doctor Unassigned, [place] [facility] CBC WITH DIFF 2023-01-22 09:42:00 Swapnil Nunes [facility] CBC WITH DIFF 2023-01-22 09:42:00 Swapnil Nunes [facility] SECTION 2023-01-21 12:31:00 Swapnil Nunes [facility] SECTION 2023-01-21 12:31:00 Swapnil Nunes [facility] CBC WITH DIFF 2023-01-21 09:13:00 Swapnil Nunes [facility] HEPATITIS B SURFACE ANTIGEN 2023-01-21 09:13:00 Manju [facility] HB ABO GROUPING 2023-01-21 09:13:00 Manju [facility] RHO (D) IMMUNE GLOBULIN 2023-01-21 09:13:00 Manju [facility] ADC OR ADAN ONLY - RPR 2023-01-21 09:13:00 Manju [facility] HIV 1/2 AG-AB WITH REFLEX 2023-01-21 09:13:00 Manju [facility] CBC WITH DIFF 2023-01-21 09:13:00 Manju [facility] HEPATITIS B SURFACE ANTIGEN 2023-01-21 09:13:00 Manju [facility] HB ABO GROUPING 2023-01-21 09:13:00 Manju [facility] RHO (D) IMMUNE GLOBULIN 2023-01-21 09:13[facility] - RPR 2023-01-21 09:13:00 Manju [facility] HIV 1/2 AG-AB WITH REFLEX 2023-01-21 09:13:00 Manju [facility] CONSENT/REFUSAL FOR DIAGNOSIS AND TREATMENT 2023-01-18 18:51:32 Doctor Unassigned, [place] [facility] POCT URINALYSIS W/O SPECIFIC GRAVITY 2023-01-14 15:47:00 [facility] >14 [facility] LIMITED 2022-12-24 22:01:24 Nunes [facility] DSU PRE-OP 2022-12-24 05:01:00 Doctor Unass igned, [place] [facility] POCT URINALYSIS W/O SPECIFIC GRAVITY 2022-12-24 00:00:00 Manju [facility] NOTICE OF PRIVACY PRACTICES 2022-11-09 01:54:56 Doctor Unassigned, [place] [facility] CONSENT/REFUSAL FOR DIAGNOSIS AND TREATMENT 2022-11-09 01:54:27 Doctor Unassigned, [place] [facility] ASSIGNMENT OF BENEFITS 2022-11-09 01:54:10 Docto r Unassigned, [place] [facility] AUTHORIZATION FOR RELEASE OF PHI 2022-11-08 06:01:00 Doctor Unassigned, [place] [facility] L&D VISIT (NON-DELIVERED) 2022-11-08 06:01:00 Doctor Unassigned, [place] [facility] AUTHORIZATION FOR RELEASE OF PHI 2022-11-08 06:01:00 Doctor Unassigned, [place] [facility] L&D VISIT (NON-DELIVERED) 2022-11-08 06:01:00 Doctor Unassigned, [place] [facility] EXTERNAL PROVIDER RECORDS 2022-10-02 06:01:00 Doctor Unassigned, [place] [facility] ASSIGNMENT OF BENEFITS 2022-08-20 16:12:46 Docto r Unassigned, [place] [facility] POCT URINALYSIS W/O SPECIFIC GRAVITY 2022-08-20 00:00:00 Swapnil Nunes [facility] ADC CLC OR LCC ONLY - WET PREP 2022-07-16 01:17:00 Swapnil Nunes [facility] GC & CHLAMYDIA AMPLIFIED ASSAY 2022-07-16 01:17:00 Swapnil Nunes [facility] URINE CULTURE 2022-07-15 20:42:00 Fernanda Guerin [facility] LIPASE 2022-07-15 19:19:00 Fernanda [facility] COMP. METABOLIC PANEL (77883) 2022-07-15 19:19:00 Fernanda Guerin [facility] CBC WITH DIFF 2022-07-15 19:19:00 Fernanda Guerin [facility] URINALYSIS 2022-07-15 19:19:00 Fernanda [facility]in [facility] CONSENT/REFUSAL FOR DIAGNOSIS AND TREATMENT 2022-07-15 18:57:36 Doctor Unassigned, [place] [facility] US FIRST TRIMESTER LESS THAN 14 WEEKS 2022-07-01 16:50:00 Elida Mejía [facility] URINE CULTURE 2022-07-01 02:05:00 Delilah Bolanos [facility] US GALL BLADDER 2022-07-01 01:37:25 Delilah Bolanos [facility] POCT TEST 2022-07-01 01:10:00 Delilah Bolanos [facility] CBC WITH DIFF 2022-07-01 01:07:00 Delilah Bolanos [facility] LIPASE 2022-07-01 00:58:00 Delilah Bolanos [facility] COMP. METABOLIC PANEL (74102) 2022-07-01 00:58:00 Delliah Bolanos [facility] TOTAL BETA HCG ASSAY 2022-07-01 00:58:00 Eddie Bolanos [facility] URINALYSIS 2022-07-01 00:58:00 Delilah [facility]anos [facility] NOTICE OF PRIVACY PRACTICES 2022-07-01 00:08:40 Doctor Unassigned, [place] [facility] CONSENT/REFUSAL FOR DIAGNOSIS AND TREATMENT 2022-07-01 00:05:52 Doctor Unassigned, [place] [facility] FIRST TRIMESTER LESS THAN 14 WEEKS WITH TRANSVAGINAL 2021-06-26 15:07:05 Ciaran Diaz [facility] COMP. METABOLIC PANEL (78959) 2021-06-26 14:23:00 Ciaran Diaz [facility] TOTAL BETA HCG ASSAY 2021-06-26 14:23:00 [facility] CBC WITH DIFF 2021-06-26 14:23:00 Ciaran Diaz [facility] URINALYSIS 2021-06-26 14:23:00 Ciaran Diaz [facility] NOTICE OF PRIVACY PRACTICES 2021-06-26 13:57:26 Doctor Unassigned, [place] [facility] CONSENT/REFUSAL FOR DIAGNOSIS AND TREATMENT 2021-06-26 13:52:59 Doctor Unassigned, [place] [facility] ABORH CONFIRMATION (LAB ONLY) 2021-06-20 02:23:00 Delilah Bolanos [facility] US FIRST TRIMESTER LESS THAN 14 WEEKS WITH TRANSVAGINAL 2021-06-20 02:16:07 Delilah Bolanos [facility] COMP. METABOLIC PANEL (25895) 2021-06-20 01:53:00 Delilah Bolanos [facility] TOTAL BETA HCG ASSAY 2021-06-20 01:53:00 Eddie Bolanos [facility] CBC WITH DIFF 2021-06-20 01:53:00 Delilah Bolanos [facility] 2021-06-20 01:52:00 [facility] 2021-06-20 01:40:00 Delilah Bolanos [facility] URINALYSIS 2021-06-20 01:37:00 Delilah Bolanos [facility] NOTICE OF PRIVACY PRACTICES 2021-06-20 00:53:27 Doctor Unassigned, [place] [facility] Plan of Care Planned Activity Planned Date Details Comments Source Goal Plan of Care Note [code = 83616-0] Goal Plan of Care Note [code = 11583-0] Goal Plan of Care Note [code = 59181-4] Goal Plan of Care Note [code = 58023-5] Goal Plan of Care Note [code = 22829-7] Goal Plan of Care Note [code = 34351-3] Goal Plan of Care Note [code = 87928-1] Goal Plan of Care Note [code = 27470-5] Goal Plan of Care Note [code = 05008-3] Goal Plan of Care Note [code = 28535-7] Goal Plan of Care Note [code = 07310-4] Goal Plan of Care Note [code = 26004-0] Goal Plan of Care Note [code = 91413-2] Goal Plan of Care Note [code = 49449-3] Goal Plan of Care Note [code = 14481-9] Goal Plan of Care Note [code = 64857-4] Goal Plan of Care Note [code = 67812-6] Goal Plan of Care Note [code = 07589-1] Goal Plan of Care Note [code = 15779-5] Goal Plan of Care Note [code = 94032-9] Goal Plan of Care Note [code = 21872-6] Goal Plan of Care Note [code = 83770-0] Goal Plan of Care Note [code = 86567-2] Goal Plan of Care Note [code = 04761-9] Goal Plan of Care Note [code = 64987-3] Goal Plan of Care Note [code = 46105-3] Goal Plan of Care Note [code = 03559-5] Goal Plan of Care Note [code = 90593-0] Goal Plan of Care Note [code = 59746-4] Goal Plan of Care Note [code = 23018-0] Goal Plan of Care Note [code = 87914-5] Goal Plan of Care Note [code = 03902-4] Goal Plan of Care Note [code = 68809-4] Goal Plan of Care Note [code = 85452-7] Goal Plan of Care Note [code = 47822-2] Goal Plan of Care Note [code = 41257-5] Goal Plan of Care Note [code = 57730-4] Goal Plan of Care Note [code = 87198-1] Goal Plan of Care Note [code = 33887-9] Goal Plan of Care Note [code = 59360-0] Goal Plan of Care Note [code = 27156-8] Goal Plan of Care Note [code = 24883-9] Goal Plan of Care Note [code = 89755-5] Goal Plan of Care Note [code = 20551-9] Goal Plan of Care Note [code = 92405-1] Goal Plan of Care Note [code = 96158-8] Goal Plan of Care Note [code = 93908-7] Goal Plan of Care Note [code = 93573-4] Goal Plan of Care Note [code = 74800-9] Goal Plan of Care Note [code = 32658-5] Goal Plan of Care Note [code = 09672-9] Goal Plan of Care Note [code = 43982-6] Goal Plan of Care Note [code = 81674-0] Goal Plan of Care Note [code = 79415-5] Goal Plan of Care Note [code = 59974-8] Goal Plan of Care Note [code = 77782-9] Goal Plan of Care Note [code = 18236-5] Goal Plan of Care Note [code = 60323-0] Goal Plan of Care Note [code = 24574-9] Goal Plan of Care Note [code = 44662-5] Goal Plan of Care Note [code = 58603-1] Goal Plan of Care Note [code = 35120-3] Goal Plan of Care Note [code = 76400-7] Goal Plan of Care Note [code = 60274-8] Goal Plan of Care Note [code = 14248-5] Goal Plan of Care Note [code = 62401-3] Goal Plan of Care Note [code = 29927-7] Goal Plan of Care Note [code = 13634-7] Goal Plan of Care Note [code = 75977-8] Goal Plan of Care Note [code = 57221-8] Goal Plan of Care Note [code = 85499-3] Goal Plan of Care Note [code = 30821-0] Goal Plan of Care Note [code = 81953-5] Goal Plan of Care Note [code = 61578-4] Goal Plan of Care Note [code = 13935-0] Goal Plan of Care Note [code = 10734-7] Goal Plan of Care Note [code = 95075-1] Goal Plan of Care Note [code = 57337-4] Goal Plan of Care Note [code = 53847-1] Goal Plan of Care Note [code = 96679-0] Goal Plan of Care Note [code = 08153-8] Goal Plan of Care Note [code = 99301-7] Goal Plan of Care Note [code = 81286-1] Goal Plan of Care Note [code = 49003-7] Goal Plan of Care Note [code = 60628-1] Goal Plan of Care Note [code = 65257-4] Goal Plan of Care Note [code = 50098-6] Goal Plan of Care Note [code = 50580-3] Goal Plan of Care Note [code = 18422-8] Goal Plan of Care Note [code = 80761-5] Goal Plan of Care Note [code = 66327-9] Goal Plan of Care Note [code = 86987-1] Goal Plan of Care Note [code = 05469-1] Goal Plan of Care Note [code = 85414-6] Goal Plan of Care Note [code = 50700-1] Goal Plan of Care Note [code = 87516-2] Goal Plan of Care Note [code = 58432-1] Goal Plan of Care Note [code = 46574-6] Goal Plan of Care Note [code = 59620-8] Goal Plan of Care Note [code = 45946-7] Goal Plan of Care Note [code = 16402-9] Goal Plan of Care Note [code = 19221-5] Goal Plan of Care Note [code = 25872-4] Encounters Start Date/Time End Date/Time Encounter Type Admission Type Attending Clinicians Care Facility Care Department Encounter ID Source 2023-07-07 17:51:00 2023-07-07 18:41:00 Emergency X DELILAH BOLANOS [facility] E[facility] [id number] [facility] 2023-07-07 17:51:00 2023-07-07 18:41:00 Emergency Delilah Bolanos [facility] 1.840.114 350.1.13.10 4.2.7.2.686 [id number] [facility] 2023-02-27 13:00:00 2023-02-27 13:00:00 Outpatient R RENEE SHAHID [facility] [id number] [facility] 2023-01-28 13:45:00 2023-01-28 14:31:45 Outpatient R MANJUSWAPNIL [facility] [id number] [facility] 2023-01-28 13:45:00 2023-01-28 14:31:45 Routine Visit Swapnil Nunes [facility] 1.84.114 350.1.13.10 4.2.7.2.686 [id number] [facility] 2023-01-21 03:24:00 2023-01-23 12:00:00 Inpatient X MANJU SWAPNIL [facility] IT[facility]EL [id number] [facility] 2023-01-21 03:24:00 2023-01-23 12:00:00 Hospital Encounter Swapnil Nunes [facility] 1.840.114 350.1.13.10 4.2.7.2.686 [id number] [facility] 2023-01-21 07:50:00 2023-01-21 09:41:00 Surgery Swapnil Nunes [facility] 1.2.840.114 350.1.13.10 4.2.7.2.686 [id number] [facility] 2023-01-18 00:00:00 2023-01-18 00:00:00 Orders Only Doctor Unassigned, [place] [facility] 1.2.840.114 350.1.13.10 4.2.7.2.686 [id number] [facility] 2023-01-14 09:45:00 2023-01-14 11:07:31 Outpatient R SWAPNIL NUNES [facility] [id number] [facility] 2023-01-14 09:45:00 2023-01-14 11:07:31 Routine Visit Renee Shahid Swapnil Nunes [facility] 1.2840.114 350.1.13.10 4.2.7.2.686 [id number] [facility] 2023-01-14 00:00:00 2023-01-14 00:00:00 Telephone Swapnil Nunes [facility] 1.2840.114 350.1.13.10 4.2.7.2.686 [id number] [facility] 2022-12-31 13:45:00 2022-12-31 15:22:25 [employer] Production Head Visit 1, [facility] 1.2840.114 350.1.13.10 4.2.7.2.686 [id number] [facility] 2022-12-31 13:45:00 2022-12-31 13:45:00 Outpatient MAYA WHYTE SANGEETA [facility] [id number] [facility] 2022-12-28 13:00:00 2022-12-28 13:15:00 Import Coordination [employer] Production Head Visit 2, Adc Lab Swapnil Nunes [facility] 1.2.840.114 350.1.13.10 4.2.7.2.686 [id number] [facility] 2022-12-28 13:00:00 2022-12-28 13:00:00 Outpatient R MANJU [facility] [id number] [facility] 2022-12-25 00:00:00 2022-12-25 00:00:00 Case Management Swapnil Nunes [facility] 1.2.840.114 350.1.13.10 4.2.7.2.686 [id number] [facility] 2022-12-24 16:15:00 2022-12-24 16:55:13 Outpatient R SWAPNIL NUNES [facility] [id number] [facility] 2022-12-24 16:15:00 2022-12-24 16:55:13 Routine Visit Swapnil uNnes [facility] 1.2.840.114 350.1.13.10 4.2.7.2.686 [id number] [facility] 2022-12-24 00:00:00 2022-12-24 00:00:00 Orders Only Doctor Unassigned, [place] [facility] 1.2840.114 350.1.13.10 4.2.7.2.686 [id number] [facility] 2022-12-06 11:00:00 2022-12-06 11:00:00 Outpatient R MANJU [facility] [id number] [facility] 2022-11-08 20:05:00 2022-11-08 21:14:00 Outpatient X ADUM, RESHMA [facility] [id number] [facility] 2022-11-08 20:05:00 2022-11-08 21:14:00 Emergency Adum, Reshma Hampton [facility] 1.284.114 350.1.13.10 4.2.7.2.686 [id number] [facility] 2022-10-02 00:00:00 2022-10-02 00:00:00 Orders Only Doctor Unassigned, [place] [facility] 1..114 350.1.13.10 4.2.7.2.686 [id number] [facility] 2022-09-17 11:00:00 2022-09-17 11:00:00 Outpatient RENEE EDGAR [facility] [id number] [facility] 2022-09-11 14:15:00 2022-09-11 14:30:00 Import Coordination [employer] Production Head Visit 2, Adc Lab Aj, Tuan [facility] 1..840.114 350.1.13.10 4.2.7.2.686 [id number] [facility] 2022-09-11 14:15:00 2022-09-11 14:15:00 Outpatient R TUAN RAHMAN OGECHUKWU [facility] [id number] [facility] 2022-09-11 00:00:00 2022-09-11 00:00:00 Case Management Swapnil Nunes [facility] 1.840.114 350.1.13.10 4.2.7.2.686 [id number] [facility] 2022-09-11 00:00:00 2022-09-11 00:00:00 Case Management Swapnil Nunes [facility] 1.2.840.114 350.1.13.10 4.2.7.2.686 [id number] [facility] 2022-09-10 00:00:00 2022-09-10 00:00:00 Telephone Swapnil Nunes [facility] 1.2.840.114 350.1.13.10 4.2.7.2.686 [id number] [facility] 2022-09-04 00:00:00 2022-09-04 00:00:00 Telephone Swapnil Nunes [facility] 1.2.840.114 350.1.13.10 4.2.7.2.686 [id number] [facility] 2022-08-29 00:00:00 2022-08-29 00:00:00 Telephone Swapnil Nunes [facility] 1.2.840.114 350.1.13.10 4.2.7.2.686 [id number] [facility] 2022-08-21 00:00:00 2022-08-21 00:00:00 Case Management Swapnil Nunes [facility] 1.2.840.114 350.1.13.10 4.2.7.2.686 [id number] [facility] 2022-08-20 11:45:00 2022-08-20 13:28:31 Outpatient R SWAPNIL NUNES [facility] [id number] [facility] 2022-08-20 11:45:00 2022-08-20 12:00:00 Import Coordination [employer] Production Head Visit 2, Adc Lab Swapnil Nunes [facility] 1.2.840.114 350.1.13.10 4.2.7.2.686 [id number] [facility] 2022-08-20 10:30:00 2022-08-20 11:31:08 Initial Visit Swapnil Nunes [facility] 1.2.840.114 350.1.13.10 4.2.7.2.686 [id number] [facility] 2022-08-20 00:00:00 2022-08-20 00:00:00 Orders Only Doctor Unassigned, [place] [facility] 1.2840.114 350.1.13.10 4.2.7.2.686 [id number] [facility] 2022-07-31 09:05:28 2022-07-31 09:05:28 Outpatient SFA SFA [id number] Babar Simpson 2022-07-15 14:21:00 2022-07-16 14:05:00 Outpatient X KUNAL NUNESEN [facility] [id number] [facility] 2022-07-15 14:21:00 2022-07-16 14:05:00 Emergency Guerin, Fernanda Manju [facility] 1.840.114 350.1.13.10 4.2.7.2.686 [id number] [facility] 2022-07-16 00:00:00 2022-07-16 00:00:00 Telephone Swapnil Nunes [facility] 1.2.840.114 350.1.13.10 4.2.7.2.686 [id number] [facility] 2022-06-30 19:25:00 2022-07-02 11:00:00 Outpatient X ELIDA MEJÍA [facility] [id number] [facility] 2022-06-30 19:25:00 2022-07-02 11:00:00 Emergency Delilah Bolanos Megan [facility] 1.2.840.114 350.1.13.10 4.2.7.2.686 [id number] [facility] 2022-06-15 00:00:00 2022-06-15 00:00:00 Outpatient Visit [id number]-[id number] [id number] 2022-06-13 00:00:00 2022-06-13 00:00:00 Outpatient Visit [id number] 2022-06-11 00:00:00 2022-06-11 00:00:00 Outpatient Visit [id number] [id number] 2022-06-08 00:00:00 2022-06-08 00:00:00 Outpatient Visit [id number] 2022-05-31 00:00:00 2022-05-31 00:00:00 Outpatient Visit [id number] [id number]-[id number] 2022-05-29 00:00:00 2022-05-29 00:00:00 Outpatient Visit [id number] [id number] 2021-06-26 08:59:00 2021-06-26 11:26:00 Emergency Ciaran Diaz [facility] 1.2.840.114 350.1.13.10 4.2.7.2.686 [id number] [facility] 2021-06-26 08:52:00 2021-06-26 08:52:00 Emergency X CIARAN DIAZ [facility] ERT [id number] [facility] 2021-06-19 20:07:00 2021-06-19 23:32:00 Emergency Delilah Bolanos [facility] [id number] [facility] 2021-06-19 19:53:00 2021-06-19 19:53:00 Emergency X [facility] ERT [id number] [facility] Results Test Description Test Time Test Comments Results Result Co mments Source [facility] OR ADAN CELESTIN - [id number] 05:54:32* Test Item Value Reference Range Interpretation Comme nts RPR (Qualitative) (test code = 21271-4) Nonreactive Nonreactive Lab Interpretation (test cod e = 39955-7) Normal [facility] (D) IMMUNE [id number] 22:32:21* Test Item Value Reference Range Interpretation Comme nts RHIG CANDIDATE? (test code = 5188) No- see comment Patient is not a candidate for RhIg- Patient is Rh Positive.Performed at [facility] Laboratory [facility] Blood [id number] [place], [place] [id number] Free: [phone] No. [id number] [facility] (D) IMMUNE [id number] 22:32:21* Test Item Value Reference Range Interpretation Comme nts RHIG CANDIDATE? (test code = 5188) No- see comment Patient is not a candidate for RhIg- Patient is Rh Positive.Performed at [facility] Laboratory [facility] Blood [address] [place], [place] [id number] Free: [phone] No. [id number] [facility] B Surface [id number] 15:35:44 * Test Item Value Reference Range Interpretation Comme nts HBsAg Semi-Quantitative (tanner t code = 5195-3) 0.04 Negative [facility] B Surface [id number] 15:35:44 * Test Item Value Reference Range Interpretation Comme nts HBsAg Semi-Quantitative (tanner t code = 5195-3) 0.04 [facility] [id number] 12:16:52* Test Item Value Reference Range Interpretation Comme nts HIV Semi-quantitative (test code = 93054-0) 0.11 Negative MIHAELA (test code = MIHAELA) Non-reactive for HIV-1 antigen and HIV-1/HIV-2 antibodies. ?No laboratory evidence of HIV infection. ?Repeat in 2-4 weeks if acute HIV infection is suspected. [facility] 1/2 AG-AB WITH [id number] 12:16:52* Test Item Value Reference Range Interpretation Comme nts HIV Semi-quantitative (test code = 14049-4) 0.11 Negative MIHAELA (test code = MIHAELA) Non-reactive for HIV-1 antigen and HIV-1/HIV-2 antibodies. ?No laboratory evidence of HIV infection. ?Repeat in 2-4 weeks if acute HIV infection is suspected. [facility] with [id number] 09:55:42* Test Item Value Reference Range Interpretation [...] 33.5 g/dL 31.6-35.1 RDW-SD (test code = 31818-9) 40.3 fL 39.0-49.9 RDW-CV (test code = 788-0) 13.1 % 12.0-15.5 PLT (test code = 777-3) 292 See_Comment [Automated messa ge] The system which generated this result transmitted reference range: 166 - 358 10*3/?L. The reference range was not used to interpret this result as normal/abnormal. MPV (test code = 15888-9) 11.2 fL 9.5-12.9 NRBC/100 WBC (test code = 1613478399) 0.3 See_Comment [Automated Infinio ssage] The system which generated this result transmitted reference range: 0.0 - 10.0 /100 WBCs. The reference range was not used to interpret this result as normal/abnormal. NRBC x10^3 (test code = 2893460953) 0.02 See_Comment [Automated wufooa ge] The system which generated this result transmitted reference range: 10*3/?L. The reference range was not used to interpret this result as normal/abnormal. GRAN MAT (NEUT) % (test code = 770-8) 68.8 % IMM GRAN % (test code = 6335314923) 1.30 % LYMPH % (test code = 736-9) 19.5 % MONO % (test code = 5905-5) 9.2 % EOS % (test code = 713-8) 0.9 % BASO % (test code = 706-2) 0.3 % GRAN MAT x10^3(ANC) (test code = 7512781879) 5.42 10*3/uL 1.88-7.09 IMM GRAN x10^3 (test code = 4602511900) 0.10 10*3/uL 0.00-0.06 H LYMPH x10^3 (test code = 731-0) 1.53 10*3/uL 1.32-3.29 MONO x10^3 (test code = 742-7) 0.72 10*3/uL 0.33-0.92 EOS x10^3 (test code = 711-2) 0.07 10*3/uL 0.03-0.39 BASO x10^3 (test code = 704-7) 0.01-0.07 Lab Interpretation (test code = 90188-4) Abnormal [facility] with [id number] 09:55:42* Test Item Value Reference Range Interpretation [...] 33.5 g/dL 31.6-35.1 RDW-SD (test code = 41117-0) 40.3 fL 39.0-49.9 RDW-CV (test code = 788-0) 13.1 % 12.0-15.5 PLT (test code = 777-3) 292 See_Comment [Automated messa ge] The system which generated this result transmitted reference range: 166 - 358 10*3/?L. The reference range was not used to interpret this result as normal/abnormal. MPV (test code = 15765-8) 11.2 fL 9.5-12.9 NRBC/100 WBC (test code = 9774678948) 0.3 See_Comment [Automated me ssage] The system which generated this result transmitted reference range: 0.0 - 10.0 /100 WBCs. The reference range was not used to interpret this result as normal/abnormal. NRBC x10^3 (test code = 3187652797) 0.02 See_Comment [Automated messa ge] The system which generated this result transmitted reference range: 10*3/?L. The reference range was not used to interpret this result as normal/abnormal. GRAN MAT (NEUT) % (test code = 770-8) 68.8 % IMM GRAN % (test code = 0993456479) 1.30 % LYMPH % (test code = 736-9) 19.5 % MONO % (test code = 5905-5) 9.2 % EOS % (test code = 713-8) 0.9 % BASO % (test code = 706-2) 0.3 % GRAN MAT x10^3(ANC) (test code = 8001041781) 5.42 10*3/uL 1.88-7.09 IMM GRAN x10^3 (test code = 5039189682) 0.10 10*3/uL 0.00-0.06 H LYMPH x10^3 (test code = 731-0) 1.53 10*3/uL 1.32-3.29 MONO x10^3 (test code = 742-7) 0.72 10*3/uL 0.33-0.92 EOS x10^3 (test code = 711-2) 0.07 10*3/uL 0.03-0.39 BASO x10^3 (test code = 704-7) 0.01-0.07 Lab Interpretation (test code = 13933-2) [facility] [id number] 09:46:00 * Test Item Value Reference Range Interpretation Comme nts ABO & RH (test code = 20) O Positive IAT (test code = 1185) Negative [facility] - ONCE [id number] 09:46:00 * Test Item Value Reference Range Interpretation Comme nts ABO & RH (test code = 20) O Positive IAT (test code = 1185) Negative [facility] W/O SPECIFIC [id number] 15:47:00* Test Item Value Reference Range Interpretation [...] = 3257) n/a Negative - Negati ve [facility] URINALYSIS W/O SPECIFIC [id number] 21:24:00* Test Item Value Reference Range Interpretation [...] = 3257) Trace Negative - Negati ve [facility] URINALYSIS W/O SPECIFIC [id number] 16:44:00* Test Item Value Reference Range Interpretation [...] = 3257) Negative [facility] [id number] 16:44:00* Test Item Value Reference Range Interpretation [...] = 3257) Negative Negative - Negati ve [facility] W/O SPECIFIC [id number] 16:44:00* Test Item Value Reference Range Interpretation [...] = 3257) Negative Negative - Negati ve [facility] METABOLIC PANEL (14400)2022-07-15 19:45:04* Test Item Value Reference Range Interpretation Comme nts NA (test code = 2610804035) 136 mmol/L 135-145 K (test code = 7141127343) 4.3 mmol/L 3.5-5 CL (test code = 6046291016) 99 mmol/L 98-108 CO2 TOTAL (test code = 6149667232) 23 mmol/L 23-31 AGAP (test code = 1475080615) 2-16 BUN (test code = 5946963472) 8 mg/dL 7-23 GLUCOSE (test code = 0607815897) 87 mg/dL 70-110 CREATININE (test code = 3859567936) 0.46 mg/dL 0.5-1.04 L TOTAL BILI (test code = 0387649628) 0.7 mg/dL 0.1-1.1 CALCIUM (test code = 8320548202) 9.9 mg/dL 8.6-10.6 T PROTEIN (test code = 4128651094) 8.3 g/dL 6.3-8.2 H ALBUMIN (test code = 5982224834) 4.8 g/dL 3.5-5 ALK PHOS (test code = 0821716286) 48 U/L 34-122 ALTv (test code = 1742-6) 20 U/L 5-35 AST(SGOT) (test code = 0860819240) 29 U/L 13-40 eGFR (test code = 8812632161) mL/min/1.73m2 MIHAELA (test code = MIHAELA) Association [...] imaging tests). Lab Interpretation (test code = 94691-4) Abnormal [facility] 19:44:44* Test Item Value Reference Range Interpretation Comme nts LIPASE (test code = 8251329149) 77 U/L 0-220 Lab Interpretation (test cod e = 39337-0) Normal [facility] WITH [id number] 19:34:45* Test Item Value Reference Range Interpretation [...] g/dL 31.6-35.1 H RDW-SD (test code = 27038-6) 38.1 fL 39-49.9 L RDW-CV (test code = 788-0) 11.9 % 12-15.5 L PLT (test code = 777-3) See_Comment [Automated messa ge] The system which generated this result transmitted reference range: 166 - 358 10*3/?L. The reference range was not used to interpret this result as normal/abnormal. MPV (test code = 54629-2) 9.8 fL 9.5-12.9 NRBC/100 WBC (test code = 6998023414) See_Comment [Automated me ssage] The system which generated this result transmitted reference range: 0.0 - 10.0 /100 WBCs. The reference range was not used to interpret this result as normal/abnormal. NRBC x10^3 (test code = 1912999480) See_Comment [Automated messa ge] The system which generated this result transmitted reference range: 10*3/?L. The reference range was not used to interpret this result as normal/abnormal. GRAN MAT (NEUT) % (test code = 770-8) 71.8 % IMM GRAN % (test code = 4095745143) 0.30 % LYMPH % (test code = 736-9) 21.4 % MONO % (test code = 5905-5) 5.5 % EOS % (test code = 713-8) 0.6 % BASO % (test code = 706-2) 0.4 % GRAN MAT x10^3(ANC) (test code = 7849661871) 7.64 10*3/uL 1.88-7.09 H IMM GRAN x10^3 (test code = 9119491451) 0.03 10*3/uL 0-0.06 LYMPH x10^3 (test code = 731-0) 2.27 10*3/uL 1.32-3.29 MONO x10^3 (test code = 742-7) 0.58 10*3/uL 0.33-0.92 EOS x10^3 (test code = 711-2) 0.06 10*3/uL 0.03-0.39 BASO x10^3 (test code = 704-7) 0.04 10*3/uL 0.01-0.07 Lab Interpretation (test code = 76768-1) Abnormal [facility] (QUANTITATIVE)2022-07-01 03:12:13* Test Item Value Reference Range Interpretation Comme nts BETA HCG (test code = 5067784901) See_Comment [Automated wufooa ge] The system which generated this result transmitted reference range: Non- female and male patients: <5 mIU/mL. The reference range was not used to interpret this result as normal/abnormal. MIHAELA (test code = MIHAELA) Gestational Age ?Range (mIU/mL) 1-10 ?Weeks ?54-48417933-64 Weeks ?69537-94823685-17 Weeks ?4442-06421297-78 Weeks ?9896-399013 Biotin has been reported to cause a negative bias, interpret results relative to patient's use of biotin. [facility]. METABOLIC PANEL (27170)2022-07-01 02:20:51* Test Item Value Reference Range Interpretation Comme nts NA (test code = 8899193369) 135 mmol/L 135-145 K (test code = 7325895886) 3.7 mmol/L 3.5-5 CL (test code = 0437978320) 98 mmol/L 98-108 CO2 TOTAL (test code = 3585149700) 24 mmol/L 23-31 AGAP (test code = 6398692021) 2-16 BUN (test code = 1290096353) 8 mg/dL 7-23 GLUCOSE (test code = 1997453728) 91 mg/dL 70-110 CREATININE (test code = 9636751611) 0.48 mg/dL 0.5-1.04 L TOTAL BILI (test code = 9977056131) 0.8 mg/dL 0.1-1.1 CALCIUM (test code = 9410636314) 10.1 mg/dL 8.6-10.6 T PROTEIN (test code = 0041402486) 7.9 g/dL 6.3-8.2 ALBUMIN (test code = 4042170402) 4.8 g/dL 3.5-5 ALK PHOS (test code = 3528694494) 61 U/L 34-122 ALTv (test code = 1742-6) 20 U/L 5-35 AST(SGOT) (test code = 4093366815) 27 U/L 13-40 eGFR (test code = 5875278104) mL/min/1.73m2 MIHAELA (test code = MIHAELA) Association [...] imaging tests). Lab Interpretation (test code = 84348-0) Abnormal [facility] 02:20:16* Test Item Value Reference Range Interpretation Comme nts LIPASE (test code = 9077081681) 75 U/L 0-220 Lab Interpretation (test cod e = 52051-0) Normal [facility] WITH [id number] 01:45:31* Test Item Value Reference Range Interpretation Comme nts WBC (test code = 6690-2) See_Comment [Automated Plunify] The system which generated this result transmitted reference range: 4.30 - 11.10 10*3/?L. The reference range was not used to interpret this result as normal/abnormal. RBC (test code = 789-8) See_Comment L [Automated Plunify] The system which generated this result transmitted [...] g/dL 31.6-35.1 H RDW-SD (test code = 90721-6) 35.8 fL 39-49.9 L RDW-CV (test code = 788-0) 11.4 % 12-15.5 L PLT (test code = 777-3) See_Comment [Automated wufooa ge] The system which generated this result transmitted reference range: 166 - 358 10*3/?L. The reference range was not used to interpret this result as normal/abnormal. MPV (test code = 03343-1) 11.1 fL 9.5-12.9 NRBC/100 WBC (test code = 1272460481) See_Comment [Automated Infinio ssage] The system which generated this result transmitted reference range: 0.0 - 10.0 /100 WBCs. The reference range was not used to interpret this result as normal/abnormal. NRBC x10^3 (test code = 9342167356) See_Comment [Automated wufooa ge] The system which generated this result transmitted reference range: 10*3/?L. The reference range was not used to interpret this result as normal/abnormal. GRAN MAT (NEUT) % (test code = 770-8) 63.7 % IMM GRAN % (test code = 0865982995) 0.40 % LYMPH % (test code = 736-9) 27.3 % MONO % (test code = 5905-5) 7.8 % EOS % (test code = 713-8) 0.3 % BASO % (test code = 706-2) 0.5 % GRAN MAT x10^3(ANC) (test code = 4818690926) 6.83 10*3/uL 1.88-7.09 IMM GRAN x10^3 (test code = 3309446871) 0.04 10*3/uL 0-0.06 LYMPH x10^3 (test code = 731-0) 2.92 10*3/uL 1.32-3.29 MONO x10^3 (test code = 742-7) 0.83 10*3/uL 0.33-0.92 EOS x10^3 (test code = 711-2) 0.03 10*3/uL 0.03-0.39 BASO x10^3 (test code = 704-7) 0.05 10*3/uL 0.01-0.07 Lab Interpretation (test code = 91087-7) [facility]normal [facility] [id number] 01:10:00* Test Item Value Reference Range Interpretation Comme nts POCT PREG (test code = 1605) positive On board controls acceptable with C Line (test code = 3574) present POCT PREG LOT # (test code = 3575) [id number] POCT PREG TEST DATE ( test code = 3576) 2023-09-29 Lab Interpretation (test cod e = 95559-4) Normal [facility], [id number] 09:09:13SPECIMEN NUMBER: [id number] CULTURE, URINE SPECIMEN NUMBER: [id number] SOURCE: URINE REPORT STATUS: FINAL FINAL REPORT: 06/02/2022 10-50,000 CFU/ML UROGENITAL GLORIA PRESENT NO COMMON PATHOGENSCULTURE, [id number] 00:00:00* Test Item Value Reference Range Interpretation Comme nts CULTURE, URINE (test code = 91222) SPECIMEN NUMBER: [id number] CULTURE, [id number] 00:00:00* Test Item Value Reference Range Interpretation Comme nts CULTURE, URINE (test code = 17695) SPECIMEN NUMBER: [id number] CULTURE, [id number] 00:00:00* Test Item Value Reference Range Interpretation Comme nts CULTURE, URINE (test code = 30188) SPECIMEN NUMBER: [id number] CULTURE, [id number] 00:00:00* Test Item Value Reference Range Interpretation Comme nts CULTURE, URINE (test code = 66814) SPECIMEN NUMBER: [id number] CULTURE, [id number] 00:00:00* Test Item Value Reference Range Interpretation Comme nts CULTURE, URINE (test code = 38239) SPECIMEN NUMBER: [id number] CULTURE, [id number] 00:00:00* Test Item Value Reference Range Interpretation Comme nts CULTURE, URINE (test code = 04094) SPECIMEN NUMBER: [id number] CULTURE, [id number] 00:00:00* Test Item Value Reference Range Interpretation Comme nts CULTURE, URINE (test code = 41616) SPECIMEN NUMBER: [id number] CULTURE, [id number] 00:00:00* Test Item Value Reference Range Interpretation Comme nts CULTURE, URINE (test code = 81316) SPECIMEN NUMBER: [id number] THC METABOLITE, QUANT, [id number] 16:28:28* Test Item Value Reference Range Interpretation Comme nts CARBOXY-THC INTERP (test code = 47312) Positive A CARBOXY-THC QNT (test code = 53136) >500 ng/mL <15 H Reference range indicates cutoff for positive result determination. Specimen Type: Urine Urine drug and metabolite concentrations are dependent on manyfactors, including patient compliance, drug dosing, dosing interval,individual variation in drug absorption and metabolism, urineconcentration, and limitations of testing. Assay is intended formedical purposes only, not for forensic use. This test was developed and its performance characteristicsdetermined by [facility] ([facility]). It has not beencleared or approved by the U.S. Food and Drug Administration (FDA).The FDA has determined that such clearance or approval is notnecessary. This test is used for clinical purposes and should not beregarded as investigational or for research. [facility] is qualified toperform high complexity testing under the Clinical LaboratoryImprovement Amendments (CLIA). TESTING PERFORMED AT [facility] [address] [place] [address] [address] [address] CLIA NO: [id number] UNLESS OTHERWISE INDICATED, ALL TESTING PERFORMED [facility] [address] [place] [address] [employer] PROJECT MANAGER: RUSLAN ESTRADA M.D. CLIA NUMBER [id number] [place]. [id number] VARICELLA ZOSTER [id number] 15:58:45* Test Item Value Reference Range Interpretation Comme nts VARICELLA ZOSTER IgG (test code = 07471) 296 INDEX SEE BELOW INTERPRETATI ON VZV [...] >=165 UNLESS OTHERWISE INDICATED, ALL TESTING PERFORMED [facility], [facility] [address] [place] [address] [employer] PROJECT MANAGER: RUSLAN ESTRADA M.D. CLIA NUMBER [id number] [place]. [id number] VAGINAL PATHOGENS DNA [id number] 15:42:49* Test Item Value Reference Range Interpretation Comme nts VIJI SPECIES (test code = ) NEGATIVE NEGATIVE G. VAGINALIS (test code = ) POSITIVE NEGATIVE A T. VAGINALIS (test code = ) POSITIVE NEGATIVE A HEPATITIS C REFLEX [id number] 03:28:47* Test Item Value Reference Range Interpretation Comme nts HEPATITIS C ANTIBODY (test c ode = 4675) NON-REACTIVE NON-REACTIVE OBSTETRIC PANEL + [id number] 03:28:47* Test Item Value Reference Range Interpretation [...] 0.00-0.10 ABS NUCLEATED RBCS (test code = 67506) 0.00 K/UL 0.00-0.11 BLOOD TYPE AND RH [...] >=10 RUBELLA IgG INTERP (test code = 25362) REACTIVE REACTIVE HEPATITIS B SURF AG (test code = 2739) NON-REACTIVE NON-REACTIVE RPR (test code = 89624) NON-REACTIVE NON-REACTIVE RPR TITER (test code = 3500) NOT INDIC. TITER NOT INDIC. HIV 1/2 4TH GEN, RFLX CONF (test code = 3514) NON-REACTIVE NON-REACTIVE VAGINAL PATHOGENS DNA [id number] 00:00:00* Test Item Value Reference Range Interpretation Comme nts VIJI SPECIES (test code = ) NEGATIVE G. VAGINALIS (test code = ) POSITIVE T. VAGINALIS (test code = ) POSITIVE VAGINAL PATHOGENS DNA [id number] 00:00:00* Test Item Value Reference Range Interpretation Comme nts VIJI SPECIES (test code = ) NEGATIVE G. VAGINALIS (test code = 71834) POSITIVE T. VAGINALIS (test code = ) POSITIVE OBSTETRIC PANEL + [id number] 00:00:00* Test Item Value Reference Range Interpretation [...] K/UL ABS NUCLEATED RBCS (test code = 78669) 0.00 K/UL BLOOD TYPE AND RH (test code = 3901) O POSITIVE ANTIBODY SCREEN (test code = 3902) NEGATIVE RUBELLA ANTIBODY SCREEN (test code = 4600) 52 IU/ML RUBELLA IgG INTERP (test code = 61773) REACTIVE HEPATITIS B SURF AG (test code = 2739) NON-REACTIVE RPR (test code = 79141) NON-REACTIVE RPR TITER (test code = 3500) NOT INDIC. TITER HIV 1/2 4TH GEN, RFLX CONF (test code = 3514) NON-REACTIVE OBSTETRIC PANEL + [id number] 00:00:00* Test Item Value Reference Range Interpretation [...] K/UL ABS NUCLEATED RBCS (test code = 96462) 0.00 K/UL BLOOD TYPE AND RH (test code = 3901) O POSITIVE ANTIBODY SCREEN (test code = 3902) NEGATIVE RUBELLA ANTIBODY SCREEN (test code = 4600) 52 IU/ML RUBELLA IgG INTERP (test code = 29461) REACTIVE HEPATITIS B SURF AG (test code = 2739) NON-REACTIVE RPR (test code = 45827) NON-REACTIVE RPR TITER (test code = 3500) NOT INDIC. TITER HIV 1/2 4TH GEN, RFLX CONF (test code = 3514) NON-REACTIVE OBSTETRIC PANEL + [id number] 00:00:00* Test Item Value Reference Range Interpretation [...] K/UL ABS NUCLEATED RBCS (test code = 35424) 0.00 K/UL BLOOD TYPE AND RH (test code = 3901) O POSITIVE ANTIBODY SCREEN (test code = 3902) NEGATIVE RUBELLA ANTIBODY SCREEN (test code = 4600) 52 IU/ML RUBELLA IgG INTERP (test code = 75417) REACTIVE HEPATITIS B SURF AG (test code = 2739) NON-REACTIVE RPR (test code = 31424) NON-REACTIVE RPR TITER (test code = 3500) NOT INDIC. TITER HIV 1/2 4TH GEN, RFLX CONF (test code = 3514) NON-REACTIVE HEPATITIS C REFLEX [id number] 00:00:00* Test Item Value Reference Range Interpretation Comme nts HEPATITIS C ANTIBODY (test c ode = 4675) NON-REACTIVE HEPATITIS C REFLEX [id number] 00:00:00* Test Item Value Reference Range Interpretation Comme nts HEPATITIS C ANTIBODY (test c ode = 4675) NON-REACTIVE THC METABOLITE, QUANT, URINE [REFLEX]2022-06-01 00:00:00* Test Item Value Reference Range Interpretation Comme nts CARBOXY-THC INTERP (test cod e = 10672) Positive CARBOXY-THC QNT (test code = 58421) >500 ng/mL THC METABOLITE, QUANT, URINE [REFLEX]2022-06-01 00:00:00* Test Item Value Reference Range Interpretation Comme nts CARBOXY-THC INTERP (test cod e = 90034) Positive CARBOXY-THC QNT (test code = 26784) >500 ng/mL VARICELLA ZOSTER [id number] 00:00:00* Test Item Value Reference Range Interpretation Comme nts VARICELLA ZOSTER IgG (test c ode = 10428) 296 INDEX VARICELLA ZOSTER [id number] 00:00:00* Test Item Value Reference Range Interpretation Comme nts VARICELLA ZOSTER IgG (test c ode = 93164) 296 INDEX VAGINAL PATHOGENS DNA [id number] 00:00:00* Test Item Value Reference Range Interpretation Comme nts VIJI SPECIES (test code = 23143) NEGATIVE G. VAGINALIS (test code = 95594) POSITIVE T. VAGINALIS (test code = 97096) POSITIVE VAGINAL PATHOGENS DNA [id number] 00:00:00* Test Item Value Reference Range Interpretation Comme nts VIJI SPECIES (test code = 24753) NEGATIVE G. VAGINALIS (test code = 44015) POSITIVE T. VAGINALIS (test code = 75388) POSITIVE OBSTETRIC PANEL + [id number] 00:00:00* Test Item Value Reference Range Interpretation [...] K/UL ABS NUCLEATED RBCS (test code = 32183) 0.00 K/UL BLOOD TYPE AND RH (test code = 3901) O POSITIVE ANTIBODY SCREEN (test code = 3902) NEGATIVE RUBELLA ANTIBODY SCREEN (test code = 4600) 52 IU/ML RUBELLA IgG INTERP (test code = 25314) REACTIVE HEPATITIS B SURF AG (test code = 2739) NON-REACTIVE RPR (test code = 41608) NON-REACTIVE RPR TITER (test code = 3500) NOT INDIC. TITER HIV 1/2 4TH GEN, RFLX CONF (test code = 3514) NON-REACTIVE OBSTETRIC PANEL + [id number] 00:00:00* Test Item Value Reference Range Interpretation [...] K/UL ABS NUCLEATED RBCS (test code = 77842) 0.00 K/UL BLOOD TYPE AND RH (test code = 3901) O POSITIVE ANTIBODY SCREEN (test code = 3902) NEGATIVE RUBELLA ANTIBODY SCREEN (test code = 4600) 52 IU/ML RUBELLA IgG INTERP (test code = 13920) REACTIVE HEPATITIS B SURF AG (test code = 2739) NON-REACTIVE RPR (test code = 04905) NON-REACTIVE RPR TITER (test code = 3500) NOT INDIC. TITER HIV 1/2 4TH GEN, RFLX CONF (test code = 3514) NON-REACTIVE OBSTETRIC PANEL + [id number] 00:00:00* Test Item Value Reference Range Interpretation [...] K/UL ABS NUCLEATED RBCS (test code = 94394) 0.00 K/UL BLOOD TYPE AND RH (test code = 3901) O POSITIVE ANTIBODY SCREEN (test code = 3902) NEGATIVE RUBELLA ANTIBODY SCREEN (test code = 4600) 52 IU/ML RUBELLA IgG INTERP (test code = 13207) REACTIVE HEPATITIS B SURF AG (test code = 2739) NON-REACTIVE RPR (test code = 98038) NON-REACTIVE RPR TITER (test code = 3500) NOT INDIC. TITER HIV 1/2 4TH GEN, RFLX CONF (test code = 3514) NON-REACTIVE THC METABOLITE, QUANT, URINE [REFLEX]2022-06-01 00:00:00* Test Item Value Reference Range Interpretation Comme nts CARBOXY-THC INTERP (test cod e = 17711) Positive CARBOXY-THC QNT (test code = 15992) >500 ng/mL THC METABOLITE, QUANT, URINE [REFLEX]2022-06-01 00:00:00* Test Item Value Reference Range Interpretation Comme nts CARBOXY-THC INTERP (test cod e = 73195) Positive CARBOXY-THC QNT (test code = 50376) >500 ng/mL HEPATITIS C REFLEX [id number] 00:00:00* Test Item Value Reference Range Interpretation Comme nts HEPATITIS C ANTIBODY (test c ode = 4675) NON-REACTIVE HEPATITIS C REFLEX [id number] 00:00:00* Test Item Value Reference Range Interpretation Comme nts HEPATITIS C ANTIBODY (test c ode = 4675) NON-REACTIVE VARICELLA ZOSTER [id number] 00:00:00* Test Item Value Reference Range Interpretation Comme nts VARICELLA ZOSTER IgG (test c ode = 45819) 296 INDEX VARICELLA ZOSTER [id number] 00:00:00* Test Item Value Reference Range Interpretation Comme nts VARICELLA ZOSTER IgG (test c ode = 05789) 296 INDEX VAGINAL PATHOGENS DNA [id number] 00:00:00* Test Item Value Reference Range Interpretation Comme nts VIJI SPECIES (test code = ) NEGATIVE G. VAGINALIS (test code = 48445) POSITIVE T. VAGINALIS (test code = 32619) POSITIVE VAGINAL PATHOGENS DNA [id number] 00:00:00* Test Item Value Reference Range Interpretation Comme nts VIJI SPECIES (test code = ) NEGATIVE G. VAGINALIS (test code = 91979) POSITIVE T. VAGINALIS (test code = 54781) POSITIVE OBSTETRIC PANEL + [id number] 00:00:00* Test Item Value Reference Range Interpretation [...] K/UL ABS NUCLEATED RBCS (test code = 53326) 0.00 K/UL BLOOD TYPE AND RH (test code = 3901) O POSITIVE ANTIBODY SCREEN (test code = 3902) NEGATIVE RUBELLA ANTIBODY SCREEN (test code = 4600) 52 IU/ML RUBELLA IgG INTERP (test code = 73691) REACTIVE HEPATITIS B SURF AG (test code = 2739) NON-REACTIVE RPR (test code = 25946) NON-REACTIVE RPR TITER (test code = 3500) NOT INDIC. TITER HIV 1/2 4TH GEN, RFLX CONF (test code = 3514) NON-REACTIVE OBSTETRIC PANEL + [id number] 00:00:00* Test Item Value Reference Range Interpretation [...] K/UL ABS NUCLEATED RBCS (test code = 06476) 0.00 K/UL BLOOD TYPE AND RH (test code = 3901) O POSITIVE ANTIBODY SCREEN (test code = 3902) NEGATIVE RUBELLA ANTIBODY SCREEN (test code = 4600) 52 IU/ML RUBELLA IgG INTERP (test code = 20281) REACTIVE HEPATITIS B SURF AG (test code = 2739) NON-REACTIVE RPR (test code = 17296) NON-REACTIVE RPR TITER (test code = 3500) NOT INDIC. TITER HIV 1/2 4TH GEN, RFLX CONF (test code = 3514) NON-REACTIVE OBSTETRIC PANEL + [id number] 00:00:00* Test Item Value Reference Range Interpretation [...] K/UL ABS NUCLEATED RBCS (test code = 65556) 0.00 K/UL BLOOD TYPE AND RH (test code = 3901) O POSITIVE ANTIBODY SCREEN (test code = 3902) NEGATIVE RUBELLA ANTIBODY SCREEN (test code = 4600) 52 IU/ML RUBELLA IgG INTERP (test code = 18413) REACTIVE HEPATITIS B SURF AG (test code = 2739) NON-REACTIVE RPR (test code = 96058) NON-REACTIVE RPR TITER (test code = 3500) NOT INDIC. TITER HIV 1/2 4TH GEN, RFLX CONF (test code = 3514) NON-REACTIVE HEPATITIS C REFLEX [id number] 00:00:00* Test Item Value Reference Range Interpretation Comme nts HEPATITIS C ANTIBODY (test c ode = 4675) NON-REACTIVE THC METABOLITE, QUANT, URINE [REFLEX]2022-06-01 00:00:00* Test Item Value Reference Range Interpretation Comme nts CARBOXY-THC INTERP (test cod e = 14417) Positive CARBOXY-THC QNT (test code = 49881) >500 ng/mL THC METABOLITE, QUANT, URINE [REFLEX]2022-06-01 00:00:00* Test Item Value Reference Range Interpretation Comme nts CARBOXY-THC INTERP (test cod e = 26007) Positive CARBOXY-THC QNT (test code = 34615) >500 ng/mL HEPATITIS C REFLEX [id number] 00:00:00* Test Item Value Reference Range Interpretation Comme nts HEPATITIS C ANTIBODY (test c ode = 4675) NON-REACTIVE VARICELLA ZOSTER [id number] 00:00:00* Test Item Value Reference Range Interpretation Comme nts VARICELLA ZOSTER IgG (test c ode = 98969) 296 INDEX VARICELLA ZOSTER [id number] 00:00:00* Test Item Value Reference Range Interpretation Comme nts VARICELLA ZOSTER IgG (test c ode = 88839) 296 INDEX VAGINAL PATHOGENS DNA [id number] 00:00:00* Test Item Value Reference Range Interpretation Comme nts VIJI SPECIES (test code = 25322) NEGATIVE G. VAGINALIS (test code = 39899) POSITIVE T. VAGINALIS (test code = 28886) POSITIVE VAGINAL PATHOGENS DNA [id number] 00:00:00* Test Item Value Reference Range Interpretation Comme nts VIJI SPECIES (test code = ) NEGATIVE G. VAGINALIS (test code = 33299) POSITIVE T. VAGINALIS (test code = 69980) POSITIVE OBSTETRIC PANEL + [id number] 00:00:00* Test Item Value Reference Range Interpretation [...] K/UL ABS NUCLEATED RBCS (test code = 89342) 0.00 K/UL BLOOD TYPE AND RH (test code = 3901) O POSITIVE ANTIBODY SCREEN (test code = 3902) NEGATIVE RUBELLA ANTIBODY SCREEN (test code = 4600) 52 IU/ML RUBELLA IgG INTERP (test code = 75758) REACTIVE HEPATITIS B SURF AG (test code = 2739) NON-REACTIVE RPR (test code = 25893) NON-REACTIVE RPR TITER (test code = 3500) NOT INDIC. TITER HIV 1/2 4TH GEN, RFLX CONF (test code = 3514) NON-REACTIVE OBSTETRIC PANEL + [id number] 00:00:00* Test Item Value Reference Range Interpretation [...] K/UL ABS NUCLEATED RBCS (test code = 70432) 0.00 K/UL BLOOD TYPE AND RH (test code = 3901) O POSITIVE ANTIBODY SCREEN (test code = 3902) NEGATIVE RUBELLA ANTIBODY SCREEN (test code = 4600) 52 IU/ML RUBELLA IgG INTERP (test code = 68958) REACTIVE HEPATITIS B SURF AG (test code = 2739) NON-REACTIVE RPR (test code = 09419) NON-REACTIVE RPR TITER (test code = 3500) NOT INDIC. TITER HIV 1/2 4TH GEN, RFLX CONF (test code = 3514) NON-REACTIVE OBSTETRIC PANEL + [id number] 00:00:00* Test Item Value Reference Range Interpretation [...] K/UL ABS NUCLEATED RBCS (test code = 70394) 0.00 K/UL BLOOD TYPE AND RH (test code = 3901) O POSITIVE ANTIBODY SCREEN (test code = 3902) NEGATIVE RUBELLA ANTIBODY SCREEN (test code = 4600) 52 IU/ML RUBELLA IgG INTERP (test code = 94717) REACTIVE HEPATITIS B SURF AG (test code = 2739) NON-REACTIVE RPR (test code = 88796) NON-REACTIVE RPR TITER (test code = 3500) NOT INDIC. TITER HIV 1/2 4TH GEN, RFLX CONF (test code = 3514) NON-REACTIVE THC METABOLITE, QUANT, URINE [REFLEX]2022-06-01 00:00:00* Test Item Value Reference Range Interpretation Comme nts CARBOXY-THC INTERP (test cod e = 26368) Positive CARBOXY-THC QNT (test code = 99718) >500 ng/mL THC METABOLITE, QUANT, URINE [REFLEX]2022-06-01 00:00:00* Test Item Value Reference Range Interpretation Comme nts CARBOXY-THC INTERP (test cod e = 48314) Positive CARBOXY-THC QNT (test code = 76776) >500 ng/mL HEPATITIS C REFLEX [id number] 00:00:00* Test Item Value Reference Range Interpretation Comme nts HEPATITIS C ANTIBODY (test c ode = 4675) NON-REACTIVE HEPATITIS C REFLEX [id number] 00:00:00* Test Item Value Reference Range Interpretation Comme nts HEPATITIS C ANTIBODY (test c ode = 4675) NON-REACTIVE VARICELLA ZOSTER [id number] 00:00:00* Test Item Value Reference Range Interpretation Comme nts VARICELLA ZOSTER IgG (test c ode = 91893) 296 INDEX VARICELLA ZOSTER [id number] 00:00:00* Test Item Value Reference Range Interpretation Comme nts VARICELLA ZOSTER IgG (test c ode = 19809) 296 INDEX CULTURE, [id number] 08:58:44SPECIMEN NUMBER: [id number] CULTURE, URINE SPECIMEN NUMBER: [id number] SPECIMEN COMMENT: URINE SOURCE: URINE REPORT STATUS: FINAL FINAL REPORT: 05/31/2022 10-50,000 CFU/ML UROGENITAL GLORIA PRESENT NO CO MMON PATHOGENSCT/NG, NAAT, [id number] 07:07:14* Test Item Value Reference Range Interpretation Comme nts GONORRHEA, NAAT (test code = 82894) NEGATIVE NEGATIVE IMPORTANT NO SUSAN: SEE ANNOUNCEMENT AT [email or web address] Note: Assay methodology is nucleic acid amplification by supervisor poultry processing mediated amplification (TMA) utilizing the [employer] Combo 2 Assay. CHLAMYDIA, NAAT (test code = 32958) NEGATIVE NEGATIVE IMPORTANT NO SUSAN: SEE ANNOUNCEMENT AT [email or web address] Note: Assay methodology is nucleic acid amplification by supervisor poultry processing mediated amplification (TMA) utilizing the [employer] Combo 2 Assay. CULTURE, [id number] 00:00:00* Test Item Value Reference Range Interpretation Comme nts CULTURE, URINE (test code = 89282) SPECIMEN NUMBER: [id number] CULTURE, [id number] 00:00:00* Test Item Value Reference Range Interpretation Comme nts CULTURE, URINE (test code = 63596) SPECIMEN NUMBER: [id number] CT/NG, TMA, [id number] 00:00:00* Test Item Value Reference Range Interpretation Comme nts GONORRHEA, NAAT (test code = 34703) NEGATIVE CHLAMYDIA, NAAT (test code = 46753) NEGATIVE CT/NG, TMA, [id number] 00:00:00* Test Item Value Reference Range Interpretation Comme nts GONORRHEA, NAAT (test code = 73771) NEGATIVE CHLAMYDIA, NAAT (test code = 69968) NEGATIVE CULTURE, [id number] 00:00:00* Test Item Value Reference Range Interpretation Comme nts CULTURE, URINE (test code = 01464) SPECIMEN NUMBER: [id number] CULTURE, [id number] 00:00:00* Test Item Value Reference Range Interpretation Comme nts CULTURE, URINE (test code = 88646) SPECIMEN NUMBER: [id number] CT/NG, TMA, [id number] 00:00:00* Test Item Value Reference Range Interpretation Comme nts GONORRHEA, NAAT (test code = 77503) NEGATIVE CHLAMYDIA, NAAT (test code = 36843) NEGATIVE CT/NG, TMA, [id number] 00:00:00* Test Item Value Reference Range Interpretation Comme nts GONORRHEA, NAAT (test code = 72192) NEGATIVE CHLAMYDIA, NAAT (test code = 47184) NEGATIVE CULTURE, [id number] 00:00:00* Test Item Value Reference Range Interpretation Comme nts CULTURE, URINE (test code = 87437) SPECIMEN NUMBER: [id number] CULTURE, [id number] 00:00:00* Test Item Value Reference Range Interpretation Comme nts CULTURE, URINE (test code = 23284) SPECIMEN NUMBER: [id number] CT/NG, TMA, [id number] 00:00:00* Test Item Value Reference Range Interpretation Comme nts GONORRHEA, NAAT (test code = 14866) NEGATIVE CHLAMYDIA, NAAT (test code = 08859) NEGATIVE CT/NG, TMA, [id number] 00:00:00* Test Item Value Reference Range Interpretation Comme nts GONORRHEA, NAAT (test code = 56647) NEGATIVE CHLAMYDIA, NAAT (test code = 07052) NEGATIVE CULTURE, [id number] 00:00:00* Test Item Value Reference Range Interpretation Comme nts CULTURE, URINE (test code = 55752) SPECIMEN NUMBER: [id number] CULTURE, [id number] 00:00:00* Test Item Value Reference Range Interpretation Comme nts CULTURE, URINE (test code = 67921) SPECIMEN NUMBER: [id number] CT/NG, TMA, [id number] 00:00:00* Test Item Value Reference Range Interpretation Comme nts GONORRHEA, NAAT (test code = 93021) NEGATIVE CHLAMYDIA, NAAT (test code = 43367) NEGATIVE CT/NG, TMA, [id number] 00:00:00* Test Item Value Reference Range Interpretation Comme nts GONORRHEA, NAAT (test code = 41730) NEGATIVE CHLAMYDIA, NAAT (test code = 64846) NEGATIVE DRUG ABUSE SCREEN 10 REFLEX [id number] 06:49:04* Test Item Value Reference Range Interpretation Comments AMPHETAMINES (test code = 3201) NEGATIVE NEGATIVE BARBITURATES (test code = 3202) NEGATIVE NEGATIVE BENZODIAZEPINES (test code = 3203) NEGATIVE NEGATIVE CANNABINOIDS (test code = 3204) SEE REFLEX TESTING NEGATIVE A COCAINE METABOLITE (test code = 3205) NEGATIVE NEGATIVE OPIATES (test code = 3209) NEGATIVE NEGATIVE OXYCODONE (test code = 74348) NEGATIVE NEGATIVE PHENCYCLIDINE (test code = 3210) NEGATIVE NEGATIVE METHADONE (test code = 3207) NEGATIVE NEGATIVE BUPRENORPHINE (test code = 92837) NEGATIVE NEGATIVE SOURCE (test code = 294899) URINE SEE BELOW FO R THRESHOLDS AND [...] forensic use. DRUG ABUSE SCREEN 10 REFLEX [id number] 00:00:00* Test Item Value Reference Range Interpretation Comme nts AMPHETAMINES (test code = 3201) NEGATIVE BARBITURATES (test code = 3202) NEGATIVE BENZODIAZEPINES (test code = 3203) NEGATIVE CANNABINOIDS (test code = 3204) SEE REFLEX TESTING COCAINE METABOLITE (test code = 3205) NEGATIVE OPIATES (test code = 3209) NEGATIVE OXYCODONE (test code = 42572) NEGATIVE PHENCYCLIDINE (test code = 3210) NEGATIVE METHADONE (test code = 3207) NEGATIVE BUPRENORPHINE (test code = 98642) NEGATIVE SOURCE (test code = 184207) URINE DRUG ABUSE SCREEN 10 REFLEX [id number] 00:00:00* Test Item Value Reference Range Interpretation Comme nts AMPHETAMINES (test code = 3201) NEGATIVE BARBITURATES (test code = 3202) NEGATIVE BENZODIAZEPINES (test code = 3203) NEGATIVE CANNABINOIDS (test code = 3204) SEE REFLEX TESTING COCAINE METABOLITE (test code = 3205) NEGATIVE OPIATES (test code = 3209) NEGATIVE OXYCODONE (test code = 15954) NEGATIVE PHENCYCLIDINE (test code = 3210) NEGATIVE METHADONE (test code = 3207) NEGATIVE BUPRENORPHINE (test code = 46044) NEGATIVE SOURCE (test code = 174512) URINE DRUG ABUSE SCREEN 10 REFLEX [id number] 00:00:00* Test Item Value Reference Range Interpretation Comme nts AMPHETAMINES (test code = 3201) NEGATIVE BARBITURATES (test code = 3202) NEGATIVE BENZODIAZEPINES (test code = 3203) NEGATIVE CANNABINOIDS (test code = 3204) SEE REFLEX TESTING COCAINE METABOLITE (test code = 3205) NEGATIVE OPIATES (test code = 3209) NEGATIVE OXYCODONE (test code = 68028) NEGATIVE PHENCYCLIDINE (test code = 3210) NEGATIVE METHADONE (test code = 3207) NEGATIVE BUPRENORPHINE (test code = 17592) NEGATIVE SOURCE (test code = 733294) URINE DRUG ABUSE SCREEN 10 REFLEX [id number] 00:00:00* Test Item Value Reference Range Interpretation Comme nts AMPHETAMINES (test code = 3201) NEGATIVE BARBITURATES (test code = 3202) NEGATIVE BENZODIAZEPINES (test code = 3203) NEGATIVE CANNABINOIDS (test code = 3204) SEE REFLEX TESTING COCAINE METABOLITE (test code = 3205) NEGATIVE OPIATES (test code = 3209) NEGATIVE OXYCODONE (test code = 98916) NEGATIVE PHENCYCLIDINE (test code = 3210) NEGATIVE METHADONE (test code = 3207) NEGATIVE BUPRENORPHINE (test code = 51635) NEGATIVE SOURCE (test code = 994042) URINE DRUG ABUSE SCREEN 10 REFLEX [id number] 00:00:00* Test Item Value Reference Range Interpretation Comme nts AMPHETAMINES (test code = 3201) NEGATIVE BARBITURATES (test code = 3202) NEGATIVE BENZODIAZEPINES (test code = 3203) NEGATIVE CANNABINOIDS (test code = 3204) SEE REFLEX TESTING COCAINE METABOLITE (test code = 3205) NEGATIVE OPIATES (test code = 3209) NEGATIVE OXYCODONE (test code = 50115) NEGATIVE PHENCYCLIDINE (test code = 3210) NEGATIVE METHADONE (test code = 3207) NEGATIVE BUPRENORPHINE (test code = 35671) NEGATIVE SOURCE (test code = 995035) URINE DRUG ABUSE SCREEN 10 REFLEX [id number] 00:00:00* Test Item Value Reference Range Interpretation Comme nts AMPHETAMINES (test code = 3201) NEGATIVE BARBITURATES (test code = 3202) NEGATIVE BENZODIAZEPINES (test code = 3203) NEGATIVE CANNABINOIDS (test code = 3204) SEE REFLEX TESTING COCAINE METABOLITE (test code = 3205) NEGATIVE OPIATES (test code = 3209) NEGATIVE OXYCODONE (test code = 44063) NEGATIVE PHENCYCLIDINE (test code = 3210) NEGATIVE METHADONE (test code = 3207) NEGATIVE BUPRENORPHINE (test code = 50396) NEGATIVE SOURCE (test code = 283885) URINE DRUG ABUSE SCREEN 10 REFLEX [id number] 00:00:00* Test Item Value Reference Range Interpretation Comme nts AMPHETAMINES (test code = 3201) NEGATIVE BARBITURATES (test code = 3202) NEGATIVE BENZODIAZEPINES (test code = 3203) NEGATIVE CANNABINOIDS (test code = 3204) SEE REFLEX TESTING COCAINE METABOLITE (test code = 3205) NEGATIVE OPIATES (test code = 3209) NEGATIVE OXYCODONE (test code = 47025) NEGATIVE PHENCYCLIDINE (test code = 3210) NEGATIVE METHADONE (test code = 3207) NEGATIVE BUPRENORPHINE (test code = 12162) NEGATIVE SOURCE (test code = 329940) URINE DRUG ABUSE SCREEN 10 REFLEX [id number] 00:00:00* Test Item Value Reference Range Interpretation Comme nts AMPHETAMINES (test code = 3201) NEGATIVE BARBITURATES (test code = 3202) NEGATIVE BENZODIAZEPINES (test code = 3203) NEGATIVE CANNABINOIDS (test code = 3204) SEE REFLEX TESTING COCAINE METABOLITE (test code = 3205) NEGATIVE OPIATES (test code = 3209) NEGATIVE OXYCODONE (test code = 00486) NEGATIVE PHENCYCLIDINE (test code = 3210) NEGATIVE METHADONE (test code = 3207) NEGATIVE BUPRENORPHINE (test code = 23765) NEGATIVE SOURCE (test code = 308519) URINE TOTAL BHCG (QUANTITATIVE)2021-06-26 15:30:34* Test Item Value Reference Range Interpretation Comme nts BETA HCG (test code = 9068832248) See_Comment [Automated messa ge] The system which generated this result transmitted reference range: Non- female and male patients: <5 mIU/mL. The reference range was not used to interpret this result as normal/abnormal. MIHAELA (test code = MIHAELA) Gestational Age ?Range (mIU/mL) 1-10 ?Weeks ?58-12668165-44 Weeks ?09853-52602297-02 Weeks ?3994-25736561-45 Weeks ?6988-437807 Biotin has been reported to cause a negative bias, interpret results relative to patient's use of biotin. [facility] METABOLIC PAN[facility] (88786)2021-06-26 14:58:32* Test Item Value Reference Range Interpretation Comme nts NA (test code = 4014185104) 139 mmol/L 135-145 K (test code = 1807989314) 4.0 mmol/L 3.5-5.0 CL (test code = 4918850591) 107 mmol/L 98-108 CO2 TOTAL (test code = 5677167923) 26 mmol/L 23-31 AGAP (test code = 9487284685) 2-16 BUN (test code = 1353342665) 4 mg/dL 7-23 L GLUCOSE (test code = 2713197159) 100 mg/dL 70-110 CREATININE (test code = 7602429445) 0.53 mg/dL 0.50-1.04 TOTAL BILI (test code = 5986706512) 0.3 mg/dL 0.1-1.1 CALCIUM (test code = 6187681025) 9.4 mg/dL 8.6-10.6 T PROTEIN (test code = 8463817645) 7.9 g/dL 6.3-8.2 ALBUMIN (test code = 6557132402) 4.7 g/dL 3.5-5.0 ALK PHOS (test code = 0328542684) 71 U/L 34-122 ALTv (test code = 1742-6) 19 U/L 5-35 AST(SGOT) (test code = 0650846093) 27 U/L 13-40 eGFR (test code = 5072722478) mL/min/1.73m2 MIHAELA (test code = MIHAELA) Association [...] imaging tests). Lab Interpretation (test code = 02370-3) Abnormal [facility] WITH [id number] 14:45:48* Test Item Value Reference Range Interpretation Comme nts WBC (test code = 6690-2) See_Comment [Automated Plunify] The system which generated this result transmitted reference range: 4.30 - 11.10 10*3/?L. The reference range was not used to interpret this result as normal/abnormal. RBC (test code = 789-8) See_Comment [Automated Plunify] The system which generated this result transmitted [...] 33.3 g/dL 31.6-35.1 RDW-SD (test code = 00177-4) 39.1 fL 39.0-49.9 RDW-CV (test code = 788-0) 11.8 % 12.0-15.5 L PLT (test code = 777-3) See_Comment [Automated messa ge] The system which generated this result transmitted reference range: 166 - 358 10*3/?L. The reference range was not used to interpret this result as normal/abnormal. MPV (test code = 67121-8) 10.2 fL 9.5-12.9 NRBC/100 WBC (test code = 5038284385) See_Comment [Automated Infinio ssage] The system which generated this result transmitted reference range: 0.0 - 10.0 /100 WBCs. The reference range was not used to interpret this result as normal/abnormal. NRBC x10^3 (test code = 6549758811) <0.01 See_Comment [Automated messa ge] The system which generated this result transmitted reference range: 10*3/?L. The reference range was not used to interpret this result as normal/abnormal. GRAN MAT (NEUT) % (test code = 770-8) 61.6 % IMM GRAN % (test code = 3290899972) 0.20 % LYMPH % (test code = 736-9) 28.3 % MONO % (test code = 5905-5) 7.0 % EOS % (test code = 713-8) 2.5 % BASO % (test code = 706-2) 0.4 % GRAN MAT x10^3(ANC) (test code = 7189183961) 3.27 10*3/uL 1.88-7.09 IMM GRAN x10^3 (test code = 2345011252) <0.03 0.00-0.06 LYMPH x10^3 (test code = 731-0) 1.50 10*3/uL 1.32-3.29 MONO x10^3 (test code = 742-7) 0.37 10*3/uL 0.33-0.92 EOS x10^3 (test code = 711-2) 0.13 10*3/uL 0.03-0.39 BASO x10^3 (test code = 704-7) <0.03 0.01-0.07 Lab Interpretation (test code = 37005-5) Abnormal [facility] Confirmation (Lab Only)2021-06-20 02:41:59* Test Item Value Reference Range Interpretation Comme nts ABO & RH (test code = 20) O Positive Performed at [facility] Laboratory [facility] Blood [address] [place] [address] Free: [phone] No. [id number] [facility] Confirmation (Lab Only)2021-06-20 02:41:59* Test Item Value Reference Range Interpretation Comme nts ABO & RH (test code = 20) O Positive Performed at [facility] Blood [address] Free: [phone] No. [id number] [facility] BHCG (QUANTITATIVE)2021-06-20 02:40:26* Test Item Value Reference Range Interpretation Comme nts BETA HCG (test code = 1832705612) See_Comment [Automated wufooa ge] The system which generated this result transmitted reference range: Non- female and male patients: <5 mIU/mL. The reference range was not used to interpret this result as normal/abnormal. MIHAELA (test code = MIHAELA) Gestational Age ?Range (mIU/mL) 1-10 ?Weeks ?13-74806624-77 Weeks ?70084-40837041-34 Weeks ?0743-46711146-05 Weeks ?8045-222817 Biotin has been reported to cause a negative bias, interpret results relative to patient's use of biotin. [facility] BHCG (QUANTITATIVE)2021-06-20 02:40:26* Test Item Value Reference Range Interpretation Comme nts BETA HCG (test code = 4938012137) See_Comment [Automated wufooa ge] The system which generated this result transmitted reference range: Non- female and male patients: <5 mIU/mL. The reference range was not used to interpret this result as normal/abnormal. MIHAELA (test code = MIHAELA) Gestational Age ?Range (mIU/mL) 1-10 ?Weeks ?67-52493478-01 Weeks ?90367-52131687-43 Weeks ?5681-49724147-30 Weeks ?7891-637295 Biotin has been reported to cause a negative bias, interpret results relative to patient's use of biotin. [facility] - ONCE [id number] 02:33:51 * Test Item Value Reference Range Interpretation Comme nts ABO & RH (test code = 20) O Positive Performed at [facility] Laboratory [facility] Blood [address] Free: [phone] No. [id number] IAT (test code = 1185) Negative Performed at [facility] Laboratory [facility] Blood [place] [address]Toll Free: [phone] No. [id number] [facility] - ONCE [id number] 02:33:51 * Test Item Value Reference Range Interpretation Comme nts ABO & RH (test code = 20) O Positive Performed at [facility] Laboratory [facility] Blood [place] [address]Toll Free: [phone] No. [id number] IAT (test code = 1185) Negative Performed at [facility] Laboratory [facility] Blood [place] [address]Toll Free: [phone] No. [id number] [facility]. METABOLIC PANEL (18428)2021-06-20 02:20:41* Test Item Value Reference Range Interpretation Comme nts NA (test code = 7480244549) 140 mmol/L 135-145 K (test code = 2623320126) 3.4 mmol/L 3.5-5.0 L CL (test code = 6087686745) 106 mmol/L 98-108 CO2 TOTAL (test code = 6533773875) 25 mmol/L 23-31 AGAP (test code = 3990421798) 2-16 BUN (test code = 0234701785) 8 mg/dL 7-23 GLUCOSE (test code = 4880812777) 101 mg/dL 70-110 CREATININE (test code = 4720948762) 0.59 mg/dL 0.50-1.04 TOTAL BILI (test code = 3146394813) 0.5 mg/dL 0.1-1.1 CALCIUM (test code = 7273067187) 9.3 mg/dL 8.6-10.6 T PROTEIN (test code = 7571187956) 8.1 g/dL 6.3-8.2 ALBUMIN (test code = 0918394496) 4.7 g/dL 3.5-5.0 ALK PHOS (test code = 1155277031) 85 U/L 34-122 ALTv (test code = 1742-6) 27 U/L 5-35 AST(SGOT) (test code = 3879936792) 27 U/L 13-40 eGFR (test code = 4287265395) mL/min/1.73m2 MIHAELA (test code = MIHAELA) Association [...] imaging tests). Lab Interpretation (test code = 09745-7) Abnormal [facility]. METABOLIC PANEL (66089)2021-06-20 02:20:41* Test Item Value Reference Range Interpretation Comme nts NA (test code = 5607999536) 140 mmol/L 135-145 K (test code = 9638719085) 3.4 mmol/L 3.5-5.0 L CL (test code = 0144243579) 106 mmol/L 98-108 CO2 TOTAL (test code = 3863600474) 25 mmol/L 23-31 AGAP (test code = 6797909544) 2-16 BUN (test code = 3121579874) 8 mg/dL 7-23 GLUCOSE (test code = 7842180132) 101 mg/dL 70-110 CREATININE (test code = 0861923174) 0.59 mg/dL 0.50-1.04 TOTAL BILI (test code = 4485412961) 0.5 mg/dL 0.1-1.1 CALCIUM (test code = 3276751402) 9.3 mg/dL 8.6-10.6 T PROTEIN (test code = 5635032570) 8.1 g/dL 6.3-8.2 ALBUMIN (test code = 6681342301) 4.7 g/dL 3.5-5.0 ALK PHOS (test code = 8130843322) 85 U/L 34-122 ALTv (test code = 1742-6) 27 U/L 5-35 AST(SGOT) (test code = 9433401349) 27 U/L 13-40 eGFR (test code = 6543123562) mL/min/1.73m2 MIHAELA (test code = MIHAELA) Association [...] imaging tests). Lab Interpretation (test code = 89231-8) Abnormal [facility] WITH [id number] 02:01:15* Test Item Value Reference Range Interpretation Comme nts WBC (test code = 6690-2) See_Comment [Automated Plunify] The system which generated this result transmitted reference range: 4.30 - 11.10 10*3/?L. The reference range was not used to interpret this result as normal/abnormal. RBC (test code = 789-8) See_Comment [Automated Plunify] The system which generated this result transmitted [...] 33.6 g/dL 31.6-35.1 RDW-SD (test code = 60714-3) 37.8 fL 39.0-49.9 L RDW-CV (test code = 788-0) 11.8 % 12.0-15.5 L PLT (test code = 777-3) See_Comment [Automated messa ge] The system which generated this result transmitted reference range: 166 - 358 10*3/?L. The reference range was not used to interpret this result as normal/abnormal. MPV (test code = 34675-3) 9.9 fL 9.5-12.9 NRBC/100 WBC (test code = 4213841789) See_Comment [Automated me ssage] The system which generated this result transmitted reference range: 0.0 - 10.0 /100 WBCs. The reference range was not used to interpret this result as normal/abnormal. NRBC x10^3 (test code = 7647516778) <0.01 See_Comment [Automated messa ge] The system which generated this result transmitted reference range: 10*3/?L. The reference range was not used to interpret this result as normal/abnormal. GRAN MAT (NEUT) % (test code = 770-8) 56.3 % IMM GRAN % (test code = 5850965888) 0.30 % LYMPH % (test code = 736-9) 32.7 % MONO % (test code = 5905-5) 8.3 % EOS % (test code = 713-8) 1.9 % BASO % (test code = 706-2) 0.5 % GRAN MAT x10^3(ANC) (test code = 5312094073) 4.15 10*3/uL 1.88-7.09 IMM GRAN x10^3 (test code = 2617396565) <0.03 0.00-0.06 LYMPH x10^3 (test code = 731-0) 2.41 10*3/uL 1.32-3.29 MONO x10^3 (test code = 742-7) 0.61 10*3/uL 0.33-0.92 EOS x10^3 (test code = 711-2) 0.14 10*3/uL 0.03-0.39 BASO x10^3 (test code = 704-7) 0.04 10*3/uL 0.01-0.07 Lab Interpretation (test code = 39703-3) Abnormal [facility] WITH [id number] 02:01:15* Test Item Value Reference Range Interpretation Comme nts WBC (test code = 6690-2) See_Comment [Automated wufooa ge] The system which generated this result transmitted reference range: 4.30 - 11.10 10*3/?L. The reference range was not used to interpret this result as normal/abnormal. RBC (test code = 789-8) See_Comment [Automated wufooa ge] The system which generated this result [...] 33.6 g/dL 31.6-35.1 RDW-SD (test code = 10383-2) 37.8 fL 39.0-49.9 L RDW-CV (test code = 788-0) 11.8 % 12.0-15.5 L PLT (test code = 777-3) See_Comment [Automated wufooa ge] The system which generated this result transmitted reference range: 166 - 358 10*3/?L. The reference range was not used to interpret this result as normal/abnormal. MPV (test code = 42530-3) 9.9 fL 9.5-12.9 NRBC/100 WBC (test code = 3988253157) See_Comment [Automated me ssage] The system which generated this result transmitted reference range: 0.0 - 10.0 /100 WBCs. The reference range was not used to interpret this result as normal/abnormal. NRBC x10^3 (test code = 1496629034) <0.01 See_Comment [Automated messa ge] The system which generated this result transmitted reference range: 10*3/?L. The reference range was not used to interpret this result as normal/abnormal. GRAN MAT (NEUT) % (test code = 770-8) 56.3 % IMM GRAN % (test code = 9636211531) 0.30 % LYMPH % (test code = 736-9) 32.7 % MONO % (test code = 5905-5) 8.3 % EOS % (test code = 713-8) 1.9 % BASO % (test code = 706-2) 0.5 % GRAN MAT x10^3(ANC) (test code = 8951307987) 4.15 10*3/uL 1.88-7.09 IMM GRAN x10^3 (test code = 1691503371) <0.03 0.00-0.06 LYMPH x10^3 (test code = 731-0) 2.41 10*3/uL 1.32-3.29 MONO x10^3 (test code = 742-7) 0.61 10*3/uL 0.33-0.92 EOS x10^3 (test code = 711-2) 0.14 10*3/uL 0.03-0.39 BASO x10^3 (test code = 704-7) 0.04 10*3/uL 0.01-0.07 Lab Interpretation (test code = 57785-0) [facility] [id number] 01:40:00* Test Item Value Reference Range Interpretation Comme nts POCT PREG (test code = 1605) positive On board controls acceptable with C Line (test code = 3574) present POCT PREG LOT # (test code = 3575) [id number] POCT PREG TEST DATE ( test code = 3576) 09/29/2022 Lab Interpretation (test cod e = 93887-7) [facility] [id number] 01:40:00* Test Item Value Reference Range Interpretation Comme nts POCT PREG (test code = 1605) positive On board controls acceptable with C Line (test code = 3574) present POCT PREG LOT # (test code = 3575) [id number] POCT PREG TEST DATE ( test code = 3576) 09/29/2022 Lab Interpretation (test cod e = 55684-0) [facility] CHLAMYDIA AMPLIFIED, [id number] 00:00:00* Test Item Value Reference Range Interpretation Comme nts GONORRHEA, TMA (test code = 78850) NEGATIVE CHLAMYDIA, TMA (test code = 72406) NEGATIVE GC AND CHLAMYDIA AMPLIFIED, [id number] 00:00:00* Test Item Value Reference Range Interpretation Comme nts GONORRHEA, TMA (test code = 09113) NEGATIVE CHLAMYDIA, TMA (test code = 96048) NEGATIVE PAP TEST, THINPREP, [id number] 00:00:00* Test Item Value Reference Range Interpretation Comme nts SOURCE: (test code = 8001) Cervical/Endocervical SLIDES: (test code = 8011) 1 LMP: (test code = 8021) 04/07/2021 SPECIMEN ADEQUACY: (test code = 48037) (NOTE) INTERPRETATION: (test code = 98675) NILM/NO EPITH. ABNORMALITY;SEE BELOW BEND UP: (test code = 8101) [place], [place](ASCP)IAC LOCATION: (test code = 05937) (NOTE) CPT: (test code = 8140) (NOTE) PAP TEST, THINPREP, [id number] 00:00:00* Test Item Value Reference Range Interpretation Comme nts SOURCE: (test code = 8001) Cervical/Endocervical SLIDES: (test code = 8011) 1 LMP: (test code = 8021) 04/07/2021 SPECIMEN ADEQUACY: (test code = 37484) (NOTE) INTERPRETATION: (test code = 85218) NILM/NO EPITH. ABNORMALITY;SEE BELOW BEND UP: (test code = 8101) [place], [place](ASCP)IAC LOCATION: (test code = 85268) (NOTE) CPT: (test code = 8140) (NOTE) HPV HIGH RISK WITH GENOTYPE, [id number] 00:00:00* Test Item Value Reference Range Interpretation Comme nts HPV HIGH RISK INTERP (test c ode = 13993) NEGATIVE HPV 16 (test code = 07550) NEGATIVE HPV 18 (test code = 11580) NEGATIVE HPV, HR, OTHER GENOTYPES (te st code = 39665) NEGATIVE HPV HIGH RISK WITH GENOTYPE, [id number] 00:00:00* Test Item Value Reference Range Interpretation Comme nts HPV HIGH RISK INTERP (test c ode = 47939) NEGATIVE HPV 16 (test code = 13859) NEGATIVE HPV 18 (test code = 36696) NEGATIVE HPV, HR, OTHER GENOTYPES (te st code = 00080) NEGATIVE GC AND CHLAMYDIA AMPLIFIED, [id number] 00:00:00* Test Item Value Reference Range Interpretation Comme nts GONORRHEA, TMA (test code = 38326) NEGATIVE CHLAMYDIA, TMA (test code = 23093) NEGATIVE GC AND CHLAMYDIA AMPLIFIED, [id number] 00:00:00* Test Item Value Reference Range Interpretation Comme nts GONORRHEA, TMA (test code = 66070) NEGATIVE CHLAMYDIA, TMA (test code = 04082) NEGATIVE PAP TEST, THINPREP, [id number] 00:00:00* Test Item Value Reference Range Interpretation Comme nts SOURCE: (test code = 8001) Cervical/Endocervical SLIDES: (test code = 8011) 1 LMP: (test code = 8021) 04/07/2021 SPECIMEN ADEQUACY: (test code = 94029) (NOTE) INTERPRETATION: (test code = 44982) NILM/NO EPITH. ABNORMALITY;SEE BELOW BEND UP: (test code = 8101) [place], [place](ASCP)IAC LOCATION: (test code = 80810) (NOTE) CPT: (test code = 8140) (NOTE) PAP TEST, THINPREP, [id number] 00:00:00* Test Item Value Reference Range Interpretation Comme nts SOURCE: (test code = 8001) Cervical/Endocervical SLIDES: (test code = 8011) 1 LMP: (test code = 8021) 04/07/2021 SPECIMEN ADEQUACY: (test code = 88983) (NOTE) INTERPRETATION: (test code = 41933) NILM/NO EPITH. ABNORMALITY;SEE BELOW BEND UP: (test code = 8101) [place](ASCP)IAC LOCATION: (test code = 70414) (NOTE) CPT: (test code = 8140) (NOTE) HPV HIGH RISK WITH GENOTYPE, [id number] 00:00:00* Test Item Value Reference Range Interpretation Comme nts HPV HIGH RISK INTERP (test c ode = 70894) NEGATIVE HPV 16 (test code = 73557) NEGATIVE HPV 18 (test code = 92525) NEGATIVE HPV, HR, OTHER GENOTYPES (te st code = 94251) NEGATIVE HPV HIGH RISK WITH GENOTYPE, [id number] 00:00:00* Test Item Value Reference Range Interpretation Comme nts HPV HIGH RISK INTERP (test c ode = 22519) NEGATIVE HPV 16 (test code = 48234) NEGATIVE HPV 18 (test code = 98611) NEGATIVE HPV, HR, OTHER GENOTYPES (te st code = 15782) NEGATIVE GC AND CHLAMYDIA AMPLIFIED, [id number] 00:00:00* Test Item Value Reference Range Interpretation Comme nts GONORRHEA, TMA (test code = 49219) NEGATIVE CHLAMYDIA, TMA (test code = 84995) NEGATIVE GC AND CHLAMYDIA AMPLIFIED, [id number] 00:00:00* Test Item Value Reference Range Interpretation Comme nts GONORRHEA, TMA (test code = 09447) NEGATIVE CHLAMYDIA, TMA (test code = 93744) NEGATIVE GC AND CHLAMYDIA AMPLIFIED, [id number] 00:00:00* Test Item Value Reference Range Interpretation Comme nts GONORRHEA, TMA (test code = 93370) NEGATIVE CHLAMYDIA, TMA (test code = 16465) NEGATIVE PAP TEST, THINPREP, [id number] 00:00:00* Test Item Value Reference Range Interpretation Comme nts SOURCE: (test code = 8001) Cervical/Endocervical SLIDES: (test code = 8011) 1 LMP: (test code = 8021) 04/07/2021 SPECIMEN ADEQUACY: (test code = 38763) (NOTE) INTERPRETATION: (test code = 69015) NILM/NO EPITH. ABNORMALITY;SEE BELOW BEND UP: (test code = 8101) [place], [place](ASCP)IAC LOCATION: (test code = 61912) (NOTE) CPT: (test code = 8140) (NOTE) PAP TEST, THINPREP, [id number] 00:00:00* Test Item Value Reference Range Interpretation Comme nts SOURCE: (test code = 8001) Cervical/Endocervical SLIDES: (test code = 8011) 1 LMP: (test code = 8021) 04/07/2021 SPECIMEN ADEQUACY: (test code = 92902) (NOTE) INTERPRETATION: (test code = 38970) NILM/NO EPITH. ABNORMALITY;SEE BELOW BEND UP: (test code = 8101) [place], [place](ASCP)IAC LOCATION: (test code = 64225) (NOTE) CPT: (test code = 8140) (NOTE) GC AND CHLAMYDIA AMPLIFIED, [id number] 00:00:00* Test Item Value Reference Range Interpretation Comme nts GONORRHEA, TMA (test code = 86305) NEGATIVE CHLAMYDIA, TMA (test code = 16526) NEGATIVE HPV HIGH RISK WITH GENOTYPE, [id number] 00:00:00* Test Item Value Reference Range Interpretation Comme nts HPV HIGH RISK INTERP (test c ode = 91562) NEGATIVE HPV 16 (test code = 75451) NEGATIVE HPV 18 (test code = 89191) NEGATIVE HPV, HR, OTHER GENOTYPES (te st code = 86057) NEGATIVE HPV HIGH RISK WITH GENOTYPE, [id number] 00:00:00* Test Item Value Reference Range Interpretation Comme nts HPV HIGH RISK INTERP (test c ode = 07849) NEGATIVE HPV 16 (test code = 22078) NEGATIVE HPV 18 (test code = 23490) NEGATIVE HPV, HR, OTHER GENOTYPES (te st code = 58693) NEGATIVE PAP TEST, THINPREP, [id number] 00:00:00* Test Item Value Reference Range Interpretation Comme nts SOURCE: (test code = 8001) Cervical/Endocervical SLIDES: (test code = 8011) 1 LMP: (test code = 8021) 04/07/2021 SPECIMEN ADEQUACY: (test code = 84062) (NOTE) INTERPRETATION: (test code = 74421) NILM/NO EPITH. ABNORMALITY;SEE BELOW BEND UP: (test code = 8101) [place], [place](ASCP)IAC LOCATION: (test code = 22268) (NOTE) CPT: (test code = 8140) (NOTE) PAP TEST, THINPREP, [id number] 00:00:00* Test Item Value Reference Range Interpretation Comme nts SOURCE: (test code = 8001) Cervical/Endocervical SLIDES: (test code = 8011) 1 LMP: (test code = 8021) 04/07/2021 SPECIMEN ADEQUACY: (test code = 70703) (NOTE) INTERPRETATION: (test code = 61390) NILM/NO EPITH. ABNORMALITY;SEE BELOW BEND UP: (test code = 8101) [place], [place](ASCP)IAC LOCATION: (test code = 25808) (NOTE) CPT: (test code = 8140) (NOTE) HPV HIGH RISK WITH GENOTYPE, [id number] 00:00:00* Test Item Value Reference Range Interpretation Comme nts HPV HIGH RISK INTERP (test c ode = 43095) NEGATIVE HPV 16 (test code = 82368) NEGATIVE HPV 18 (test code = 56387) NEGATIVE HPV, HR, OTHER GENOTYPES (te st code = 69295) NEGATIVE GC AND CHLAMYDIA AMPLIFIED, [id number] 00:00:00* Test Item Value Reference Range Interpretation Comme nts GONORRHEA, TMA (test code = 85862) NEGATIVE CHLAMYDIA, TMA (test code = 49697) NEGATIVE GC AND CHLAMYDIA AMPLIFIED, [id number] 00:00:00* Test Item Value Reference Range Interpretation Comme nts GONORRHEA, TMA (test code = 47319) NEGATIVE CHLAMYDIA, TMA (test code = 58467) NEGATIVE PAP TEST, THINPREP, [id number] 00:00:00* Test Item Value Reference Range Interpretation Comme nts SOURCE: (test code = 8001) Cervical/Endocervical SLIDES: (test code = 8011) 1 LMP: (test code = 8021) 04/07/2021 SPECIMEN ADEQUACY: (test code = 49578) (NOTE) INTERPRETATION: (test code = 41187) NILM/NO EPITH. ABNORMALITY;SEE BELOW BEND UP: (test code = 8101) [place](ASCP)IAC LOCATION: (test code = 96957) (NOTE) CPT: (test code = 8140) (NOTE) PAP TEST, THINPREP, [id number] 00:00:00* Test Item Value Reference Range Interpretation Comme nts SOURCE: (test code = 8001) Cervical/Endocervical SLIDES: (test code = 8011) 1 LMP: (test code = 8021) 04/07/2021 SPECIMEN ADEQUACY: (test code = 65163) (NOTE) INTERPRETATION: (test code = 00525) NILM/NO EPITH. ABNORMALITY;SEE BELOW BEND UP: (test code = 8101) [place], [place](ASCP)IAC LOCATION: (test code = 15945) (NOTE) CPT: (test code = 8140) (NOTE) HPV HIGH RISK WITH GENOTYPE, [id number] 00:00:00* Test Item Value Reference Range Interpretation Comme [facility] HPV HIGH RISK INTERP (test c ode = 72449) NEGATIVE HPV 16 (test code = 63848) NEGATIVE HPV 18 (test code = 26537) NEGATIVE HPV, HR, OTHER GENOTYPES (te st code = 83328) NEGATIVE HPV HIGH RISK WITH GENOTYPE, [id number] 00:00:00* Test Item Value Reference Range Interpretation Comme nts HPV HIGH RISK INTERP (test c ode = 65023) NEGATIVE HPV 16 (test code = 60755) NEGATIVE HPV 18 (test code = 02676) NEGATIVE HPV, HR, OTHER GENOTYPES (te st code = 66516) NEGATIVE HPV HIGH RISK WITH GENOTYPE, [id number] 00:00:00* Test Item Value Reference Range Interpretation Comme nts HPV HIGH RISK INTERP (test c ode = 22773) NEGATIVE HPV 16 (test code = 30587) NEGATIVE HPV 18 (test code = 47880) NEGATIVE HPV, HR, OTHER GENOTYPES (te st code = 23360) NEGATIVE GC AND CHLAMYDIA AMPLIFIED, [id number] 00:00:00* Test Item Value Reference Range Interpretation Comme nts GONORRHEA, TMA (test code = 30982) NEGATIVE CHLAMYDIA, TMA (test code = 46468) NEGATIVE GC AND CHLAMYDIA AMPLIFIED, [id number] 00:00:00* Test Item Value Reference Range Interpretation Comme nts GONORRHEA, TMA (test code = 32763) NEGATIVE CHLAMYDIA, TMA (test code = 41955) NEGATIVE PAP TEST, THINPREP, [id number] 00:00:00* Test Item Value Reference Range Interpretation Comme nts SOURCE: (test code = 8001) Cervical/Endocervical SLIDES: (test code = 8011) 1 LMP: (test code = 8021) 04/07/2021 SPECIMEN ADEQUACY: (test code = 06465) (NOTE) INTERPRETATION: (test code = 31713) NILM/NO EPITH. ABNORMALITY;SEE BELOW BEND UP: (test code = 8101) [place], [place](ASCP)IAC LOCATION: (test code = 65744) (NOTE) CPT: (test code = 8140) (NOTE) PAP TEST, THINPREP, [id number] 00:00:00* Test Item Value Reference Range Interpretation Comme [facility] SOURCE: (test code = 8001) Cervical/Endocervical SLIDES: (test code = 8011) 1 LMP: (test code = 8021) 04/07/2021 SPECIMEN ADEQUACY: (test code = 12721) (NOTE) INTERPRETATION: (test code = 32947) NILM/NO EPITH. ABNORMALITY;SEE BELOW BEND UP: (test code = 8101) [place], [place](ASCP)IAC LOCATION: (test code = 60306) (NOTE) CPT: (test code = 8140) (NOTE) HPV HIGH RISK WITH GENOTYPE, [id number] 00:00:00* Test Item Value Reference Range Interpretation Comme nts HPV HIGH RISK INTERP (test c ode = 31153) NEGATIVE HPV 16 (test code = 65560) NEGATIVE HPV 18 (test code = 96201) NEGATIVE HPV, HR, OTHER GENOTYPES (te st code = 23194) NEGATIVE HPV HIGH RISK WITH GENOTYPE, [id number] 00:00:00* Test Item Value Reference Range Interpretation Comme nts HPV HIGH RISK INTERP (test c ode = 04644) NEGATIVE HPV 16 (test code = 21133) NEGATIVE HPV 18 (test code = 20011) NEGATIVE HPV, HR, OTHER GENOTYPES (te st code = 34552) NEGATIVE HIV AB/AG COMBO RFLX [id number] 00:00:00* Test Item Value Reference Range Interpretation Comme nts HIV 1/2 4TH GEN, RFLX CONF ( test code = 3514) NON-REACTIVE HIV AB/AG COMBO RFLX [id number] 00:00:00* Test Item Value Reference Range Interpretation Comme nts HIV 1/2 4TH GEN, RFLX CONF ( test code = 3514) NON-REACTIVE ACUTE HEPATITIS [id number] 00:00:00* Test Item Value Reference Range Interpretation Comme nts HEPATITIS A IgM (test code = 19870) NON-REACTIVE HEPATITIS B CORE IgM (test c ode = 4644) NON-REACTIVE HEPATITIS B SURF AG (test co de = 2739) NON-REACTIVE HEPATITIS C ANTIBODY (test c ode = 4675) NON-REACTIVE INTERPRETATION HEPATITIS A: (test code = 2552) (NOTE) INTERPRETATION HEPATITIS B: (test code = 54335) (NOTE) INTERPRETATION HEPATITIS C: (test code = 62635) (NOTE) ACUTE HEPATITIS [id number] 00:00:00* Test Item Value Reference Range Interpretation Comme nts HEPATITIS A IgM (test code = 67296) NON-REACTIVE HEPATITIS B CORE IgM (test c ode = 4644) NON-REACTIVE HEPATITIS B SURF AG (test co de = 2739) NON-REACTIVE HEPATITIS C ANTIBODY (test c ode = 4675) NON-REACTIVE INTERPRETATION HEPATITIS A: (test code = 2552) (NOTE) INTERPRETATION HEPATITIS B: (test code = 56033) (NOTE) INTERPRETATION HEPATITIS C: (test code = 04783) (NOTE) [id number] 00:00:00* Test Item Value Reference Range Interpretation Comme nts RPR RESULT (test code = 3501) NON-REACTIVE RPR TITER (test code = 3500) NOT INDIC. TITER [id number] 00:00:00* Test Item Value Reference Range Interpretation Comme nts RPR RESULT (test code = 3501) NON-REACTIVE RPR TITER (test code = 3500) NOT INDIC. TITER [id number] 00:00:00* Test Item Value Reference Range Interpretation Comme nts RPR RESULT (test code = 3501) NON-REACTIVE RPR TITER (test code = 3500) NOT INDIC. TITER VAGINAL PATHOGENS DNA [id number] 00:00:00* Test Item Value Reference Range Interpretation Comme nts VIJI SPECIES (test code = ) NEGATIVE G. VAGINALIS (test code = 20893) POSITIVE T. VAGINALIS (test code = 00005) NEGATIVE VAGINAL PATHOGENS DNA [id number] 00:00:00* Test Item Value Reference Range Interpretation Comme nts VIJI SPECIES (test code = ) NEGATIVE G. VAGINALIS (test code = 98654) POSITIVE T. VAGINALIS (test code = 17894) NEGATIVE HIV AB/AG COMBO RFLX [id number] 00:00:00* Test Item Value Reference Range Interpretation Comme nts HIV 1/2 4TH GEN, RFLX CONF ( test code = 3514) NON-REACTIVE HIV AB/AG COMBO RFLX [id number] 00:00:00* Test Item Value Reference Range Interpretation Comme nts HIV 1/2 4TH GEN, RFLX CONF ( test code = 3514) NON-REACTIVE ACUTE HEPATITIS [id number] 00:00:00* Test Item Value Reference Range Interpretation Comme nts HEPATITIS A IgM (test code = 70552) NON-REACTIVE HEPATITIS B CORE IgM (test c ode = 4644) NON-REACTIVE HEPATITIS B SURF AG (test co de = 2739) NON-REACTIVE HEPATITIS C ANTIBODY (test c ode = 4675) NON-REACTIVE INTERPRETATION HEPATITIS A: (test code = 2552) (NOTE) INTERPRETATION HEPATITIS B: (test code = 01459) (NOTE) INTERPRETATION HEPATITIS C: (test code = 91174) (NOTE) ACUTE HEPATITIS [id number] 00:00:00* Test Item Value Reference Range Interpretation Comme nts HEPATITIS A IgM (test code = 07320) NON-REACTIVE HEPATITIS B CORE IgM (test c ode = 4644) NON-REACTIVE HEPATITIS B SURF AG (test co de = 2739) NON-REACTIVE HEPATITIS C ANTIBODY (test c ode = 4675) NON-REACTIVE INTERPRETATION HEPATITIS A: (test code = 2552) (NOTE) INTERPRETATION HEPATITIS B: (test code = 80195) (NOTE) INTERPRETATION HEPATITIS C: (test code = 91001) (NOTE) [id number] 00:00:00* Test Item Value Reference Range Interpretation Comme nts RPR RESULT (test code = 3501) NON-REACTIVE RPR TITER (test code = 3500) NOT INDIC. TITER [id number] 00:00:00* Test Item Value Reference Range Interpretation Comme nts RPR RESULT (test code = 3501) NON-REACTIVE RPR TITER (test code = 3500) NOT INDIC. TITER [id number] 00:00:00* Test Item Value Reference Range Interpretation Comme nts RPR RESULT (test code = 3501) NON-REACTIVE RPR TITER (test code = 3500) NOT INDIC. TITER VAGINAL PATHOGENS DNA [id number] 00:00:00* Test Item Value Reference Range Interpretation Comme nts VIJI SPECIES (test code = ) NEGATIVE G. VAGINALIS (test code = 28491) POSITIVE T. VAGINALIS (test code = 42944) NEGATIVE VAGINAL PATHOGENS DNA [id number] 00:00:00* Test Item Value Reference Range Interpretation Comme nts VIJI SPECIES (test code = ) NEGATIVE G. VAGINALIS (test code = 53048) POSITIVE T. VAGINALIS (test code = 76496) NEGATIVE HIV AB/AG COMBO RFLX [id number] 00:00:00* Test Item Value Reference Range Interpretation Comme nts HIV 1/2 4TH GEN, RFLX CONF ( test code = 3514) NON-REACTIVE HIV AB/AG COMBO RFLX [id number] 00:00:00* Test Item Value Reference Range Interpretation Comme nts HIV 1/2 4TH GEN, RFLX CONF ( test code = 3514) NON-REACTIVE HIV AB/AG COMBO RFLX [id number] 00:00:00* Test Item Value Reference Range Interpretation Comme nts HIV 1/2 4TH GEN, RFLX CONF ( test code = 3514) NON-REACTIVE HIV AB/AG COMBO RFLX [id number] 00:00:00* Test Item Value Reference Range Interpretation Comme nts HIV 1/2 4TH GEN, RFLX CONF ( test code = 3514) NON-REACTIVE ACUTE HEPATITIS [id number] 00:00:00* Test Item Value Reference Range Interpretation Comme nts HEPATITIS A IgM (test code = 84431) NON-REACTIVE HEPATITIS B CORE IgM (test c ode = 4644) NON-REACTIVE HEPATITIS B SURF AG (test co de = 4499) NON-REACTIVE HEPATITIS C ANTIBODY (test c ode = 4675) NON-REACTIVE INTERPRETATION HEPATITIS A: (test code = 2552) (NOTE) INTERPRETATION HEPATITIS B: (test code = 65191) (NOTE) INTERPRETATION HEPATITIS C: (test code = 05764) (NOTE) ACUTE HEPATITIS [id number] 00:00:00* Test Item Value Reference Range Interpretation Comme nts HEPATITIS A IgM (test code = 90677) NON-REACTIVE HEPATITIS B CORE IgM (test c ode = 4644) NON-REACTIVE HEPATITIS B SURF AG (test co de = 2739) NON-REACTIVE HEPATITIS C ANTIBODY (test c ode = 4675) NON-REACTIVE INTERPRETATION HEPATITIS A: (test code = 2552) (NOTE) INTERPRETATION HEPATITIS B: (test code = 64810) (NOTE) INTERPRETATION HEPATITIS C: (test code = 16335) (NOTE) [id number] 00:00:00* Test Item Value Reference Range Interpretation Comme nts RPR RESULT (test code = 3501) NON-REACTIVE RPR TITER (test code = 3500) NOT INDIC. TITER [id number] 00:00:00* Test Item Value Reference Range Interpretation Comme nts RPR RESULT (test code = 3501) NON-REACTIVE RPR TITER (test code = 3500) NOT INDIC. TITER [id number] 00:00:00* Test Item Value Reference Range Interpretation Comme nts RPR RESULT (test code = 3501) NON-REACTIVE RPR TITER (test code = 3500) NOT INDIC. TITER VAGINAL PATHOGENS DNA [id number] 00:00:00* Test Item Value Reference Range Interpretation Comme nts VIJI SPECIES (test code = 12305) NEGATIVE G. VAGINALIS (test code = 92431) POSITIVE T. VAGINALIS (test code = 37358) NEGATIVE VAGINAL PATHOGENS DNA [id number] 00:00:00* Test Item Value Reference Range Interpretation Comme nts VIJI SPECIES (test code = 21514) NEGATIVE G. VAGINALIS (test code = 66083) POSITIVE T. VAGINALIS (test code = 44367) NEGATIVE ACUTE HEPATITIS [id number] 00:00:00* Test Item Value Reference Range Interpretation Comme nts HEPATITIS A IgM (test code = 31844) NON-REACTIVE HEPATITIS B CORE IgM (test c ode = 4644) NON-REACTIVE HEPATITIS B SURF AG (test co de = 2739) NON-REACTIVE HEPATITIS C ANTIBODY (test c ode = 4675) NON-REACTIVE INTERPRETATION HEPATITIS A: (test code = 2552) (NOTE) INTERPRETATION HEPATITIS B: (test code = 69859) (NOTE) INTERPRETATION HEPATITIS C: (test code = 97527) (NOTE) ACUTE HEPATITIS [id number] 00:00:00* Test Item Value Reference Range Interpretation Comme nts HEPATITIS A IgM (test code = 34826) NON-REACTIVE HEPATITIS B CORE IgM (test c ode = 4644) NON-REACTIVE HEPATITIS B SURF AG (test co de = 2739) NON-REACTIVE HEPATITIS C ANTIBODY (test c ode = 4675) NON-REACTIVE INTERPRETATION HEPATITIS A: (test code = 2552) (NOTE) INTERPRETATION HEPATITIS B: (test code = 33399) (NOTE) INTERPRETATION HEPATITIS C: (test code = 92830) (NOTE) [id number] 00:00:00* Test Item Value Reference Range Interpretation Comme nts RPR RESULT (test code = 3501) NON-REACTIVE RPR TITER (test code = 3500) NOT INDIC. TITER [id number] 00:00:00* Test Item Value Reference Range Interpretation Comme nts RPR RESULT (test code = 3501) NON-REACTIVE RPR TITER (test code = 3500) NOT INDIC. TITER HIV AB/AG COMBO RFLX [id number] 00:00:00* Test Item Value Reference Range Interpretation Comme nts HIV 1/2 4TH GEN, RFLX CONF ( test code = 3514) NON-REACTIVE HIV AB/AG COMBO RFLX [id number] 00:00:00* Test Item Value Reference Range Interpretation Comme nts HIV 1/2 4TH GEN, RFLX CONF ( test code = 3514) NON-REACTIVE ACUTE HEPATITIS [id number] 00:00:00* Test Item Value Reference Range Interpretation Comme nts HEPATITIS A IgM (test code = 87376) NON-REACTIVE HEPATITIS B CORE IgM (test c ode = 4644) NON-REACTIVE HEPATITIS B SURF AG (test co de = 2739) NON-REACTIVE HEPATITIS C ANTIBODY (test c ode = 4675) NON-REACTIVE INTERPRETATION HEPATITIS A: (test code = 2552) (NOTE) INTERPRETATION HEPATITIS B: (test code = 66832) (NOTE) INTERPRETATION HEPATITIS C: (test code = 48964) (NOTE) ACUTE HEPATITIS [id number] 00:00:00* Test Item Value Reference Range Interpretation Comme nts HEPATITIS A IgM (test code = 75751) NON-REACTIVE HEPATITIS B CORE IgM (test c ode = 4644) NON-REACTIVE HEPATITIS B SURF AG (test co de = 2739) NON-REACTIVE HEPATITIS C ANTIBODY (test c ode = 4675) NON-REACTIVE INTERPRETATION HEPATITIS A: (test code = 2552) (NOTE) INTERPRETATION HEPATITIS B: (test code = 19954) (NOTE) INTERPRETATION HEPATITIS C: (test code = 27191) (NOTE) [id number] 00:00:00* Test Item Value Reference Range Interpretation Comme nts RPR RESULT (test code = 3501) NON-REACTIVE RPR TITER (test code = 3500) NOT INDIC. TITER [id number] 00:00:00* Test Item Value Reference Range Interpretation Comme nts RPR RESULT (test code = 3501) NON-REACTIVE RPR TITER (test code = 3500) NOT INDIC. TITER [id number] 00:00:00* Test Item Value Reference Range Interpretation Comme nts RPR RESULT (test code = 3501) NON-REACTIVE RPR TITER (test code = 3500) NOT INDIC. TITER [id number] 00:00:00* Test Item Value Reference Range Interpretation Comme nts RPR RESULT (test code = 3501) NON-REACTIVE RPR TITER (test code = 3500) NOT INDIC. TITER VAGINAL PATHOGENS DNA [id number] 00:00:00* Test Item Value Reference Range Interpretation Comme nts VIJI SPECIES (test code = ) NEGATIVE G. VAGINALIS (test code = 06581) POSITIVE T. VAGINALIS (test code = 89550) NEGATIVE VAGINAL PATHOGENS DNA [id number] 00:00:00* Test Item Value Reference Range Interpretation Comme nts VIJI SPECIES (test code = 86950) NEGATIVE G. VAGINALIS (test code = 07224) POSITIVE T. VAGINALIS (test code = 57081) NEGATIVE VAGINAL PATHOGENS DNA [id number] 00:00:00* Test Item Value Reference Range Interpretation Comme nts VIJI SPECIES (test code = 83771) NEGATIVE G. VAGINALIS (test code = 03170) POSITIVE T. VAGINALIS (test code = 73468) NEGATIVE VAGINAL PATHOGENS DNA [id number] 00:00:00* Test Item Value Reference Range Interpretation Comme nts VIJI SPECIES (test code = ) NEGATIVE G. VAGINALIS (test code = 83430) POSITIVE T. VAGINALIS (test code = 11959) NEGATIVE HIV AB/AG COMBO RFLX [id number] 00:00:00* Test Item Value Reference Range Interpretation Comme nts HIV 1/2 4TH GEN, RFLX CONF ( test code = 3514) NON-REACTIVE HIV AB/AG COMBO RFLX [id number] 00:00:00* Test Item Value Reference Range Interpretation Comme nts HIV 1/2 4TH GEN, RFLX CONF ( test code = 3514) NON-REACTIVE ACUTE HEPATITIS [id number] 00:00:00* Test Item Value Reference Range Interpretation Comme nts HEPATITIS A IgM (test code = 40586) NON-REACTIVE HEPATITIS B CORE IgM (test c ode = 4644) NON-REACTIVE HEPATITIS B SURF AG (test co de = 2739) NON-REACTIVE HEPATITIS C ANTIBODY (test c ode = 4675) NON-REACTIVE INTERPRETATION HEPATITIS A: (test code = 2552) (NOTE) INTERPRETATION HEPATITIS B: (test code = 41342) (NOTE) INTERPRETATION HEPATITIS C: (test code = 32237) (NOTE) ACUTE HEPATITIS [id number] 00:00:00* Test Item Value Reference Range Interpretation Comme nts HEPATITIS A IgM (test code = 80225) NON-REACTIVE HEPATITIS B CORE IgM (test c ode = 4644) NON-REACTIVE HEPATITIS B SURF AG (test co de = 2739) NON-REACTIVE HEPATITIS C ANTIBODY (test c ode = 4675) NON-REACTIVE INTERPRETATION HEPATITIS A: (test code = 2552) (NOTE) INTERPRETATION HEPATITIS B: (test code = 97817) (NOTE) INTERPRETATION HEPATITIS C: (test code = 19517) (NOTE) [id number] 00:00:00* Test Item Value Reference Range Interpretation Comme nts RPR RESULT (test code = 3501) NON-REACTIVE RPR TITER (test code = 3500) NOT INDIC. TITER [id number] 00:00:00* Test Item Value Reference Range Interpretation Comme nts RPR RESULT (test code = 3501) NON-REACTIVE RPR TITER (test code = 3500) NOT INDIC. TITER [id number] 00:00:00* Test Item Value Reference Range Interpretation Comme nts RPR RESULT (test code = 3501) NON-REACTIVE RPR TITER (test code = 3500) NOT INDIC. TITER VAGINAL PATHOGENS DNA [id number] 00:00:00* Test Item Value Reference Range Interpretation Comme nts VIJI SPECIES (test code = 72803) NEGATIVE G. VAGINALIS (test code = 56199) POSITIVE T. VAGINALIS (test code = 14136) NEGATIVE VAGINAL PATHOGENS DNA [id number] 00:00:00* Test Item Value Reference Range Interpretation Comme nts VIJI SPECIES (test code = 35924) NEGATIVE G. VAGINALIS (test code = 77144) POSITIVE T. VAGINALIS (test code = 96527) NEGATIVE"
--- NOTE | 2023-09-23 18:45 | EDPHYS ---
Physician Documentation [facility] Name: Kia Garibay Age: 33 yrs Sex: Female : 1990 Arrival Date: 09/23/2023 Time: 18:15 Bed IW2 Private MD: ED Physician Lawrence Rodriguez HPI: 09/23 18:45 This 33 yrs old Female presents to ER via Ambulatory with complaints of Facial Swelling.snw 18:45 The patient presents with pain. The problem is located in the lower left second molar. snw Onset: The symptoms/episode began/occurred acutely. Duration: The symptoms are continuous. Severity of symptoms: At their worst the symptoms were severe. seen this am for same c/o, pharmacy closed. Pt tearful. The patient has been recently seen by a physician: The patient has been recently seen at the [facility] Emergency Department, today, by me. pt states pain medication from today worked until 4pm and now is unbearable. Historical: - Allergies: 18:39 No Known Drug Allergies; bp - PMHx: 18:39 DENTAL CARIES; Kidney stones; Ovarian cyst; UTI; bp - PSHx: 18:39 Tonsillectomy; section; bp - Immunization history:: Adult Immunizations up to date. - Social history:: Smoking status: unknown. ROS: 18:47 Constitutional: Negative for fever, chills, and weight loss, Eyes: Negative for injury, snw pain, redness, and discharge, Neck: Negative for injury, pain, and swelling, Cardiovascular: Negative for chest pain, palpitations, and edema, Respiratory: Negative for shortness of breath, cough, wheezing, and pleuritic chest pain, Abdomen/GI: Negative for abdominal pain, nausea, vomiting, diarrhea, and constipation, Back: Negative for injury and pain, : Negative for injury, bleeding, discharge, and swelling, MS/Extremity: Negative for injury and deformity, Skin: Negative for injury, rash, and discoloration, Neuro: Negative for headache, weakness, numbness, tingling, and seizure, Psych: Negative for depression, anxiety, suicide ideation, homicidal ideation, and hallucinations, 18:47 ENT: Positive for dental pain, Exam: 18:47 Constitutional: This is a well developed, well nourished patient who is awake, alert, snw and in no acute distress. Head/Face: Normocephalic, atraumatic. Eyes: Pupils equal round and reactive to light, extra-ocular motions intact. Lids and lashes normal. Conjunctiva and sclera are non-icteric and not injected. Cornea within normal limits. Periorbital areas with no swelling, redness, or edema. Neck: Trachea midline, no thyromegaly or masses palpated, and no cervical lymphadenopathy. Supple, full range of motion without nuchal rigidity, or vertebral point tenderness. No Meningismus. Chest/axilla: Normal chest wall appearance and motion. Nontender with no deformity. No lesions are appreciated. Cardiovascular: Regular rate and rhythm with a normal S1 and S2. No gallops, murmurs, or rubs. Normal PMI, no JVD. No pulse deficits. Respiratory: Lungs have equal breath sounds bilaterally, clear to auscultation and percussion. No rales, rhonchi or wheezes noted. No increased work of breathing, no retractions or nasal flaring. Abdomen/GI: Soft, non-tender, with normal bowel sounds. No distension or tympany. No guarding or rebound. No evidence of tenderness throughout. Back: No spinal tenderness. No costovertebral tenderness. Full range of motion. Skin: Warm, dry with normal turgor. Normal color with no rashes, no lesions, and no evidence of cellulitis. MS/ Extremity: Pulses equal, no cyanosis. Neurovascular intact. Full, normal range of motion. Neuro: Awake and alert, GCS 15, oriented to person, place, time, and situation. Cranial nerves II-XII grossly intact. Motor strength 5/5 in all extremities. Sensory grossly intact. Cerebellar exam normal. Normal gait. Psych: Awake, alert, with orientation to person, place and time. Behavior, mood, and affect are within normal limits. 18:47 ENT: External ear(s): are unremarkable, TM's: are normal, Mouth: no acute changes, Dental exam: dental caries, that is moderate, that is severe, diffusely, Vital Signs: 18:37 BP 163 / 98; Pulse 91; Resp 20; Temp 99.9; Pulse Ox 100% ; Weight 70.31 kg; bp MDM: 18:31 Patient medically screened. snw 18:48 Differential diagnosis: dental caries, gingivitis, dental abscess, gingivostomatitis. snw Data reviewed: vital signs, nurses notes. I considered the following discharge prescriptions or medication management in the emergency department Medications were administered in the Emergency Department. See MAR. Counseling: I had a detailed discussion with the patient and/or guardian regarding the historical points, exam findings, and any diagnostic results supporting the discharge/admit diagnosis, the need for outpatient follow up, for definitive care, a dentist. Special discussion: Based on the history and exam findings, there is no indication for further emergent testing or inpatient evaluation. I discussed with the patient/guardian the need to see a dentist for further evaluation of the symptoms. Administered Medications: 18:48 Drug: Hydrocodone-Acetaminophen PO (7.5 mg-325 mg) 1 tabs PO once Route: PO; bp 18:48 Drug: Aspirin PO Chewable Tablet 324 mg PO once; 81 mg tablets x 4 Route: PO; bp 18:48 Drug: Amoxicillin-Clavulanate PO 875 mg PO once Route: PO; bp Disposition Summary: 09/23/23 18:43 Discharge Ordered Notes: Location: Home snw Condition: Stable snw Diagnosis - Dental caries, unspecified snw Followup: snw - With: Emergency Department - When: As needed - Reason: Worsening of condition Followup: snw - With: Private Physician - When: 2 - 3 days - Reason: Recheck today's complaints, Continuance of care, Re-evaluation by your physician Discharge Instructions: - Discharge Summary Sheet snw - Dental Caries, Adult snw - Dental Pain snw - Diet and Dental Disease snw Forms: - Medication Reconciliation Form snw - Thank You Letter snw - Antibiotic Education snw - Prescription Opioid Use snw - Patient Portal Instructions snw - Leadership Thank You Letter snw Signatures: Wendi Madrigal, TANIA-C TELECOM ASSISTANT-Csnw Bhanu Johnson, RN RN bp
--- NOTE | 2023-09-23 18:45 | ER ---
Nurse's Notes [facility] Name: Kia Garibay Age: 33 yrs Sex: Female : 1990 Arrival Date: 09/23/2023 Time: 18:15 Bed IW2 Private MD: Diagnosis: Dental caries, unspecified Presentation: 09/23 18:37 Chief complaint: Patient states: "I CAN'T GET MY PRESCRIPTIONS FILLED AND THEY MEDICINE bp Y'ALL GAVE ME WORE OFF.". Coronavirus screen: At this time, the client does not indicate any symptoms associated with coronavirus-19. Ebola Screen: No symptoms or risks identified at this time. Initial Sepsis Screen: Does the patient meet any 2 criteria? No. Patient's initial sepsis screen is negative. Does the patient have a suspected source of infection? No. Patient's initial sepsis screen is negative. Risk Assessment: Do you want to hurt yourself or someone else? Patient reports no desire to harm self or others. Onset of symptoms is unknown. 18:37 Method Of Arrival: Ambulatory bp 18:37 Acuity: OMID 4 bp Triage Assessment: 18:39 General: Appears distressed, uncomfortable, Behavior is cooperative, appropriate for bp age, anxious, crying. Pain: Complains of pain in mouth. Historical: - Allergies: 18:39 No Known Drug Allergies; bp - PMHx: 18:39 DENTAL CARIES; Kidney stones; Ovarian cyst; UTI; bp - PSHx: 18:39 Tonsillectomy; section; bp - Immunization history:: Adult Immunizations up to date. - Social history:: Smoking status: unknown. Screenin:20 [facility] ED Fall Risk Assessment (Adult) History of falling in the last 3 months, nw1 including since admission No falls in past 3 months (0 pts). Abuse screen: Denies threats or abuse. Denies injuries from another. Nutritional screening: No deficits noted. Tuberculosis screening: No symptoms or risk factors identified. Vital Signs: 18:37 BP 163 / 98; Pulse 91; Resp 20; Temp 99.9; Pulse Ox 100% ; Weight 70.31 kg; bp ED Course: 18:18 Patient arrived in ED. rg4 18:23 Wendi Madrigal FNP-C is PHCP. snw 18:23 Lawrence Rodriguez is Attending Physician. snw 18:39 Triage completed. bp 18:39 Arm band placed on. bp 18:47 Bhanu Johnson, RN is Primary Nurse. bp 19:20 Patient has correct armband on for positive identification. nw1 19:20 No provider procedures requiring assistance completed. Patient did not have IV access nw1 during this emergency room visit. Administered Medications: 18:48 Drug: Hydrocodone-Acetaminophen PO (7.5 mg-325 mg) 1 tabs PO once Route: PO; bp 18:48 Drug: Aspirin PO Chewable Tablet 324 mg PO once; 81 mg tablets x 4 Route: PO; bp 18:48 Drug: Amoxicillin-Clavulanate PO 875 mg PO once Route: PO; bp Outcome: 18:43 Discharge ordered by MD. snw 19:20 Discharged to home ambulatory, nw1 19:20 Condition: stable 19:20 Discharge instructions given to patient, Instructed on discharge instructions, follow up and referral plans. Demonstrated understanding of instructions, follow-up care, 19:20 Patient left the ED. nw1 Signatures: Wendi Madrigal FNP-C FINANCIAL AID MANAGER-Mariluz Kelley rg4 Bhanu Johnson, RN RN bp Trini Chong RN RN nw1 Corrections: (The following items were deleted from the chart) 18:48 18:37 BP 163 / 98; Pulse 91bpm; Resp 20bpm; Pulse Ox 100%; Temp 99.9F; bp bp
[2023-09-23 19:29] VITALS: BP 163/98; TEMP 99.9; O2SAT 100
== END ==
LOC: ER 18:15
DX: K02.9 Dental caries, unspecified (principal)
CPT/HCPCS: 99283

== ENCOUNTER → 2023-09-23 | Emergency (ER) | payer SELFPAY ==
[~2023-09-23] MED LIST changes: -ASPIRIN 81 MG CHEWABLE TABLET ONE; -HYDROCODONE/APAP 7.5/325 MG TAB ONE; +KETOROLAC 30 MG/ML INJ ONE
--- OUTSIDE RECORDS SUMMARY | 2023-09-23 11:42 | XMS REPORT | Continuity of Care Document ---
Author Name Unknown Address [address] 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 Role Phone Lexie Ac Primary Care Physician [phone] DELILAH BOLANOS Attending Clinician Unavailable Delilah Bolanos NP Attending Clinician [phone] RENEE SHAHID Attending Clinician Unavailable SWAPNIL NUNES Attending Clinician Unavailable Swapnil Nunes MD Attending Clinician [phone] Doctor Unassigned, [place] Attending Clinician Renee Matute PA-C Attending Clinician [phone], [facility] Room Attending Clinician Unavaila Maya lCay MD Attending Clinician [phone] MAYA SANTO Attending Clinician Unavailable MAYA SANTO Attending Clinician Unavailable 2, [facility] Attending Clinician Unavailable RESHMA DURANT Attending Clinician Unavailable Reshma Durant MD Attending Clinician [phone] Tuan Rahman NP Attending Clinician [phone] TUAN RAHMAN Attending Clinician Unavailab SmithFernanda Attending Clinician [phone] ELIDA MEJÍA Attending Clinician Unavailable Elida Mejía MD Attending Clinician [phone] Ciaran Diaz MD Attending Clinician [phone] CIARAN DIAZ Attending Clinician Unavailable SWAPNIL NUNES Admitting Clinician Unavailable Swapnil Nunes MD Admitting Clinician [phone] RESHMA DURANT Admitting Clinician Unavailable Reshma Durant MD Admitting Clinician [phone] ELIDA MEJÍA Admitting Clinician Unavailable Elida Mejía MD Admitting Clinician [phone] Payers Payer Name Policy Type Policy Number Effective Date Expirati on Date Source [place] [employer] [id number] 2022 00:00:00 [facility] [place] [facility] [id number] 2021 00:00:00 Problems Condition Name Condition Details Condition Category Status Onset Date Resolution Date Last Treatment Date Treating Clinician Comments Source 39 weeks gestation of 39 weeks gestation of Disease Active 4-24 00:00: 00 [facility] Previous section Previous section Disease Active 0 4-24 00:00: 00 [facility] Anemia affecting in third trimester Anemia affecting in third trimester Disease Active 4-24 00:00: 00 [facility] Liveborn , of [place] , born in hospital by delivery Liveborn infant, of [place] , born in hospital by delivery Disease Active 4-24 00:00: 00 [facility] Trichomona s vaginitis Trichomona s vaginitis Disease Active 4-17 00:00: 00 [facility] 35 weeks gestation of 35 weeks gestation of Disease Active - 00:00: 00 Overview: Formattin g of this note might be different from the original. Added automatic ally from request for surgery [id number] [facility] 38 weeks gestation of 38 weeks gestation of Disease Active 2- 00:00: 00 Overview: Formattin g of this note might be different from the original. Added automatic ally from request for surgery [id number] [facility] High-risk in third trimester High-risk in third trimester Disease Active 2021-09 00:00: 00 [facility] Acute cystitis with hematuria Acute cystitis with hematuria Disease Active 2021-09 016 00:00: 00 [facility] 12 weeks gestation of 12 weeks gestation of Disease Active 2021-0916 00:00: 00 [facility] Nausea and vomiting during prior to 22 weeks gestation Nausea and vomiting during prior to 22 weeks gestation Disease Active 2021-09 016 00:00: 00 [facility] Acute pyelonephr itis Acute pyelonephr itis Disease Active 2021-09 0 00:00: 00 [facility] No known active problems No known active problems Disease [facility] Allergies, Adverse Reactions, Alerts Allergy Name Allergy Type Status Severity Reaction(s) Onset Date Inactive Date Treating Clinician Comments Source NO KNOWN ALLERGIE S Drug Class Active [facility] Social History Social Habit Start Date Stop Date Quantity Comments Source ASSERTION 2022-05-05 00:00:00 [facility] History of tobacco use Passive smoker [facility] intake 2023-07-07 00:00:00 2023-07-07 00:00:00 Ex-drinker (finding) [facility] Exposure to SARS-CoV-2 (event) 2023-01-18 00:00:00 2023-01-28 13:36:00 Not sure [facility] Tobacco use and exposure 2022-08-20 00:00:00 2022-08-20 00:00:00 Smokeless tobacco non-user [facility] History of Social function 2022-08-20 00:00:00 2022-08-20 00:00:00 [facility] Sex Assigned At 1990 00:00:00 1990 00:00:00 [facility] Smoking Status Start Date Stop Date Source Tobacco smoking consumption unknown [facility] Never smoked tobacco [facility] Medications Ordered Medication Name Filled Medication Name Start Date Stop Date Current Medication? Ordering Clinician Indication Dosage Frequency Signature (SIG) Comments Components Source dicyclomine (BENTYL) injection 20 mg 2022-09 23:45: 00 07-08 11:44 :00 Yes 20mg 20 mg, Intramuscu lar, ONCE NOW, 1 dose, On Sat07/07/23 at 1845, Routine [facility] NaCl 0.9% (NS) bolus infusion 1,000 mL 2022-09 23:45: 00 07-08 11:44 :00 Yes 1000mL at 999 mL/hr, 1,000 mL, IV Infusion, ONCE, 1 dose, On Sat07/07/23 at 1845, LINDA [facility] ibuprofen (IBU) tablet 600 mg 01-23 05:00: 00 Yes 600mg 600 mg, Oral, Q6H ABX, First dose on Sat01/23/23 at 0000, Until Discontinu ed, Routine [facility] ibuprofen (IBU) tablet 600 mg 01-23 05:00: 00 Yes 600mg 600 mg, Oral, Q6H ABX, First dose on Sat01/23/23 at 0000, Until Discontinu ed, Routine [facility] PNV no.95/[place] us fum/folic ac ( ORAL) 01-22 07:39: 52 01-22 00:00 :00 No Take by mouth. [facility] PNV no.95/[place] us fum/folic ac ( ORAL) 01-22 07:39: 52 01-22 00:00 :00 No Take by mouth. [facility] ketorolac (TORADOL) injection 30 mg 01-22 05:00: 00 01-23 04:59 :00 No 30mg 30 mg, Slow IV Push, Q6H ABX, 4 doses, First dose on Sat01/22/23 at 0000, Last dose on Sat01/22/23 at 1800, Routine [facility] ketorolac (TORADOL) injection 30 mg 01-22 05:00: 00 01-22 23:14 :00 No 30mg 30 mg, Slow IV Push, Q6H ABX, 4 doses, First dose on Sat01/22/23 at 0000, Last dose on Sat01/22/23 at 1800, Routine [facility] acetaminoph en (TYLENOL) tablet 650 mg 01-22 01:00: 00 Yes 650mg 650 mg, Oral, Q6H ABX, First dose on Sat01/21/23 at 1999, Until Discontinu ed, Routine [facility] acetaminoph en (TYLENOL) tablet 650 mg 01-22 01:00: 00 Yes 650mg 650 mg, Oral, Q6H ABX, First dose on Sat01/21/23 at 1999, Until Discontinu ed, Routine [facility] acetaminoph en 325 mg tablet 01-22 00:00: 00 Yes [id number] 650mg Take 2 tablets by mouth every 6 (six) hours as needed for Pain (scale 1-3) or Pain (scale 4-6). [facility] vitamin w/FA tablet 01-22 00:00: 00 Yes [id number] 1{tbl} Take 1 tablet by mouth in the morning. [facility] docusate 100 mg capsule 01-22 00:00: 00 Yes [id number] 200mg Take 2 capsules by mouth once daily as needed for Constipati on. [facility] ferrous sulfate 325 mg (65 mg iron) tablet 01-22 00:00: 00 Yes [id number] 325mg Take 1 tablet by mouth in the morning and 1 tablet in the evening. [facility] ibuprofen 600 mg tablet 01-22 00:00: 00 Yes [id number] 600mg Take 1 tablet by mouth every 6 (six) hours as needed (Pain). Take with food or milk. [facility] acetaminoph en 325 mg tablet 01-22 00:00: 00 Yes [id number] 650mg Take 2 tablets by mouth every 6 (six) hours as needed for Pain (scale 1-3) or Pain (scale 4-6). [facility] vitamin w/FA tablet 2022-0 01-22 00:00: 00 Yes [id number] 1{tbl} Take 1 tablet by mouth in the morning. [facility] docusate 100 mg capsule 0 01-22 00:00: 00 Yes [id number] 200mg Take 2 capsules by mouth once daily as needed for Constipati on. [facility] ferrous sulfate 325 mg (65 mg iron) tablet 01-22 00:00: 00 Yes [id number] 325mg Take 1 tablet by mouth in the morning and 1 tablet in the evening. [facility] ibuprofen 600 mg tablet 2022-0 01-22 00:00: 00 Yes [id number] 600mg Take 1 tablet by mouth every 6 (six) hours as needed (Pain). Take with food or milk. [facility] acetaminoph en 325 mg tablet 01-22 00:00: 00 Yes [id number] 650mg Take 2 tablets by mouth every 6 (six) hours as needed for Pain (scale 1-3) or Pain (scale 4-6). [facility] vitamin w/FA tablet 01-22 00:00: 00 Yes [id number] 1{tbl} Take 1 tablet by mouth in the morning. [facility] docusate 100 mg capsule 01-22 00:00: 00 Yes [id number] 200mg Take 2 capsules by mouth once daily as needed for Constipati on. [facility] ferrous sulfate 325 mg (65 mg iron) tablet 01-22 00:00: 00 Yes [id number] 325mg Take 1 tablet by mouth in the morning and 1 tablet in the evening. [facility] ibuprofen 600 mg tablet 2022-0 01-22 00:00: 00 Yes [id number] 600mg Take 1 tablet by mouth every 6 (six) hours as needed (Pain). Take with food or milk. [facility] acetaminoph en 325 mg tablet 2022-0 01-22 00:00: 00 Yes [id number] 650mg Take 2 tablets by mouth every 6 (six) hours as needed for Pain (scale 1-3) or Pain (scale 4-6). [facility] vitamin w/FA tablet 2022-0 01-22 00:00: 00 Yes [id number] 1{tbl} Take 1 tablet by mouth in the morning. [facility] docusate 100 mg capsule 01-22 00:00: 00 Yes [id number] 200mg Take 2 capsules by mouth once daily as needed for Constipati on. [facility] ferrous sulfate 325 mg (65 mg iron) tablet 01-22 00:00: 00 Yes [id number] 325mg Take 1 tablet by mouth in the morning and 1 tablet in the evening. [facility] ibuprofen 600 mg tablet 01-22 00:00: 00 Yes [id number] 600mg Take 1 tablet by mouth every 6 (six) hours as needed (Pain). Take with food or milk. [facility] acetaminoph en 325 mg tablet 01-22 00:00: 00 Yes [id number] 650mg Take 2 tablets by mouth every 6 (six) hours as needed for Pain (scale 1-3) or Pain (scale 4-6). [facility] vitamin w/FA tablet 01-22 00:00: 00 Yes [id number] 1{tbl} Take 1 tablet by mouth in the morning. [facility] docusate 100 mg capsule 01-22 00:00: 00 Yes [id number] 200mg Take 2 capsules by mouth once daily as needed for Constipati on. [facility] ferrous sulfate 325 mg (65 mg iron) tablet 01-22 00:00: 00 Yes [id number] 325mg Take 1 tablet by mouth in the morning and 1 tablet in the evening. [facility] ibuprofen 600 mg tablet 0 01-22 00:00: 00 Yes [id number] 600mg Take 1 tablet by mouth every 6 (six) hours as needed (Pain). Take with food or milk. [facility] HYDROcodone -acetaminop hen 5-325 mg tablet 01-22 00:00: 00 01-30 04:59 :00 No [id number] 1{tbl} Take 1 tablet by mouth every 6 (six) hours as needed for Pain (scale 7-10) (Alternate with Ibuprofen) for up to 7 days. Indication s: acute pain [facility] HYDROcodone -acetaminop hen 5-325 mg tablet 25 00:00: 00 01-30 04:59 :00 No [id number] 1{tbl} Take 1 tablet by mouth every 6 (six) hours as needed for Pain (scale 7-10) (Alternate with Ibuprofen) for up to 7 days. Indication s: acute pain [facility] HYDROcodone -acetaminop hen 5-325 mg tablet 25 00:00: 00 01-30 04:59 :00 No [id number] 1{tbl} Take 1 tablet by mouth every 6 (six) hours as needed for Pain (scale 7-10) (Alternate with Ibuprofen) for up to 7 days. Indication s: acute pain [facility] HYDROcodone -acetaminop hen 5-325 mg tablet 2022-01-22 00:00: 00 01-30 04:59 :00 No [id number] 1{tbl} Take 1 tablet by mouth every 6 (six) hours as needed for Pain (scale 7-10) (Alternate with Ibuprofen) for up to 7 days. Indication s: acute pain [facility] gabapentin 300 mg capsule 01-22 00:00: 00 01-28 04:59 :00 No [id number] 300mg Take 1 capsule by mouth in the morning and 1 capsule at noon and 1 capsule in the evening. Do all this for 5 days. [facility] gabapentin 300 mg capsule 01-22 00:00: 00 01-28 04:59 :00 No [id number] 300mg Take 1 capsule by mouth in the morning and 1 capsule at noon and 1 capsule in the evening. Do all this for 5 days. [facility] acetaminoph en ADULT (OFIRMEV) injection 1,000 mg 01-21 20:00: 00 01-21 19:59 :00 No 1000mg 1,000 mg, IV Infusion, at 400 mL/hr Administer over 15 Minutes, ONCE, 1 dose, On Sat01/21/23 at 1500, Routine
Indicatio n: Perioperat jn Patient [facility] gabapentin (NEURONTIN) capsule 300 mg 01-21 19:00: 00 Yes 300mg 300 mg, Oral, TID, First dose on Sat01/21/23 at 1400, Until Discontinu ed, Routine [facility] gabapentin (NEURONTIN) capsule 300 mg 01-21 19:00: 00 Yes 300mg 300 mg, Oral, TID, First dose on Sat01/21/23 at 1400, Until Discontinu ed, Routine [facility] lactated ringers IV infusion 1,000 mL 01-21 14:45: 00 01-21 19:37 :21 No 1000mL at 125 mL/hr, 1,000 mL, IV Infusion, ONCE, 1 dose, On Sat01/21/23 at 0945, Routine [facility] rho(D) immune globulin (RHOGAM) syringe 300 mcg 01-21 14:41: 39 Yes 300ug 300 mcg, Intramuscu lar, ONCE, For 1 dose, Conditiona l, Routine [facility] rho(D) immune globulin (RHOGAM) syringe 300 mcg 01-21 14:41: 39 Yes 300ug 300 mcg, Intramuscu lar, ONCE, For 1 dose, Conditiona l, Routine [facility] HYDROcodone -acetaminop hen (NORCO 5) 5-325 mg tablet 1 tablet 01-21 14:41: 30 Yes 1{tbl} 1 tablet, Oral, Q6HPRN, Starting on Sat01/21/23 at 0941, Until Discontinu ed, Routine, Pain (scale 7-10), Alternate with Ibuprofen [facility] diphenhydrA MINE (BENADRYL) injection 25 mg 01-21 14:41: 30 Yes 25mg 25 mg, Slow IV Push, Q6HPRN, Starting on Sat01/21/23 at 0941, Until Discontinu ed, Routine, Itching [facility] diphenhydrA MINE (BENADRYL) tablet 25 mg 01-21 14:41: 30 Yes 25mg 25 mg, Oral, Q6HPRN, Starting on Sat01/21/23 at 0941, Until Discontinu ed, Routine, Sleep, Itching [facility] ondansetron (ZOFRAN (PF)) injection 4 mg 01-21 14:41: 30 Yes 4mg 4 mg, Slow IV Push, Q8HPRN, Starting on Sat01/21/23 at 0941, Until Discontinu ed, Routine, Nausea and Vomiting (N/V) [facility] HYDROcodone -acetaminop hen (NORCO 5) 5-325 mg tablet 1 tablet 01-21 14:41: 30 Yes 1{tbl} 1 tablet, Oral, Q6HPRN, Starting on Sat01/21/23 at 0941, Until Discontinu ed, Routine, Pain (scale 7-10), Alternate with Ibuprofen [facility] diphenhydrA MINE (BENADRYL) injection 25 mg 01-21 14:41: 30 Yes 25mg 25 mg, Slow IV Push, Q6HPRN, Starting on Sat01/21/23 at 0941, Until Discontinu ed, Routine, Itching [facility] diphenhydrA MINE (BENADRYL) tablet 25 mg 01-21 14:41: 30 Yes 25mg 25 mg, Oral, Q6HPRN, Starting on Sat01/21/23 at 0941, Until Discontinu ed, Routine, Sleep, Itching [facility] ondansetron (ZOFRAN (PF)) injection 4 mg 01-21 14:41: 30 Yes 4mg 4 mg, Slow IV Push, Q8HPRN, Starting on Sat01/21/23 at 0941, Until Discontinu ed, Routine, Nausea and Vomiting (N/V) [facility] bisacodyL (DULCOLAX) suppository 10 mg 01-21 14:41: 29 Yes 10mg 10 mg, Rectal, QDAILYPRN, Starting on Sat01/21/23 at 0941, Until Discontinu ed, Routine, Constipati on [facility] simethicone (GAS RELIEF (SIMETHICON E)) chewable tablet 160 mg 01-21 14:41: 29 Yes 160mg 160 mg, Oral, PC+HSPRN, Starting on Sat01/21/23 at 0941, Until Discontinu ed, Routine, Gas [facility] docusate (COLACE) capsule 200 mg 01-21 14:41: 29 Yes 200mg 200 mg, Oral, QDAILYPRN, Starting on Sat01/21/23 at 0941, Until Discontinu ed, Routine, Constipati on [facility] magnesium hydroxide (MILK OF MAGNESIA) 400 mg/5 mL suspension 30 mL 01-21 14:41: 29 Yes 30mL 30 mL, Oral, QDAILYPRN, Starting on Sat01/21/23 at 0941, Until Discontinu ed, Routine, Constipati on [facility] lactated ringers IV infusion 1,000 mL 01-21 14:41: 29 Yes 1000mL at 125 mL/hr, 1,000 mL, IV Infusion, PRN, 1 dose, Starting on Sat01/21/23 at 0941, Until Discontinu ed, Routine [facility] bisacodyL (DULCOLAX) suppository 10 mg 01-21 14:41: 29 Yes 10mg 10 mg, Rectal, QDAILYPRN, Starting on Sat01/21/23 at 0941, Until Discontinu ed, Routine, Constipati on [facility] simethicone (GAS RELIEF (SIMETHICON E)) chewable tablet 160 mg 01-21 14:41: 29 Yes 160mg 160 mg, Oral, PC+HSPRN, Starting on Sat01/21/23 at 0941, Until Discontinu ed, Routine, Gas [facility] docusate (COLACE) capsule 200 mg 01-21 14:41: 29 Yes 200mg 200 mg, Oral, QDAILYPRN, Starting on Sat01/21/23 at 0941, Until Discontinu ed, Routine, Constipati on [facility] magnesium hydroxide (MILK OF MAGNESIA) 400 mg/5 mL suspension 30 mL 01-21 14:41: 29 Yes 30mL 30 mL, Oral, QDAILYPRN, Starting on Sat01/21/23 at 0941, Until Discontinu ed, Routine, Constipati on [facility] lactated ringers IV infusion 1,000 mL 01-21 14:41: 29 Yes 1000mL at 125 mL/hr, 1,000 mL, IV Infusion, PRN, 1 dose, Starting on Sat01/21/23 at 0941, Until Discontinu ed, Routine [facility] sodium chloride 0.9 % irrigation solution 01-21 14:03: 00 Yes PRN, Starting on Sat01/21/23 at 0903, Until Discontinu ed, Intra-op [facility] sodium chloride 0.9 % irrigation solution 01-21 14:03: 00 Yes PRN, Starting on Sat01/21/23 at 0903, Until Discontinu ed, Intra-op [facility] mupirocin (BACTROBAN OINT) 2 % skin ointment 01-21 13:55: 00 Yes Intra-op [facility] mupirocin (BACTROBAN OINT) 2 % skin ointment 01-21 13:55: 00 Yes Intra-op [facility] lactated ringers IV infusion 1,000 mL 01-21 13:15: 00 01-21 14:41 :37 No 1000mL at 125 mL/hr, 1,000 mL, IV Infusion, CONTINUOUS , Starting on Sat01/21/23 at 0815, Until Sat01/21/23 at 0941, LINDA [facility] oxytocin (PITOCIN) 30 units in NS 500 mL IV infusion 01-21 13:02: 17 01-21 14:41 :37 No 300mL/h 300 mL/hr, IV Infusion, SEE-INSTRU CTIONS, Starting on Sat01/21/[address] at 300 mL/hr for 1 hr then 150 mL/hr for 1 hr. For post delivery uterotonic .
[facility] sodium citrate-cit dori acid (BICITRA) 500-334 mg/5 mL solution 30 mL 01-21 08:38: 50 01-21 12:32 :00 No 30mL 30 mL, Oral, PRE-PROCED URE ONCE, 1 dose, Starting on Sat01/21/23 at 0338, Until Discontinu ed, Routine, Surgery/Pr ocedure [facility] D5W-LR IV infusion 1,000 mL 01-21 08:38: 50 01-21 14:41 :37 No 1000mL at 1-125 mL/hr, IV Infusion, TITRATE, Starting on Sat01/21/23 at 0338, Until Sat01/21/23 at 0941, Routine [facility] metroNIDAZO LE (FLAGYL) 500 mg tablet 12-25 00:00: 00 12-26 04:59 :00 No [id number] 2000mg Take 4 tablets by mouth once now for 1 dose. [facility] cephALEXin 500 mg capsule 12-24 00:00: 00 01-01 04:59 :00 No [id number] 500mg Take 1 capsule by mouth 4 (four) times daily for 7 days. [facility] cephALEXin 500 mg capsule 12-24 00:00: 00 01-01 04:59 :00 No [id number] 500mg Take 1 capsule by mouth 4 (four) times daily for 7 days. [facility] cephALEXin 500 mg capsule 12-24 00:00: 00 01-01 04:59 :00 No [id number] 500mg Take 1 capsule by mouth 4 (four) times daily for 7 days. [facility] cephALEXin 500 mg capsule 12-24 00:00: 00 01-01 04:59 :00 No [id number] 500mg Take 1 capsule by mouth 4 (four) times daily for 7 days. [facility] cephALEXin 500 mg capsule 12-24 00:00: 00 01-01 04:59 :00 No [id number] 500mg Take 1 capsule by mouth 4 (four) times daily for 7 days. [facility] PNV no.95/[place] [facility] fum/folic ac ( ORAL) 11-08 21:33: 39 Yes Take by mouth. [facility] PNV no.95/[place] [facility] fum/folic ac ( ORAL) 2 21:33: 39 Yes Take by mouth. [facility] PNV no.95/[place] [facility] fum/folic ac ( ORAL) 2 21:33: 39 Yes Take by mouth. [facility] PNV no.95/[place] [facility] fum/folic ac ( ORAL) 2 21:33: 39 Yes Take by mouth. [facility] PNV no.95/[place] [facility] fum/folic ac ( ORAL) 2 21:33: 39 Yes Take by mouth. [facility] PNV no.95/[place] us fum/folic ac ( ORAL) 11-08 21:33: 39 Yes Take by mouth. [facility] PNV no.95/[place] us fum/folic ac ( ORAL) 11-08 21:33: 39 Yes Take by mouth. [facility] PNV no.95/[place] us fum/folic ac ( ORAL) 2 21:33: 39 Yes Take by mouth. [facility] PNV no.95/[place] us fum/folic ac ( ORAL) 11-08 21:33: 39 Yes Take by mouth. [facility] ferrous sulfate (IRON, FERROUS SULFATE,) 325 mg (65 mg iron) tablet 2021-09 00:00: 00 Yes [id number] 325mg Take 1 tablet by mouth in the morning and 1 tablet in the evening. [facility] ferrous sulfate (IRON, FERROUS SULFATE,) 325 mg (65 mg iron) tablet 2021-09 00:00: 00 Yes [id number] 325mg Take 1 tablet by mouth in the morning and 1 tablet in the evening. [facility] ferrous sulfate (IRON, FERROUS SULFATE,) 325 mg (65 mg iron) tablet 2021-09 00:00: 00 Yes [id number] 325mg Take 1 tablet by mouth in the morning and 1 tablet in the evening. [facility] ferrous sulfate (IRON, FERROUS SULFATE,) 325 mg (65 mg iron) tablet 2021-09 00:00: 00 Yes [id number] 325mg Take 1 tablet by mouth in the morning and 1 tablet in the evening. [facility] ferrous sulfate (IRON, FERROUS SULFATE,) 325 mg (65 mg iron) tablet 2021-09 00:00: 00 Yes [id number] 325mg Take 1 tablet by mouth in the morning and 1 tablet in the evening. [facility] ferrous sulfate (IRON, FERROUS SULFATE,) 325 mg (65 mg iron) tablet 2021-09 00:00: 00 Yes [id number] 325mg Take 1 tablet by mouth in the morning and 1 tablet in the evening. [facility] ferrous sulfate (IRON, FERROUS SULFATE,) 325 mg (65 mg iron) tablet 2021-09 00:00: 00 Yes [id number] 325mg Take 1 tablet by mouth in the morning and 1 tablet in the evening. [facility] ferrous sulfate (IRON, FERROUS SULFATE,) 325 mg (65 mg iron) tablet 2021-09 00:00: 00 Yes [id number] 325mg Take 1 tablet by mouth in the morning and 1 tablet in the evening. [facility] ferrous sulfate (IRON, FERROUS SULFATE,) 325 mg (65 mg iron) tablet 2021-09 00:00: 00 Yes [id number] 325mg Take 1 tablet by mouth in the morning and 1 tablet in the evening. [facility] ferrous sulfate (IRON, FERROUS SULFATE,) 325 mg (65 mg iron) tablet 2021-09 00:00: 00 Yes [id number] 325mg Take 1 tablet by mouth in the morning and 1 tablet in the evening. [facility] ferrous sulfate (IRON, FERROUS SULFATE,) 325 mg (65 mg iron) tablet 2021-09 00:00: 00 Yes [id number] 325mg Take 1 tablet by mouth in the morning and 1 tablet in the evening. [facility] ferrous sulfate (IRON, FERROUS SULFATE,) 325 mg (65 mg iron) tablet 2021-09 00:00: 00 Yes [id number] 325mg Take 1 tablet by mouth in the morning and 1 tablet in the evening. [facility] ferrous sulfate (IRON, FERROUS SULFATE,) 325 mg (65 mg iron) tablet 2021-09 00:00: 00 01-22 00:00 :00 No [id number] 325mg Take 1 tablet by mouth in the morning and 1 tablet in the evening. [facility] ferrous sulfate (IRON, FERROUS SULFATE,) 325 mg (65 mg iron) tablet 2021-09 00:00: 00 01-22 00:00 :00 No [id number] 325mg Take 1 tablet by mouth in the morning and 1 tablet in the evening. [facility] metroNIDAZO LE (FLAGYL) 500 mg tablet 2021-09 00:00: 00 08-22 05:59 :00 No [id number] 2000mg Take 4 tablets by mouth once now for 1 dose. [facility] no.[facility] fum/folic ac ( ORAL) 2021-09 10:34: 56 Yes Take by mouth. [facility] fum/folic ac ( ORAL) 2021-09 10:34: 56 Yes Take by mouth. [facility] [facility] fum/folic ac ( ORAL) 2021-09 10:34: 56 Yes Take by mouth. [facility] [facility] fum/folic ac ( ORAL) 2021-09 10:34: 56 Yes Take by mouth. [facility] [facility] fum/folic ac ( ORAL) 2021-09 10:34: 56 Yes Take by mouth. [facility] [facility] fum/folic ac ( ORAL) 2021-09 10:34: 56 Yes Take by mouth. [facility] [facility] fum/folic ac ( ORAL) 2021-09 10:34: 56 Yes Take by mouth. [facility] [facility] fum/folic ac ( ORAL) 2021-09 10:34: 56 Yes Take by mouth. [facility] [facility] fum/folic ac ( ORAL) 2021-09 10:34: 56 Yes Take by mouth. [facility] [facility] fum/folic ac ( ORAL) 2021-09 10:34: 56 Yes Take by mouth. [facility] [facility] fum/folic ac ( ORAL) 2021-09 10:34: 56 Yes Take by mouth. [facility] [facility] fum/folic ac ( ORAL) 2021-09 10:34: 56 Yes Take by mouth. [facility] [facility] fum/folic ac ( ORAL) 2021-09 10:34: 56 Yes Take by mouth. [facility] cephALEXin 500 mg capsule 2021-09 00:00: 00 Yes [id number] 500mg Take 1 capsule by mouth in the morning. [facility] cephALEXin 500 mg capsule 2021-09 00:00: 00 Yes [id number] 500mg Take 1 capsule by mouth in the morning. [facility] cephALEXin 500 mg capsule 2021-09 00:00: 00 Yes [id number] 500mg Take 1 capsule by mouth in the morning. [facility] cephALEXin 500 mg capsule 2021-09 00:00: 00 Yes [id number] 500mg Take 1 capsule by mouth in the morning. [facility] cephALEXin 500 mg capsule 2021-09 00:00: 00 Yes [id number] 500mg Take 1 capsule by mouth in the morning. [facility] cephALEXin 500 mg capsule 2021-09 00:00: 00 Yes [id number] 500mg Take 1 capsule by mouth in the morning. [facility] cephALEXin 500 mg capsule 2021-09 00:00: 00 Yes [id number] 500mg Take 1 capsule by mouth in the morning. [facility] cephALEXin 500 mg capsule 2021-09 00:00: 00 Yes [id number] 500mg Take 1 capsule by mouth in the morning. [facility] cephALEXin 500 mg capsule 2021-09 00:00: 00 Yes [id number] 500mg Take 1 capsule by mouth in the morning. [facility] cephALEXin 500 mg capsule 2021-09 00:00: 00 Yes [id number] 500mg Take 1 capsule by mouth in the morning. [facility] cephALEXin 500 mg capsule 2021-09 00:00: 00 Yes [id number] 500mg Take 1 capsule by mouth in the morning. [facility] cephALEXin 500 mg capsule 2021-09 00:00: 00 Yes [id number] 500mg Take 1 capsule by mouth in the morning. [facility] cephALEXin 500 mg capsule 2021-09 00:00: 00 Yes [id number] 500mg Take 1 capsule by mouth in the morning. [facility] cephALEXin 500 mg capsule 2021-09 00:00: 00 Yes [id number] 500mg Take 1 capsule by mouth in the morning. [facility] cephALEXin 500 mg capsule 2021-09 00:00: 00 Yes [id number] 500mg Take 1 capsule by mouth in the morning. [facility] cephALEXin 500 mg capsule 2021-09 00:00: 00 Yes [id number] 500mg Take 1 capsule by mouth in the morning. [facility] cephALEXin 500 mg capsule 2021-09 00:00: 00 Yes [id number] 500mg Take 1 capsule by mouth in the morning. [facility] cephALEXin 500 mg capsule 2021-09 00:00: 00 Yes [id number] 500mg Take 1 capsule by mouth in the morning. [facility] cephALEXin 500 mg capsule 2021-09 00:00: 00 Yes [id number] 500mg Take 1 capsule by mouth in the morning. [facility] cephALEXin 500 mg capsule 2021-09 00:00: 00 Yes [id number] 500mg Take 1 capsule by mouth in the morning. [facility] cephALEXin 500 mg capsule 2021-09 00:00: 00 Yes [id number] 500mg Take 1 capsule by mouth in the morning. [facility] cephALEXin 500 mg capsule 2021-09 00:00: 00 01-22 00:00 :00 No [id number] 500mg Take 1 capsule by mouth in the morning. [facility] cephALEXin 500 mg capsule 2021-09 00:00: 00 01-22 00:00 :00 No [id number] 500mg Take 1 capsule by mouth in the morning. [facility] Nitrofurant oin&Nit. Macrocryst (MACROBID) 100 mg capsule 100 mg 2021-09 18:34: 00 07-16 18:58 :00 No 100mg 100 mg, Oral, ONCE, 1 dose, On Sat07/16/22 at 1345, Routine
Reason for Anti-Infec tive: Documented Infection< br>Documen sanjiv Infection Site: Urine
D uration of Therapy: Other (see Comments) [facility] metoclopram chirag HCl (REGLAN) injection 10 mg 2021-09 13:05: 52 Yes 10mg 10 mg, Slow IV Push, Q6HPRN, Starting on Sat07/16/22 at 0805, Until Discontinu ed, Routine, Nausea and Vomiting (N/V), if cannot tolerate PO [facility] metoclopram chirag HCl (REGLAN) tablet 10 mg 2021-09 13:05: 33 Yes 10mg 10 mg, Oral, Q6HPRN, Starting on Sat07/16/22 at 0805, Until Discontinu ed, Routine, Nausea and Vomiting (N/V) [facility] fluconazole (DIFLUCAN) tablet 200 mg 2021-09 04:00: 00 07-16 03:14 :00 No 200mg 200 mg, Oral, ONCE NOW, 1 dose, On Sat07/15/22 at 2300, LINDA
Re ason for Anti-Infec tive: Documented Infection< br>Documen sanjiv Infection Site: Pelvic
Duration of Therapy: Other (see Comments) [facility] metroNIDAZO LE (FLAGYL) tablet 500 mg 2021-09 03:15: 00 07-18 00:59 :00 No 500mg 500 mg, Oral, Q12H, 4 doses, First dose on Sat07/15/22 at 2215, Last dose on Sat07/17/22 at 0800, Routine
Reason for Anti-Infec tive: Documented Infection< br>Documen sanjiv Infection Site: Pelvic
Duration of Therapy: Other (see Comments) [facility] acetaminoph en (TYLENOL) tablet 650 mg 2021-09 00:28: 16 Yes 650mg 650 mg, Oral, Q6HPRN, Starting on Sat07/15/22 at 1928, Until Discontinu ed, Routine, Pain (scale 1-3) [facility] metoclopram chirag HCl 10 mg tablet 2021-09 00:00: 00 Yes [id number] 10mg Take 1 tablet by mouth every 6 (six) hours as needed for Nausea and Vomiting (N/V). [facility] metoclopram chirag HCl 10 mg tablet 2021-09 00:00: 00 Yes [id number] 10mg Take 1 tablet by mouth every 6 (six) hours as needed for Nausea and Vomiting (N/V). [facility] metoclopram chirag HCl 10 mg tablet 2021-09 00:00: 00 Yes [id number] 10mg Take 1 tablet by mouth every 6 (six) hours as needed for Nausea and Vomiting (N/V). [facility] metoclopram chirag HCl 10 mg tablet 2021-09 00:00: 00 Yes [id number] 10mg Take 1 tablet by mouth every 6 (six) hours as needed for Nausea and Vomiting (N/V). [facility] metoclopram chirag HCl 10 mg tablet 2021-09 0-17 00:00: 00 Yes [id number] 10mg Take 1 tablet by mouth every 6 (six) hours as needed for Nausea and Vomiting (N/V). [facility] metoclopram chirag HCl 10 mg tablet 2021- 0-17 00:00: 00 Yes [id number] 10mg Take 1 tablet by mouth every 6 (six) hours as needed for Nausea and Vomiting (N/V). [facility] metoclopram chirag HCl 10 mg tablet 2021- 0-17 00:00: 00 Yes [id number] 10mg Take 1 tablet by mouth every 6 (six) hours as needed for Nausea and Vomiting (N/V). [facility] metoclopram chirag HCl 10 mg tablet 2021-09 0-17 00:00: 00 Yes [id number] 10mg Take 1 tablet by mouth every 6 (six) hours as needed for Nausea and Vomiting (N/V). [facility] metoclopram chirag HCl 10 mg tablet 2021-09 0-17 00:00: 00 Yes [id number] 10mg Take 1 tablet by mouth every 6 (six) hours as needed for Nausea and Vomiting (N/V). [facility] metoclopram chirag HCl 10 mg tablet 2021-09 0-17 00:00: 00 Yes [id number] 10mg Take 1 tablet by mouth every 6 (six) hours as needed for Nausea and Vomiting (N/V). [facility] metoclopram chirag HCl 10 mg tablet 2021- 0-17 00:00: 00 Yes [id number] 10mg Take 1 tablet by mouth every 6 (six) hours as needed for Nausea and Vomiting (N/V). [facility] metoclopram chirag HCl 10 mg tablet 2021-1 0-17 00:00: 00 Yes [id number] 10mg Take 1 tablet by mouth every 6 (six) hours as needed for Nausea and Vomiting (N/V). [facility] metoclopram chirag HCl 10 mg tablet 2021-1 0-17 00:00: 00 Yes [id number] 10mg Take 1 tablet by mouth every 6 (six) hours as needed for Nausea and Vomiting (N/V). [facility] metoclopram chirag HCl 10 mg tablet 2021-09 0-17 00:00: 00 Yes [id number] 10mg Take 1 tablet by mouth every 6 (six) hours as needed for Nausea and Vomiting (N/V). [facility] metoclopram chirag HCl 10 mg tablet 2021-09 0-17 00:00: 00 Yes [id number] 10mg Take 1 tablet by mouth every 6 (six) hours as needed for Nausea and Vomiting (N/V). [facility] metoclopram chirag HCl 10 mg tablet 2021-09 0-17 00:00: 00 Yes [id number] 10mg Take 1 tablet by mouth every 6 (six) hours as needed for Nausea and Vomiting (N/V). [facility] metoclopram chirag HCl 10 mg tablet 2021-09 0-17 00:00: 00 Yes [id number] 10mg Take 1 tablet by mouth every 6 (six) hours as needed for Nausea and Vomiting (N/V). [facility] metoclopram chirag HCl 10 mg tablet 2021-09 0-17 00:00: 00 Yes [id number] 10mg Take 1 tablet by mouth every 6 (six) hours as needed for Nausea and Vomiting (N/V). [facility] metoclopram chirag HCl 10 mg tablet 2021-09 0-17 00:00: 00 Yes [id number] 10mg Take 1 tablet by mouth every 6 (six) hours as needed for Nausea and Vomiting (N/V). [facility] metoclopram chirag HCl 10 mg tablet 2021-09 0-17 00:00: 00 Yes [id number] 10mg Take 1 tablet by mouth every 6 (six) hours as needed for Nausea and Vomiting (N/V). [facility] metoclopram chirag HCl 10 mg tablet 2021- 0-17 00:00: 00 Yes [id number] 10mg Take 1 tablet by mouth every 6 (six) hours as needed for Nausea and Vomiting (N/V). [facility] metoclopram chirag HCl 10 mg tablet 2021- 0-17 00:00: 00 Yes [id number] 10mg Take 1 tablet by mouth every 6 (six) hours as needed for Nausea and Vomiting (N/V). [facility] metoclopram chirag HCl 10 mg tablet 2021-09 0 00:00: 00 Yes [id number] 10mg Take 1 tablet by mouth every 6 (six) hours as needed for Nausea and Vomiting (N/V). [facility] metoclopram chirag HCl 10 mg tablet 2021-09 0 00:00: 00 Yes [id number] 10mg Take 1 tablet by mouth every 6 (six) hours as needed for Nausea and Vomiting (N/V). [facility] metoclopram chirag HCl 10 mg tablet 2021-09 0 00:00: 00 Yes [id number] 10mg Take 1 tablet by mouth every 6 (six) hours as needed for Nausea and Vomiting (N/V). [facility] metoclopram chirag HCl 10 mg tablet 2021-09 0 00:00: 00 01-22 00:00 :00 No [id number] 10mg Take 1 tablet by mouth every 6 (six) hours as needed for Nausea and Vomiting (N/V). [facility] metoclopram chirag HCl 10 mg tablet 2021-09 0 00:00: 00 01-22 00:00 :00 No [id number] 10mg Take 1 tablet by mouth every 6 (six) hours as needed for Nausea and Vomiting (N/V). [facility] metroNIDAZO LE 500 mg tablet 2021-09 0 00:00: 00 07-23 04:59 :00 No [id number] 500mg Take 1 tablet by mouth every 12 (twelve) hours for 6 days. [facility] metroNIDAZO LE 500 mg tablet 2021-09 0 00:00: 00 07-23 04:59 :00 No [id number] 500mg Take 1 tablet by mouth every 12 (twelve) hours for 6 days. [facility] Nitrofurant oin&Nit. Macrocryst 100 mg capsule 2021-09 0 00:00: 00 07-17 04:59 :00 No [id number] 100mg Take 1 capsule by mouth once now for 1 dose. [facility] D5W-LR IV infusion 1,000 mL 2021-09 23:00: 00 08-08 23:59 :00 No 1000mL at 150 mL/hr, IV Infusion, CONTINUOUS , Starting on Sat07/15/22 at 1800, Until Sat08/08/22 at 1759, Routine [facility] metoclopram chirag HCl (REGLAN) injection 10 mg 2021-09 22:00: 34 07-16 13:06 :11 No 10mg 10 mg, Slow IV Push, Q6HPRN, Starting on Sat07/15/22 at 1700, Until Sat07/16/22 at 0806, Routine, Nausea and Vomiting (N/V) [facility] NaCl 0.9% (NS) bolus infusion 1,632 mL 2021-09 20:45: 00 07-15 19:59 :00 No 30mL/kg at 999 mL/hr, 1,632 mL (30 mL/kg ?54.4 kg), IV Infusion, ONCE, 1 dose, On Sat07/15/22 at 1545, LINDA [facility] cefTRIAXone (ROCEPHIN) 1,000 mg in NaCl 0.9% (NS) 50 mL MINI-BAG 2021-09 20:15: 00 07-15 21:06 :00 No 1000mg 1,000 mg, IV Piggyback, ONCE, 1 dose, On Sat07/15/22 at 1515, Administer over 30 Minutes, 50 mL
Reas on for Anti-Infec tive: Documented Infection< br>Documen sanjiv Infection Site: Urine
D uration of Therapy: 7 days [facility] ondansetron (ZOFRAN (PF)) injection 4 mg 2021-09 20:00: 00 07-15 20:02 :00 No 4mg 4 mg, Slow IV Push, ONCE, 1 dose, On Sat07/15/22 at 1500, LINDA [facility] cephALEXin 500 mg capsule 2021-09 00:00: 00 07-16 00:00 :00 No [id number] 500mg Take 1 capsule by mouth in the morning. [facility] thiamine (VITAMIN B1) 100 mg, foLIC acid (FOLATE) 1 mg, multivitami n adult (INFUVITE ADULT) 3,300 unit- 150 mcg/10 mL 10 mL in D5W 0.45% NaCl (1/2NS) IV Solution 2021-09 21:00: 00 07-03 13:59 :00 No IV Infusion, at 125 mL/hr, DAILY, 1 dose, First dose (after last reorder) on Sat07/02/22 at 1600, 1,000 mL [facility] NaCl 0.9% (NS) IV infusion 1,000 mL 2021-09 05:00: 00 07-02 20:59 :00 No 1000mL at 75 mL/hr, IV Infusion, CONTINUOUS , Starting on Sat07/02/22 at 0000, Until Sat07/02/22 at 1559, Routine
Please hang after banana bag runs out
[facility] doxylamine (SLEEP AID) tablet 25 mg 2021-09 02:00: 00 Yes 25mg 25 mg, Oral, QHS, First dose on [facility] 07/01/22 at 2100, Until Discontinu ed, Routine [facility] cefTRIAXone (ROCEPHIN) 1,000 mg in NaCl 0.9% (NS) 50 mL MINI-BAG 2021-09 02:00: 00 07-02 02:51 :00 No 1000mg 1,000 mg, IV Piggyback, ONCE, 1 dose, On [facility] 07/01/22 at 2100, Administer over 30 Minutes, 50 mL
Reas on for Anti-Infec tive: Documented Infection< br>Documen sanjiv Infection Site: Urine
D uration of Therapy: 7 days [facility] famotidine (PEPCID (PF)) injection 20 mg 2021-09 003 01:00: 00 Yes 20mg 20 mg, Slow IV Push, BID, First dose (after last reorder) on [facility] 07/01/22 at 2000, Until Discontinu ed, Routine [facility] metoclopram chirag HCl (REGLAN) 10 mg tablet 2021-09 0 00:00: 00 Yes [id number] 10mg Take 1 tablet by mouth every 6 (six) hours as needed for Nausea and Vomiting (N/V) or Gastroesop hageal reflux. [facility] metoclopram chirag HCl (REGLAN) 10 mg tablet 2021-09 0 00:00: 00 07-16 00:00 :00 No [id number] 10mg Take 1 tablet by mouth every 6 (six) hours as needed for Nausea and Vomiting (N/V) or Gastroesop hageal reflux. [facility] cephALEXin 500 mg capsule 2021-09 00:00: 00 07-15 04:59 :00 No [id number] 500mg Take 1 capsule by mouth 4 (four) times daily for 12 days. [facility] thiamine (VITAMIN B1) 100 mg, foLIC acid (FOLATE) 1 mg, multivitami n adult (INFUVITE ADULT) 3,300 unit- 150 mcg/10 mL 10 mL in D5W 0.45% NaCl (1/2NS) IV Solution 2021-09 20:00: 00 07-02 05:33 :00 No IV Infusion, at 125 mL/hr, DAILY, 1 dose, First dose (after last modificati on) on 07/01/22 at 1500, 1,000 mL [facility] famotidine (PEPCID (PF)) injection 20 mg 2021-09 19:45: 00 07-01 21:31 :00 No 20mg 20 mg, Slow IV Push, ONCE, 1 dose, On 07/01/22 at 1445, Routine [facility] pyridoxine (vitamin B6) (VITAMIN B6) tablet 25 mg 2021-09 19:00: 00 Yes 25mg 25 mg, Oral, TID, First dose on 07/01/22 at 1400, Until Discontinu ed, Routine [facility] metoclopram chirag HCl (REGLAN) injection 10 mg 2021-09 18:53: 54 Yes 10mg 10 mg, Slow IV Push, Q6HPRN, Starting on 07/01/22 at 1353, Until Discontinu ed, Routine, Nausea and Vomiting (N/V) [facility] NaCl 0.9% (NS) IV infusion 1,000 mL 2021-09 05:30: 00 07-01 18:54 :44 No 1000mL at 75 mL/hr, IV Infusion, CONTINUOUS , Starting on [facility] 07/01/22 at 0030, Until [facility] 07/01/22 at 1354, Routine [facility] acetaminoph en (TYLENOL) tablet 650 mg 2021-09 04:26: 22 Yes 650mg 650 mg, Oral, Q6HPRN, Starting on 06/30/22 at 2326, Until Discontinu ed, Routine, Pain (scale 1-3), or fever [facility] ondansetron (ZOFRAN (PF)) injection 4 mg 2021-09 04:25: 39 Yes 4mg 4 mg, Slow IV Push, Q6HPRN, Nausea and Vomiting (N/V), Starting on 06/30/22 at 2325
Do ses of ondansetro n 16 mg and above need to be administer ed via IV piggyback. For Dose >=24mg ECG monitoring is advisable.
[facility] metoclopram chirag HCl (REGLAN) injection 10 mg 2021-09 03:30: 00 07-01 03:35 :00 No 10mg 10 mg, Slow IV Push, ONCE, 1 dose, On [facility] 06/30/22 at 2230, LINDA [facility] NaCl 0.9% (NS) bolus infusion 1,000 mL 2021-09 03:00: 00 07-01 02:23 :00 No 1000mL at 999 mL/hr, 1,000 mL, IV Infusion, ONCE, 1 dose, On 06/30/22 at 2200, LINDA [facility] cefTRIAXone (ROCEPHIN) 1,000 mg in NaCl 0.9% (NS) 50 mL MINI-BAG 2021-09 02:15: 00 07-01 02:50 :00 No 1000mg 1,000 mg, IV Piggyback, ONCE, 1 dose, On 06/30/22 at 2115, Administer over 30 Minutes, 50 mL
Reas on for Anti-Infec tive: Documented Infection< br>Documen sanjiv Infection Site: Urine
D uration of Therapy: 7 days [facility] ondansetron (ZOFRAN (PF)) injection 4 mg 2021-09 00:45: 00 07-01 02:20 :00 No 4mg 4 mg, Slow IV Push, ONCE, 1 dose, On 06/30/22 at 1945, LINDA [facility] TAKE 1 TABLET EVERY 4 TO 6 HOURS NEEDED. 06-11 00:00: 00 No TAKE 1 TABLET EVERY 4 TO 6 HOURS NEEDED. 06-11 00:00: 00 No TAKE 1 TABLET EVERY 4 TO 6 HOURS NEEDED. 06-11 00:00: 00 No TAKE 1 TABLET EVERY 4 TO 6 HOURS NEEDED. 06-11 00:00: 00 No Dose Unknown 06-08 00:00: 00 No Dose Unknown 06-08 00:00: 00 No Dose Unknown 06-08 00:00: 00 No Dose Unknown 06-08 00:00: 00 No TAKE 1 TABLET TWICE DAILY UNTIL FINISHED. 05-31 00:00: 00 No 500 INSERT 1 APPLICATORF UL INTRAVAGINA LLY AT BEDTIME NIGHTLY. 05-31 00:00: 00 No 1 TAKE 1 TABLET TWICE DAILY UNTIL FINISHED. 05-31 00:00: 00 No INSERT 1 APPLICATORF UL INTRAVAGINA LLY AT BEDTIME NIGHTLY. 05-31 00:00: 00 No TAKE 1 TABLET TWICE DAILY UNTIL FINISHED. 05-31 00:00: 00 No INSERT 1 APPLICATORF UL INTRAVAGINA LLY AT BEDTIME NIGHTLY. 05-31 00:00: 00 No TAKE 1 TABLET TWICE DAILY UNTIL FINISHED. 05-31 00:00: 00 No INSERT 1 APPLICATORF UL INTRAVAGINA LLY AT BEDTIME NIGHTLY. 0 05-31 00:00: 00 No TAKE 1 TABLET TWICE DAILY UNTIL FINISHED. 0 05-31 00:00: 00 No INSERT 1 APPLICATORF UL INTRAVAGINA LLY AT BEDTIME NIGHTLY. 2021-0 05-31 00:00: 00 No Dose Unknown 2022-0 3-05 00:00: 00 No Dose Unknown 2022-0 3-05 00:00: 00 No Dose Unknown 2022-0 3-05 00:00: 00 No Dose Unknown 2022-0 3-05 00:00: 00 No Dose Unknown 2022-0 3-05 00:00: 00 No Dose Unknown 2022-0 3-05 00:00: 00 No Dose Unknown 2022-0 3-05 00:00: 00 No Dose Unknown 2022-0 3-05 00:00: 00 No Dose Unknown 2022-0 3-05 00:00: 00 No Dose Unknown 2022-0 3-05 00:00: 00 No Dose Unknown 2022-0 3-05 00:00: 00 No Dose Unknown 2022-0 3-05 00:00: 00 No Dose Unknown 2022-0 3-05 00:00: 00 No Dose Unknown 2022-0 3-05 00:00: 00 No Dose Unknown 2022-0 3-05 00:00: 00 No Dose Unknown 2022-0 3-05 00:00: 00 No Dose Unknown 2022-0 3-05 00:00: 00 No Dose Unknown 2022-0 3-05 00:00: 00 No Dose Unknown 2022-0 3-05 00:00: 00 No Dose Unknown 2022-0 3-05 00:00: 00 No Dose Unknown 2022-0 3-05 00:00: 00 No Dose Unknown 2022-0 3-05 00:00: 00 No Dose Unknown 2022-0 3-05 00:00: 00 No Dose Unknown 2022-0 3-05 00:00: 00 No Dose Unknown 2022-0 3-05 00:00: 00 No Dose Unknown 2022-0 3-05 00:00: 00 No Dose Unknown 2022-0 3-05 00:00: 00 No Dose Unknown 2022-0 3-05 00:00: 00 No Dose Unknown 2022-0 3-05 00:00: 00 No Dose Unknown 2022-0 3-05 00:00: 00 No Dose Unknown 2022-0 3-05 00:00: 00 No Dose Unknown 2022-0 3-05 00:00: 00 No Dose Unknown 2022-0 3-05 00:00: 00 No Dose Unknown 2022-0 3-05 00:00: 00 No Dose Unknown 2022-0 3-05 00:00: 00 No Dose Unknown 2022-0 3-05 00:00: 00 No Dose Unknown 2022-0 3-05 00:00: 00 No Dose Unknown 2022-0 3-05 00:00: 00 No Dose Unknown 2022-0 3-05 00:00: 00 No Dose Unknown 2022-0 3-05 00:00: 00 No Dose Unknown 2022-0 3-05 00:00: 00 No Dose Unknown 2022-0 3-05 00:00: 00 No Dose Unknown 2022-0 3-05 00:00: 00 No Dose Unknown 2022-0 3-05 00:00: 00 No Dose Unknown 2022-0 3-05 00:00: 00 No Dose Unknown 2022-0 3-05 00:00: 00 No Dose Unknown 2022-0 3-05 00:00: 00 No Dose Unknown 2022-0 3-05 00:00: 00 No Dose Unknown 2022-0 3-05 00:00: 00 No Dose Unknown 2022-0 3-05 00:00: 00 No Dose Unknown 2022-0 3-05 00:00: 00 No Dose Unknown 2022-0 3-05 00:00: 00 No Dose Unknown 2022-0 3-05 00:00: 00 No Dose Unknown 2022-0 3-05 00:00: 00 No Dose Unknown 2022-0 3-05 00:00: 00 No Dose Unknown 2022-0 3-05 00:00: 00 No Dose Unknown 2022-0 3-05 00:00: 00 No Dose Unknown 2022-0 3-05 00:00: 00 No Dose Unknown 2022-0 3-05 00:00: 00 No Dose Unknown 2022-0 3-05 00:00: 00 No Dose Unknown 2022-0 3-05 00:00: 00 No Dose Unknown 2022-0 3-05 00:00: 00 No Dose Unknown 2022-0 3-05 00:00: 00 No Dose Unknown 2022-0 3-05 00:00: 00 No Dose Unknown 2022-0 3-05 00:00: 00 No Dose Unknown 2022-0 3-05 00:00: 00 No Dose Unknown 2022-0 3-05 00:00: 00 No Dose Unknown 2022-0 3-05 00:00: 00 No Dose Unknown 2022-0 3-05 00:00: 00 No Dose Unknown 2022-0 3-05 00:00: 00 No Dose Unknown 2022-0 3-05 00:00: 00 No Dose Unknown 2022-0 3-05 00:00: 00 No Dose Unknown 2022-0 3-05 00:00: 00 No Dose Unknown 2022-0 3-05 00:00: 00 No Dose Unknown 2022-0 3-05 00:00: 00 No Dose Unknown 2022-0 3-05 00:00: 00 No Dose Unknown 2022-0 3-05 00:00: 00 No Dose Unknown 2022-0 3-05 00:00: 00 No Dose Unknown 2022-0 3-05 00:00: 00 No Dose Unknown 2022-0 3-05 00:00: 00 No Dose Unknown 2022-0 3-05 00:00: 00 No Dose Unknown 2022-0 3-05 00:00: 00 No Dose Unknown 2022-0 3-05 00:00: 00 No Dose Unknown 2022-0 3-05 00:00: 00 No Dose Unknown 2022-0 3-05 00:00: 00 No Dose Unknown 2022-0 3-05 00:00: 00 No Dose Unknown 2022-0 3-05 00:00: 00 No Dose Unknown 2022-0 3-05 00:00: 00 No Dose Unknown 2022-0 3-05 00:00: 00 No Dose Unknown 2022-0 3-05 00:00: 00 No Dose Unknown 2022-0 3-05 00:00: 00 No Dose Unknown 2022-0 3-05 00:00: 00 No Dose Unknown 2022-0 3-05 00:00: 00 No Dose Unknown 2022-0 3-05 00:00: 00 No Dose Unknown 2022-0 3-05 00:00: 00 No Dose Unknown 2022-0 3-05 00:00: 00 No Dose Unknown 2022-0 3-05 00:00: 00 No Dose Unknown 2022-0 3-05 00:00: 00 No Dose Unknown 2022-0 3-05 00:00: 00 No Dose Unknown 2022-0 3-05 00:00: 00 No Dose Unknown 2022-0 3-05 00:00: 00 No Dose Unknown 2022-0 3-05 00:00: 00 No Dose Unknown 2022-0 3-05 00:00: 00 No Dose Unknown 2022-0 3-05 00:00: 00 No Dose Unknown 2022-0 3-05 00:00: 00 No Dose Unknown 2022-0 3-05 00:00: 00 No Dose Unknown 2022-0 3-05 00:00: 00 No Dose Unknown 2022-0 3-05 00:00: 00 No Dose Unknown 2022-0 3-05 00:00: 00 No Dose Unknown 2022-0 3-05 00:00: 00 No Dose Unknown 2022-0 3-05 00:00: 00 No Dose Unknown 2022-0 3-05 00:00: 00 No Dose Unknown 2022-0 3-05 00:00: 00 No Dose Unknown 2022-0 3-05 00:00: 00 No Dose Unknown 2022-0 3-05 00:00: 00 No Dose Unknown 2022-0 3-05 00:00: 00 No Dose Unknown 2022-0 3-05 00:00: 00 No Dose Unknown 2022-0 3-05 00:00: 00 No Dose Unknown 2022-0 3-05 00:00: 00 No Dose Unknown 2022-0 3-05 00:00: 00 No Dose Unknown 2022-0 3-05 00:00: 00 No Dose Unknown 2022-0 3-05 00:00: 00 No Dose Unknown 2022-0 3-05 00:00: 00 No Dose Unknown 2022-0 3-05 00:00: 00 No Dose Unknown 2022-0 3-05 00:00: 00 No Dose Unknown 2022-0 3-05 00:00: 00 No Dose Unknown 2022-0 3-05 00:00: 00 No Dose Unknown 2022-0 3-05 00:00: 00 No Dose Unknown 2022-0 3-05 00:00: 00 No Dose Unknown 2022-0 3-05 00:00: 00 No Dose Unknown 2021-0 3-05 00:00: 00 No Dose Unknown 2021-0 3-05 00:00: 00 No cephALEXin 250 mg capsule 0 06-19 00:00: 00 06-30 04:59 :00 No [id number] 250mg Take 1 capsule by mouth every 8 (eight) hours for 10 days. [facility] cephALEXin 250 mg capsule 0 06-19 00:00: 00 06-30 04:59 :00 No [id number] 250mg Take 1 capsule by mouth every 8 (eight) hours for 10 days. [facility] cephALEXin 250 mg capsule 0 06-19 00:00: 00 06-30 04:59 :00 No [id number] 250mg Take 1 capsule by mouth every 8 (eight) hours for 10 days. [facility] Dose Unknown 0 8-04 00:00: 00 No Dose Unknown 0 8-04 00:00: 00 No Dose Unknown 0 8-04 00:00: 00 No Dose Unknown 0 8-04 00:00: 00 No Dose Unknown 0 8-04 00:00: 00 No Dose Unknown 0 8-04 00:00: 00 No TAKE 1 TABLET TWICE DAILY UNTIL FINISHED. 0 04-30 00:00: 00 No TAKE 1 TABLET TWICE DAILY UNTIL FINISHED. 0 04-30 00:00: 00 No Dose Unknown 0 8 00:00: 00 No TAKE 1 TABLET TWICE DAILY UNTIL FINISHED. 0 8- 00:00: 00 No TAKE 1 TABLET TWICE DAILY UNTIL FINISHED. 0 8- 00:00: 00 No Dose Unknown 0 8- 00:00: 00 No Vital Signs Vital Name Observation Time Observation Value Comments S ource Systolic blood pressure 2023-07-07 22:51:16 95 mm[Hg] [facility] Diastolic blood pressure 2023-07-07 22:51:16 63 mm[Hg] [facility] Respiratory rate 2023-07-07 22:49:00 20 /min [facility] Body height 2023-07-07 22:49:[address] [facility] Body weight 2023-07-07 22:49:00 61.236 kg [facility] BMI 2023-07-07 22:49:00 27.27 kg/m2 [facility] Oxygen saturation in Arterial blood by Pulse oximetry 2023-07-07 22:49:00 100 /min [facility] Heart rate 2023-07-07 22:49:00 101 /min Unive [facility] Body temperature 2023-07-07 22:49:00 37.28 [facility] Systolic blood pressure 2023-01-28 19:23:00 120 mm[Hg] [facility] Diastolic blood pressure 2023-01-28 19:23:00 80 mm[Hg] [facility] Heart rate 2023-01-28 19:23:00 88 /min Unive [facility] Body temperature 2023-01-28 19:23:00 36.61 [facility] Respiratory rate 2023-01-28 19:23:00 20 /min [facility] Body height 2023-01-28 19:23:00 149.9 cm [facility] Body weight 2023-01-28 19:23:00 70.761 kg [facility] BMI 2023-01-28 19:23:00 31.51 kg/m2 [facility] Oxygen saturation in Arterial blood by Pulse oximetry 2023-01-28 19:23:00 98 /min [facility] Systolic blood pressure 2023-01-23 12:00:00 129 mm[Hg] [facility] Diastolic blood pressure 2023-01-23 12:00:00 88 mm[Hg] [facility] Heart rate 2023-01-23 12:00:00 86 /min Unive [facility] Body temperature 2023-01-23 12:00:00 36.61 [facility] Respiratory rate 2023-01-23 12:00:00 20 /min [facility] Oxygen saturation in Arterial blood by Pulse oximetry 2023-01-23 12:00:00 98 /min [facility] Body height 2023-01-21 08:55:[address] [facility] Body weight 2023-01-21 08:55:[address] [facility] BMI 2023-01-21 08:55:00 34.94 kg/m2 Univ [facility] Systolic blood pressure 2023-01-21 14:30:00 109 mm[Hg] [facility] Diastolic blood pressure 2023-01-21 14:30:00 69 mm[Hg] [facility] Heart rate 2023-01-21 14:30:00 76 /min Unive [facility] Body temperature 2023-01-21 14:30:00 36.11 [facility] Respiratory rate 2023-01-21 14:30:00 18 /min [facility] Oxygen saturation in Arterial blood by Pulse oximetry 2023-01-21 14:30:00 98 /min [facility] Body height 2023-01-21 08:55:[address] [facility] Body weight 2023-01-21 08:55:00 78.472 kg [facility] BMI 2023-01-21 08:55:00 34.94 kg/m2 [facility] Systolic blood pressure 2023-01-14 15:41:00 116 mm[Hg] [facility] Diastolic blood pressure 2023-01-14 15:41:00 77 mm[Hg] [facility] Heart rate 2023-01-14 15:41:00 84 /min Unive [facility] Body temperature 2023-01-14 15:41:00 36.61 [facility] Body height 2023-01-14 15:41:00 149.9 cm [facility] weight 2023-01-14 15:41:[address] [facility] BMI 2023-01-14 15:41:00 33.69 kg/m2 Univ [facility] Systolic blood pressure 2022-12-24 21:21:00 125 mm[Hg] [facility] Diastolic blood pressure 2022-12-24 21:21:00 84 mm[Hg] [facility] Heart rate 2022-12-24 21:21:00 95 /min Unive [facility] Body temperature 2022-12-24 21:21:00 36.5 [facility] Respiratory rate 2022-12-24 21:21:00 18 /min [facility] Body height 2022-12-24 21:21:00 149.9 cm [facility] Body weight 2022-12-24 21:21:[address] [facility] BMI 2022-12-24 21:21:00 32.60 kg/m2 Univ [facility] Body temperature 2022-11-09 02:18:00 36.56 [facility] Body height 2022-11-09 02:18:[address] [facility] Body weight 2022-11-09 02:18:[address] [facility] BMI 2022-11-09 02:18:00 31.31 kg/m2 [facility] Systolic blood pressure 2022-11-09 02:04:00 113 mm[Hg] [facility] Diastolic blood pressure 2022-11-09 02:04:00 66 mm[Hg] [facility] Heart rate 2022-11-09 02:04:00 91 /[facility] Respiratory rate 2022-11-09 02:04:00 18 /min [facility] Oxygen saturation in Arterial blood by Pulse oximetry 2022-11-09 02:04:00 100 /min [facility] Systolic blood pressure 2022-08-20 16:33:00 105 mm[Hg] [facility] Diastolic blood pressure 2022-08-20 16:33:00 70 mm[Hg] [facility] Heart rate 2022-08-20 16:33:00 76 /min Unive [facility] Body temperature 2022-08-20 16:33:00 36.78 [facility] Body height 2022-08-20 16:33:00 149.9 cm [facility] Body weight 2022-08-20 16:33:00 62.324 kg [facility] BMI 2022-08-20 16:33:00 27.75 kg/m2 [facility] Systolic blood pressure 2022-07-16 18:05:00 109 mm[Hg] [facility] Diastolic blood pressure 2022-07-16 18:05:00 62 mm[Hg] [facility] Heart rate 2022-07-16 18:05:00 82 /min [facility] Body temperature 2022-07-16 18:05:00 36.56 [facility] Respiratory rate 2022-07-16 18:05:00 18 /min [facility] Oxygen saturation in Arterial blood by Pulse oximetry 2022-07-16 12:09:00 100 /min [facility] Body weight 2022-07-15 19:10:00 54.432 kg [facility] BMI 2022-07-15 19:10:00 25.08 kg/m2 [facility] Systolic blood pressure 2022-07-02 12:20:00 105 mm[Hg] [facility] Diastolic blood pressure 2022-07-02 12:20:00 62 mm[Hg] [facility] Heart rate 2022-07-02 12:20:00 76 /min [facility] Body temperature 2022-07-02 12:20:00 36.89 [facility] Respiratory rate 2022-07-02 12:20:00 18 /min [facility] Oxygen saturation in Arterial blood by Pulse oximetry 2022-07-02 12:20:00 100 /min [facility] Body height 2022-07-01 00:10:00 147.3 cm [facility] Body weight 2022-07-01 00:10:00 54.432 kg [facility] BMI 2022-07-01 00:10:00 25.08 kg/m2 [facility] Systolic blood pressure 2021-06-26 16:20:00 131 mm[Hg] [facility] Diastolic blood pressure 2021-06-26 16:20:00 88 mm[Hg] [facility] Heart rate 2021-06-26 16:20:00 72 /min Unive [facility] Respiratory rate 2021-06-26 16:20:00 20 /min [facility] Oxygen saturation in Arterial blood by Pulse oximetry 2021-06-26 16:20:00 98 /min [facility] Body temperature 2021-06-26 13:57:00 37.11 [facility] Body weight 2021-06-26 13:57:00 70.308 kg [facility] BMI 2021-06-26 13:57:00 32.40 kg/m2 [facility] Heart rate 2021-06-20 04:00:00 93 /min [facility] Oxygen saturation in Arterial blood by Pulse oximetry 2021-06-20 03:30:00 99 /min [facility] Systolic blood pressure 2021-06-20 03:00:00 106 mm[Hg] [facility] Diastolic blood pressure 2021-06-20 03:00:00 72 mm[Hg] [facility] Body temperature 2021-06-20 00:58:00 36.78 [facility] Respiratory rate 2021-06-20 00:58:00 19 /min [facility] Body height 2021-06-20 00:58:00 147.3 cm [facility] Body weight 2021-06-20 00:58:00 70.308 kg [facility] BMI 2021-06-20 00:58:00 32.40 kg/m2 [facility] BP Systolic 2022-06-13 09:21:00 122 mm[Hg] [...] 22.00 /min Procedures Procedure Date / Time Performed Performing Clinician Source CONSENT/REFUSAL FOR DIAGNOSIS AND TREATMENT 2023-07-07 22:44:15 Doctor Unassigned, [place] [facility] CBC WITH DIFF 2023-01-22 09:42:00 Swapnil Nunes [facility] CBC WITH DIFF 2023-01-22 09:42:00 Swapnil Nunes [facility] SECTION 2023-01-21 12:31:00 Swapnil Nunes [facility] SECTION 2023-01-21 12:31:00 Swapnil Nunes [facility] CBC WITH DIFF 2023-01-21 09:13:00 Swapnil Nunes [facility] HEPATITIS B SURFACE ANTIGEN 2023-01-21 09:13:00 [facility] HB ABO GROUPING 2023-01-21 09:13:00 [facility] RHO (D) IMMUNE GLOBULIN 2023-01-21 09:13:00 [facility] ADC OR ADAN ONLY - RPR 2023-01-21 09:13:00 [facility] HIV 1/2 AG-AB WITH REFLEX 2023-01-21 09:13:00 [facility] CBC WITH DIFF 2023-01-21 09:13:00 Manju [facility] HEPATITIS B SURFACE ANTIGEN 2023-01-21 09:13:00 [facility] HB ABO GROUPING 2023-01-21 09:13:00 Man[facility] RHO (D) IMMUNE GLOBULIN 2023-01-21 09:13:[address] [facility] - RPR 2023-01-21 09:13:00 [facility] HIV 1/2 AG-AB WITH REFLEX 2023-01-21 09:13:00 [facility] CONSENT/REFUSAL FOR DIAGNOSIS AND TREATMENT 2023-01-18 18:51:32 Doctor Unassigned, [place] [facility] POCT URINALYSIS W/O SPECIFIC GRAVITY 2023-01-14 15:47:[address] [facility] >14 WEEKS US LIMITED 2022-12-24 22:01:24 Nunes [facility] DSU PRE-OP 2022-12-24 05:01:00 Doctor Unass igned, [place] [facility] POCT URINALYSIS W/O SPECIFIC GRAVITY 2022-12-24 00:00:00 [facility] NOTICE OF PRIVACY PRACTICES 2022-11-09 01:54:56 Doctor Unassigned, [place] [facility] CONSENT/REFUSAL FOR DIAGNOSIS AND TREATMENT 2022-11-09 01:54:27 Doctor Unassigned, [place] [facility] ASSIGNMENT OF BENEFITS 2022-11-09 01:54:10 Docto r Unassigned, [place] [facility] AUTHORIZATION FOR RELEASE OF PHI 2022-11-08 06:01:00 Doctor Unassigned, [place] [facility] L&D VISIT (NON-DELIVERED) 2022-11-08 06:01:00 Doctor Unassigned, [place] [facility] AUTHORIZATION FOR RELEASE OF PHI 2022-11-08 06:01:00 Doctor Unassigned, [place] [facility] L&D VISIT (NON-DELIVERED) 2022-11-08 06:01:00 Doctor Unassigned, [place] [facility] EXTERNAL PROVIDER RECORDS 2022-10-02 06:01:00 Doctor Unassigned, [place] [facility] ASSIGNMENT OF BENEFITS 2022-08-20 16:12:46 Docto r Unassigned, [place] [facility] POCT URINALYSIS W/O SPECIFIC GRAVITY 2022-08-20 00:00:00 Swapnil Nunes [facility] ADC CLC OR LCC ONLY - WET PREP 2022-07-16 01:17:00 Swapnil Nunes [facility] GC & CHLAMYDIA AMPLIFIED ASSAY 2022-07-16 01:17:00 Swapnil Nunes [facility] URINE CULTURE 2022-07-15 20:42:00 Fernanda Guerin [facility] LIPASE 2022-07-15 19:19:00 Fernanda Guerin [facility] COMP. METABOLIC PANEL ([id number]) 2022-07-15 19:19:00 Fernanda Guerin [facility] CBC WITH DIFF 2022-07-15 19:19:00 Fernanda Guerin [facility] URINALYSIS 2022-07-15 19:19:00 Fernanda uGerin [facility] CONSENT/REFUSAL FOR DIAGNOSIS AND TREATMENT 2022-07-15 18:57:36 Doctor Unassigned, [place] [facility] US FIRST TRIMESTER LESS THAN 14 WEEKS 2022-07-01 16:50:00 Elida Mejía [facility] URINE CULTURE 2022-07-01 02:05:00 Delilah Bolanos [facility] US GALL BLADDER 2022-07-01 01:37:25 Delilah Bolanos [facility] POCT TEST 2022-07-01 01:10:00 Delilah Bolanos [facility] CBC WITH DIFF 2022-07-01 01:07:00 Delilah Bolanos [facility] LIPASE 2022-07-01 00:58:00 Delilah Bolanos [facility] COMP. METABOLIC PANEL ([id number]) 2022-07-01 00:58:00 Delilah Bolanos [facility] TOTAL BETA HCG ASSAY 2022-07-01 00:58:00 Eddie Bolanos [facility] URINALYSIS 2022-07-01 00:58:00 Delilah Bolanos [facility] NOTICE OF PRIVACY PRACTICES 2022-07-01 00:08:40 Doctor Unassigned, [place] [facility] CONSENT/REFUSAL FOR DIAGNOSIS AND TREATMENT 2022-07-01 00:05:52 Doctor Unassigned, [place] [facility] FIRST TRIMESTER LESS THAN 14 WEEKS WITH TRANSVAGINAL 2021-06-26 15:07:05 Ciaran Diaz [facility] COMP. METABOLIC PANEL (87247) 2021-06-26 14:23:00 Ciaran Diaz [facility] TOTAL BETA HCG ASSAY 2021-06-26 14:23:00 Madelaine Diaz [facility] CBC WITH DIFF 2021-06-26 14:23:00 Ciaran Diaz [facility] URINALYSIS 2021-06-26 14:23:00 Ciaran Diaz [facility] NOTICE OF PRIVACY PRACTICES 2021-06-26 13:57:26 Doctor Unassigned, [place] [facility] CONSENT/REFUSAL FOR DIAGNOSIS AND TREATMENT 2021-06-26 13:52:59 Doctor Unassigned, [place] [facility] ABORH CONFIRMATION (LAB ONLY) 2021-06-20 02:23:00 Delilah Bolanos [facility] US FIRST TRIMESTER LESS THAN 14 WEEKS WITH TRANSVAGINAL 2021-06-20 02:16:07 Delilah Bolanos [facility] COMP. METABOLIC PANEL (32247) 2021-06-20 01:53:00 Delilah Bolanos [facility] TOTAL BETA HCG ASSAY 2021-06-20 01:53:00 Eddie Bolanos [facility] CBC WITH DIFF 2021-06-20 01:53:00 Delilah Bolanos [facility] 2021-06-20 01:52:00 [facility] 2021-06-20 01:40:00 Delilah Bolanos [facility] URINALYSIS 2021-06-20 01:37:00 Delilah Bolanos [facility] NOTICE OF PRIVACY PRACTICES 2021-06-20 00:53:27 Doctor Unassigned, [place] [facility] Plan of Care Planned Activity Planned Date Details Comments Source Goal Plan of Care Note [code = 76689-0] Goal Plan of Care Note [code = 61659-3] Goal Plan of Care Note [code = 47523-6] Goal Plan of Care Note [code = 82364-0] Goal Plan of Care Note [code = 60825-2] Goal Plan of Care Note [code = 68923-8] Goal Plan of Care Note [code = 64429-2] Goal Plan of Care Note [code = 08730-9] Goal Plan of Care Note [code = 58362-8] Goal Plan of Care Note [code = 36080-2] Goal Plan of Care Note [code = 27385-6] Goal Plan of Care Note [code = 25723-0] Goal Plan of Care Note [code = 74912-6] Goal Plan of Care Note [code = 80727-6] Goal Plan of Care Note [code = 63667-9] Goal Plan of Care Note [code = 75764-8] Goal Plan of Care Note [code = 16898-0] Goal Plan of Care Note [code = 43939-3] Goal Plan of Care Note [code = 42256-0] Goal Plan of Care Note [code = 73709-7] Goal Plan of Care Note [code = 67625-3] Goal Plan of Care Note [code = 95150-8] Goal Plan of Care Note [code = 18975-2] Goal Plan of Care Note [code = 35027-7] Goal Plan of Care Note [code = 53038-4] Goal Plan of Care Note [code = 02286-7] Goal Plan of Care Note [code = 83502-5] Goal Plan of Care Note [code = 62093-7] Goal Plan of Care Note [code = 94075-2] Goal Plan of Care Note [code = 99231-0] Goal Plan of Care Note [code = 47797-2] Goal Plan of Care Note [code = 65924-9] Goal Plan of Care Note [code = 17423-0] Goal Plan of Care Note [code = 65859-2] Goal Plan of Care Note [code = 64447-9] Goal Plan of Care Note [code = 63183-4] Goal Plan of Care Note [code = 04391-9] Goal Plan of Care Note [code = 72356-5] Goal Plan of Care Note [code = 31765-6] Goal Plan of Care Note [code = 71836-4] Goal Plan of Care Note [code = 30298-0] Goal Plan of Care Note [code = 13763-8] Goal Plan of Care Note [code = 96034-0] Goal Plan of Care Note [code = 27438-3] Goal Plan of Care Note [code = 58058-2] Goal Plan of Care Note [code = 20538-3] Goal Plan of Care Note [code = 12235-7] Goal Plan of Care Note [code = 47874-0] Goal Plan of Care Note [code = 63986-6] Goal Plan of Care Note [code = 92902-2] Goal Plan of Care Note [code = 75968-0] Goal Plan of Care Note [code = 44800-0] Goal Plan of Care Note [code = 37657-7] Goal Plan of Care Note [code = 38111-3] Goal Plan of Care Note [code = 40308-0] Goal Plan of Care Note [code = 94493-8] Goal Plan of Care Note [code = 56395-1] Goal Plan of Care Note [code = 68828-4] Goal Plan of Care Note [code = 01380-7] Goal Plan of Care Note [code = 12218-0] Goal Plan of Care Note [code = 83162-4] Goal Plan of Care Note [code = 90779-9] Goal Plan of Care Note [code = 22816-1] Goal Plan of Care Note [code = 24941-2] Goal Plan of Care Note [code = 46367-7] Goal Plan of Care Note [code = 60973-1] Goal Plan of Care Note [code = 81590-4] Goal Plan of Care Note [code = 12610-9] Goal Plan of Care Note [code = 17527-8] Goal Plan of Care Note [code = 79876-5] Goal Plan of Care Note [code = 39694-8] Goal Plan of Care Note [code = 89309-2] Goal Plan of Care Note [code = 91971-5] Goal Plan of Care Note [code = 89028-0] Goal Plan of Care Note [code = 35774-6] Goal Plan of Care Note [code = 85408-8] Goal Plan of Care Note [code = 96983-4] Goal Plan of Care Note [code = 82802-4] Goal Plan of Care Note [code = 10282-5] Goal Plan of Care Note [code = 88240-5] Goal Plan of Care Note [code = 54990-6] Goal Plan of Care Note [code = 42833-2] Goal Plan of Care Note [code = 59803-0] Goal Plan of Care Note [code = 57143-8] Goal Plan of Care Note [code = 99787-2] Goal Plan of Care Note [code = 88165-4] Goal Plan of Care Note [code = 40044-7] Goal Plan of Care Note [code = 97944-8] Goal Plan of Care Note [code = 80354-8] Goal Plan of Care Note [code = 55561-0] Goal Plan of Care Note [code = 44610-3] Goal Plan of Care Note [code = 39852-3] Goal Plan of Care Note [code = 29952-8] Goal Plan of Care Note [code = 17332-6] Goal Plan of Care Note [code = 69979-3] Goal Plan of Care Note [code = 52340-5] Goal Plan of Care Note [code = 98003-9] Goal Plan of Care Note [code = 52105-9] Goal Plan of Care Note [code = 39054-6] Goal Plan of Care Note [code = 78230-7] Goal Plan of Care Note [code = 18477-9] Goal Plan of Care Note [code = 79082-1] Goal Plan of Care Note [code = 33725-5] Encounters Start Date/Time End Date/Time Encounter Type Admission Type Attending Clinicians Care Facility Care Department Encounter ID Source 2023-07-07 17:51:00 2023-07-07 18:41:00 Emergency X DELILAH BOLANOS [facility] ERT [id number] [facility] 2023-07-07 17:51:00 2023-07-07 18:41:00 Emergency Delilah Bolaons [facility] 1.840.114 350.1.13.10 4.2.7.2.686 [id number] [facility] 2023-02-27 13:00:00 2023-02-27 13:00:00 Outpatient R RENEE SHAHID [facility] [id number] [facility] 2023-01-28 13:45:00 2023-01-28 14:31:45 Outpatient R MANJUSWAPNIL [facility] [id number] [facility] 2023-01-28 13:45:00 2023-01-28 14:31:45 Routine Visit Swapnil Nunes [facility] 1.84.114 350.1.13.10 4.2.7.2.686 [id number] [facility] 2023-01-21 03:24:00 2023-01-23 12:00:00 Inpatient X MANJU SWAPNIL [facility] ITZEL [id number] [facility] 2023-01-21 03:24:00 2023-01-23 12:00:00 Hospital Encounter Swapnil Nunes [facility] 1.840.114 350.1.13.10 4.2.7.2.686 [id number] [facility] 2023-01-21 07:50:00 2023-01-21 09:41:00 Surgery Swapnil Nunes [facility] 1.2.840.114 350.1.13.10 4.2.7.2.686 [id number] [facility] 2023-01-18 00:00:00 2023-01-18 00:00:00 Orders Only Doctor Unassigned, [place] [facility] 1.2.840.114 350.1.13.10 4.2.7.2.686 [id number] [facility] 2023-01-14 09:45:00 2023-01-14 11:07:31 Outpatient R SWAPNIL NUNES [facility] [id number] [facility] 2023-01-14 09:45:00 2023-01-14 11:07:31 Routine Visit Renee Shahid Swapnil Nunes [facility] 1.2840.114 350.1.13.10 4.2.7.2.686 [id number] [facility] 2023-01-14 00:00:00 2023-01-14 00:00:00 Telephone Swapnil Nunes [facility] 1.2840.114 350.1.13.10 4.2.7.2.686 [id number] [facility] 2022-12-31 13:45:00 2022-12-31 15:22:25 Inspector [employer]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 1, [facility] Us Maya SherwoodRUST 1.2840.114 350.1.13.10 4.2.7.2.686 [id number] [facility] 2022-12-31 13:45:00 2022-12-31 13:45:00 Outpatient MAYA WHYTE SANGEETA [facility] [id number] [facility] 2022-12-28 13:00:00 2022-12-28 13:15:00 Inspector [employer] Visit 2, [facility] Swapnil Nunes [facility] 1.2.840.114 350.1.13.10 4.2.7.2.686 [id number] [facility] 2022-12-28 13:00:00 2022-12-28 13:00:00 Outpatient R MANJU [facility] [id number] [facility] 2022-12-25 00:00:00 2022-12-25 00:00:00 Case Management Swapnil Nunes [facility] 1.2.840.114 350.1.13.10 4.2.7.2.686 [id number] [facility] 2022-12-24 16:15:00 2022-12-24 16:55:13 Outpatient R SWAPNIL NUNES [facility] [id number] [facility] 2022-12-24 16:15:00 2022-12-24 16:55:13 Routine Visit Swapnil Nunes [facility] [facility] 1.2.840.114 350.1.13.10 4.2.7.2.686 [id number] 134 [id number] [facility] 2022-12-24 00:00:00 2022-12-24 00:00:00 Orders Only Doctor Unassigned, [place] [facility] 1.2840.114 350.1.13.10 4.2.7.2.686 [id number] [id number] [facility] 2022-12-06 11:00:00 2022-12-06 11:00:00 Outpatient R MANJU [facility] [id number] [facility] 2022-11-08 20:05:00 2022-11-08 21:14:00 Outpatient X ADUM, RESHMA [facility] ITZEL [id number] [facility] 2022-11-08 20:05:00 2022-11-08 21:14:00 Emergency Adum, Reshma Hampton [facility] 1.284.114 350.1.13.10 4.2.7.2.686 [id number] [id number] [facility] 2022-10-02 00:00:00 2022-10-02 00:00:00 Orders Only Doctor Unassigned, [place] [facility] 1..114 350.1.13.10 4.2.7.2.686 [id number] [facility] 2022-09-17 11:00:00 2022-09-17 11:00:00 Outpatient RENEE EDGAR [facility] [id number] [facility] 2022-09-11 14:15:00 2022-09-11 14:30:00 Inspector Outside [employer] Visit 2, Adc Lab Aj, Tuan [facility] 1..840.114 350.1.13.10 4.2.7.2.686 [id number] [facility] 2022-09-11 14:15:00 2022-09-11 14:15:00 Outpatient R TUAN RAHMAN OGECHUKWU [facility] [id number] [facility] 2022-09-11 00:00:00 2022-09-11 00:00:00 Case Management Swapnil Nunes [facility] 1.840.114 350.1.13.10 4.2.7.2.686 [id number] [facility] 2022-09-11 00:00:00 2022-09-11 00:00:00 Case Management Swapnil Nunes [facility] 1.2.840.114 350.1.13.10 4.2.7.2.686 [id number] [facility] 2022-09-10 00:00:00 2022-09-10 00:00:00 Telephone Swapnil Nunes [facility] 1.2.840.114 350.1.13.10 4.2.7.2.686 [id number] [facility] 2022-09-04 00:00:00 2022-09-04 00:00:00 Telephone Swapnil Nunes [facility] 1.2.840.114 350.1.13.10 4.2.7.2.686 [id number] 134 [id number] [facility] 2022-08-29 00:00:00 2022-08-29 00:00:00 Telephone Swapnil Nunes [facility] 1.2.840.114 350.1.13.10 4.2.7.2.686 [id number] [facility] 2022-08-21 00:00:00 2022-08-21 00:00:00 Case Management [facility]nil [facility] 1.2.840.114 350.1.13.10 4.2.7.2.686 [id number] [facility] 2022-08-20 11:45:00 2022-08-20 13:28:31 Outpatient R SWAPNIL NUNES [facility] [id number] [facility] 2022-08-20 11:45:00 2022-08-20 12:00:00 Inspector Outside [employer] Distribution Visit 2, Adc Lab Swapnil Nunes [facility] BUILDING 1.2.840.114 350.1.13.10 4.2.7.2.686 [id number] [facility] 2022-08-20 10:30:00 2022-08-20 11:31:08 Initial Visit Swapnil Nunes [facility] 1.2.840.114 350.1.13.10 4.2.7.2.686 [id number] 134 [id number] [facility] 2022-08-20 00:00:00 2022-08-20 00:00:00 Orders Only Doctor Unassigned, [place] [facility] 1.2840.114 350.1.13.10 4.2.7.2.686 [id number] [id number] [facility] 2022-07-31 09:05:28 2022-07-31 09:05:28 Outpatient SFA SFA [id number] Babar Simpson 2022-07-15 14:21:00 2022-07-16 14:05:00 Outpatient X KUNAL NUNESEN [facility] [id number] [facility] 2022-07-15 14:21:00 2022-07-16 14:05:00 Emergency Geurin, Fernanda Manju [facility] 1.840.114 350.1.13.10 4.2.7.2.686 [id number] [id number] [facility] 2022-07-16 00:00:00 2022-07-16 00:00:00 Telephone Swapnil Nunes [facility] 1.2.840.114 350.1.13.10 4.2.7.2.686 [id number] 134 [id number] [facility] 2022-06-30 19:25:00 2022-07-02 11:00:00 Outpatient X ELIDA MEJÍA [facility] [id number] [facility] 2022-06-30 19:25:00 2022-07-02 11:00:00 Emergency Delilah Bolanos Megan [facility] 1.2.840.114 350.1.13.10 4.2.7.2.686 [id number] [id number] [facility] 2022-06-15 00:00:00 2022-06-15 00:00:00 Outpatient Visit [id number]- [id number] -f86t-765 [id number] [id number]-[id number] u49-09p5-x [id number]-376d59 d85d8e 2022-06-13 00:00:00 2022-06-13 00:00:00 Outpatient Visit [id number]- 2875-6426 -[id number] 659f2a 2022-06-11 00:00:00 2022-06-11 00:00:00 Outpatient Visit o0krly66- sl86-1g8w -71b4-t97 [id number]-b a78-9k4n-7 5l9-l96w05 xx9580 2022-06-08 00:00:00 2022-06-08 00:00:00 Outpatient Visit [id number]- [id number] -[id number]-312 [id number] 2o8-2462-7 [id number]-660876 0629d3 2022-05-31 00:00:00 2022-05-31 00:00:00 Outpatient Visit [id number]- s36f-3920 -z2ey-345 [id number]-l 18c-4913-a [id number]-[id number] [id number] 2022-05-29 00:00:00 2022-05-29 00:00:00 Outpatient Visit 81lce3dt- y9h5-280e -8568-19e [id number] 69iur7td-g 9c2-637s-8 [id number] 99d8d7 2021-06-26 08:59:00 2021-06-26 11:26:00 Emergency Ciaran Diaz [facility] 1.2.840.114 350.1.13.10 4.2.7.2.686 [id number] [facility] 2021-06-26 08:52:00 2021-06-26 08:52:00 Emergency X CIARAN DIAZ [facility] ERT [id number] [facility] 2021-06-19 20:07:00 2021-06-19 23:32:00 Emergency Delilah Bolanos [facility] 1.2.840.114 350.1.13.10 4.2.7.2.686 [id number] [facility] 2021-06-19 19:53:00 2021-06-19 19:53:00 Emergency X [facility] ERT [id number] [facility] Results Test Description Test Time Test Comments Results Result Co mments Source [facility] OR ADAN CELESTIN - [id number] 05:54:32* Test Item Value Reference Range Interpretation Comme nts RPR (Qualitative) (test code = 38013-4) Nonreactive Nonreactive Lab Interpretation (test cod e = 87223-9) Normal [facility] (D) IMMUNE [id number] 22:32:21* Test Item Value Reference Range Interpretation Comme nts RHIG CANDIDATE? (test code = 5188) No- see comment Patient is not a candidate for RhIg- Patient is Rh Positive.Performed at [facility] Laboratory [facility] Blood [address] [place], [place] [id number] Free: [phone] No. [id number] [facility] (D) IMMUNE [id number] 22:32:21* Test Item Value Reference Range Interpretation Comme nts RHIG CANDIDATE? (test code = 5188) No- see comment Patient is not a candidate for RhIg- Patient is Rh Positive.Performed at [facility] Laboratory [facility] Blood [address] [place], [place] [address]Toll Free: [phone] No. [id number] [facility] Surface [id number] 15:35:44 * Test Item Value Reference Range Interpretation Comme nts HBsAg Semi-Quantitative (tanner t code = 5195-3) 0.04 Negative [facility] Surface Lkqykku3762-65-60 15:35:44 * Test Item Value Reference Range Interpretation Comme nts HBsAg Semi-Quantitative (tanner t code = 5195-3) 0.04 [facility] [id number] 12:16:52* Test Item Value Reference Range Interpretation Comme nts HIV Semi-quantitative (test code = 59137-1) 0.11 Negative MIHAELA (test code = MIHAELA) Non-reactive for HIV-1 antigen and HIV-1/HIV-2 antibodies. ?No laboratory evidence of HIV infection. ?Repeat in 2-4 weeks if acute HIV infection is suspected. [facility] 1/2 AG-AB WITH [id number] 12:16:52* Test Item Value Reference Range Interpretation Comme nts HIV Semi-quantitative (test code = 34352-8) 0.11 Negative MIHAELA (test code = MIHAELA) Non-reactive for HIV-1 antigen and HIV-1/HIV-2 antibodies. ?No laboratory evidence of HIV infection. ?Repeat in 2-4 weeks if acute HIV infection is suspected. [facility] with Fssjjlzqrlll2979-53-82 09:55:42* Test Item Value Reference Range Interpretation Comme nts WBC (test code = 6690-2) 7.86 See_Comment [Automated messa ge] The system which generated this result transmitted reference range: 4.30 - 11.10 10*3/?L. The reference range was not used to interpret this result as normal/abnormal. RBC (test code = 789-8) 3.19 See_Comment L [Automated messa ge] The system which generated this result transmitted reference range: 3.93 - 5.25 10*6/?L. The reference range was not used to interpret this result as normal/abnormal. HGB (test code = 718-7) 9.2 g/dL 11.6-15.0 L HCT (test code = 4544-3) 27.5 % 35.7-45.2 L MCV (test code = 787-2) 86.2 fL 80.6-95.5 MCH (test code = 785-6) 28.8 pg 25.9-32.8 MCHC (test code = 786-4) 33.5 g/dL 31.6-35.1 RDW-SD (test code = 43497-8) 40.3 fL 39.0-49.9 RDW-CV (test code = 788-0) 13.1 % 12.0-15.5 PLT (test code = 777-3) 292 See_Comment [Automated messa ge] The system which generated this result transmitted reference range: 166 - 358 10*3/?L. The reference range was not used to interpret this result as normal/abnormal. MPV (test code = 92287-5) 11.2 fL 9.5-12.9 NRBC/100 WBC (test code = 0561993172) 0.3 See_Comment [Automated [employer] ssage] The system which generated this result transmitted reference range: 0.0 - 10.0 /100 WBCs. The reference range was not used to interpret this result as normal/abnormal. NRBC x10^3 (test code = 7328166095) 0.02 See_Comment [Automated [employer]] The system which generated this result transmitted reference range: 10*3/?L. The reference range was not used to interpret this result as normal/abnormal. GRAN MAT (NEUT) % (test code = 770-8) 68.8 % IMM GRAN % (test code = 0758845617) 1.30 % LYMPH % (test code = 736-9) 19.5 % MONO % (test code = 5905-5) 9.2 % EOS % (test code = 713-8) 0.9 % BASO % (test code = 706-2) 0.3 % GRAN MAT x10^3(ANC) (test code = 7619708188) 5.42 10*3/uL 1.88-7.09 IMM GRAN x10^3 (test code = 7931045385) 0.10 10*3/uL 0.00-0.06 H LYMPH x10^3 (test code = 731-0) 1.53 10*3/uL 1.32-3.29 MONO x10^3 (test code = 742-7) 0.72 10*3/uL 0.33-0.92 EOS x10^3 (test code = 711-2) 0.07 10*3/uL 0.03-0.39 BASO x10^3 (test code = 704-7) 0.01-0.07 Lab Interpretation (test code = 58055-8) Abnormal [facility] with Fkyxdvweduzt4863-80-31 09:55:42* Test Item Value Reference Range Interpretation Comme nts WBC (test code = 6690-2) 7.86 See_Comment [Automated messa ge] The system which generated this result transmitted reference range: 4.30 - 11.10 10*3/?L. The reference range was not used to interpret this result as normal/abnormal. RBC (test code = 789-8) 3.19 See_Comment L [Automated messa ge] The system which generated this result transmitted reference range: 3.93 - 5.25 10*6/?L. The reference range was not used to interpret this result as normal/abnormal. HGB (test code = 718-7) 9.2 g/dL 11.6-15.0 L HCT (test code = 4544-3) 27.5 % 35.7-45.2 L MCV (test code = 787-2) 86.2 fL 80.6-95.5 MCH (test code = 785-6) 28.8 pg 25.9-32.8 MCHC (test code = 786-4) 33.5 g/dL 31.6-35.1 RDW-SD (test code = 22282-2) 40.3 fL 39.0-49.9 RDW-CV (test code = 788-0) 13.1 % 12.0-15.5 PLT (test code = 777-3) 292 See_Comment [Automated messa ge] The system which generated this result transmitted reference range: 166 - 358 10*3/?L. The reference range was not used to interpret this result as normal/abnormal. MPV (test code = 89391-2) 11.2 fL 9.5-12.9 NRBC/100 WBC (test code = 6504479827) 0.3 See_Comment [Automated me ssage] The system which generated this result transmitted reference range: 0.0 - 10.0 /100 WBCs. The reference range was not used to interpret this result as normal/abnormal. NRBC x10^3 (test code = 6071512439) 0.02 See_Comment [Automated messa ge] The system which generated this result transmitted reference range: 10*3/?L. The reference range was not used to interpret this result as normal/abnormal. GRAN MAT (NEUT) % (test code = 770-8) 68.8 % IMM GRAN % (test code = 1826941356) 1.30 % LYMPH % (test code = 736-9) 19.5 % MONO % (test code = 5905-5) 9.2 % EOS % (test code = 713-8) 0.9 % BASO % (test code = 706-2) 0.3 % GRAN MAT x10^3(ANC) (test code = 5016796950) 5.42 10*3/uL 1.88-7.09 IMM GRAN x10^3 (test code = 4209762156) 0.10 10*3/uL 0.00-0.06 H LYMPH x10^3 (test code = 731-0) 1.53 10*3/uL 1.32-3.29 MONO x10^3 (test code = 742-7) 0.72 10*3/uL 0.33-0.92 EOS x10^3 (test code = 711-2) 0.07 10*3/uL 0.03-0.39 BASO x10^3 (test code = 704-7) 0.01-0.07 Lab Interpretation (test code = 42816-2) [facility] [id number] 09:46:00 * Test Item Value Reference Range Interpretation Comme nts ABO & RH (test code = 20) O Positive IAT (test code = 1185) Negative [facility] [id number] 09:46:00 * Test Item Value Reference Range Interpretation Comme nts ABO & RH (test code = 20) O Positive IAT (test code = 1185) Negative [facility] SPECIFIC [id number] 15:47:00* Test Item Value Reference Range Interpretation Comme nts POCT PH U (test code = 3254) n/a 5-8 POCT U LEUK EST (test code = 3263) n/a Negative - Negative POCT U NIT (test code = 3262) n/a Negative - Negati ve POCT U PROT (test code = 3259) normal Negative - Negat jn POCT U GLU (test code = 3256) negative Negative - Negati ve POCT U KETONE (test code = 3258) n/a Negative - Neg ative POCT U BLD (test code = 3257) n/a Negative - Negati ve [facility] URINALYSIS W/O SPECIFIC [id number] 21:24:00* Test Item Value Reference Range Interpretation Comme nts POCT PH U (test code = 3254) 7 mg/dl 5-8 POCT U LEUK EST (test code = 3263) 1+ Negative - Negative POCT U NIT (test code = 3262) positive Negative - Negati ve POCT U PROT (test code = 3259) negaitve Negative - Negat jn POCT U GLU (test code = 3256) 250 POCT U KETONE (test code = 3258) 2+ Negative - Neg ative POCT U BLD (test code = 3257) Trace Negative - Negati ve [facility] URINALYSIS W/O SPECIFIC [id number] 16:44:00* Test Item Value Reference Range Interpretation Comme nts POCT PH U (test code = 3254) 6 mg/dl 5-8 POCT U LEUK EST (test code = 3263) Negative Negative - Negative POCT U NIT (test code = 3262) Negative Negative - Negati ve POCT U PROT (test code = 3259) Negative Negative - Negat jn POCT U GLU (test code = 3256) Normal Negative - Negati ve POCT U KETONE (test code = 3258) Negative Negative - Neg ative POCT U BLD (test code = 3257) Negative Negative - Negati ve [facility] SPECIFIC [id number] 16:44:00* Test Item Value Reference Range Interpretation Comme nts POCT PH U (test code = 3254) 6 mg/dl 5-8 POCT U LEUK EST (test code = 3263) Negative Negative - Negative POCT U NIT (test code = 3262) Negative Negative - Negati ve POCT U PROT (test code = 3259) Negative Negative - Negat jn POCT U GLU (test code = 3256) Normal Negative - Negati ve POCT U KETONE (test code = 3258) Negative Negative - Neg ative POCT U BLD (test code = 3257) Negative Negative - Negati ve [facility]/O SPECIFIC [id number] 16:44:00* Test Item Value Reference Range Interpretation Comme nts POCT PH U (test code = 3254) 6 mg/dl 5-8 POCT U LEUK EST (test code = 3263) Negative Negative - Negative POCT U NIT (test code = 3262) Negative Negative - Negati ve POCT U PROT (test code = 3259) Negative Negative - Negat jn POCT U GLU (test code = 3256) Normal Negative - Negati ve POCT U KETONE (test code = 3258) Negative Negative - Neg ative POCT U BLD (test code = 3257) Negative Negative - Negati ve [facility]OL[facility] (81272)2022-07-15 19:45:04* Test Item Value Reference Range Interpretation Comme nts NA (test code = 9576319430) 136 mmol/L 135-145 K (test code = 4420117151) 4.3 mmol/L 3.5-5 CL (test code = 1518493986) 99 mmol/L 98-108 CO2 TOTAL (test code = 6630247567) 23 mmol/L 23-31 AGAP (test code = 3222312106) 2-16 BUN (test code = 9383457791) 8 mg/dL 7-23 GLUCOSE (test code = 1253561788) 87 mg/dL 70-110 CREATININE (test code = 1545616978) 0.46 mg/dL 0.5-1.04 L TOTAL BILI (test code = 7644041441) 0.7 mg/dL 0.1-1.1 CALCIUM (test code = 5634102512) 9.9 mg/dL 8.6-10.6 T PROTEIN (test code = 5402094285) 8.3 g/dL 6.3-8.2 H ALBUMIN (test code = 4572077952) 4.8 g/dL 3.5-5 ALK PHOS (test code = 1662579076) 48 U/L 34-122 ALTv (test code = 1742-6) 20 U/L 5-35 AST(SGOT) (test code = 5469329743) 29 U/L 13-40 eGFR (test code = 1996164689) mL/min/1.73m2 MIHAELA (test code = MIHAELA) Association of [...] or abnormalities in imaging tests). Lab Interpretation (test code = 68638-7) [facility] 19:44:44* Test Item Value Reference Range Interpretation Comme nts LIPASE (test code = 5126371362) 77 U/L 0-220 Lab Interpretation (test cod e = 14109-7) Normal [facility] WITH [id number] 19:34:45* Test Item Value Reference Range Interpretation Comme nts WBC (test code = 6690-2) See_Comment [Automated messa ge] The system which generated this result transmitted reference range: 4.30 - 11.10 10*3/?L. The reference range was not used to interpret this result as normal/abnormal. RBC (test code = 789-8) See_Comment [Automated messa ge] The system which generated this result transmitted reference range: 3.93 - 5.25 10*6/?L. The reference range was not used to interpret this result as normal/abnormal. HGB (test code = 718-7) 12.9 g/dL 11.6-15 HCT (test code = 4544-3) 36.3 % 35.7-45.2 MCV (test code = 787-2) 88.5 fL 80.6-95.5 MCH (test code = 785-6) 31.5 pg 25.9-32.8 MCHC (test code = 786-4) 35.5 g/dL 31.6-35.1 H RDW-SD (test code = 21526-5) 38.1 fL 39-49.9 L RDW-CV (test code = 788-0) 11.9 % 12-15.5 L PLT (test code = 777-3) See_Comment [Automated messa ge] The system which generated this result transmitted reference range: 166 - 358 10*3/?L. The reference range was not used to interpret this result as normal/abnormal. MPV (test code = 55325-8) 9.8 fL 9.5-12.9 NRBC/100 WBC (test code = 3866826102) See_Comment [Automated me ssage] The system which generated this result transmitted reference range: 0.0 - 10.0 /100 WBCs. The reference range was not used to interpret this result as normal/abnormal. NRBC x10^3 (test code = 1136013601) See_Comment [Automated messa ge] The system which generated this result transmitted reference range: 10*3/?L. The reference range was not used to interpret this result as normal/abnormal. GRAN MAT (NEUT) % (test code = 770-8) 71.8 % IMM GRAN % (test code = 4842679105) 0.30 % LYMPH % (test code = 736-9) 21.4 % MONO % (test code = 5905-5) 5.5 % EOS % (test code = 713-8) 0.6 % BASO % (test code = 706-2) 0.4 % GRAN MAT x10^3(ANC) (test code = 2437862917) 7.64 10*3/uL 1.88-7.09 H IMM GRAN x10^3 (test code = 3911037963) 0.03 10*3/uL 0-0.06 LYMPH x10^3 (test code = 731-0) 2.27 10*3/uL 1.32-3.29 MONO x10^3 (test code = 742-7) 0.58 10*3/uL 0.33-0.92 EOS x10^3 (test code = 711-2) 0.06 10*3/uL 0.03-0.39 BASO x10^3 (test code = 704-7) 0.04 10*3/uL 0.01-0.07 Lab Interpretation (test code = 90971-3) Abnormal [facility] ([facility])2022-07-01 03:12:13* Test Item Value Reference Range Interpretation Comme nts BETA HCG (test code = 8409448148) See_Comment [Automated Organizera ge] The system which generated this result transmitted reference range: Non- female and male patients: <5 mIU/mL. The reference range was not used to interpret this result as normal/abnormal. MIHAELA (test code = MIHAELA) Gestational Age ?Range (mIU/mL) 1-10 ?Weeks ?53-09095685-20 Weeks ?96992-37322298-87 Weeks ?4370-27180817-91 Weeks ?8883-561095 Biotin has been reported to cause a negative bias, interpret results relative to patient's use of biotin. [facility]. METABOLIC PANEL (68348)2022-07-01 02:20:51* Test Item Value Reference Range Interpretation Comme nts NA (test code = 2417437273) 135 mmol/L 135-145 K (test code = 8512887923) 3.7 mmol/L 3.5-5 CL (test code = 2309071963) 98 mmol/L 98-108 CO2 TOTAL (test code = 2556152684) 24 mmol/L 23-31 AGAP (test code = 4794864797) 2-16 BUN (test code = 0254743892) 8 mg/dL 7-23 GLUCOSE (test code = 1526464953) 91 mg/dL 70-110 CREATININE (test code = 8708072527) 0.48 mg/dL 0.5-1.04 L TOTAL BILI (test code = 9097072230) 0.8 mg/dL 0.1-1.1 CALCIUM (test code = 9856730815) 10.1 mg/dL 8.6-10.6 T PROTEIN (test code = 2445701930) 7.9 g/dL 6.3-8.2 ALBUMIN (test code = 7399819968) 4.8 g/dL 3.5-5 ALK PHOS (test code = 1934024287) 61 U/L 34-122 ALTv (test code = 1742-6) 20 U/L 5-35 AST(SGOT) (test code = 0882758431) 27 U/L 13-40 eGFR (test code = 6770313511) mL/min/1.73m2 MIHAELA (test code = MIHAELA) Association of [...] or abnormalities in imaging tests). Lab Interpretation (test code = 26114-5) [facility] 02:20:16* Test Item Value Reference Range Interpretation Comme nts LIPASE (test code = 9659234557) 75 U/L 0-220 Lab Interpretation (test cod e = 81941-6) Normal [facility] WITH [id number] 01:45:31* Test Item Value Reference Range Interpretation Comme nts WBC (test code = 6690-2) See_Comment [Automated [employer]] The system which generated this result transmitted reference range: 4.30 - 11.10 10*3/?L. The reference range was not used to interpret this result as normal/abnormal. RBC (test code = 789-8) See_Comment L [Automated [employer]] The system which generated this result transmitted reference range: 3.93 - 5.25 10*6/?L. The reference range was not used to interpret this result as normal/abnormal. HGB (test code = 718-7) 11.9 g/dL 11.6-15 HCT (test code = 4544-3) 32.6 % 35.7-45.2 L MCV (test code = 787-2) 86.7 fL 80.6-95.5 MCH (test code = 785-6) 31.6 pg 25.9-32.8 MCHC (test code = 786-4) 36.5 g/dL 31.6-35.1 H RDW-SD (test code = 90851-5) 35.8 fL 39-49.9 L RDW-CV (test code = 788-0) 11.4 % 12-15.5 L PLT (test code = 777-3) See_Comment [Automated [employer]] The system which generated this result transmitted reference range: 166 - 358 10*3/?L. The reference range was not used to interpret this result as normal/abnormal. MPV (test code = 06032-2) 11.1 fL 9.5-12.9 NRBC/100 WBC (test code = 5264814023) See_Comment [Automated [employer]] The system which generated this result transmitted reference range: 0.0 - 10.0 /100 WBCs. The reference range was not used to interpret this result as normal/abnormal. NRBC x10^3 (test code = 2341810646) See_Comment [Automated [employer]] The system which generated this result transmitted reference range: 10*3/?L. The reference range was not used to interpret this result as normal/abnormal. GRAN MAT (NEUT) % (test code = 770-8) 63.7 % IMM GRAN % (test code = 3356006167) 0.40 % LYMPH % (test code = 736-9) 27.3 % MONO % (test code = 5905-5) 7.8 % EOS % (test code = 713-8) 0.3 % BASO % (test code = 706-2) 0.5 % GRAN MAT x10^3(ANC) (test code = 5767273891) 6.83 10*3/uL 1.88-7.09 IMM GRAN x10^3 (test code = 6489933412) 0.04 10*3/uL 0-0.06 LYMPH x10^3 (test code = 731-0) 2.92 10*3/uL 1.32-3.29 MONO x10^3 (test code = 742-7) 0.83 10*3/uL 0.33-0.92 EOS x10^3 (test code = 711-2) 0.03 10*3/uL 0.03-0.39 BASO x10^3 (test code = 704-7) 0.05 10*3/uL 0.01-0.07 Lab Interpretation (test code = 29597-3) [id number] Test Item Value Reference Range Interpretation Comme nts POCT PREG (test code = 1605) positive On board controls acceptable with C Line (test code = 3574) present POCT PREG LOT # (test code = 3575) [id number] POCT PREG TEST DATE ( test code = 3576) 2023-09-29 Lab Interpretation (test cod e = 43979-1) [id number] 09:09:13SPECIMEN NUMBER: [id number] CULTURE, URINE SPECIMEN NUMBER: [id number] SOURCE: URINE REPORT STATUS: FINAL FINAL REPORT: 06/02/2022 10-50,000 CFU/ML UROGENITAL GLORIA PRESENT NO COMMON PATHOGENSCULTURE, [id number] 00:00:00* Test Item Value Reference Range Interpretation Comme nts CULTURE, URINE (test code = 23835) SPECIMEN NUMBER: [id number] CULTURE, [id number] 00:00:00* Test Item Value Reference Range Interpretation Comme nts CULTURE, URINE (test code = 45238) SPECIMEN NUMBER: [id number] CULTURE, [id number] 00:00:00* Test Item Value Reference Range Interpretation Comme nts CULTURE, URINE (test code = 00444) SPECIMEN NUMBER: [id number] CULTURE, [id number] 00:00:00* Test Item Value Reference Range Interpretation Comme nts CULTURE, URINE (test code = 75979) SPECIMEN NUMBER: [id number] CULTURE, [id number] 00:00:00* Test Item Value Reference Range Interpretation Comme nts CULTURE, URINE (test code = 87367) SPECIMEN NUMBER: [id number] CULTURE, [id number] 00:00:00* Test Item Value Reference Range Interpretation Comme nts CULTURE, URINE (test code = 28009) SPECIMEN NUMBER: [id number] CULTURE, [id number] 00:00:00* Test Item Value Reference Range Interpretation Comme nts CULTURE, URINE (test code = 75058) SPECIMEN NUMBER: [id number] CULTURE, [id number] 00:00:00* Test Item Value Reference Range Interpretation Comme nts CULTURE, URINE (test code = 48753) SPECIMEN NUMBER: [id number] THC METABOLITE, QUANT, [id number] 16:28:28* Test Item Value Reference Range Interpretation Comme nts CARBOXY-THC INTERP (test code = 98517) Positive A CARBOXY-THC QNT (test code = 39026) >500 ng/mL <15 H Reference range indicates cutoff for positive result determination. Specimen Type: Urine Urine drug and metabolite concentrations are dependent on manyfactors, including patient compliance, drug dosing, dosing interval,individual variation in drug absorption and metabolism, urineconcentration, and limitations of testing. Assay is intended formedical purposes only, not for forensic use. This test was developed and its performance characteristicsdetermined by [facility] ([facility]). It has not beencleared or approved by the U.S. Food and Drug Administration (FDA).The FDA has determined that such clearance or approval is notnecessary. This test is used for clinical purposes and should not beregarded as investigational or for research. [facility] is qualified toperform high complexity testing under the Clinical LaboratoryImprovement Amendments (CLIA). TESTING PERFORMED AT [facility] [address] [place] [address] [address], [place] [address] CLIA NO: [id number] UNLESS OTHERWISE INDICATED, ALL TESTING PERFORMED The [facility] [address] [place] [address] HIDE AND SKIN PROCESSING WORKER: RUSLAN ESTRADA M.D. CLIA NUMBER [id number] [place]. [id number] VARICELLA ZOSTER [id number] 15:58:45* Test Item Value Reference Range Interpretation Comme nts VARICELLA ZOSTER IgG (test code = 66599) 296 INDEX SEE BELOW INTERPRETATI ON VZV IgG NEGATIVE . . . . . . . . . . . . INDEX <135 EQUIVOCAL. . . . . . . . . . . . INDEX 135-164 NOTE: CONSIDER RETESTING IN A CLINICALLY SUITABLE PERIOD OF TIME, NO SOONER THAN 1-2 WEEKS. POSITIVE . . . . . . . . . . . . INDEX >=165 UNLESS OTHERWISE INDICATED, ALL TESTING PERFORMED [facility], [facility]. [address] [place] [address] HIDE AND SKIN PROCESSING WORKER: RUSLAN ESTRADA M.D. CLIA NUMBER [id number] [place]. [id number] VAGINAL PATHOGENS DNA [id number] 15:42:49* Test Item Value Reference Range Interpretation Comme nts VIJI SPECIES (test code = ) NEGATIVE NEGATIVE G. VAGINALIS (test code = ) POSITIVE NEGATIVE A T. VAGINALIS (test code = ) POSITIVE NEGATIVE A HEPATITIS C REFLEX [id number] 03:28:47* Test Item Value Reference Range Interpretation Comme nts HEPATITIS C ANTIBODY (test c ode = 4675) NON-REACTIVE NON-REACTIVE OBSTETRIC PANEL + [id number] 03:28:47* Test Item Value Reference Range Interpretation Comme nts WBC (test code = 1001) 8.8 K/UL 3.5-11.0 RBC (test code = 1002) 4.01 M/UL 3.80-5.40 HEMOGLOBIN (test code = 1003) 12.1 G/DL 11.5-15.5 HEMATOCRIT (test code = 1004) 36.1 % 34.0-45.0 MCV (test code = 1005) 90.0 fL 80.0-99.0 MCH (test code = 1006) 30.2 PG 25.0-33.0 MCHC (test code = 1007) 33.5 G/DL 31.0-36.0 RDW (test code = 1038) 11.7 % 11.5-15.0 NEUTROPHILS (test code = 1008) 62.6 % LYMPHOCYTES (test code = 1010) 28.2 % MONOCYTES (test code = 1011) 7.6 % EOSINOPHILS (test code = 1012) 0.8 % BASOPHILS (test code = 1013) 0.5 % IMMATURE GRANULOCYTES (test code = 1036) 0.3 % NUCLEATED RBCS (test code = 1065) 0.0 /100 WBC'S See_Comment [Automated me ssage] The system which generated this result transmitted reference range: 0.0. The reference range was not used to interpret this result as normal/abnormal. PLATELET COUNT (test code = 1015) 291 K/UL 130-400 ABSOLUTE NEUTROPHILS (test code = 1066) 5.52 K/UL 1.50-7.50 ABSOLUTE LYMPHOCYTES (test code = 1067) 2.49 K/UL 1.00-4.00 ABSOLUTE MONOCYTES (test code = 1068) 0.67 K/UL 0.20-1.00 ABSOLUTE EOSINOPHILS (test code = 1040) 0.07 K/UL 0.00-0.50 ABSOLUTE BASOPHILS (test code = 1069) 0.04 K/UL 0.00-0.20 ABS IMMATURE GRANULOCYTES (test code = 1020) 0.03 K/UL 0.00-0.10 ABS NUCLEATED RBCS (test code = 83290) 0.00 K/UL 0.00-0.11 BLOOD TYPE AND RH (test code = 3901) O POSITIVE A HISTORICAL RECORD CHECK FOR PREVIOUS RESULTS IS NOT PERFORMED.THESE RESULTS SHOULD BE CORRELATED WITH RESULTS OF PRIOR BLOODTYPING AND ANTIBODY SCREEN STUDIES. ANTIBODY SCREEN (test code = 3902) NEGATIVE NEGATIVE A HISTORICAL RECORD CHECK FOR PREVIOUS RESULTS IS NOT PERFORMED.THESE RESULTS SHOULD BE CORRELATED WITH RESULTS OF PRIOR BLOODTYPING AND ANTIBODY SCREEN STUDIES. RUBELLA ANTIBODY SCREEN (test code = 4600) 52 IU/ML SEE BELOW INTERPRETATION RUBELLA IgG NON-REACTIVE/NON-IMM UNE . . . . . . . IU/ML <10 REACTIVE/IMMUNE . . . . . . . . . . . IU/ML >=10 RUBELLA IgG INTERP (test code = 93584) REACTIVE REACTIVE HEPATITIS B SURF AG (test code = 2739) NON-REACTIVE NON-REACTIVE RPR (test code = 33949) NON-REACTIVE NON-REACTIVE RPR TITER (test code = 3500) NOT INDIC. TITER NOT INDIC. HIV 1/2 4TH GEN, RFLX CONF (test code = 3514) NON-REACTIVE NON-REACTIVE VAGINAL PATHOGENS DNA [id number] 00:00:00* Test Item Value Reference Range Interpretation Comme nts VIJI SPECIES (test code = ) NEGATIVE G. VAGINALIS (test code = ) POSITIVE T. VAGINALIS (test code = ) POSITIVE VAGINAL PATHOGENS DNA [id number] 00:00:00* Test Item Value Reference Range Interpretation Comme nts VIJI SPECIES (test code = ) NEGATIVE G. VAGINALIS (test code = 21923) POSITIVE T. VAGINALIS (test code = ) POSITIVE OBSTETRIC PANEL + [id number] 00:00:00* Test Item Value Reference Range Interpretation Comme nts WBC (test code = 1001) 8.8 K/UL RBC (test code = 1002) 4.01 M/UL HEMOGLOBIN (test code = 1003) 12.1 G/DL HEMATOCRIT (test code = 1004) 36.1 % MCV (test code = 1005) 90.0 fL MCH (test code = 1006) 30.2 PG MCHC (test code = 1007) 33.5 G/DL RDW (test code = 1038) 11.7 % NEUTROPHILS (test code = 1008) 62.6 % LYMPHOCYTES (test code = 1010) 28.2 % MONOCYTES (test code = 1011) 7.6 % EOSINOPHILS (test code = 1012) 0.8 % BASOPHILS (test code = 1013) 0.5 % IMMATURE GRANULOCYTES (test code = 1036) 0.3 % NUCLEATED RBCS (test code = 1065) 0.0 /100WBC'S PLATELET COUNT (test code = 1015) 291 K/UL ABSOLUTE NEUTROPHILS (test code = 1066) 5.52 K/UL ABSOLUTE LYMPHOCYTES (test code = 1067) 2.49 K/UL ABSOLUTE MONOCYTES (test code = 1068) 0.67 K/UL ABSOLUTE EOSINOPHILS (test code = 1040) 0.07 K/UL ABSOLUTE BASOPHILS (test code = 1069) 0.04 K/UL ABS IMMATURE GRANULOCYTES (test code = 1020) 0.03 K/UL ABS NUCLEATED RBCS (test code = 50695) 0.00 K/UL BLOOD TYPE AND RH (test code = 3901) O POSITIVE ANTIBODY SCREEN (test code = 3902) NEGATIVE RUBELLA ANTIBODY SCREEN (test code = 4600) 52 IU/ML RUBELLA IgG INTERP (test code = 54176) REACTIVE HEPATITIS B SURF AG (test code = 2739) NON-REACTIVE RPR (test code = 68998) NON-REACTIVE RPR TITER (test code = 3500) NOT INDIC. TITER HIV 1/2 4TH GEN, RFLX CONF (test code = 3514) NON-REACTIVE OBSTETRIC PANEL + [id number] 00:00:00* Test Item Value Reference Range Interpretation Comme nts WBC (test code = 1001) 8.8 K/UL RBC (test code = 1002) 4.01 M/UL HEMOGLOBIN (test code = 1003) 12.1 G/DL HEMATOCRIT (test code = 1004) 36.1 % MCV (test code = 1005) 90.0 fL MCH (test code = 1006) 30.2 PG MCHC (test code = 1007) 33.5 G/DL RDW (test code = 1038) 11.7 % NEUTROPHILS (test code = 1008) 62.6 % LYMPHOCYTES (test code = 1010) 28.2 % MONOCYTES (test code = 1011) 7.6 % EOSINOPHILS (test code = 1012) 0.8 % BASOPHILS (test code = 1013) 0.5 % IMMATURE GRANULOCYTES (test code = 1036) 0.3 % NUCLEATED RBCS (test code = 1065) 0.0 /100WBC'S PLATELET COUNT (test code = 1015) 291 K/UL ABSOLUTE NEUTROPHILS (test code = 1066) 5.52 K/UL ABSOLUTE LYMPHOCYTES (test code = 1067) 2.49 K/UL ABSOLUTE MONOCYTES (test code = 1068) 0.67 K/UL ABSOLUTE EOSINOPHILS (test code = 1040) 0.07 K/UL ABSOLUTE BASOPHILS (test code = 1069) 0.04 K/UL ABS IMMATURE GRANULOCYTES (test code = 1020) 0.03 K/UL ABS NUCLEATED RBCS (test code = 91446) 0.00 K/UL BLOOD TYPE AND RH (test code = 3901) O POSITIVE ANTIBODY SCREEN (test code = 3902) NEGATIVE RUBELLA ANTIBODY SCREEN (test code = 4600) 52 IU/ML RUBELLA IgG INTERP (test code = 03348) REACTIVE HEPATITIS B SURF AG (test code = 2739) NON-REACTIVE RPR (test code = 59699) NON-REACTIVE RPR TITER (test code = 3500) NOT INDIC. TITER HIV 1/2 4TH GEN, RFLX CONF (test code = 3514) NON-REACTIVE OBSTETRIC PANEL + [id number] 00:00:00* Test Item Value Reference Range Interpretation Comme nts WBC (test code = 1001) 8.8 K/UL RBC (test code = 1002) 4.01 M/UL HEMOGLOBIN (test code = 1003) 12.1 G/DL HEMATOCRIT (test code = 1004) 36.1 % MCV (test code = 1005) 90.0 fL MCH (test code = 1006) 30.2 PG MCHC (test code = 1007) 33.5 G/DL RDW (test code = 1038) 11.7 % NEUTROPHILS (test code = 1008) 62.6 % LYMPHOCYTES (test code = 1010) 28.2 % MONOCYTES (test code = 1011) 7.6 % EOSINOPHILS (test code = 1012) 0.8 % BASOPHILS (test code = 1013) 0.5 % IMMATURE GRANULOCYTES (test code = 1036) 0.3 % NUCLEATED RBCS (test code = 1065) 0.0 /100WBC'S PLATELET COUNT (test code = 1015) 291 K/UL ABSOLUTE NEUTROPHILS (test code = 1066) 5.52 K/UL ABSOLUTE LYMPHOCYTES (test code = 1067) 2.49 K/UL ABSOLUTE MONOCYTES (test code = 1068) 0.67 K/UL ABSOLUTE EOSINOPHILS (test code = 1040) 0.07 K/UL ABSOLUTE BASOPHILS (test code = 1069) 0.04 K/UL ABS IMMATURE GRANULOCYTES (test code = 1020) 0.03 K/UL ABS NUCLEATED RBCS (test code = 95421) 0.00 K/UL BLOOD TYPE AND RH (test code = 3901) O POSITIVE ANTIBODY SCREEN (test code = 3902) NEGATIVE RUBELLA ANTIBODY SCREEN (test code = 4600) 52 IU/ML RUBELLA IgG INTERP (test code = 02221) REACTIVE HEPATITIS B SURF AG (test code = 2739) NON-REACTIVE RPR (test code = 38904) NON-REACTIVE RPR TITER (test code = 3500) NOT INDIC. TITER HIV 1/2 4TH GEN, RFLX CONF (test code = 3514) NON-REACTIVE HEPATITIS C REFLEX [id number] 00:00:00* Test Item Value Reference Range Interpretation Comme nts HEPATITIS C ANTIBODY (test c ode = 4675) NON-REACTIVE HEPATITIS C REFLEX [id number] 00:00:00* Test Item Value Reference Range Interpretation Comme nts HEPATITIS C ANTIBODY (test c ode = 4675) NON-REACTIVE THC METABOLITE, QUANT, URINE [REFLEX]2022-06-01 00:00:00* Test Item Value Reference Range Interpretation Comme nts CARBOXY-THC INTERP (test cod e = 97316) Positive CARBOXY-THC QNT (test code = 02969) >500 ng/mL THC METABOLITE, QUANT, URINE [REFLEX]2022-06-01 00:00:00* Test Item Value Reference Range Interpretation Comme nts CARBOXY-THC INTERP (test cod e = 73241) Positive CARBOXY-THC QNT (test code = 26656) >500 ng/mL VARICELLA ZOSTER [id number] 00:00:00* Test Item Value Reference Range Interpretation Comme nts VARICELLA ZOSTER IgG (test c ode = 56234) 296 INDEX VARICELLA ZOSTER [id number] 00:00:00* Test Item Value Reference Range Interpretation Comme nts VARICELLA ZOSTER IgG (test c ode = 80402) 296 INDEX VAGINAL PATHOGENS DNA [id number] 00:00:00* Test Item Value Reference Range Interpretation Comme nts VIJI SPECIES (test code = 95714) NEGATIVE G. VAGINALIS (test code = 32512) POSITIVE T. VAGINALIS (test code = 38302) POSITIVE VAGINAL PATHOGENS DNA [id number] 00:00:00* Test Item Value Reference Range Interpretation Comme nts VIJI SPECIES (test code = 05114) NEGATIVE G. VAGINALIS (test code = 38285) POSITIVE T. VAGINALIS (test code = 83098) POSITIVE OBSTETRIC PANEL + [id number] 00:00:00* Test Item Value Reference Range Interpretation Comme nts WBC (test code = 1001) 8.8 K/UL RBC (test code = 1002) 4.01 M/UL HEMOGLOBIN (test code = 1003) 12.1 G/DL HEMATOCRIT (test code = 1004) 36.1 % MCV (test code = 1005) 90.0 fL MCH (test code = 1006) 30.2 PG MCHC (test code = 1007) 33.5 G/DL RDW (test code = 1038) 11.7 % NEUTROPHILS (test code = 1008) 62.6 % LYMPHOCYTES (test code = 1010) 28.2 % MONOCYTES (test code = 1011) 7.6 % EOSINOPHILS (test code = 1012) 0.8 % BASOPHILS (test code = 1013) 0.5 % IMMATURE GRANULOCYTES (test code = 1036) 0.3 % NUCLEATED RBCS (test code = 1065) 0.0 /100WBC'S PLATELET COUNT (test code = 1015) 291 K/UL ABSOLUTE NEUTROPHILS (test code = 1066) 5.52 K/UL ABSOLUTE LYMPHOCYTES (test code = 1067) 2.49 K/UL ABSOLUTE MONOCYTES (test code = 1068) 0.67 K/UL ABSOLUTE EOSINOPHILS (test code = 1040) 0.07 K/UL ABSOLUTE BASOPHILS (test code = 1069) 0.04 K/UL ABS IMMATURE GRANULOCYTES (test code = 1020) 0.03 K/UL ABS NUCLEATED RBCS (test code = 55376) 0.00 K/UL BLOOD TYPE AND RH (test code = 3901) O POSITIVE ANTIBODY SCREEN (test code = 3902) NEGATIVE RUBELLA ANTIBODY SCREEN (test code = 4600) 52 IU/ML RUBELLA IgG INTERP (test code = 06578) REACTIVE HEPATITIS B SURF AG (test code = 2739) NON-REACTIVE RPR (test code = 94065) NON-REACTIVE RPR TITER (test code = 3500) NOT INDIC. TITER HIV 1/2 4TH GEN, RFLX CONF (test code = 3514) NON-REACTIVE OBSTETRIC PANEL + [id number] 00:00:00* Test Item Value Reference Range Interpretation Comme nts WBC (test code = 1001) 8.8 K/UL RBC (test code = 1002) 4.01 M/UL HEMOGLOBIN (test code = 1003) 12.1 G/DL HEMATOCRIT (test code = 1004) 36.1 % MCV (test code = 1005) 90.0 fL MCH (test code = 1006) 30.2 PG MCHC (test code = 1007) 33.5 G/DL RDW (test code = 1038) 11.7 % NEUTROPHILS (test code = 1008) 62.6 % LYMPHOCYTES (test code = 1010) 28.2 % MONOCYTES (test code = 1011) 7.6 % EOSINOPHILS (test code = 1012) 0.8 % BASOPHILS (test code = 1013) 0.5 % IMMATURE GRANULOCYTES (test code = 1036) 0.3 % NUCLEATED RBCS (test code = 1065) 0.0 /100WBC'S PLATELET COUNT (test code = 1015) 291 K/UL ABSOLUTE NEUTROPHILS (test code = 1066) 5.52 K/UL ABSOLUTE LYMPHOCYTES (test code = 1067) 2.49 K/UL ABSOLUTE MONOCYTES (test code = 1068) 0.67 K/UL ABSOLUTE EOSINOPHILS (test code = 1040) 0.07 K/UL ABSOLUTE BASOPHILS (test code = 1069) 0.04 K/UL ABS IMMATURE GRANULOCYTES (test code = 1020) 0.03 K/UL ABS NUCLEATED RBCS (test code = 32440) 0.00 K/UL BLOOD TYPE AND RH (test code = 3901) O POSITIVE ANTIBODY SCREEN (test code = 3902) NEGATIVE RUBELLA ANTIBODY SCREEN (test code = 4600) 52 IU/ML RUBELLA IgG INTERP (test code = 97012) REACTIVE HEPATITIS B SURF AG (test code = 2739) NON-REACTIVE RPR (test code = 76849) NON-REACTIVE RPR TITER (test code = 3500) NOT INDIC. TITER HIV 1/2 4TH GEN, RFLX CONF (test code = 3514) NON-REACTIVE OBSTETRIC PANEL + [id number] 00:00:00* Test Item Value Reference Range Interpretation Comme nts WBC (test code = 1001) 8.8 K/UL RBC (test code = 1002) 4.01 M/UL HEMOGLOBIN (test code = 1003) 12.1 G/DL HEMATOCRIT (test code = 1004) 36.1 % MCV (test code = 1005) 90.0 fL MCH (test code = 1006) 30.2 PG MCHC (test code = 1007) 33.5 G/DL RDW (test code = 1038) 11.7 % NEUTROPHILS (test code = 1008) 62.6 % LYMPHOCYTES (test code = 1010) 28.2 % MONOCYTES (test code = 1011) 7.6 % EOSINOPHILS (test code = 1012) 0.8 % BASOPHILS (test code = 1013) 0.5 % IMMATURE GRANULOCYTES (test code = 1036) 0.3 % NUCLEATED RBCS (test code = 1065) 0.0 /100WBC'S PLATELET COUNT (test code = 1015) 291 K/UL ABSOLUTE NEUTROPHILS (test code = 1066) 5.52 K/UL ABSOLUTE LYMPHOCYTES (test code = 1067) 2.49 K/UL ABSOLUTE MONOCYTES (test code = 1068) 0.67 K/UL ABSOLUTE EOSINOPHILS (test code = 1040) 0.07 K/UL ABSOLUTE BASOPHILS (test code = 1069) 0.04 K/UL ABS IMMATURE GRANULOCYTES (test code = 1020) 0.03 K/UL ABS NUCLEATED RBCS (test code = 56904) 0.00 K/UL BLOOD TYPE AND RH (test code = 3901) O POSITIVE ANTIBODY SCREEN (test code = 3902) NEGATIVE RUBELLA ANTIBODY SCREEN (test code = 4600) 52 IU/ML RUBELLA IgG INTERP (test code = 53140) REACTIVE HEPATITIS B SURF AG (test code = 2739) NON-REACTIVE RPR (test code = 20403) NON-REACTIVE RPR TITER (test code = 3500) NOT INDIC. TITER HIV 1/2 4TH GEN, RFLX CONF (test code = 3514) NON-REACTIVE THC METABOLITE, QUANT, URINE [REFLEX]2022-06-01 00:00:00* Test Item Value Reference Range Interpretation Comme nts CARBOXY-THC INTERP (test cod e = 36541) Positive CARBOXY-THC QNT (test code = 96960) >500 ng/mL THC METABOLITE, QUANT, URINE [REFLEX]2022-06-01 00:00:00* Test Item Value Reference Range Interpretation Comme nts CARBOXY-THC INTERP (test cod e = 06293) Positive CARBOXY-THC QNT (test code = 89153) >500 ng/mL HEPATITIS C REFLEX [id number] 00:00:00* Test Item Value Reference Range Interpretation Comme nts HEPATITIS C ANTIBODY (test c ode = 4675) NON-REACTIVE HEPATITIS C REFLEX [id number] 00:00:00* Test Item Value Reference Range Interpretation Comme nts HEPATITIS C ANTIBODY (test c ode = 4675) NON-REACTIVE VARICELLA ZOSTER [id number] 00:00:00* Test Item Value Reference Range Interpretation Comme nts VARICELLA ZOSTER IgG (test c ode = 17050) 296 INDEX VARICELLA ZOSTER [id number] 00:00:00* Test Item Value Reference Range Interpretation Comme nts VARICELLA ZOSTER IgG (test c ode = 62960) 296 INDEX VAGINAL PATHOGENS DNA [id number] 00:00:00* Test Item Value Reference Range Interpretation Comme nts VIJI SPECIES (test code = ) NEGATIVE G. VAGINALIS (test code = 41981) POSITIVE T. VAGINALIS (test code = 84322) POSITIVE VAGINAL PATHOGENS DNA [id number] 00:00:00* Test Item Value Reference Range Interpretation Comme nts VIJI SPECIES (test code = ) NEGATIVE G. VAGINALIS (test code = 50293) POSITIVE T. VAGINALIS (test code = 95477) POSITIVE OBSTETRIC PANEL + [id number] 00:00:00* Test Item Value Reference Range Interpretation Comme nts WBC (test code = 1001) 8.8 K/UL RBC (test code = 1002) 4.01 M/UL HEMOGLOBIN (test code = 1003) 12.1 G/DL HEMATOCRIT (test code = 1004) 36.1 % MCV (test code = 1005) 90.0 fL MCH (test code = 1006) 30.2 PG MCHC (test code = 1007) 33.5 G/DL RDW (test code = 1038) 11.7 % NEUTROPHILS (test code = 1008) 62.6 % LYMPHOCYTES (test code = 1010) 28.2 % MONOCYTES (test code = 1011) 7.6 % EOSINOPHILS (test code = 1012) 0.8 % BASOPHILS (test code = 1013) 0.5 % IMMATURE GRANULOCYTES (test code = 1036) 0.3 % NUCLEATED RBCS (test code = 1065) 0.0 /100WBC'S PLATELET COUNT (test code = 1015) 291 K/UL ABSOLUTE NEUTROPHILS (test code = 1066) 5.52 K/UL ABSOLUTE LYMPHOCYTES (test code = 1067) 2.49 K/UL ABSOLUTE MONOCYTES (test code = 1068) 0.67 K/UL ABSOLUTE EOSINOPHILS (test code = 1040) 0.07 K/UL ABSOLUTE BASOPHILS (test code = 1069) 0.04 K/UL ABS IMMATURE GRANULOCYTES (test code = 1020) 0.03 K/UL ABS NUCLEATED RBCS (test code = 24147) 0.00 K/UL BLOOD TYPE AND RH (test code = 3901) O POSITIVE ANTIBODY SCREEN (test code = 3902) NEGATIVE RUBELLA ANTIBODY SCREEN (test code = 4600) 52 IU/ML RUBELLA IgG INTERP (test code = 02798) REACTIVE HEPATITIS B SURF AG (test code = 2739) NON-REACTIVE RPR (test code = 19496) NON-REACTIVE RPR TITER (test code = 3500) NOT INDIC. TITER HIV 1/2 4TH GEN, RFLX CONF (test code = 3514) NON-REACTIVE OBSTETRIC PANEL + [id number] 00:00:00* Test Item Value Reference Range Interpretation Comme nts WBC (test code = 1001) 8.8 K/UL RBC (test code = 1002) 4.01 M/UL HEMOGLOBIN (test code = 1003) 12.1 G/DL HEMATOCRIT (test code = 1004) 36.1 % MCV (test code = 1005) 90.0 fL MCH (test code = 1006) 30.2 PG MCHC (test code = 1007) 33.5 G/DL RDW (test code = 1038) 11.7 % NEUTROPHILS (test code = 1008) 62.6 % LYMPHOCYTES (test code = 1010) 28.2 % MONOCYTES (test code = 1011) 7.6 % EOSINOPHILS (test code = 1012) 0.8 % BASOPHILS (test code = 1013) 0.5 % IMMATURE GRANULOCYTES (test code = 1036) 0.3 % NUCLEATED RBCS (test code = 1065) 0.0 /100WBC'S PLATELET COUNT (test code = 1015) 291 K/UL ABSOLUTE NEUTROPHILS (test code = 1066) 5.52 K/UL ABSOLUTE LYMPHOCYTES (test code = 1067) 2.49 K/UL ABSOLUTE MONOCYTES (test code = 1068) 0.67 K/UL ABSOLUTE EOSINOPHILS (test code = 1040) 0.07 K/UL ABSOLUTE BASOPHILS (test code = 1069) 0.04 K/UL ABS IMMATURE GRANULOCYTES (test code = 1020) 0.03 K/UL ABS NUCLEATED RBCS (test code = 98659) 0.00 K/UL BLOOD TYPE AND RH (test code = 3901) O POSITIVE ANTIBODY SCREEN (test code = 3902) NEGATIVE RUBELLA ANTIBODY SCREEN (test code = 4600) 52 IU/ML RUBELLA IgG INTERP (test code = 04645) REACTIVE HEPATITIS B SURF AG (test code = 2739) NON-REACTIVE RPR (test code = 21576) NON-REACTIVE RPR TITER (test code = 3500) NOT INDIC. TITER HIV 1/2 4TH GEN, RFLX CONF (test code = 3514) NON-REACTIVE OBSTETRIC PANEL + [id number] 00:00:00* Test Item Value Reference Range Interpretation Comme nts WBC (test code = 1001) 8.8 K/UL RBC (test code = 1002) 4.01 M/UL HEMOGLOBIN (test code = 1003) 12.1 G/DL HEMATOCRIT (test code = 1004) 36.1 % MCV (test code = 1005) 90.0 fL MCH (test code = 1006) 30.2 PG MCHC (test code = 1007) 33.5 G/DL RDW (test code = 1038) 11.7 % NEUTROPHILS (test code = 1008) 62.6 % LYMPHOCYTES (test code = 1010) 28.2 % MONOCYTES (test code = 1011) 7.6 % EOSINOPHILS (test code = 1012) 0.8 % BASOPHILS (test code = 1013) 0.5 % IMMATURE GRANULOCYTES (test code = 1036) 0.3 % NUCLEATED RBCS (test code = 1065) 0.0 /100WBC'S PLATELET COUNT (test code = 1015) 291 K/UL ABSOLUTE NEUTROPHILS (test code = 1066) 5.52 K/UL ABSOLUTE LYMPHOCYTES (test code = 1067) 2.49 K/UL ABSOLUTE MONOCYTES (test code = 1068) 0.67 K/UL ABSOLUTE EOSINOPHILS (test code = 1040) 0.07 K/UL ABSOLUTE BASOPHILS (test code = 1069) 0.04 K/UL ABS IMMATURE GRANULOCYTES (test code = 1020) 0.03 K/UL ABS NUCLEATED RBCS (test code = 72738) 0.00 K/UL BLOOD TYPE AND RH (test code = 3901) O POSITIVE ANTIBODY SCREEN (test code = 3902) NEGATIVE RUBELLA ANTIBODY SCREEN (test code = 4600) 52 IU/ML RUBELLA IgG INTERP (test code = 91297) REACTIVE HEPATITIS B SURF AG (test code = 2739) NON-REACTIVE RPR (test code = 97583) NON-REACTIVE RPR TITER (test code = 3500) NOT INDIC. TITER HIV 1/2 4TH GEN, RFLX CONF (test code = 3514) NON-REACTIVE HEPATITIS C REFLEX [id number] 00:00:00* Test Item Value Reference Range Interpretation Comme nts HEPATITIS C ANTIBODY (test c ode = 4675) NON-REACTIVE THC METABOLITE, QUANT, URINE [REFLEX]2022-06-01 00:00:00* Test Item Value Reference Range Interpretation Comme nts CARBOXY-THC INTERP (test cod e = 22170) Positive CARBOXY-THC QNT (test code = 69064) >500 ng/mL THC METABOLITE, QUANT, URINE [REFLEX]2022-06-01 00:00:00* Test Item Value Reference Range Interpretation Comme nts CARBOXY-THC INTERP (test cod e = 15286) Positive CARBOXY-THC QNT (test code = 07777) >500 ng/mL HEPATITIS C REFLEX [id number] 00:00:00* Test Item Value Reference Range Interpretation Comme nts HEPATITIS C ANTIBODY (test c ode = 4675) NON-REACTIVE VARICELLA ZOSTER [id number] 00:00:00* Test Item Value Reference Range Interpretation Comme nts VARICELLA ZOSTER IgG (test c ode = 49568) 296 INDEX VARICELLA ZOSTER [id number] 00:00:00* Test Item Value Reference Range Interpretation Comme nts VARICELLA ZOSTER IgG (test c ode = 00100) 296 INDEX VAGINAL PATHOGENS DNA [id number] 00:00:00* Test Item Value Reference Range Interpretation Comme nts VIJI SPECIES (test code = 55713) NEGATIVE G. VAGINALIS (test code = 85113) POSITIVE T. VAGINALIS (test code = 48656) POSITIVE VAGINAL PATHOGENS DNA [id number] 00:00:00* Test Item Value Reference Range Interpretation Comme nts VIJI SPECIES (test code = ) NEGATIVE G. VAGINALIS (test code = 78207) POSITIVE T. VAGINALIS (test code = 31318) POSITIVE OBSTETRIC PANEL + [id number] 00:00:00* Test Item Value Reference Range Interpretation Comme nts WBC (test code = 1001) 8.8 K/UL RBC (test code = 1002) 4.01 M/UL HEMOGLOBIN (test code = 1003) 12.1 G/DL HEMATOCRIT (test code = 1004) 36.1 % MCV (test code = 1005) 90.0 fL MCH (test code = 1006) 30.2 PG MCHC (test code = 1007) 33.5 G/DL RDW (test code = 1038) 11.7 % NEUTROPHILS (test code = 1008) 62.6 % LYMPHOCYTES (test code = 1010) 28.2 % MONOCYTES (test code = 1011) 7.6 % EOSINOPHILS (test code = 1012) 0.8 % BASOPHILS (test code = 1013) 0.5 % IMMATURE GRANULOCYTES (test code = 1036) 0.3 % NUCLEATED RBCS (test code = 1065) 0.0 /100WBC'S PLATELET COUNT (test code = 1015) 291 K/UL ABSOLUTE NEUTROPHILS (test code = 1066) 5.52 K/UL ABSOLUTE LYMPHOCYTES (test code = 1067) 2.49 K/UL ABSOLUTE MONOCYTES (test code = 1068) 0.67 K/UL ABSOLUTE EOSINOPHILS (test code = 1040) 0.07 K/UL ABSOLUTE BASOPHILS (test code = 1069) 0.04 K/UL ABS IMMATURE GRANULOCYTES (test code = 1020) 0.03 K/UL ABS NUCLEATED RBCS (test code = 73023) 0.00 K/UL BLOOD TYPE AND RH (test code = 3901) O POSITIVE ANTIBODY SCREEN (test code = 3902) NEGATIVE RUBELLA ANTIBODY SCREEN (test code = 4600) 52 IU/ML RUBELLA IgG INTERP (test code = 31805) REACTIVE HEPATITIS B SURF AG (test code = 2739) NON-REACTIVE RPR (test code = 22109) NON-REACTIVE RPR TITER (test code = 3500) NOT INDIC. TITER HIV 1/2 4TH GEN, RFLX CONF (test code = 3514) NON-REACTIVE OBSTETRIC PANEL + [id number] 00:00:00* Test Item Value Reference Range Interpretation Comme nts WBC (test code = 1001) 8.8 K/UL RBC (test code = 1002) 4.01 M/UL HEMOGLOBIN (test code = 1003) 12.1 G/DL HEMATOCRIT (test code = 1004) 36.1 % MCV (test code = 1005) 90.0 fL MCH (test code = 1006) 30.2 PG MCHC (test code = 1007) 33.5 G/DL RDW (test code = 1038) 11.7 % NEUTROPHILS (test code = 1008) 62.6 % LYMPHOCYTES (test code = 1010) 28.2 % MONOCYTES (test code = 1011) 7.6 % EOSINOPHILS (test code = 1012) 0.8 % BASOPHILS (test code = 1013) 0.5 % IMMATURE GRANULOCYTES (test code = 1036) 0.3 % NUCLEATED RBCS (test code = 1065) 0.0 /100WBC'S PLATELET COUNT (test code = 1015) 291 K/UL ABSOLUTE NEUTROPHILS (test code = 1066) 5.52 K/UL ABSOLUTE LYMPHOCYTES (test code = 1067) 2.49 K/UL ABSOLUTE MONOCYTES (test code = 1068) 0.67 K/UL ABSOLUTE EOSINOPHILS (test code = 1040) 0.07 K/UL ABSOLUTE BASOPHILS (test code = 1069) 0.04 K/UL ABS IMMATURE GRANULOCYTES (test code = 1020) 0.03 K/UL ABS NUCLEATED RBCS (test code = 68634) 0.00 K/UL BLOOD TYPE AND RH (test code = 3901) O POSITIVE ANTIBODY SCREEN (test code = 3902) NEGATIVE RUBELLA ANTIBODY SCREEN (test code = 4600) 52 IU/ML RUBELLA IgG INTERP (test code = 62961) REACTIVE HEPATITIS B SURF AG (test code = 2739) NON-REACTIVE RPR (test code = 78375) NON-REACTIVE RPR TITER (test code = 3500) NOT INDIC. TITER HIV 1/2 4TH GEN, RFLX CONF (test code = 3514) NON-REACTIVE OBSTETRIC PANEL + [id number] 00:00:00* Test Item Value Reference Range Interpretation Comme nts WBC (test code = 1001) 8.8 K/UL RBC (test code = 1002) 4.01 M/UL HEMOGLOBIN (test code = 1003) 12.1 G/DL HEMATOCRIT (test code = 1004) 36.1 % MCV (test code = 1005) 90.0 fL MCH (test code = 1006) 30.2 PG MCHC (test code = 1007) 33.5 G/DL RDW (test code = 1038) 11.7 % NEUTROPHILS (test code = 1008) 62.6 % LYMPHOCYTES (test code = 1010) 28.2 % MONOCYTES (test code = 1011) 7.6 % EOSINOPHILS (test code = 1012) 0.8 % BASOPHILS (test code = 1013) 0.5 % IMMATURE GRANULOCYTES (test code = 1036) 0.3 % NUCLEATED RBCS (test code = 1065) 0.0 /100WBC'S PLATELET COUNT (test code = 1015) 291 K/UL ABSOLUTE NEUTROPHILS (test code = 1066) 5.52 K/UL ABSOLUTE LYMPHOCYTES (test code = 1067) 2.49 K/UL ABSOLUTE MONOCYTES (test code = 1068) 0.67 K/UL ABSOLUTE EOSINOPHILS (test code = 1040) 0.07 K/UL ABSOLUTE BASOPHILS (test code = 1069) 0.04 K/UL ABS IMMATURE GRANULOCYTES (test code = 1020) 0.03 K/UL ABS NUCLEATED RBCS (test code = 05715) 0.00 K/UL BLOOD TYPE AND RH (test code = 3901) O POSITIVE ANTIBODY SCREEN (test code = 3902) NEGATIVE RUBELLA ANTIBODY SCREEN (test code = 4600) 52 IU/ML RUBELLA IgG INTERP (test code = 15772) REACTIVE HEPATITIS B SURF AG (test code = 2739) NON-REACTIVE RPR (test code = 68422) NON-REACTIVE RPR TITER (test code = 3500) NOT INDIC. TITER HIV 1/2 4TH GEN, RFLX CONF (test code = 3514) NON-REACTIVE THC METABOLITE, QUANT, URINE [REFLEX]2022-06-01 00:00:00* Test Item Value Reference Range Interpretation Comme nts CARBOXY-THC INTERP (test cod e = 26528) Positive CARBOXY-THC QNT (test code = 48245) >500 ng/mL THC METABOLITE, QUANT, URINE [REFLEX]2022-06-01 00:00:00* Test Item Value Reference Range Interpretation Comme nts CARBOXY-THC INTERP (test cod e = 57904) Positive CARBOXY-THC QNT (test code = 99120) >500 ng/mL HEPATITIS C REFLEX [id number] 00:00:00* Test Item Value Reference Range Interpretation Comme nts HEPATITIS C ANTIBODY (test c ode = 4675) NON-REACTIVE HEPATITIS C REFLEX [id number] 00:00:00* Test Item Value Reference Range Interpretation Comme nts HEPATITIS C ANTIBODY (test c ode = 4675) NON-REACTIVE VARICELLA ZOSTER [id number] 00:00:00* Test Item Value Reference Range Interpretation Comme nts VARICELLA ZOSTER IgG (test c ode = 99241) 296 INDEX VARICELLA ZOSTER [id number] 00:00:00* Test Item Value Reference Range Interpretation Comme nts VARICELLA ZOSTER IgG (test c ode = 92204) 296 INDEX CULTURE, [id number] 08:58:44SPECIMEN NUMBER: [id number] CULTURE, URINE SPECIMEN NUMBER: [id number] SPECIMEN COMMENT: URINE SOURCE: URINE REPORT STATUS: FINAL FINAL REPORT: 05/31/2022 10-50,000 CFU/ML UROGENITAL GLORIA PRESENT NO CO MMON PATHOGENSCT/NG, NAAT, [id number] 07:07:14* Test Item Value Reference Range Interpretation Comme nts GONORRHEA, NAAT (test code = 44216) NEGATIVE NEGATIVE IMPORTANT NO SUSAN: SEE ANNOUNCEMENT AT [email or web address] Note: Assay methodology is nucleic acid amplification by housekeeping associate mediated amplification (TMA) utilizing the [employer] Combo 2 Assay. CHLAMYDIA, NAAT (test code = 69621) NEGATIVE NEGATIVE IMPORTANT NO SUSAN: SEE ANNOUNCEMENT AT [email or web address] Note: Assay methodology is nucleic acid amplification by housekeeping associate mediated amplification (TMA) utilizing the [employer] Combo 2 Assay. CULTURE, [id number] 00:00:00* Test Item Value Reference Range Interpretation Comme nts CULTURE, URINE (test code = 68491) SPECIMEN NUMBER: [id number] CULTURE, [id number] 00:00:00* Test Item Value Reference Range Interpretation Comme nts CULTURE, URINE (test code = 74122) SPECIMEN NUMBER: [id number] CT/NG, TMA, [id number] 00:00:00* Test Item Value Reference Range Interpretation Comme nts GONORRHEA, NAAT (test code = 63700) NEGATIVE CHLAMYDIA, NAAT (test code = 18740) NEGATIVE CT/NG, TMA, [id number] 00:00:00* Test Item Value Reference Range Interpretation Comme nts GONORRHEA, NAAT (test code = 10539) NEGATIVE CHLAMYDIA, NAAT (test code = 94470) NEGATIVE CULTURE, [id number] 00:00:00* Test Item Value Reference Range Interpretation Comme nts CULTURE, URINE (test code = 46809) SPECIMEN NUMBER: [id number] CULTURE, [id number] 00:00:00* Test Item Value Reference Range Interpretation Comme nts CULTURE, URINE (test code = 15249) SPECIMEN NUMBER: [id number] CT/NG, TMA, [id number] 00:00:00* Test Item Value Reference Range Interpretation Comme nts GONORRHEA, NAAT (test code = 26843) NEGATIVE CHLAMYDIA, NAAT (test code = 64658) NEGATIVE CT/NG, TMA, [id number] 00:00:00* Test Item Value Reference Range Interpretation Comme nts GONORRHEA, NAAT (test code = 41073) NEGATIVE CHLAMYDIA, NAAT (test code = 52753) NEGATIVE CULTURE, [id number] 00:00:00* Test Item Value Reference Range Interpretation Comme nts CULTURE, URINE (test code = 23513) SPECIMEN NUMBER: [id number] CULTURE, [id number] 00:00:00* Test Item Value Reference Range Interpretation Comme nts CULTURE, URINE (test code = 24229) SPECIMEN NUMBER: [id number] CT/NG, TMA, [id number] 00:00:00* Test Item Value Reference Range Interpretation Comme nts GONORRHEA, NAAT (test code = 66843) NEGATIVE CHLAMYDIA, NAAT (test code = 43596) NEGATIVE CT/NG, TMA, [id number] 00:00:00* Test Item Value Reference Range Interpretation Comme nts GONORRHEA, NAAT (test code = 67361) NEGATIVE CHLAMYDIA, NAAT (test code = 20835) NEGATIVE CULTURE, [id number] 00:00:00* Test Item Value Reference Range Interpretation Comme nts CULTURE, URINE (test code = 28251) SPECIMEN NUMBER: [id number] CULTURE, [id number] 00:00:00* Test Item Value Reference Range Interpretation Comme nts CULTURE, URINE (test code = 91359) SPECIMEN NUMBER: [id number] CT/NG, TMA, [id number] 00:00:00* Test Item Value Reference Range Interpretation Comme nts GONORRHEA, NAAT (test code = 99493) NEGATIVE CHLAMYDIA, NAAT (test code = 52184) NEGATIVE CT/NG, TMA, [id number] 00:00:00* Test Item Value Reference Range Interpretation Comme nts GONORRHEA, NAAT (test code = 81308) NEGATIVE CHLAMYDIA, NAAT (test code = 23016) NEGATIVE DRUG ABUSE SCREEN 10 REFLEX [id number] 06:49:04* Test Item Value Reference Range Interpretation Comments AMPHETAMINES (test code = 3201) NEGATIVE NEGATIVE BARBITURATES (test code = 3202) NEGATIVE NEGATIVE BENZODIAZEPINES (test code = 3203) NEGATIVE NEGATIVE CANNABINOIDS (test code = 3204) SEE REFLEX TESTING NEGATIVE A COCAINE METABOLITE (test code = 3205) NEGATIVE NEGATIVE OPIATES (test code = 3209) NEGATIVE NEGATIVE OXYCODONE (test code = 03407) NEGATIVE NEGATIVE PHENCYCLIDINE (test code = 3210) NEGATIVE NEGATIVE METHADONE (test code = 3207) NEGATIVE NEGATIVE BUPRENORPHINE (test code = 18113) NEGATIVE NEGATIVE SOURCE (test code = 676318) URINE SEE BELOW FO R THRESHOLDS AND IMPORTANT METHOD NOTES ANALYTE SCREENING CUTOFF CONFIRMATORY CUTOFF ___AMPHETAMINES 500 NG/ML 100 NG/MLBARBITURATES 200 NG/ML 100 NG/MLBENZODIAZEPINES 200 NG/ML 100 NG/MLCANNABINOIDS (THC) 20 NG/ML 15 NG/MLCOCAINE METABOLITES 150 NG/ML 100 NG/MLOPIATE METABOLITES 300 NG/ML 100 NG/MLOXYCODONE 100 NG/ML 100 NG/MLPHENCYCLIDINE (PCP) 25 NG/ML 25 NG/MLMETHADONE 300 NG/ML 100 NG/MLBUPRENORPHINE 5 NG/ML 5 NG/ML NOTE: Screening methodology is qualitative Enzyme Immunoassay.The screening method may be less sensitive for certain medicationsincluding clonazepam and lorazepam in the benzodiazepine assay andtramadol or fentanyl in the opiate assay, amongst others. Patientcompliance, hydration status, timing and dose of medications, drugabsorption and specimen quality may affect screening assay.For clinical discrepancies, consider directed testing for specificcompounds or contact the laboratory within specimen stability toforward for confirmatory testing. This test is specified for medicalpurposes only. It is not valid for forensic use. DRUG ABUSE SCREEN 10 REFLEX [id number] 00:00:00* Test Item Value Reference Range Interpretation Comme nts AMPHETAMINES (test code = 3201) NEGATIVE BARBITURATES (test code = 3202) NEGATIVE BENZODIAZEPINES (test code = 3203) NEGATIVE CANNABINOIDS (test code = 3204) SEE REFLEX TESTING COCAINE METABOLITE (test code = 3205) NEGATIVE OPIATES (test code = 3209) NEGATIVE OXYCODONE (test code = 54698) NEGATIVE PHENCYCLIDINE (test code = 3210) NEGATIVE METHADONE (test code = 3207) NEGATIVE BUPRENORPHINE (test code = 72338) NEGATIVE SOURCE (test code = 227501) URINE DRUG ABUSE SCREEN 10 REFLEX [id number] 00:00:00* Test Item Value Reference Range Interpretation Comme nts AMPHETAMINES (test code = 3201) NEGATIVE BARBITURATES (test code = 3202) NEGATIVE BENZODIAZEPINES (test code = 3203) NEGATIVE CANNABINOIDS (test code = 3204) SEE REFLEX TESTING COCAINE METABOLITE (test code = 3205) NEGATIVE OPIATES (test code = 3209) NEGATIVE OXYCODONE (test code = 99287) NEGATIVE PHENCYCLIDINE (test code = 3210) NEGATIVE METHADONE (test code = 3207) NEGATIVE BUPRENORPHINE (test code = 72576) NEGATIVE SOURCE (test code = 020316) URINE DRUG ABUSE SCREEN 10 REFLEX [id number] 00:00:00* Test Item Value Reference Range Interpretation Comme nts AMPHETAMINES (test code = 3201) NEGATIVE BARBITURATES (test code = 3202) NEGATIVE BENZODIAZEPINES (test code = 3203) NEGATIVE CANNABINOIDS (test code = 3204) SEE REFLEX TESTING COCAINE METABOLITE (test code = 3205) NEGATIVE OPIATES (test code = 3209) NEGATIVE OXYCODONE (test code = 70290) NEGATIVE PHENCYCLIDINE (test code = 3210) NEGATIVE METHADONE (test code = 3207) NEGATIVE BUPRENORPHINE (test code = 89101) NEGATIVE SOURCE (test code = 951186) URINE DRUG ABUSE SCREEN 10 REFLEX [id number] 00:00:00* Test Item Value Reference Range Interpretation Comme nts AMPHETAMINES (test code = 3201) NEGATIVE BARBITURATES (test code = 3202) NEGATIVE BENZODIAZEPINES (test code = 3203) NEGATIVE CANNABINOIDS (test code = 3204) SEE REFLEX TESTING COCAINE METABOLITE (test code = 3205) NEGATIVE OPIATES (test code = 3209) NEGATIVE OXYCODONE (test code = 15717) NEGATIVE PHENCYCLIDINE (test code = 3210) NEGATIVE METHADONE (test code = 3207) NEGATIVE BUPRENORPHINE (test code = 23068) NEGATIVE SOURCE (test code = 447793) URINE DRUG ABUSE SCREEN 10 REFLEX [id number] 00:00:00* Test Item Value Reference Range Interpretation Comme nts AMPHETAMINES (test code = 3201) NEGATIVE BARBITURATES (test code = 3202) NEGATIVE BENZODIAZEPINES (test code = 3203) NEGATIVE CANNABINOIDS (test code = 3204) SEE REFLEX TESTING COCAINE METABOLITE (test code = 3205) NEGATIVE OPIATES (test code = 3209) NEGATIVE OXYCODONE (test code = 60633) NEGATIVE PHENCYCLIDINE (test code = 3210) NEGATIVE METHADONE (test code = 3207) NEGATIVE BUPRENORPHINE (test code = 32751) NEGATIVE SOURCE (test code = 928879) URINE DRUG ABUSE SCREEN 10 REFLEX [id number] 00:00:00* Test Item Value Reference Range Interpretation Comme nts AMPHETAMINES (test code = 3201) NEGATIVE BARBITURATES (test code = 3202) NEGATIVE BENZODIAZEPINES (test code = 3203) NEGATIVE CANNABINOIDS (test code = 3204) SEE REFLEX TESTING COCAINE METABOLITE (test code = 3205) NEGATIVE OPIATES (test code = 3209) NEGATIVE OXYCODONE (test code = 66268) NEGATIVE PHENCYCLIDINE (test code = 3210) NEGATIVE METHADONE (test code = 3207) NEGATIVE BUPRENORPHINE (test code = 38934) NEGATIVE SOURCE (test code = 696914) URINE DRUG ABUSE SCREEN 10 REFLEX [id number] 00:00:00* Test Item Value Reference Range Interpretation Comme nts AMPHETAMINES (test code = 3201) NEGATIVE BARBITURATES (test code = 3202) NEGATIVE BENZODIAZEPINES (test code = 3203) NEGATIVE CANNABINOIDS (test code = 3204) SEE REFLEX TESTING COCAINE METABOLITE (test code = 3205) NEGATIVE OPIATES (test code = 3209) NEGATIVE OXYCODONE (test code = 48783) NEGATIVE PHENCYCLIDINE (test code = 3210) NEGATIVE METHADONE (test code = 3207) NEGATIVE BUPRENORPHINE (test code = 73760) NEGATIVE SOURCE (test code = 571310) URINE DRUG ABUSE SCREEN 10 REFLEX [id number] 00:00:00* Test Item Value Reference Range Interpretation Comme nts AMPHETAMINES (test code = 3201) NEGATIVE BARBITURATES (test code = 3202) NEGATIVE BENZODIAZEPINES (test code = 3203) NEGATIVE CANNABINOIDS (test code = 3204) SEE REFLEX TESTING COCAINE METABOLITE (test code = 3205) NEGATIVE OPIATES (test code = 3209) NEGATIVE OXYCODONE (test code = 98605) NEGATIVE PHENCYCLIDINE (test code = 3210) NEGATIVE METHADONE (test code = 3207) NEGATIVE BUPRENORPHINE (test code = 65542) NEGATIVE SOURCE (test code = 965843) URINE TOTAL BHCG (QUANTITATIVE)2021-06-26 15:30:34* Test Item Value Reference Range Interpretation Comme nts BETA HCG (test code = 6748293672) See_Comment [Automated messa ge] The system which generated this result transmitted reference range: Non- female and male patients: <5 mIU/mL. The reference range was not used to interpret this result as normal/abnormal. MIHAELA (test code = MIHAELA) Gestational Age ?Range (mIU/mL) 1-10 ?Weeks ?[id number] Weeks ?32629-03111031-92 Weeks ?9528-38058660-86 Weeks ?9162-137221 Biotin has been reported to cause a negative bias, interpret results relative to patient's use of biotin. [facility]39[facility]21-[facility]-26 14:58:32* Test Item Value Reference Range Interpretation Comme nts NA (test code = 0707512696) 139 mmol/L 135-145 K (test code = 7744107164) 4.0 mmol/L 3.5-5.0 CL (test code = 2883650063) 107 mmol/L 98-108 CO2 TOTAL (test code = 1066046249) 26 mmol/L 23-31 AGAP (test code = 6513253055) 2-16 BUN (test code = 1038574106) 4 mg/dL 7-23 L GLUCOSE (test code = 3855482400) 100 mg/dL 70-110 CREATININE (test code = 0808807807) 0.53 mg/dL 0.50-1.04 TOTAL BILI (test code = 4915993919) 0.3 mg/dL 0.1-1.1 CALCIUM (test code = 0475687704) 9.4 mg/dL 8.6-10.6 T PROTEIN (test code = 5154499842) 7.9 g/dL 6.3-8.2 ALBUMIN (test code = 6152452054) 4.7 g/dL 3.5-5.0 ALK PHOS (test code = 5570899524) 71 U/L 34-122 ALTv (test code = 1742-6) 19 U/L 5-35 AST(SGOT) (test code = 3437565355) 27 U/L 13-40 eGFR (test code = 1368906387) mL/min/1.73m2 MIHAELA (test code = MIHAELA) Association of [...] or abnormalities in imaging tests). Lab Interpretation (test code = 50546-8) Abnormal [facility] WITH [id number] 14:45:48* Test Item Value Reference Range Interpretation Comme nts WBC (test code = 6690-2) See_Comment [Automated [employer]] The system which generated this result transmitted reference range: 4.30 - 11.10 10*3/?L. The reference range was not used to interpret this result as normal/abnormal. RBC (test code = 789-8) See_Comment [Automated [employer]] The system which generated this result transmitted reference range: 3.93 - 5.25 10*6/?L. The reference range was not used to interpret this result as normal/abnormal. HGB (test code = 718-7) 12.6 g/dL 11.6-15.0 HCT (test code = 4544-3) 37.8 % 35.7-45.2 MCV (test code = 787-2) 90.4 fL 80.6-95.5 MCH (test code = 785-6) 30.1 pg 25.9-32.8 MCHC (test code = 786-4) 33.3 g/dL 31.6-35.1 RDW-SD (test code = 50208-6) 39.1 fL 39.0-49.9 RDW-CV (test code = 788-0) 11.8 % 12.0-15.5 L PLT (test code = 777-3) See_Comment [Automated messa ge] The system which generated this result transmitted reference range: 166 - 358 10*3/?L. The reference range was not used to interpret this result as normal/abnormal. MPV (test code = 16182-0) 10.2 fL 9.5-12.9 NRBC/100 WBC (test code = 2290914114) See_Comment [Automated [employer]] The system which generated this result transmitted reference range: 0.0 - 10.0 /100 WBCs. The reference range was not used to interpret this result as normal/abnormal. NRBC x10^3 (test code = 6142802491) <0.01 See_Comment [Automated messa ge] The system which generated this result transmitted reference range: 10*3/?L. The reference range was not used to interpret this result as normal/abnormal. GRAN MAT (NEUT) % (test code = 770-8) 61.6 % IMM GRAN % (test code = 1793625590) 0.20 % LYMPH % (test code = 736-9) 28.3 % MONO % (test code = 5905-5) 7.0 % EOS % (test code = 713-8) 2.5 % BASO % (test code = 706-2) 0.4 % GRAN MAT x10^3(ANC) (test code = 1362622263) 3.27 10*3/uL 1.88-7.09 IMM GRAN x10^3 (test code = 3920610646) <0.03 0.00-0.06 LYMPH x10^3 (test code = 731-0) 1.50 10*3/uL 1.32-3.29 MONO x10^3 (test code = 742-7) 0.37 10*3/uL 0.33-0.92 EOS x10^3 (test code = 711-2) 0.13 10*3/uL 0.03-0.39 BASO x10^3 (test code = 704-7) <0.03 0.01-0.07 Lab Interpretation (test code = 91861-3) Abnormal [facility] Confirmation (Lab Only)2021-06-20 02:41:59* Test Item Value Reference Range Interpretation Comme nts ABO & RH (test code = 20) O Positive Performed at [facility] Laboratory [facility] Blood [address] [place] [address] Free: [phone] No. [id number] [facility] Confirmation (Lab Only)2021-06-20 02:41:59* Test Item Value Reference Range Interpretation Comme nts ABO & RH (test code = 20) O Positive Performed at [facility] Blood [address] Free: [phone] No. [id number] [facility] BHCG (QUANTITATIVE)2021-06-20 02:40:26* Test Item Value Reference Range Interpretation Comme nts BETA HCG (test code = 8567083352) See_Comment [Automated [employer]] The system which generated this result transmitted reference range: Non- female and male patients: <5 mIU/mL. The reference range was not used to interpret this result as normal/abnormal. MIHAELA (test code = MIHAELA) Gestational Age ?Range (mIU/mL) 1-10 ?Weeks ?[phone] Weeks ?59985-94727679-14 Weeks ?3419-86863298-09 Weeks ?0191-297284 Biotin has been reported to cause a negative bias, interpret results relative to patient's use of biotin. [facility] BHCG (QUANTITATIVE)2021-06-20 02:40:26* Test Item Value Reference Range Interpretation Comme nts BETA HCG (test code = 3354062063) See_Comment [Automated [employer]] The system which generated this result transmitted reference range: Non- female and male patients: <5 mIU/mL. The reference range was not used to interpret this result as normal/abnormal. MIHAELA (test code = MIHAELA) Gestational Age ?Range (mIU/mL) 1-10 ?Weeks ?37-44347568-45 Weeks ?80255-22555083-19 Weeks ?6561-46529418-03 Weeks ?6541-611168 Biotin has been reported to cause a negative bias, interpret results relative to patient's use of biotin. [facility] [id number] 02:33:51 * Test Item Value Reference Range Interpretation Comme nts ABO & RH (test code = 20) O Positive Performed at [facility] Laboratory [facility] Blood [address] Free: [phone] No. [id number] IAT (test code = 1185) Negative Performed at [facility] Laboratory [facility] Blood [place] [address]Toll Free: [phone] No. [id number] [facility] [id number] 02:33:51 * Test Item Value Reference Range Interpretation Comme nts ABO & RH (test code = 20) O Positive Performed at [facility] Laboratory [facility] Blood [place] [address]Toll Free: [phone] No. [id number] IAT (test code = 1185) Negative Performed at [facility] Laboratory [facility] Blood [place] [address]Toll Free: [phone] No. [id number] [facility]. METABOLIC PANEL ([id number])2021-06-20 02:20:41* Test Item Value Reference Range Interpretation Comme nts NA (test code = 5966922075) 140 mmol/L 135-145 K (test code = 0940673003) 3.4 mmol/L 3.5-5.0 L CL (test code = 9794108458) 106 mmol/L 98-108 CO2 TOTAL (test code = 8854141546) 25 mmol/L 23-31 AGAP (test code = 3804070660) 2-16 BUN (test code = 1597786873) 8 mg/dL 7-23 GLUCOSE (test code = 6064095177) 101 mg/dL 70-110 CREATININE (test code = 3988013702) 0.59 mg/dL 0.50-1.04 TOTAL BILI (test code = 9371209403) 0.5 mg/dL 0.1-1.1 CALCIUM (test code = 2840441243) 9.3 mg/dL 8.6-10.6 T PROTEIN (test code = 1930689181) 8.1 g/dL 6.3-8.2 ALBUMIN (test code = 0695011451) 4.7 g/dL 3.5-5.0 ALK PHOS (test code = 9893352857) 85 U/L 34-122 ALTv (test code = 1742-6) 27 U/L 5-35 AST(SGOT) (test code = 1443252377) 27 U/L 13-40 eGFR (test code = 6707621962) mL/min/1.73m2 MIHAELA (test code = MIHAELA) Association of [...] or abnormalities in imaging tests). Lab Interpretation (test code = 26013-6) Abnormal [facility]. METABOLIC PANEL (90332)2021-06-20 02:20:41* Test Item Value Reference Range Interpretation Comme nts NA (test code = 3818135665) 140 mmol/L 135-145 K (test code = 6773981034) 3.4 mmol/L 3.5-5.0 L CL (test code = 2599312687) 106 mmol/L 98-108 CO2 TOTAL (test code = 9534461965) 25 mmol/L 23-31 AGAP (test code = 3517130125) 2-16 BUN (test code = 8558442380) 8 mg/dL 7-23 GLUCOSE (test code = 7963560807) 101 mg/dL 70-110 CREATININE (test code = 6997106695) 0.59 mg/dL 0.50-1.04 TOTAL BILI (test code = 6675549073) 0.5 mg/dL 0.1-1.1 CALCIUM (test code = 5384377364) 9.3 mg/dL 8.6-10.6 T PROTEIN (test code = 5145410767) 8.1 g/dL 6.3-8.2 ALBUMIN (test code = 9969044038) 4.7 g/dL 3.5-5.0 ALK PHOS (test code = 2781488946) 85 U/L 34-122 ALTv (test code = 1742-6) 27 U/L 5-35 AST(SGOT) (test code = 0907232068) 27 U/L 13-40 eGFR (test code = 7081753808) mL/min/1.73m2 MIHAELA (test code = MIHAELA) Association of [...] or abnormalities in imaging tests). Lab Interpretation (test code = 11753-5) Abnormal [facility] WITH [id number] 02:01:15* Test Item Value Reference Range Interpretation Comme nts WBC (test code = 6690-2) See_Comment [Automated [employer]] The system which generated this result transmitted reference range: 4.30 - 11.10 10*3/?L. The reference range was not used to interpret this result as normal/abnormal. RBC (test code = 789-8) See_Comment [Automated [employer]] The system which generated this result transmitted reference range: 3.93 - 5.25 10*6/?L. The reference range was not used to interpret this result as normal/abnormal. HGB (test code = 718-7) 11.9 g/dL 11.6-15.0 HCT (test code = 4544-3) 35.4 % 35.7-45.2 L MCV (test code = 787-2) 89.2 fL 80.6-95.5 MCH (test code = 785-6) 30.0 pg 25.9-32.8 MCHC (test code = 786-4) 33.6 g/dL 31.6-35.1 RDW-SD (test code = 10266-5) 37.8 fL 39.0-49.9 L RDW-CV (test code = 788-0) 11.8 % 12.0-15.5 L PLT (test code = 777-3) See_Comment [Automated [employer]] The system which generated this result transmitted reference range: 166 - 358 10*3/?L. The reference range was not used to interpret this result as normal/abnormal. MPV (test code = 68984-0) 9.9 fL 9.5-12.9 NRBC/100 WBC (test code = 3152531993) See_Comment [Automated [employer]] The system which generated this result transmitted reference range: 0.0 - 10.0 /100 WBCs. The reference range was not used to interpret this result as normal/abnormal. NRBC x10^3 (test code = 6038032274) <0.01 See_Comment [Automated messa ge] The system which generated this result transmitted reference range: 10*3/?L. The reference range was not used to interpret this result as normal/abnormal. GRAN MAT (NEUT) % (test code = 770-8) 56.3 % IMM GRAN % (test code = 5852568777) 0.30 % LYMPH % (test code = 736-9) 32.7 % MONO % (test code = 5905-5) 8.3 % EOS % (test code = 713-8) 1.9 % BASO % (test code = 706-2) 0.5 % GRAN MAT x10^3(ANC) (test code = 8072865037) 4.15 10*3/uL 1.88-7.09 IMM GRAN x10^3 (test code = 1596233665) <0.03 0.00-0.06 LYMPH x10^3 (test code = 731-0) 2.41 10*3/uL 1.32-3.29 MONO x10^3 (test code = 742-7) 0.61 10*3/uL 0.33-0.92 EOS x10^3 (test code = 711-2) 0.14 10*3/uL 0.03-0.39 BASO x10^3 (test code = 704-7) 0.04 10*3/uL 0.01-0.07 Lab Interpretation (test code = 46343-1) Abnormal [facility] WITH [id number] 02:01:15* Test Item Value Reference Range Interpretation Comme nts WBC (test code = 6690-2) See_Comment [Automated [employer]] The system which generated this result transmitted reference range: 4.30 - 11.10 10*3/?L. The reference range was not used to interpret this result as normal/abnormal. RBC (test code = 789-8) See_Comment [Automated [employer]] The system which generated this result transmitted reference range: 3.93 - 5.25 10*6/?L. The reference range was not used to interpret this result as normal/abnormal. HGB (test code = 718-7) 11.9 g/dL 11.6-15.0 HCT (test code = 4544-3) 35.4 % 35.7-45.2 L MCV (test code = 787-2) 89.2 fL 80.6-95.5 MCH (test code = 785-6) 30.0 pg 25.9-32.8 MCHC (test code = 786-4) 33.6 g/dL 31.6-35.1 RDW-SD (test code = 66694-2) 37.8 fL 39.0-49.9 L RDW-CV (test code = 788-0) 11.8 % 12.0-15.5 L PLT (test code = 777-3) See_Comment [Automated [employer]] The system which generated this result transmitted reference range: 166 - 358 10*3/?L. The reference range was not used to interpret this result as normal/abnormal. MPV (test code = 32122-3) 9.9 fL 9.5-12.9 NRBC/100 WBC (test code = 5840418060) See_Comment [Automated me ssage] The system which generated this result transmitted reference range: 0.0 - 10.0 /100 WBCs. The reference range was not used to interpret this result as normal/abnormal. NRBC x10^3 (test code = 1962993409) <0.01 See_Comment [Automated messa ge] The system which generated this result transmitted reference range: 10*3/?L. The reference range was not used to interpret this result as normal/abnormal. GRAN MAT (NEUT) % (test code = 770-8) 56.3 % IMM GRAN % (test code = 0296770622) 0.30 % LYMPH % (test code = 736-9) 32.7 % MONO % (test code = 5905-5) 8.3 % EOS % (test code = 713-8) 1.9 % BASO % (test code = 706-2) 0.5 % GRAN MAT x10^3(ANC) (test code = 0080322271) 4.15 10*3/uL 1.88-7.09 IMM GRAN x10^3 (test code = 3482349855) <0.03 0.00-0.06 LYMPH x10^3 (test code = 731-0) 2.41 10*3/uL 1.32-3.29 MONO x10^3 (test code = 742-7) 0.61 10*3/uL 0.33-0.92 EOS x10^3 (test code = 711-2) 0.14 10*3/uL 0.03-0.39 BASO x10^3 (test code = 704-7) 0.04 10*3/uL 0.01-0.07 Lab Interpretation (test code = 85792-5) [id number] Test Item Value Reference Range Interpretation Comme nts POCT PREG (test code = 1605) positive On board controls acceptable with C Line (test code = 3574) present POCT PREG LOT # (test code = 3575) [id number] POCT PREG TEST DATE ( test code = 3576) 09/29/2022 Lab Interpretation (test cod e = 68463-5) [id number] 01:40:00* Test Item Value Reference Range Interpretation Comme nts POCT PREG (test code = 1605) positive On board controls acceptable with C Line (test code = 3574) present POCT PREG LOT # (test code = 3575) [id number] POCT PREG TEST DATE ( test code = 3576) 09/29/2022 Lab Interpretation (test cod e = 03208-4) [facility], [id number] 00:00:00* Test Item Value Reference Range Interpretation Comme nts GONORRHEA, TMA (test code = 23609) NEGATIVE CHLAMYDIA, TMA (test code = 04083) NEGATIVE GC AND CHLAMYDIA AMPLIFIED, [id number] 00:00:00* Test Item Value Reference Range Interpretation Comme nts GONORRHEA, TMA (test code = 27259) NEGATIVE CHLAMYDIA, TMA (test code = 18292) NEGATIVE PAP TEST, THINPREP, [id number] 00:00:00* Test Item Value Reference Range Interpretation Comme nts SOURCE: (test code = 8001) Cervical/Endocervical SLIDES: (test code = 8011) 1 LMP: (test code = 8021) 04/07/2021 SPECIMEN ADEQUACY: (test code = 78244) (NOTE) INTERPRETATION: (test code = 99538) NILM/NO EPITH. ABNORMALITY;SEE BELOW MASK LAYOUT DESIGNER: (test code = 8101) [place](ASCP)IAC LOCATION: (test code = 42643) (NOTE) CPT: (test code = 8140) (NOTE) PAP TEST, THINPREP, [id number] 00:00:00* Test Item Value Reference Range Interpretation Comme nts SOURCE: (test code = 8001) Cervical/Endocervical SLIDES: (test code = 8011) 1 LMP: (test code = 8021) 04/07/2021 SPECIMEN ADEQUACY: (test code = 81885) (NOTE) INTERPRETATION: (test code = 11446) NILM/NO EPITH. ABNORMALITY;SEE BELOW MASK LAYOUT DESIGNER: (test code = 8101) [place](ASCP)IAC LOCATION: (test code = 70596) (NOTE) CPT: (test code = 8140) (NOTE) HPV HIGH RISK WITH GENOTYPE, [id number] 00:00:00* Test Item Value Reference Range Interpretation Comme nts HPV HIGH RISK INTERP (test c ode = 06216) NEGATIVE HPV 16 (test code = 32369) NEGATIVE HPV 18 (test code = 98573) NEGATIVE HPV, HR, OTHER GENOTYPES (te st code = 97522) NEGATIVE HPV HIGH RISK WITH GENOTYPE, [id number] 00:00:00* Test Item Value Reference Range Interpretation Comme nts HPV HIGH RISK INTERP (test c ode = 83630) NEGATIVE HPV 16 (test code = 72064) NEGATIVE HPV 18 (test code = 63362) NEGATIVE HPV, HR, OTHER GENOTYPES (te st code = 77186) NEGATIVE GC AND CHLAMYDIA AMPLIFIED, [id number] 00:00:00* Test Item Value Reference Range Interpretation Comme nts GONORRHEA, TMA (test code = 37480) NEGATIVE CHLAMYDIA, TMA (test code = 62369) NEGATIVE GC AND CHLAMYDIA AMPLIFIED, [id number] 00:00:00* Test Item Value Reference Range Interpretation Comme nts GONORRHEA, TMA (test code = 67659) NEGATIVE CHLAMYDIA, TMA (test code = 29537) NEGATIVE PAP TEST, THINPREP, [id number] 00:00:00* Test Item Value Reference Range Interpretation Comme nts SOURCE: (test code = 8001) Cervical/Endocervical SLIDES: (test code = 8011) 1 LMP: (test code = 8021) 04/07/2021 SPECIMEN ADEQUACY: (test code = 39404) (NOTE) INTERPRETATION: (test code = 41169) NILM/NO EPITH. ABNORMALITY;SEE BELOW MASK LAYOUT DESIGNER: (test code = 8101) [place](ASCP)IAC LOCATION: (test code = 76053) (NOTE) CPT: (test code = 8140) (NOTE) PAP TEST, THINPREP, [id number] 00:00:00* Test Item Value Reference Range Interpretation Comme nts SOURCE: (test code = 8001) Cervical/Endocervical SLIDES: (test code = 8011) 1 LMP: (test code = 8021) 04/07/2021 SPECIMEN ADEQUACY: (test code = 63289) (NOTE) INTERPRETATION: (test code = 54380) NILM/NO EPITH. ABNORMALITY;SEE BELOW MASK LAYOUT DESIGNER: (test code = 8101) TERESA [place](ASCP)IAC LOCATION: (test code = 31414) (NOTE) CPT: (test code = 8140) (NOTE) HPV HIGH RISK WITH GENOTYPE, [id number] 00:00:00* Test Item Value Reference Range Interpretation Comme nts HPV HIGH RISK INTERP (test c ode = 05153) NEGATIVE HPV 16 (test code = 90143) NEGATIVE HPV 18 (test code = 24822) NEGATIVE HPV, HR, OTHER GENOTYPES (te st code = 45630) NEGATIVE HPV HIGH RISK WITH GENOTYPE, [id number] 00:00:00* Test Item Value Reference Range Interpretation Comme nts HPV HIGH RISK INTERP (test c ode = 85824) NEGATIVE HPV 16 (test code = 10979) NEGATIVE HPV 18 (test code = 44466) NEGATIVE HPV, HR, OTHER GENOTYPES (te st code = 09002) NEGATIVE GC AND CHLAMYDIA AMPLIFIED, [id number] 00:00:00* Test Item Value Reference Range Interpretation Comme nts GONORRHEA, TMA (test code = 77715) NEGATIVE CHLAMYDIA, TMA (test code = 39400) NEGATIVE GC AND CHLAMYDIA AMPLIFIED, [id number] 00:00:00* Test Item Value Reference Range Interpretation Comme nts GONORRHEA, TMA (test code = 40114) NEGATIVE CHLAMYDIA, TMA (test code = 93070) NEGATIVE GC AND CHLAMYDIA AMPLIFIED, [id number] 00:00:00* Test Item Value Reference Range Interpretation Comme nts GONORRHEA, TMA (test code = 28073) NEGATIVE CHLAMYDIA, TMA (test code = 56917) NEGATIVE PAP TEST, THINPREP, [id number] 00:00:00* Test Item Value Reference Range Interpretation Comme nts SOURCE: (test code = 8001) Cervical/Endocervical SLIDES: (test code = 8011) 1 LMP: (test code = 8021) 04/07/2021 SPECIMEN ADEQUACY: (test code = 31810) (NOTE) INTERPRETATION: (test code = 26541) NILM/NO EPITH. ABNORMALITY;SEE BELOW MASK LAYOUT DESIGNER: (test code = 8101) [place](ASCP)IAC LOCATION: (test code = 37731) (NOTE) CPT: (test code = 8140) (NOTE) PAP TEST, THINPREP, [id number] 00:00:00* Test Item Value Reference Range Interpretation Comme nts SOURCE: (test code = 8001) Cervical/Endocervical SLIDES: (test code = 8011) 1 LMP: (test code = 8021) 04/07/2021 SPECIMEN ADEQUACY: (test code = 66151) (NOTE) INTERPRETATION: (test code = 83579) NILM/NO EPITH. ABNORMALITY;SEE BELOW MASK LAYOUT DESIGNER: (test code = 8101) [place](ASCP)IAC LOCATION: (test code = 36832) (NOTE) CPT: (test code = 8140) (NOTE) GC AND CHLAMYDIA AMPLIFIED, [id number] 00:00:00* Test Item Value Reference Range Interpretation Comme nts GONORRHEA, TMA (test code = 71112) NEGATIVE CHLAMYDIA, TMA (test code = 53312) NEGATIVE HPV HIGH RISK WITH GENOTYPE, [id number] 00:00:00* Test Item Value Reference Range Interpretation Comme nts HPV HIGH RISK INTERP (test c ode = 50822) NEGATIVE HPV 16 (test code = 85506) NEGATIVE HPV 18 (test code = 30137) NEGATIVE HPV, HR, OTHER GENOTYPES (te st code = 91066) NEGATIVE HPV HIGH RISK WITH GENOTYPE, [id number] 00:00:00* Test Item Value Reference Range Interpretation Comme nts HPV HIGH RISK INTERP (test c ode = 72331) NEGATIVE HPV 16 (test code = 47217) NEGATIVE HPV 18 (test code = 95049) NEGATIVE HPV, HR, OTHER GENOTYPES (te st code = 46210) NEGATIVE PAP TEST, THINPREP, [id number] 00:00:00* Test Item Value Reference Range Interpretation Comme nts SOURCE: (test code = 8001) Cervical/Endocervical SLIDES: (test code = 8011) 1 LMP: (test code = 8021) 04/07/2021 SPECIMEN ADEQUACY: (test code = 61218) (NOTE) INTERPRETATION: (test code = 04768) NILM/NO EPITH. ABNORMALITY;SEE BELOW MASK LAYOUT DESIGNER: (test code = 8101) [place](ASCP)IAC LOCATION: (test code = 04743) (NOTE) CPT: (test code = 8140) (NOTE) PAP TEST, THINPREP, [id number] 00:00:00* Test Item Value Reference Range Interpretation Comme nts SOURCE: (test code = 8001) Cervical/Endocervical SLIDES: (test code = 8011) 1 LMP: (test code = 8021) 04/07/2021 SPECIMEN ADEQUACY: (test code = 64680) (NOTE) INTERPRETATION: (test code = 26431) NILM/NO EPITH. ABNORMALITY;SEE BELOW MASK LAYOUT DESIGNER: (test code = 8101) [place](ASCP)IAC LOCATION: (test code = 49085) (NOTE) CPT: (test code = 8140) (NOTE) HPV HIGH RISK WITH GENOTYPE, [id number] 00:00:00* Test Item Value Reference Range Interpretation Comme nts HPV HIGH RISK INTERP (test c ode = 04606) NEGATIVE HPV 16 (test code = 90078) NEGATIVE HPV 18 (test code = 48285) NEGATIVE HPV, HR, OTHER GENOTYPES (te st code = 33356) NEGATIVE GC AND CHLAMYDIA AMPLIFIED, [id number] 00:00:00* Test Item Value Reference Range Interpretation Comme nts GONORRHEA, TMA (test code = 43140) NEGATIVE CHLAMYDIA, TMA (test code = 07961) NEGATIVE GC AND CHLAMYDIA AMPLIFIED, [id number] 00:00:00* Test Item Value Reference Range Interpretation Comme nts GONORRHEA, TMA (test code = 89073) NEGATIVE CHLAMYDIA, TMA (test code = 97568) NEGATIVE PAP TEST, THINPREP, [id number] 00:00:00* Test Item Value Reference Range Interpretation Comme nts SOURCE: (test code = 8001) Cervical/Endocervical SLIDES: (test code = 8011) 1 LMP: (test code = 8021) 04/07/2021 SPECIMEN ADEQUACY: (test code = 64534) (NOTE) INTERPRETATION: (test code = 49566) NILM/NO EPITH. ABNORMALITY;SEE BELOW MASK LAYOUT DESIGNER: (test code = 8101) [place](ASCP)IAC LOCATION: (test code = 33109) (NOTE) CPT: (test code = 8140) (NOTE) PAP TEST, THINPREP, [id number] 00:00:00* Test Item Value Reference Range Interpretation Comme nts SOURCE: (test code = 8001) Cervical/Endocervical SLIDES: (test code = 8011) 1 LMP: (test code = 8021) 04/07/2021 SPECIMEN ADEQUACY: (test code = 62303) (NOTE) INTERPRETATION: (test code = 50088) NILM/NO EPITH. ABNORMALITY;SEE BELOW MASK LAYOUT DESIGNER: (test code = 8101) [place](ASCP)IAC LOCATION: (test code = 74188) (NOTE) CPT: (test code = 8140) (NOTE) HPV HIGH RISK WITH GENOTYPE, [id number] 00:00:00* Test Item Value Reference Range Interpretation Comme [facility] HPV HIGH RISK INTERP (test c ode = 99115) NEGATIVE HPV 16 (test code = 43057) NEGATIVE HPV 18 (test code = 62611) NEGATIVE HPV, HR, OTHER GENOTYPES (te st code = 37393) NEGATIVE HPV HIGH RISK WITH GENOTYPE, [id number] 00:00:00* Test Item Value Reference Range Interpretation Comme nts HPV HIGH RISK INTERP (test c ode = 23949) NEGATIVE HPV 16 (test code = 40654) NEGATIVE HPV 18 (test code = 39532) NEGATIVE HPV, HR, OTHER GENOTYPES (te st code = 59955) NEGATIVE HPV HIGH RISK WITH GENOTYPE, [id number] 00:00:00* Test Item Value Reference Range Interpretation Comme nts HPV HIGH RISK INTERP (test c ode = 50254) NEGATIVE HPV 16 (test code = 69305) NEGATIVE HPV 18 (test code = 43967) NEGATIVE HPV, HR, OTHER GENOTYPES (te st code = 73814) NEGATIVE GC AND CHLAMYDIA AMPLIFIED, [id number] 00:00:00* Test Item Value Reference Range Interpretation Comme nts GONORRHEA, TMA (test code = 69796) NEGATIVE CHLAMYDIA, TMA (test code = 92216) NEGATIVE GC AND CHLAMYDIA AMPLIFIED, [id number] 00:00:00* Test Item Value Reference Range Interpretation Comme nts GONORRHEA, TMA (test code = 33281) NEGATIVE CHLAMYDIA, TMA (test code = 08164) NEGATIVE PAP TEST, THINPREP, [id number] 00:00:00* Test Item Value Reference Range Interpretation Comme nts SOURCE: (test code = 8001) Cervical/Endocervical SLIDES: (test code = 8011) 1 LMP: (test code = 8021) 04/07/2021 SPECIMEN ADEQUACY: (test code = 31414) (NOTE) INTERPRETATION: (test code = 82202) NILM/NO EPITH. ABNORMALITY;SEE BELOW MASK LAYOUT DESIGNER: (test code = 8101) [place](ASCP)IAC LOCATION: (test code = 20585) (NOTE) CPT: (test code = 8140) (NOTE) PAP TEST, THINPREP, [id number] 00:00:00* Test Item Value Reference Range Interpretation Comme [facility] SOURCE: (test code = 8001) Cervical/Endocervical SLIDES: (test code = 8011) 1 LMP: (test code = 8021) 04/07/2021 SPECIMEN ADEQUACY: (test code = 64920) (NOTE) INTERPRETATION: (test code = 31717) NILM/NO EPITH. ABNORMALITY;SEE BELOW MASK LAYOUT DESIGNER: (test code = 8101) [place](ASCP)IAC LOCATION: (test code = 35597) (NOTE) CPT: (test code = 8140) (NOTE) HPV HIGH RISK WITH GENOTYPE, [id number] 00:00:00* Test Item Value Reference Range Interpretation Comme nts HPV HIGH RISK INTERP (test c ode = 74304) NEGATIVE HPV 16 (test code = 12151) NEGATIVE HPV 18 (test code = 21943) NEGATIVE HPV, HR, OTHER GENOTYPES (te st code = 44473) NEGATIVE HPV HIGH RISK WITH GENOTYPE, [id number] 00:00:00* Test Item Value Reference Range Interpretation Comme nts HPV HIGH RISK INTERP (test c ode = 33113) NEGATIVE HPV 16 (test code = 49680) NEGATIVE HPV 18 (test code = 54895) NEGATIVE HPV, HR, OTHER GENOTYPES (te st code = 15171) NEGATIVE HIV AB/AG COMBO RFLX [id number] 00:00:00* Test Item Value Reference Range Interpretation Comme nts HIV 1/2 4TH GEN, RFLX CONF ( test code = 3514) NON-REACTIVE HIV AB/AG COMBO RFLX [id number] 00:00:00* Test Item Value Reference Range Interpretation Comme nts HIV 1/2 4TH GEN, RFLX CONF ( test code = 3514) NON-REACTIVE ACUTE HEPATITIS [id number] 00:00:00* Test Item Value Reference Range Interpretation Comme nts HEPATITIS A IgM (test code = 55369) NON-REACTIVE HEPATITIS B CORE IgM (test c ode = 4644) NON-REACTIVE HEPATITIS B SURF AG (test co de = 2739) NON-REACTIVE HEPATITIS C ANTIBODY (test c ode = 4675) NON-REACTIVE INTERPRETATION HEPATITIS A: (test code = 2552) (NOTE) INTERPRETATION HEPATITIS B: (test code = 95991) (NOTE) INTERPRETATION HEPATITIS C: (test code = 66184) (NOTE) ACUTE HEPATITIS [id number] 00:00:00* Test Item Value Reference Range Interpretation Comme nts HEPATITIS A IgM (test code = 75562) NON-REACTIVE HEPATITIS B CORE IgM (test c ode = 4644) NON-REACTIVE HEPATITIS B SURF AG (test co de = 2739) NON-REACTIVE HEPATITIS C ANTIBODY (test c ode = 4675) NON-REACTIVE INTERPRETATION HEPATITIS A: (test code = 2552) (NOTE) INTERPRETATION HEPATITIS B: (test code = 37299) (NOTE) INTERPRETATION HEPATITIS C: (test code = 02628) (NOTE) [id number] 00:00:00* Test Item Value Reference Range Interpretation Comme nts RPR RESULT (test code = 3501) NON-REACTIVE RPR TITER (test code = 3500) NOT INDIC. TITER [id number] 00:00:00* Test Item Value Reference Range Interpretation Comme nts RPR RESULT (test code = 3501) NON-REACTIVE RPR TITER (test code = 3500) NOT INDIC. TITER [id number] 00:00:00* Test Item Value Reference Range Interpretation Comme nts RPR RESULT (test code = 3501) NON-REACTIVE RPR TITER (test code = 3500) NOT INDIC. TITER VAGINAL PATHOGENS DNA [id number] 00:00:00* Test Item Value Reference Range Interpretation Comme nts VIJI SPECIES (test code = ) NEGATIVE G. VAGINALIS (test code = 09782) POSITIVE T. VAGINALIS (test code = 92436) NEGATIVE VAGINAL PATHOGENS DNA [id number] 00:00:00* Test Item Value Reference Range Interpretation Comme nts VIJI SPECIES (test code = ) NEGATIVE G. VAGINALIS (test code = 33678) POSITIVE T. VAGINALIS (test code = 67840) NEGATIVE HIV AB/AG COMBO RFLX [id number] 00:00:00* Test Item Value Reference Range Interpretation Comme nts HIV 1/2 4TH GEN, RFLX CONF ( test code = 3514) NON-REACTIVE HIV AB/AG COMBO RFLX [id number] 00:00:00* Test Item Value Reference Range Interpretation Comme nts HIV 1/2 4TH GEN, RFLX CONF ( test code = 3514) NON-REACTIVE ACUTE HEPATITIS [id number] 00:00:00* Test Item Value Reference Range Interpretation Comme nts HEPATITIS A IgM (test code = 87237) NON-REACTIVE HEPATITIS B CORE IgM (test c ode = 4644) NON-REACTIVE HEPATITIS B SURF AG (test co de = 2739) NON-REACTIVE HEPATITIS C ANTIBODY (test c ode = 4675) NON-REACTIVE INTERPRETATION HEPATITIS A: (test code = 2552) (NOTE) INTERPRETATION HEPATITIS B: (test code = 42679) (NOTE) INTERPRETATION HEPATITIS C: (test code = 62362) (NOTE) ACUTE HEPATITIS [id number] 00:00:00* Test Item Value Reference Range Interpretation Comme nts HEPATITIS A IgM (test code = 78462) NON-REACTIVE HEPATITIS B CORE IgM (test c ode = 4644) NON-REACTIVE HEPATITIS B SURF AG (test co de = 2739) NON-REACTIVE HEPATITIS C ANTIBODY (test c ode = 4675) NON-REACTIVE INTERPRETATION HEPATITIS A: (test code = 2552) (NOTE) INTERPRETATION HEPATITIS B: (test code = 11669) (NOTE) INTERPRETATION HEPATITIS C: (test code = 83703) (NOTE) [id number] 00:00:00* Test Item Value Reference Range Interpretation Comme nts RPR RESULT (test code = 3501) NON-REACTIVE RPR TITER (test code = 3500) NOT INDIC. TITER [id number] 00:00:00* Test Item Value Reference Range Interpretation Comme nts RPR RESULT (test code = 3501) NON-REACTIVE RPR TITER (test code = 3500) NOT INDIC. TITER [id number] 00:00:00* Test Item Value Reference Range Interpretation Comme nts RPR RESULT (test code = 3501) NON-REACTIVE RPR TITER (test code = 3500) NOT INDIC. TITER VAGINAL PATHOGENS DNA [id number] 00:00:00* Test Item Value Reference Range Interpretation Comme nts VIJI SPECIES (test code = ) NEGATIVE G. VAGINALIS (test code = 90719) POSITIVE T. VAGINALIS (test code = 28247) NEGATIVE VAGINAL PATHOGENS DNA [id number] 00:00:00* Test Item Value Reference Range Interpretation Comme nts VIJI SPECIES (test code = ) NEGATIVE G. VAGINALIS (test code = 57188) POSITIVE T. VAGINALIS (test code = 20516) NEGATIVE HIV AB/AG COMBO RFLX [id number] 00:00:00* Test Item Value Reference Range Interpretation Comme nts HIV 1/2 4TH GEN, RFLX CONF ( test code = 3514) NON-REACTIVE HIV AB/AG COMBO RFLX [id number] 00:00:00* Test Item Value Reference Range Interpretation Comme nts HIV 1/2 4TH GEN, RFLX CONF ( test code = 3514) NON-REACTIVE HIV AB/AG COMBO RFLX [id number] 00:00:00* Test Item Value Reference Range Interpretation Comme nts HIV 1/2 4TH GEN, RFLX CONF ( test code = 3514) NON-REACTIVE HIV AB/AG COMBO RFLX [id number] 00:00:00* Test Item Value Reference Range Interpretation Comme nts HIV 1/2 4TH GEN, RFLX CONF ( test code = 3514) NON-REACTIVE ACUTE HEPATITIS [id number] 00:00:00* Test Item Value Reference Range Interpretation Comme nts HEPATITIS A IgM (test code = 02799) NON-REACTIVE HEPATITIS B CORE IgM (test c ode = 4644) NON-REACTIVE HEPATITIS B SURF AG (test co de = 1809) NON-REACTIVE HEPATITIS C ANTIBODY (test c ode = 4675) NON-REACTIVE INTERPRETATION HEPATITIS A: (test code = 2552) (NOTE) INTERPRETATION HEPATITIS B: (test code = 37408) (NOTE) INTERPRETATION HEPATITIS C: (test code = 00268) (NOTE) ACUTE HEPATITIS [id number] 00:00:00* Test Item Value Reference Range Interpretation Comme nts HEPATITIS A IgM (test code = 36214) NON-REACTIVE HEPATITIS B CORE IgM (test c ode = 4644) NON-REACTIVE HEPATITIS B SURF AG (test co de = 2739) NON-REACTIVE HEPATITIS C ANTIBODY (test c ode = 4675) NON-REACTIVE INTERPRETATION HEPATITIS A: (test code = 2552) (NOTE) INTERPRETATION HEPATITIS B: (test code = 75095) (NOTE) INTERPRETATION HEPATITIS C: (test code = 99253) (NOTE) [id number] 00:00:00* Test Item Value Reference Range Interpretation Comme nts RPR RESULT (test code = 3501) NON-REACTIVE RPR TITER (test code = 3500) NOT INDIC. TITER [id number] 00:00:00* Test Item Value Reference Range Interpretation Comme nts RPR RESULT (test code = 3501) NON-REACTIVE RPR TITER (test code = 3500) NOT INDIC. TITER [id number] 00:00:00* Test Item Value Reference Range Interpretation Comme nts RPR RESULT (test code = 3501) NON-REACTIVE RPR TITER (test code = 3500) NOT INDIC. TITER VAGINAL PATHOGENS DNA [id number] 00:00:00* Test Item Value Reference Range Interpretation Comme nts VIJI SPECIES (test code = 55736) NEGATIVE G. VAGINALIS (test code = 38447) POSITIVE T. VAGINALIS (test code = 74351) NEGATIVE VAGINAL PATHOGENS DNA [id number] 00:00:00* Test Item Value Reference Range Interpretation Comme nts VIJI SPECIES (test code = 37190) NEGATIVE G. VAGINALIS (test code = 51277) POSITIVE T. VAGINALIS (test code = 87290) NEGATIVE ACUTE HEPATITIS [id number] 00:00:00* Test Item Value Reference Range Interpretation Comme nts HEPATITIS A IgM (test code = 25341) NON-REACTIVE HEPATITIS B CORE IgM (test c ode = 4644) NON-REACTIVE HEPATITIS B SURF AG (test co de = 2739) NON-REACTIVE HEPATITIS C ANTIBODY (test c ode = 4675) NON-REACTIVE INTERPRETATION HEPATITIS A: (test code = 2552) (NOTE) INTERPRETATION HEPATITIS B: (test code = 19302) (NOTE) INTERPRETATION HEPATITIS C: (test code = 94318) (NOTE) ACUTE HEPATITIS [id number] 00:00:00* Test Item Value Reference Range Interpretation Comme nts HEPATITIS A IgM (test code = 04404) NON-REACTIVE HEPATITIS B CORE IgM (test c ode = 4644) NON-REACTIVE HEPATITIS B SURF AG (test co de = 2739) NON-REACTIVE HEPATITIS C ANTIBODY (test c ode = 4675) NON-REACTIVE INTERPRETATION HEPATITIS A: (test code = 2552) (NOTE) INTERPRETATION HEPATITIS B: (test code = 95404) (NOTE) INTERPRETATION HEPATITIS C: (test code = 92063) (NOTE) [id number] 00:00:00* Test Item Value Reference Range Interpretation Comme nts RPR RESULT (test code = 3501) NON-REACTIVE RPR TITER (test code = 3500) NOT INDIC. TITER [id number] 00:00:00* Test Item Value Reference Range Interpretation Comme nts RPR RESULT (test code = 3501) NON-REACTIVE RPR TITER (test code = 3500) NOT INDIC. TITER HIV AB/AG COMBO RFLX [id number] 00:00:00* Test Item Value Reference Range Interpretation Comme nts HIV 1/2 4TH GEN, RFLX CONF ( test code = 3514) NON-REACTIVE HIV AB/AG COMBO RFLX [id number] 00:00:00* Test Item Value Reference Range Interpretation Comme nts HIV 1/2 4TH GEN, RFLX CONF ( test code = 3514) NON-REACTIVE ACUTE HEPATITIS [id number] 00:00:00* Test Item Value Reference Range Interpretation Comme nts HEPATITIS A IgM (test code = 86756) NON-REACTIVE HEPATITIS B CORE IgM (test c ode = 4644) NON-REACTIVE HEPATITIS B SURF AG (test co de = 2739) NON-REACTIVE HEPATITIS C ANTIBODY (test c ode = 4675) NON-REACTIVE INTERPRETATION HEPATITIS A: (test code = 2552) (NOTE) INTERPRETATION HEPATITIS B: (test code = 47266) (NOTE) INTERPRETATION HEPATITIS C: (test code = 15962) (NOTE) ACUTE HEPATITIS [id number] 00:00:00* Test Item Value Reference Range Interpretation Comme nts HEPATITIS A IgM (test code = 53290) NON-REACTIVE HEPATITIS B CORE IgM (test c ode = 4644) NON-REACTIVE HEPATITIS B SURF AG (test co de = 2739) NON-REACTIVE HEPATITIS C ANTIBODY (test c ode = 4675) NON-REACTIVE INTERPRETATION HEPATITIS A: (test code = 2552) (NOTE) INTERPRETATION HEPATITIS B: (test code = 95106) (NOTE) INTERPRETATION HEPATITIS C: (test code = 88624) (NOTE) [id number] 00:00:00* Test Item Value Reference Range Interpretation Comme nts RPR RESULT (test code = 3501) NON-REACTIVE RPR TITER (test code = 3500) NOT INDIC. TITER [id number] 00:00:00* Test Item Value Reference Range Interpretation Comme nts RPR RESULT (test code = 3501) NON-REACTIVE RPR TITER (test code = 3500) NOT INDIC. TITER [id number] 00:00:00* Test Item Value Reference Range Interpretation Comme nts RPR RESULT (test code = 3501) NON-REACTIVE RPR TITER (test code = 3500) NOT INDIC. TITER [id number] 00:00:00* Test Item Value Reference Range Interpretation Comme nts RPR RESULT (test code = 3501) NON-REACTIVE RPR TITER (test code = 3500) NOT INDIC. TITER VAGINAL PATHOGENS DNA [id number] 00:00:00* Test Item Value Reference Range Interpretation Comme nts VIJI SPECIES (test code = ) NEGATIVE G. VAGINALIS (test code = 89143) POSITIVE T. VAGINALIS (test code = 06312) NEGATIVE VAGINAL PATHOGENS DNA [id number] 00:00:00* Test Item Value Reference Range Interpretation Comme nts VIJI SPECIES (test code = 44535) NEGATIVE G. VAGINALIS (test code = 94187) POSITIVE T. VAGINALIS (test code = 23632) NEGATIVE VAGINAL PATHOGENS DNA [id number] 00:00:00* Test Item Value Reference Range Interpretation Comme nts VIJI SPECIES (test code = 87227) NEGATIVE G. VAGINALIS (test code = 79662) POSITIVE T. VAGINALIS (test code = 27430) NEGATIVE VAGINAL PATHOGENS DNA [id number] 00:00:00* Test Item Value Reference Range Interpretation Comme nts VIJI SPECIES (test code = ) NEGATIVE G. VAGINALIS (test code = 66412) POSITIVE T. VAGINALIS (test code = 55537) NEGATIVE HIV AB/AG COMBO RFLX [id number] 00:00:00* Test Item Value Reference Range Interpretation Comme nts HIV 1/2 4TH GEN, RFLX CONF ( test code = 3514) NON-REACTIVE HIV AB/AG COMBO RFLX [id number] 00:00:00* Test Item Value Reference Range Interpretation Comme nts HIV 1/2 4TH GEN, RFLX CONF ( test code = 3514) NON-REACTIVE ACUTE HEPATITIS [id number] 00:00:00* Test Item Value Reference Range Interpretation Comme nts HEPATITIS A IgM (test code = 26071) NON-REACTIVE HEPATITIS B CORE IgM (test c ode = 4644) NON-REACTIVE HEPATITIS B SURF AG (test co de = 2739) NON-REACTIVE HEPATITIS C ANTIBODY (test c ode = 4675) NON-REACTIVE INTERPRETATION HEPATITIS A: (test code = 2552) (NOTE) INTERPRETATION HEPATITIS B: (test code = 84587) (NOTE) INTERPRETATION HEPATITIS C: (test code = 65136) (NOTE) ACUTE HEPATITIS [id number] 00:00:00* Test Item Value Reference Range Interpretation Comme nts HEPATITIS A IgM (test code = 06382) NON-REACTIVE HEPATITIS B CORE IgM (test c ode = 4644) NON-REACTIVE HEPATITIS B SURF AG (test co de = 2739) NON-REACTIVE HEPATITIS C ANTIBODY (test c ode = 4675) NON-REACTIVE INTERPRETATION HEPATITIS A: (test code = 2552) (NOTE) INTERPRETATION HEPATITIS B: (test code = 69341) (NOTE) INTERPRETATION HEPATITIS C: (test code = 17407) (NOTE) [id number] 00:00:00* Test Item Value Reference Range Interpretation Comme nts RPR RESULT (test code = 3501) NON-REACTIVE RPR TITER (test code = 3500) NOT INDIC. TITER [id number] 00:00:00* Test Item Value Reference Range Interpretation Comme nts RPR RESULT (test code = 3501) NON-REACTIVE RPR TITER (test code = 3500) NOT INDIC. TITER [id number] 00:00:00* Test Item Value Reference Range Interpretation Comme nts RPR RESULT (test code = 3501) NON-REACTIVE RPR TITER (test code = 3500) NOT INDIC. TITER VAGINAL PATHOGENS DNA [id number] 00:00:00* Test Item Value Reference Range Interpretation Comme nts VIJI SPECIES (test code = 82295) NEGATIVE G. VAGINALIS (test code = 20084) POSITIVE T. VAGINALIS (test code = 69942) NEGATIVE VAGINAL PATHOGENS DNA [id number] 00:00:00* Test Item Value Reference Range Interpretation Comme nts VIJI SPECIES (test code = 64680) NEGATIVE G. VAGINALIS (test code = 98323) POSITIVE T. VAGINALIS (test code = 14611) NEGATIVE"
--- NOTE | 2023-09-23 12:06 | ER ---
Nurse's Notes [facility] Name: Kia Garibay Age: 33 yrs Sex: Female : 1990 Arrival Date: 09/23/2023 Time: 11:35 Bed 13 Private MD: Diagnosis: Dental caries on pit and fissure surface Presentation: 09/23 11:57 Chief complaint: Patient states: BOTTOM LEFT MOLAR PAIN x5 DAYS, DENTIST APPOINTMENT IN ll1 2 DAYS. Coronavirus screen: At this time, the client does not indicate any symptoms associated with coronavirus-19. Ebola Screen: No symptoms or risks identified at this time. Initial Sepsis Screen: Does the patient meet any 2 criteria? No. Patient's initial sepsis screen is negative. Does the patient have a suspected source of infection? No. Patient's initial sepsis screen is negative. Risk Assessment: Do you want to hurt yourself or someone else? Patient reports no desire to harm self or others. Onset of symptoms is unknown. 11:57 Method Of Arrival: Ambulatory ll1 11:57 Acuity: OMID 5 ll1 Triage Assessment: 11:59 General: Appears in no apparent distress. Behavior is calm, cooperative, appropriate ll1 for age. Pain: Complains of pain in mouth. EENT: Reports pain in left cheek. Historical: - Allergies: 11:59 No Known Drug Allergies; ll1 - PMHx: 11:59 DENTAL CARIES; Kidney stones; Ovarian cyst; UTI; ll1 - PSHx: 11:59 section; Tonsillectomy; ll1 - Immunization history:: Adult Immunizations up to date. - Social history:: Smoking status: unknown. Screenin:35 [facility] ED Fall Risk Assessment (Adult) History of falling in the last 3 months, kc6 including since admission No falls in past 3 months (0 pts) Confusion or Disorientation No (0 pts) Intoxicated or Sedated No (0 pts) Impaired Gait No (0 pts) Mobility Assist Device Used No (0 pt) Altered Elimination No (0 pt) Score/Fall Risk Level 0 - 2 = Low Risk. Abuse screen: Denies threats or abuse. Denies injuries from another. Nutritional screening: No deficits noted. Tuberculosis screening: No symptoms or risk factors identified. Assessment: 11:59 Reassessment: please see triage assessment. kc6 Vital Signs: 11:57 BP 130 / 88; Pulse 65; Resp 16; Temp 99.1; Pulse Ox 100% ; Weight 70.31 kg; Height 4 ll1 ft. 11 in. ; 11:57 Body Mass Index 31.31 (70.31 kg, 149.86 cm) ll1 ED Course: 11:38 Patient arrived in ED. rg4 11:38 Wendi Madrigal FNP-C [facility]. snw 11:38 Anshul Prescott MD is Attending Physician. snw 11:59 Triage completed. ll1 11:59 Arm band placed on. ll1 12:02 Ann Diaz, RN is Primary Nurse. me1 12:35 Patient has correct armband on for positive identification. Bed in low position. Call kc6 light in reach. Side rails up X 1. Adult w/ patient. Client placed on continuous cardiac and pulse oximetry monitoring. NIBP monitoring applied. 12:35 Patient maintains SpO2 saturation greater than 95% on room air. kc6 12:35 No provider procedures requiring assistance completed. Patient did not have IV access kc6 during this emergency room visit. Administered Medications: 12:26 Drug: Ketorolac IM 30 mg IM once Route: IM; Site: left deltoid; kc6 12:34 Follow up: Response: No adverse reaction kc6 12:27 Drug: Amoxicillin-Clavulanate PO 875 mg PO once Route: PO; kc6 12:34 Follow up: Response: No adverse reaction kc6 Medication: 12:36 VIS not applicable for this client. kc6 Outcome: 12:06 Discharge ordered by . snw 12:35 Discharged to home ambulatory, with significant other, kc6 12:35 Condition: good 12:35 Discharge instructions given to patient, Instructed on discharge instructions, follow up and referral plans. medication usage, Demonstrated understanding of instructions, follow-up care, medications, Prescriptions given X 3, 12:36 Patient left the ED. kc6 Signatures: Wendi Madrigal FNP-C FNP-Mariluz Kelley rg4 Miguel Ramos RN RN ll1 Dina Tabares RN RN kc6 Ann Diaz, JENIFER RN ok1
--- NOTE | 2023-09-23 12:06 | EDPHYS ---
Physician Documentation [facility] Name: Kia Garibay Age: 33 yrs Sex: Female : 1990 Arrival Date: 09/23/2023 Time: 11:35 Bed 13 Private MD: ED Physician Anshul Prescott HPI: 09/23 12:28 This 33 yrs old Female presents to ER via Ambulatory with complaints of Toothache. snw 12:28 The patient presents with pain. The problem is located in the lower left second molar. snw Onset: The symptoms/episode began/occurred acutely. Duration: The symptoms are continuous, and are steadily getting worse. Severity of symptoms: At their worst the symptoms were moderate. The patient has experienced similar episodes in the past. appt with Dentist at the end of the week. Historical: - Allergies: 11:59 No Known Drug Allergies; ll1 - PMHx: 11:59 DENTAL CARIES; Kidney stones; Ovarian cyst; UTI; ll1 - PSHx: 11:59 section; Tonsillectomy; ll1 - Immunization history:: Adult Immunizations up to date. - Social history:: Smoking status: unknown. ROS: 12:29 Constitutional: Negative for fever, chills, and weight loss, Eyes: Negative for injury, snw pain, redness, and discharge, Neck: Negative for injury, pain, and swelling, Cardiovascular: Negative for chest pain, palpitations, and edema, Respiratory: Negative for shortness of breath, cough, wheezing, and pleuritic chest pain, Abdomen/GI: Negative for abdominal pain, nausea, vomiting, diarrhea, and constipation, Back: Negative for injury and pain, : Negative for injury, bleeding, discharge, and swelling, MS/Extremity: Negative for injury and deformity, Skin: Negative for injury, rash, and discoloration, Neuro: Negative for headache, weakness, numbness, tingling, and seizure, Psych: Negative for depression, anxiety, suicide ideation, homicidal ideation, and hallucinations, 12:29 ENT: Positive for dental pain, Exam: 12:30 Constitutional: This is a well developed, well nourished patient who is awake, alert, snw and in no acute distress. Head/Face: Normocephalic, atraumatic. Eyes: Pupils equal round and reactive to light, extra-ocular motions intact. Lids and lashes normal. Conjunctiva and sclera are non-icteric and not injected. Cornea within normal limits. Periorbital areas with no swelling, redness, or edema. Neck: Trachea midline, no thyromegaly or masses palpated, and no cervical lymphadenopathy. Supple, full range of motion without nuchal rigidity, or vertebral point tenderness. No Meningismus. Chest/axilla: Normal chest wall appearance and motion. Nontender with no deformity. No lesions are appreciated. Cardiovascular: Regular rate and rhythm with a normal S1 and S2. No gallops, murmurs, or rubs. Normal PMI, no JVD. No pulse deficits. Respiratory: Lungs have equal breath sounds bilaterally, clear to auscultation and percussion. No rales, rhonchi or wheezes noted. No increased work of breathing, no retractions or nasal flaring. Abdomen/GI: Soft, non-tender, with normal bowel sounds. No distension or tympany. No guarding or rebound. No evidence of tenderness throughout. Back: No spinal tenderness. No costovertebral tenderness. Full range of motion. Skin: Warm, dry with normal turgor. Normal color with no rashes, no lesions, and no evidence of cellulitis. MS/ Extremity: Pulses equal, no cyanosis. Neurovascular intact. Full, normal range of motion. Neuro: Awake and alert, GCS 15, oriented to person, place, time, and situation. Cranial nerves II-XII grossly intact. Motor strength 5/5 in all extremities. Sensory grossly intact. Cerebellar exam normal. Normal gait. Psych: Awake, alert, with orientation to person, place and time. Behavior, mood, and affect are within normal limits. 12:30 ENT: Dental exam: dental caries, that is moderate, that is severe, Vital Signs: 11:57 BP 130 / 88; Pulse 65; Resp 16; Temp 99.1; Pulse Ox 100% ; Weight 70.31 kg; Height 4 ll1 ft. 11 in. ; 11:57 Body Mass Index 31.31 (70.31 kg, 149.86 cm) ll1 MDM: 11:38 Patient medically screened. snw 12:09 Differential diagnosis: dental caries, gingivitis, dental abscess. Data reviewed: vital snw signs, nurses notes. I considered the following discharge prescriptions or medication management in the emergency department Medications were administered in the Emergency Department. See MAR. Counseling: I had a detailed discussion with the patient and/or guardian regarding the historical points, exam findings, and any diagnostic results supporting the discharge/admit diagnosis, the need for outpatient follow up, for definitive care, to return to the emergency department if symptoms worsen or persist or if there are any questions or concerns that arise at home. Special discussion: Based on the history and exam findings, there is no indication for further emergent testing or inpatient evaluation. I discussed with the patient/guardian the need to see a dentist for further evaluation of the symptoms. Administered Medications: 12:26 Drug: Ketorolac IM 30 mg IM once Route: IM; Site: left deltoid; kc6 12:34 Follow up: Response: No adverse reaction kc6 12:27 Drug: Amoxicillin-Clavulanate PO 875 mg PO once Route: PO; kc6 12:34 Follow up: Response: No adverse reaction kc6 Disposition: 12:46 Co-signature as Attending Physician, Anshul Prescott MD I reviewed the patient's care rt provided by the Advanced Practice Provider and agree with the diagnosis and treatment plan. Disposition Summary: 09/23/23 12:06 Discharge Ordered Notes: Location: Home snw Condition: Stable snw Diagnosis - Dental caries on pit and fissure surface snw Followup: snw - With: Private Physician - When: 2 - 3 days - Reason: Recheck today's complaints, Continuance of care, Re-evaluation by your physician Followup: snw - With: Emergency Department - When: As needed - Reason: Worsening of condition Discharge Instructions: - Discharge Summary Sheet snw - Dental Caries, Adult snw - Dental Extraction snw - Dental Pain snw - Preventive Dental Care, Adult snw Forms: - Medication Reconciliation Form snw - Thank You Letter snw - Antibiotic Education snw - Prescription Opioid Use snw - Patient Portal Instructions snw - Leadership Thank You Letter snw Prescriptions: - chlorhexidine gluconate 0.12 % subgingival-local Mouthwash - swish 15 milliliter ORAL route 2 times per day Swish and spit; 480 milliliter; snw Refills: 0, Product Selection Permitted - Augmentin 875-125 mg Oral Tablet - take 1 tablet ORAL route every 12 hours for 10 days; 20 tablet; Refills: 0, snw Product Selection Permitted - Tramadol 50 mg Oral Tablet - take 1 tablet ORAL route every 8 hours as needed; 12 tablet; Refills: 0, snw Product Selection Permitted Signatures: Wendi Madrigal FNP-C FNP-Miguel Hollins RN RN ll1 Dina Tabares RN RN kc6 Anshul Prescott MD MD rt
[2023-09-23 12:42] VITALS: BP 130/88; TEMP 99.1; O2SAT 100
== END ==
LOC: ER 11:35
DX: K02.51 Dental caries on pit and fissure surface limited to enamel (principal)
CPT/HCPCS: 96372; 99284